=== PATIENT | male | born 1945 | race Caucasian/White ===

== ENCOUNTER 2017-02-25 11:07 | Inpatient (IN) | payer MEDICARE, BC ==
[~2017-02-25] VITALS: Ht 177.8 cm; Wt 117.9 kg
[2017-02-25] MEDS ORDERED: COLACE100 MG/10 ORAL (11:36)
[2017-02-25] MEDS ORDERED: METOPROLOL SUCC50 MG ORAL (11:36)
[2017-02-25] MEDS ORDERED: KLONOPIN1 MG ORAL (11:36)
[2017-02-25] MEDS ORDERED: ZOFRAN4 M3 ORAL (11:36)
[2017-02-25] MEDS ORDERED: VENLAFAXINE HCL25 MG ORAL (11:36)
[2017-02-25] MEDS ORDERED: FLOMAX0.4 MG ORAL (11:36)
[2017-02-25] MEDS ORDERED: AGGRENOX1 CAP ORAL (11:36)
[2017-02-25] MEDS ORDERED: COREG12.5 MG ORAL (11:36)
[2017-02-25] MEDS ORDERED: SEROQUEL25 MG ORAL (11:36)
[2017-02-25] MEDS ORDERED: GLIPIZIDE5 MG ORAL (11:36)
[2017-02-25] MEDS ORDERED: OXYBUTYNIN5 MG/5 M1 PO (11:36)
[2017-02-25] MEDS ORDERED: FUROSEMIDE40 MG ORAL (11:36)
[2017-02-25] MEDS ORDERED: MIRALAX17 G2 ORAL (11:36)
[2017-02-25] MEDS ORDERED: JANUVIA25 MG ORAL (11:36)
[2017-02-25] MEDS ORDERED: ACETAMINOP160 MG/54 ORAL (11:36)
[2017-02-25] MEDS ORDERED: GABAPENTIN100 MG ORAL (11:36)
[2017-02-25] MEDS ORDERED: AMLODIPINE BESY10 MG ORAL (11:36)
[2017-02-25] MEDS ORDERED: LIPITOR20 MG ORAL (11:37)
[2017-02-25] MEDS ORDERED: PREVACID30 MG ORAL (11:37)
[2017-02-25] MEDS ORDERED: NOVOLIN R100 UNIT/1 SUBQ (11:37)
[2017-02-25 11:55] LABS: MEAN CORPUSCULAR HGB CONC 32.3 G/DL (32.0-36.0); MEAN CORPUSCULAR VOLUME 93 FL (80-99); MEAN PLATELET VOLUME 7.5 FL (6.5-10.1); PLATELET COUNT 288 K/UL (150-450); RED BLOOD COUNT 3.29 M/UL (4.70-6.10); WHITE BLOOD COUNT 16.9 K/UL (4.8-10.8)
[2017-02-25 12:00] VITALS: BP 117/58
[2017-02-25] MEDS ORDERED: Vancomycin 1.5 GM in D5W 325 ML IVPB STA (12:00)
[2017-02-25] MEDS ORDERED: Piperacillin/Tazobactam 4.5 GM in NS 110 ML IVPB ONE (12:00)
[2017-02-25 12:11] LABS: TROPONIN I < 0.30 ng/mL (<=0.30)
[2017-02-25 12:12] LABS: BAND NEUTROPHILS % (MANUAL) 0 % (0-8); BASOPHILS % (MANUAL) 0 % (0-2); EOSINOPHILS % (MANUAL) 0 % (0-3); HYPOCHROMASIA 1+; LYMPHOCYTES % (MANUAL) 6 % (20-45); NEUTROPHILS % (MANUAL) 91 % (45-75); PLATELET ESTIMATE ADEQUATE; PLATELET MORPHOLOGY NORMAL; TOTAL CELLS COUNTED 100
[2017-02-25 12:14] LABS: ALANINE AMINOTRANSFERASE 13 U/L (3-41); ALBUMIN/GLOBULIN RATIO 0.6 (1.0-2.7); ANION GAP 25 (5-15); ASPARTATE AMINO TRANSFERASE 21 U/L (5-40); CALCIUM 9.1 mg/dL (8.6-10.2); CARBON DIOXIDE 22 mEQ/L (20-30); CHLORIDE 85 mEQ/L (98-107); CREATININE 10.4 mg/dL (0.7-1.2); HEMOLYSIS 20; POTASSIUM 3.5 mEQ/L (3.4-4.9); SODIUM 132 mEQ/L (135-145); TOTAL PROTEIN 7.4 g/dL (6.6-8.7)
[2017-02-25] MEDS ORDERED: Morphine Sulfate 2mg/ml Inj IVP PRN ×2 (12:15→16:15)
[2017-02-25] MEDS ORDERED: LORazepam Inj 2mg/ml 1ml IV PRN ×2 (12:15→16:00)
[2017-02-25] MEDS ORDERED: Mylanta II UD 30ml ORAL PRN ×2 (12:15→16:00)
[2017-02-25 12:24] LABS: APPEARANCE,URINE SLIGHTLY CLOUDY; KETONES,URINE NEGATIVE (NEGATIVE); LEUKOCYTE ESTERASE ,URINE 3+ (NEGATIVE); NITRITE,URINE POSITIVE (NEGATIVE); PH,URINE 6 (4.5-8.0); PROTEIN,URINE 3+ (NEGATIVE); UROBILINOGEN,URINE NORMAL MG/DL (0.0-1.0)
[2017-02-25 12:39] LABS: BACTERIA,URINE FEW /HPF; SQUAMOUS EPITHELIAL CELL,UR OCCASIONAL /LPF (NONE/OCC); WBC,URINE 30-40 /HPF (0 - 0)
[2017-02-25] MEDS ORDERED: Zosyn 4.5gm inj ONE (12:41)
[2017-02-25] MEDS ORDERED: NS 110 ML ONE (12:41)
[2017-02-25] MEDS ORDERED: Tubing IV Cassette IV ONE (12:41)
--- NOTE | 2017-02-25 12:59 | Emergency Room Report ---
History of Present Illness General Chief Complaint: Altered Level of Consciousness Source: Patient, Medical Record Present Illness HPI 71YOM BIBEMS For "AMS." No other info from EMS. No family members bedside. All my info from review of multiple sheets of info from SNF. PMHx: HTN, anxiety, BPH, CHF?, DM MILAN, obstructive uropathy, HLD, anemia EMS rhytm strip is NSR. No ischemia Allergies: Coded Allergies: No Known Allergies (Unverified , 02/25/17) Patient History Past Medical History: unable to obtain Past Surgical History: unable to obtain Pertinent Family History: unable to obtain Nursing Documentation-PMH Hx Cardiac Problems: Yes - cad , pulm edema Hx Asthma: Yes Hx COPD: Yes Hx Cancer: No Hx Cerebrovascular Accident: No Hx Seizures: No Review of Systems All Other Systems: limited - AMS Physical Exam Vital Signs Date Time Temp Pulse Resp B/P Pulse Ox O2 Delivery O2 Flow Rate FiO2 02/25/17 11:10 97.9 78 16 110/70 100 Non-Rebreather 02/25/17 12:00 4.0 Sp02 EP Interpretation: reviewed, normal General Appearance: normal inspection, well appearing, no apparent distress, alert, GCS 15, non-toxic Head: normocephalic, atraumatic Eyes: bilateral eye EOMI, bilateral eye PERRL ENT: normal ENT inspection, normal pharynx, no angioedema Neck: normal inspection, full range of motion, supple, no bony tend Respiratory: normal inspection, lungs clear, normal breath sounds, no respiratory distress, no retraction, no wheezing Cardiovascular #1: regular rate, rhythm, no edema Gastrointestinal: normal inspection, normal bowel sounds, non tender, soft, no guarding, no hernia, distended Genitourinary: no CVA tenderness Musculoskeletal: normal inspection, back normal, normal range of motion, Maral' s Sign negative Neurologic: normal inspection, alert, oriented x3, responsive, 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 I attest that this information is true, accurate and complete to the best of my knowledge. I understand that any falsification, omission, or concealment of material fact may subject me to administrative, civil, or criminal liability. This patient warrants hospital admission for extreme of age and has a condition that cannot be treated as outpatient. Diagnostic Impression: Primary Impression: Altered level of consciousness Additional Impressions: Hypoglycemia Obstructive uropathy MILAN (acute kidney injury) UTI (urinary tract infection) Qualified Codes: N30.01 - Acute cystitis with hematuria ER Course AMS - Multifactorial - Hypoglycemic in the field. Known diabetic. Resolved with EMS treatment. Normal glucose on CMP. Will continue to monitor here - UTI. Was given broad spectrum Abx. Nitrite positive. Normotensive, no obvious signs of sepsis. Blood and Urine Cx pending - Noted abdomen distention, 1700cc urine released from benjamin insertion. Known obstrutive uropathy. Serum Cr is 10. Will need recheck. No history of CKD or HD. Endorsed to Dr Curran for tele admission at 1230pm. EKG Diagnostic Results Rate: normal, other - LVH Rhythm: NSR ST Segments: no acute changes Rhythm Strip Diag. Results EP Interpretation: yes Rate: 70 Rhythm: NSR, no PVC's, no ectopy Chest X-Ray Diagnostic Results EP Interpretation: Yes Findings: no consolidation, no effusion, no pneumothorax, other - +cardiomegaly Number of Views: 1 Last Vital Signs Date Time Temp Pulse Resp B/P Pulse Ox O2 Delivery O2 Flow Rate FiO2 02/25/17 12:00 99.1 71 24 117/58 95 Simple Mask 4.0 Status: improved Disposition: ADMITTED INPATIENT Condition: Serious Referrals: Shyam PRIEST M.D. (PCP) JASON FLORES M.D. February 25, 2017 12:59
[2017-02-25] MEDS ORDERED: D5 1/2NS 1,000 ML IV SCH ×2 (13:00→16:00)
[2017-02-25 14:00] VITALS: BP 128/60
[2017-02-25 14:00] LABS: MAGNESIUM 2.3 mg/dL (1.7-2.5); PHOSPHORUS 8.4 mg/dL (2.5-4.8); URIC ACID 15.4 mg/dL (3.0-7.5)
[2017-02-25 14:08] LABS: THYROID STIMULATING HORMONE 0.461 uIU/mL (0.300-4.500)
--- NOTE | 2017-02-25 14:22 | Diagnostic Imaging Report ---
Indication: Chest pain Technique: One view of the chest Comparison: none Findings: The heart is mildly enlarged. There is lateral pleural thickening. There is equivocal irregularity of the adjacent ribs There is generalized mild interstitial prominence. There are median sternotomy sutures Impression: Generalized mild interstitial prominence, acuity indeterminate Cardiomegaly Left lateral pleural thickening, possibly on the basis of old rib trauma
[2017-02-25 14:30] LABS: ABG ALLEN TEST POSITIVE; ABG BASE EXCESS 1.2
[2017-02-25 16:00] VITALS: BP 124/66
[2017-02-25] MEDS: NovoLOG Insulin Flexpen SUBQ SCH ×2 (16:30→21:00)
[2017-02-25 19:02] LABS: APPEARANCE,URINE CLOUDY; KETONES,URINE NEGATIVE (NEGATIVE); LEUKOCYTE ESTERASE ,URINE 3+ (NEGATIVE); NITRITE,URINE NEGATIVE (NEGATIVE); PH,URINE 5 (4.5-8.0); PROTEIN,URINE 3+ (NEGATIVE); UROBILINOGEN,URINE NORMAL MG/DL (0.0-1.0)
[2017-02-25 19:16] LABS: AMORPHOUS SEDIMENT,UR MODERATE /LPF; BACTERIA,URINE MANY /HPF; WBC,URINE TNTC /HPF (0 - 0)
[2017-02-25 20:00] VITALS: BP 126/77
[2017-02-25] MEDS ORDERED: Heparin 5000 units/ml inj SUBQ SCH (21:00)
[2017-02-25] MEDS ORDERED: Miralax 17gm pkt ORAL PRN ×2 (21:00)
[2017-02-25] MEDS ORDERED: Zolpidem 5mg tab ORAL PRN ×2 (21:00)
[2017-02-25] MEDS ORDERED: Zosyn 2.25 gm in D5W 55ml IV SCH (22:00)
[2017-02-25] MEDS: Heparin 5000 units/ml inj SUBQ SCH (22:01)
[2017-02-25] MEDS: Piperacillin/Tazobactam 2.25 GM in D5W 55 ML IV SCH (22:27)
--- NOTE | 2017-02-25 22:39 | History and Physical ---
History of Present Illness General Date patient seen: February 25, 2017 Reason for Hospitalization: Altered Level of Consciousness Present Illness HPI 71year old male with hx of HTN, anxiety, BPH, CHF, DM, [facility] resident was brought in with CC of "AMS." His BS was too low. He received D50 in the field. Initial evaluation in ER showed that he has ATN with hyperkalemia. He was somnolent and was not able to give any history Allergies: Coded Allergies: No Known Allergies (Unverified , 02/25/17) Medication History Scheduled Amlodipine Besylate* (Amlodipine Besylate*), 10 MG ORAL DAILY, (Reported) Atorvastatin Calcium* (Lipitor*), 20 MG ORAL BEDTIME, (Reported) Carvedilol (Coreg), 12.5 MG ORAL EVERY 12 HOURS, (Reported) Clonazepam* (Klonopin*), 1 MG ORAL Q12HR, (Reported) Dipyridamole/Aspirin (Aggrenox 25 mg-200 mg Capsule), 1 CAP ORAL DAILY, ( Reported) Docusate Sodium (Docusate Sodium), 100 MG ORAL DAILY, (Reported) Furosemide* (Lasix*), 40 MG ORAL DAILY, (Reported) Gabapentin* (Gabapentin*), 200 MG ORAL HS, (Reported) Glipizide* (Glipizide*), 5 MG ORAL BIDAC, (Reported) Insulin Regular, Human* (Novolin R*), 0 SUBQ .SLIDING SCALE, (Reported) Lansoprazole* (Prevacid*), 30 MG ORAL DAILY, (Reported) Metoprolol Succinate* (Metoprolol Succinate*), 50 MG ORAL DAILY, (Reported) Oxybutynin Chloride (Oxybutynin Chloride), 5 MG PO Q6HR, (Reported) Polyethylene Glycol 3350* (Miralax*), 17 GM ORAL DAILY, (Reported) Quetiapine Fumarate* (Seroquel*), 50 MG ORAL TWICE A DAY, (Reported) Sitagliptin* (Januvia*), 100 MG ORAL DAILY, (Reported) Tamsulosin HCl (Flomax), 0.4 MG ORAL DAILY, (Reported) Venlafaxine Hcl* (Effexor*), 150 MG ORAL BID, (Reported) Scheduled PRN Acetaminophen* (Acetaminophen*), 650 MG ORAL Q6H PRN for Mild Pain/Temp > 100.5, (Reported) Ondansetron* (Zofran*), 4 MG ORAL Q6H PRN for Nausea & Vomiting, (Reported) Patient History Healthcare decision maker Resuscitation status Full Code Advanced Directive on File No Past Medical/Surgical History Past Medical/Surgical History: (1) CAD (coronary artery disease) (2) Diabetes mellitus (3) Obstructive uropathy (4) COPD (chronic obstructive pulmonary disease) Review of Systems All Other Systems: negative except mentioned in HPI Physical Exam General Appearance: WD/WN Lines, tubes and drains: peripheral HEENT: normocephalic, atraumatic Neck: non-tender, normal alignment Respiratory/Chest: chest wall non-tender, normal breath sounds Cardiovascular/Chest: normal peripheral pulses, normal rate, regular rhythm, regularly irregular Abdomen: normal bowel sounds Genitourinary/Rectal: normal genital exam Extremities: normal range of motion Last 24 Hour Vital Signs Date Time Temp Pulse Resp B/P Pulse Ox O2 Delivery O2 Flow Rate FiO2 02/25/17 18:37 70 02/25/17 16:00 97.7 69 24 124/66 100 Simple Mask 10.0 02/25/17 14:00 97.5 73 26 128/60 98 Simple Mask 5.0 02/25/17 13:21 99.1 71 24 117/58 95 Simple Mask 4.0 02/25/17 12:00 99.1 71 24 117/58 95 Simple Mask 4.0 02/25/17 11:10 97.9 78 16 110/70 100 Non-Rebreather Laboratory Tests Test 02/25/17 11:15 02/25/17 12:10 02/25/17 14:15 02/25/17 18:30 White Blood Count 16.9 K/UL (4.8-10.8) H Red Blood Count 3.29 M/UL (4.70-6.10) L Hemoglobin 9.9 G/DL (14.2-18.0) L Hematocrit 30.6 % (42.0-52.0) L Mean Corpuscular Volume 93 FL (80-99) Mean Corpuscular Hemoglobin 30.0 PG (27.0-31.0) Mean Corpuscular Hemoglobin Concent 32.3 G/DL (32.0-36.0) Red Cell Distribution Width 13.0 % (11.6-14.8) Platelet Count 288 K/UL (150-450) Mean Platelet Volume 7.5 FL (6.5-10.1) Neutrophils (%) (Auto) % (45.0-75.0) Lymphocytes (%) (Auto) % (20.0-45.0) Monocytes (%) (Auto) % (1.0-10.0) Eosinophils (%) (Auto) % (0.0-3.0) Basophils (%) (Auto) % (0.0-2.0) Differential Total Cells Counted 100 Neutrophils % (Manual) 91 % (45-75) H Lymphocytes % (Manual) 6 % (20-45) L Monocytes % (Manual) 3 % (1-10) Eosinophils % (Manual) 0 % (0-3) Basophils % (Manual) 0 % (0-2) Band Neutrophils 0 % (0-8) Platelet Estimate Adequate Platelet Morphology Normal Hypochromasia 1+ Sodium Level 132 mEQ/L (135-145) L Potassium Level 3.5 mEQ/L (3.4-4.9) Chloride Level 85 mEQ/L (98-107) L Carbon Dioxide Level 22 mEQ/L (20-30) Anion Gap 25 (5-15) H Blood Urea Nitrogen 90 mg/dL (7-23) H Creatinine 10.4 mg/dL (0.7-1.2) H Estimat Glomerular Filtration Rate mL/min (>60) Glucose Level 170 mg/dL (74-106) H Plasma/Serum Osmolality Pending Uric Acid 15.4 mg/dL (3.0-7.5) H Calcium Level 9.1 mg/dL (8.6-10.2) Phosphorus Level 8.4 mg/dL (2.5-4.8) H Magnesium Level 2.3 mg/dL (1.7-2.5) Total Bilirubin 0.2 mg/dL (0.0-1.2) Aspartate Amino Transf (AST/SGOT) 21 U/L (5-40) Alanine Aminotransferase (ALT/SGPT) 13 U/L (3-41) Alkaline Phosphatase 79 U/L (40-129) Total Creatine Kinase 209 U/L (38-174) H Creatine Kinase MB 6.0 ng/mL (< 6.7) Creatine Kinase MB Relative Index 2.8 Troponin I < 0.30 ng/mL (<=0.30) Total Protein 7.4 g/dL (6.6-8.7) Albumin 3.0 g/dL (3.5-5.2) L Globulin 4.4 g/dL Albumin/Globulin Ratio 0.6 (1.0-2.7) L Thyroid Stimulating Hormone (TSH) 0.461 uIU/mL (0.300-4.500) Free Thyroxine 1.03 ng/dL (0.86-1.85) Free Triiodothyronine Pending Cortisol Pending Urine Color Pale yellow Pale yellow Urine Appearance Slightly cloudy Cloudy Urine pH 6 (4.5-8.0) 5 (4.5-8.0) Urine Specific [place] 1.015 (1.005-1.035) 1.020 (1.005-1.035) Urine Protein 3+ (NEGATIVE) H 3+ (NEGATIVE) H Urine Glucose (UA) 2+ (NEGATIVE) H Negative (NEGATIVE) Urine Ketones Negative (NEGATIVE) Negative (NEGATIVE) Urine Occult Blood 5+ (NEGATIVE) H 5+ (NEGATIVE) H Urine Nitrite Positive (NEGATIVE) H Negative (NEGATIVE) Urine Bilirubin Negative (NEGATIVE) Negative (NEGATIVE) Urine Urobilinogen Normal MG/DL (0.0-1.0) Normal MG/DL (0.0-1.0) Urine Leukocyte Esterase 3+ (NEGATIVE) H 3+ (NEGATIVE) H Urine RBC 5-10 /HPF (0 - 0) H 5-10 /HPF (0 - 0) H Urine WBC 30-40 /HPF (0 - 0) H Tntc /HPF (0 - 0) H Urine Squamous Epithelial Cells Occasional /LPF None /LPF (NONE/OCC) Urine Bacteria Few /HPF (NONE) Many /HPF (NONE) H Urine Opiates Screen Negative (NEGATIVE) Urine Barbiturates Screen Negative (NEGATIVE) Phencyclidine (PCP) Screen Negative (NEGATIVE) Urine Amphetamines Screen Negative (NEGATIVE) Urine Benzodiazepines Screen Positive (NEGATIVE) H Urine Cocaine Screen Negative (NEGATIVE) Urine Marijuana (THC) Screen Negative (NEGATIVE) Arterial Blood pH 7.410 (7.350-7.450) Arterial Blood Partial Pressure CO2 42.0 mmHg (35.0-45.0) Arterial Blood Partial Pressure O2 92.4 mmHg (75.0-100.0) Arterial Blood HCO3 26.0 mmol/L (22.0-26.0) Arterial Blood Oxygen Saturation 95.7 % (92.0-98.0) Arterial Blood Base Excess 1.2 [place] Test Positive Urine Amorphous Sediment Moderate /LPF (NONE) H Urine Eosinophils None seen Urine Osmolality Pending Urine Random Sodium 41 mmol/L Urine Random Chloride 36 mmol/L Urine Potassium Timed 27 mmol/L Height (Feet): 5 Height (Inches): 10.00 Weight (Pounds): 260 Medications Current Medications Medications (Trade) Dose Ordered Sig/Fernando Route PRN Reason Start Time Stop Time Status Last Admin Dose Admin Acetaminophen (Tylenol) 650 mg Q4H PRN ORAL T>100.5 02/25/17 16:00 03/27/17 15:59 Al Hydroxide/Mg Hydroxide (Mylanta II) 30 ml Q6H PRN ORAL dyspepsia 02/25/17 16:00 03/27/17 15:59 Dextrose (Dextrose 50%) STAT PRN IV Hypoglycemia 02/25/17 15:30 03/27/17 15:29 Dextrose/Sodium Chloride 1,000 ml @ 50 mls/hr Q20H IV 02/25/17 16:00 03/27/17 15:59 02/25/17 15:55 Heparin Sodium (Porcine) (Heparin 5000 units/ml) 5,000 units EVERY 12 HOURS SUBQ 02/25/17 21:00 03/27/17 20:59 02/25/17 22:01 Insulin Aspart (NovoLOG) BEFORE MEALS AND HS SUBQ 02/25/17 16:30 03/27/17 16:29 Lorazepam (Ativan 2mg/ml 1ml) 2 mg Q1H PRN IV seizures 02/25/17 16:00 03/04/17 15:59 Morphine Sulfate (Morphine Sulfate) 1 mg Q4H PRN IVP Severe Pain (Pain Scale 7-10) 02/25/17 16:15 03/04/17 16:14 Ondansetron HCl (Zofran) 4 mg Q6H PRN IVP Nausea & Vomiting 02/25/17 16:15 03/27/17 16:14 Piperacillin Sod/ Tazobactam Sod/ Dextrose (Zosyn/D5W) 55 ml @ 110 mls/hr Q8HR IV 02/25/17 22:00 03/04/17 21:59 02/25/17 22:27 Polyethylene Glycol (Miralax) 17 gm HSPRN PRN ORAL Constipation 02/25/17 21:00 03/27/17 20:59 Vancomycin HCl (Vanco rx to dose) 1 ea DAILY PRN MISC Per rx protocol 02/25/17 16:00 03/27/17 15:59 Zolpidem Tartrate (Ambien) 5 mg HSPRN PRN ORAL Insomnia 02/25/17 21:00 03/27/17 20:59 Assessment/Plan Problem List: (1) Acute encephalopathy ICD Codes: G93.40 - Encephalopathy, unspecified SNOMED: 2914890 (2) Sepsis ICD Codes: A41.9 - Sepsis, unspecified organism SNOMED: 46313958 (3) ATN (acute tubular necrosis) ICD Codes: N17.0 - Acute kidney failure with tubular necrosis SNOMED: 96027823 (4) Hypoglycemia ICD Codes: E16.2 - Hypoglycemia, unspecified SNOMED: 253149544 (5) Obstructive uropathy ICD Codes: N13.9 - Obstructive and reflux uropathy, unspecified SNOMED: 7869786 (6) CAD (coronary artery disease) ICD Codes: I25.10 - Atherosclerotic heart disease of [place] coronary artery without angina pectoris SNOMED: 56621878 (7) COPD (chronic obstructive pulmonary disease) ICD Codes: J44.9 - Chronic obstructive pulmonary disease, unspecified SNOMED: 53310025 Assessment/Plan IV fluids renal studies [place] culture sliding scale renal US swallow study pt/ot JUSTO LEBLANC February 25, 2017 22:39
[2017-02-26] VITALS (7 sets, daily range): BP systolic 131–155; BP diastolic 71–88
[2017-02-26] MEDS ORDERED: Piperacillin/Tazobactam 3.375 GM in NS 110 ML IVPB SCH (01:00)
[2017-02-26 05:32] LABS: BASOPHILS % (AUTO) 0.8 % (0.0-2.0); EOSINOPHILS % (AUTO) 1.7 % (0.0-3.0); LYMPHOCYTES % (AUTO) 7.4 % (20.0-45.0); MEAN CORPUSCULAR HEMOGLOBIN 30.3 PG (27.0-31.0); MEAN CORPUSCULAR HGB CONC 32.8 G/DL (32.0-36.0); MEAN CORPUSCULAR VOLUME 92 FL (80-99); MEAN PLATELET VOLUME 7.3 FL (6.5-10.1); MONOCYTES % (AUTO) 6.1 % (1.0-10.0); NEUTROPHILS % (AUTO) 84.1 % (45.0-75.0); PLATELET COUNT 273 K/UL (150-450); RED BLOOD COUNT 3.08 M/UL (4.70-6.10); WHITE BLOOD COUNT 14.1 K/UL (4.8-10.8)
[2017-02-26] MEDS: Piperacillin/Tazobactam 2.25 GM in D5W 55 ML IV SCH ×3 (06:00→21:43)
[2017-02-26] MEDS: NovoLOG Insulin Flexpen SUBQ SCH (06:00)
[2017-02-26 06:11] LABS: ALANINE AMINOTRANSFERASE 14 U/L (3-41); ALBUMIN/GLOBULIN RATIO 0.5 (1.0-2.7); ANION GAP 20 (5-15); ASPARTATE AMINO TRANSFERASE 25 U/L (5-40); CALCIUM 8.6 mg/dL (8.6-10.2); CARBON DIOXIDE 24 mEQ/L (20-30); CHLORIDE 96 mEQ/L (98-107); CREATININE 6.7 mg/dL (0.7-1.2); HEMOLYSIS 1; POTASSIUM 3.2 mEQ/L (3.4-4.9); SODIUM 140 mEQ/L (135-145); TOTAL PROTEIN 6.5 g/dL (6.6-8.7)
[2017-02-26 08:11] LABS: CORTISOL LC 14.6 ug/dL (.); FREE TRIIODOTHYRONINE 1.4 pg/mL (2.0-4.4)
[2017-02-26] MEDS: Heparin 5000 units/ml inj SUBQ SCH ×2 (08:28→20:31)
--- NOTE | 2017-02-26 10:15 | Consultation ---
Consult Note Consult Note Chief Complaint: Altered Level of Consciousness 71YOM BIBEMS For "AMS." No other info from EMS. No family members bedside. All my info from review of multiple sheets of info from SNF. PMHx: HTN, anxiety, BPH, CHF?, DM MILAN, obstructive uropathy, HLD, anemia EMS rhytm strip is NSR. No ischemia No Known Allergies (Unverified , 02/25/17) Hx Cardiac Problems: Yes - cad , pulm edema Hx Asthma: Yes Hx COPD: Yes after benjamin change , 1700 urine out Assessment/Plan Primary Impression: Altered level of consciousness : uremia and Hypoglycemia MILAN (acute kidney injury) due to urinary outlet obstruction UTI (urinary tract infection) HTN DM Psychosis Plan: Slow Hydrate- Keep BS and BP in check Monitor renal parameters Avoid Nephrotoxics Per orders JULIETA LEON February 26, 2017 10:15
--- NOTE | 2017-02-26 10:25 | Pulmonology Progress Note ---
Assessment/Plan Problems: (1) Acute encephalopathy (2) Sepsis (3) ATN (acute tubular necrosis) (4) Hypoglycemia (5) Obstructive uropathy (6) CAD (coronary artery disease) (7) COPD (chronic obstructive pulmonary disease) Assessment/Plan IV fluids renal studies pending improving [place] culture ID, Renal, Urology evaluation dvt prophylaxis Med/surg Subjective ROS Limited/Unobtainable: No Interval Events: talks one or two words, follows commands Allergies: Coded Allergies: No Known Allergies (Unverified , 02/25/17) Objective Last 24 Hour Vital Signs Date Time Temp Pulse Resp B/P Pulse Ox O2 Delivery O2 Flow Rate FiO2 02/26/17 08:00 99.8 86 24 144/71 94 Simple Mask 94 02/26/17 04:00 77 02/26/17 04:00 99.4 82 24 131/71 95 Non-Rebreather 02/26/17 00:00 75 02/26/17 00:00 98.2 76 20 145/71 100 Simple Mask 5.0 02/25/17 20:00 97.4 70 24 126/77 100 Simple Mask 5.0 02/25/17 20:00 70 02/25/17 18:37 70 02/25/17 16:00 97.7 69 24 124/66 100 Simple Mask 10.0 02/25/17 14:00 97.5 73 26 128/60 98 Simple Mask 5.0 02/25/17 13:21 99.1 71 24 117/58 95 Simple Mask 4.0 02/25/17 12:00 99.1 71 24 117/58 95 Simple Mask 4.0 02/25/17 11:10 97.9 78 16 110/70 100 Non-Rebreather Intake and Output 02/25/17 02/26/17 19:00 07:00 Intake Total 260 ml 820 ml Output Total 2250 ml 500 ml Balance -1990 ml 320 ml Intake IV Total 260 ml 820 ml Output Urine Total 2250 ml 500 ml General Appearance: WD/WN HEENT: normocephalic, atraumatic Respiratory/Chest: chest wall non-tender, lungs clear Cardiovascular: normal peripheral pulses, normal rate Abdomen: normal bowel sounds, soft, non tender, no organomegaly Extremities: no cyanosis, no clubbing Skin: no lesions 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/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 normal, no motor/sensory deficits, normal mood/affect Lymphatic: no groin adenopathy Musculoskeletal: normal muscle bulk Microbiology Date/Time Source Procedure Growth Status 02/25/17 18:30 Urine,Clean Catch Urine Culture - Preliminary NO GROWTH Resulted 02/25/17 12:10 Urine,Clean Catch Urine Culture - Preliminary NO GROWTH Resulted Laboratory Tests 02/25/17 11:15: White Blood Count 16.9H, Red Blood Count 3.29L, Hemoglobin 9.9L, Hematocrit 30.6L, Mean Corpuscular Volume 93, Mean Corpuscular Hemoglobin 30.0, Mean Corpuscular Hemoglobin Concent 32.3, Red Cell Distribution Width 13.0, Platelet Count 288, Mean Platelet Volume 7.5, Neutrophils (%) (Auto) , Lymphocytes (%) ( Auto) , Monocytes (%) (Auto) , Eosinophils (%) (Auto) , Basophils (%) (Auto) , Differential Total Cells Counted 100, Neutrophils % (Manual) 91H, Lymphocytes % (Manual) 6L, Monocytes % (Manual) 3, Eosinophils % (Manual) 0, Basophils % ( Manual) 0, Band Neutrophils 0, Platelet Estimate Adequate, Platelet Morphology Normal, Hypochromasia 1+, Sodium Level 132L, Potassium Level 3.5, Chloride Level 85L, Carbon Dioxide Level 22, Anion Gap 25H, Blood Urea Nitrogen 90H, Creatinine 10.4H, Estimat Glomerular Filtration Rate , Glucose Level 170H, Plasma/Serum Osmolality [Pending], Uric Acid 15.4H, Calcium Level 9.1, Phosphorus Level 8.4H, Magnesium Level 2.3, Total Bilirubin 0.2, Aspartate Amino Transf (AST/SGOT) 21, Alanine Aminotransferase (ALT/SGPT) 13, Alkaline Phosphatase 79, Total Creatine Kinase 209H, Creatine Kinase MB 6.0, Creatine Kinase MB Relative Index 2.8, Troponin I < 0.30, Total Protein 7.4, Albumin 3.0L , Globulin 4.4, Albumin/Globulin Ratio 0.6L, Thyroid Stimulating Hormone (TSH) 0.461, Free Thyroxine 1.03, Free Triiodothyronine 1.4L, Cortisol 14.6 02/25/17 12:10: Urine Color Pale yellow, Urine Appearance Slightly cloudy, Urine pH 6, Urine Specific [place] 1.015, Urine Protein 3+H, Urine Glucose (UA) 2+H, Urine Ketones Negative, Urine Occult Blood 5+H, Urine Nitrite PositiveH, Urine Bilirubin Negative, Urine Urobilinogen Normal, Urine Leukocyte Esterase 3+H, Urine RBC 5-10H, Urine WBC 30-40H, Urine Squamous Epithelial Cells Occasional, Urine Bacteria Few, Urine Opiates Screen Negative, Urine Barbiturates Screen Negative, Phencyclidine (PCP) Screen Negative, Urine Amphetamines Screen Negative, Urine Benzodiazepines Screen PositiveH, Urine Cocaine Screen Negative , Urine Marijuana (THC) Screen Negative 02/25/17 14:15: Arterial Blood pH 7.410, Arterial Blood Partial Pressure CO2 42.0, Arterial Blood Partial Pressure O2 92.4, Arterial Blood HCO3 26.0, Arterial Blood Oxygen Saturation 95.7, Arterial Blood Base Excess 1.2, Sterling Test Positive 02/25/17 18:30: Urine Color Pale yellow, Urine Appearance Cloudy, Urine pH 5, Urine Specific [place] 1.020, Urine Protein 3+H, Urine Glucose (UA) Negative, Urine Ketones Negative, Urine Occult Blood 5+H, Urine Nitrite Negative, Urine Bilirubin Negative, Urine Urobilinogen Normal, Urine Leukocyte Esterase 3+H, Urine RBC 5- 10H, Urine WBC TntcH, Urine Squamous Epithelial Cells None, Urine Bacteria ManyH , Urine Amorphous Sediment ModerateH, Urine Eosinophils None seen, Urine Osmolality [Pending], Urine Random Sodium 41, Urine Random Chloride 36, Urine Potassium Timed 27 02/26/17 03:45: White Blood Count 14.1H, Red Blood Count 3.08L, Hemoglobin 9.3L, Hematocrit 28.5L, Mean Corpuscular Volume 92, Mean Corpuscular Hemoglobin 30.3, Mean Corpuscular Hemoglobin Concent 32.8, Red Cell Distribution Width 13.0, Platelet Count 273, Mean Platelet Volume 7.3, Neutrophils (%) (Auto) 84.1H, Lymphocytes ( %) (Auto) 7.4L, Monocytes (%) (Auto) 6.1, Eosinophils (%) (Auto) 1.7, Basophils (%) (Auto) 0.8, Sodium Level 140, Potassium Level 3.2L, Chloride Level 96L, Carbon Dioxide Level 24, Anion Gap 20H, Blood Urea Nitrogen 82H, Creatinine 6.7H , Estimat Glomerular Filtration Rate , Glucose Level 63#L, Calcium Level 8.6, Total Bilirubin 0.3, Aspartate Amino Transf (AST/SGOT) 25, Alanine Aminotransferase (ALT/SGPT) 14, Alkaline Phosphatase 91, Total Protein 6.5L, Albumin 2.3L, Globulin 4.2, Albumin/Globulin Ratio 0.5L Current Medications Medications (Trade) Dose Ordered Sig/Fernando Route PRN Reason Start Time Stop Time Status Last Admin Dose Admin Acetaminophen (Tylenol) 650 mg Q4H PRN ORAL T>100.5 02/25/17 16:00 03/27/17 15:59 Al Hydroxide/Mg Hydroxide (Mylanta II) 30 ml Q6H PRN ORAL dyspepsia 02/25/17 16:00 03/27/17 15:59 Dextrose (Dextrose 50%) STAT PRN IV Hypoglycemia 02/25/17 15:30 03/27/17 15:29 Dextrose/Sodium Chloride 1,000 ml @ 50 mls/hr Q20H IV 02/25/17 16:00 03/27/17 15:59 02/25/17 15:55 Heparin Sodium (Porcine) (Heparin 5000 units/ml) 5,000 units EVERY 12 HOURS SUBQ 02/25/17 21:00 03/27/17 20:59 02/26/17 08:28 Insulin Aspart (NovoLOG) BEFORE MEALS AND HS SUBQ 02/25/17 16:30 03/27/17 16:29 Lorazepam (Ativan 2mg/ml 1ml) 2 mg Q1H PRN IV seizures 02/25/17 16:00 03/04/17 15:59 Morphine Sulfate (Morphine Sulfate) 1 mg Q4H PRN IVP Severe Pain (Pain Scale 7-10) 02/25/17 16:15 03/04/17 16:14 Ondansetron HCl (Zofran) 4 mg Q6H PRN IVP Nausea & Vomiting 02/25/17 16:15 03/27/17 16:14 Piperacillin Sod/ Tazobactam Sod/ Dextrose (Zosyn/D5W) 55 ml @ 110 mls/hr Q8HR IV 02/25/17 22:00 03/04/17 21:59 02/26/17 06:00 Polyethylene Glycol (Miralax) 17 gm HSPRN PRN ORAL Constipation 02/25/17 21:00 03/27/17 20:59 Vancomycin HCl (Vanco rx to dose) 1 ea DAILY PRN MISC Per rx protocol 02/25/17 16:00 03/27/17 15:59 Zolpidem Tartrate (Ambien) 5 mg HSPRN PRN ORAL Insomnia 02/25/17 21:00 03/27/17 20:59 JUSTO LEBLANC February 26, 2017 10:25
[2017-02-26] MEDS ORDERED: KCl 10% 40mEq/30ml liquid ORAL ONE (11:00)
--- NOTE | 2017-02-26 11:20 | Consultation ---
Consult Note Consult Note Id Dic # [id number] MARISOL CAPPS M.D. February 26, 2017 11:20
[2017-02-26] MEDS ORDERED: D5 1/2NS 1,000 ML IV SCH (12:00)
[2017-02-26] MEDS ORDERED: Pantoprazole Inj IVP SCH (12:45)
--- NOTE | 2017-02-26 13:30 | Diagnostic Imaging Report ---
Indication: Abnormal renal function tests Technique: Grayscale and duplex images of the kidneys, retroperitoneum, and bladder were obtained. Comparison:None Findings: Right kidney measures 12.1 cm in length. Left kidney measures 11.4 cm in length. Both kidneys demonstrate normal echogenicity. No hydronephrosis. There are small renal cysts bilaterally. Normal inferior vena cava. Bladder is nearly empty, contains a Melo catheter. 3.2 cm diameter of increased echogenicity inferiorly and posteriorly of the bladder could represent prominent prostate but is nonspecific in appearance. Impression: Negative for hydronephrosis Small bilateral renal cysts incidentally noted Empty bladder containing a Melo catheter Echogenic area in the posterior wall of the bladder, suspect indentation by prominent prostate but other pathology not excludable.
[2017-02-26] MEDS ORDERED: LORazepam Inj 2mg/ml 1ml IV PRN (17:00)
[2017-02-26] MEDS: D5 1/2NS 1,000 ML IV SCH (17:53)
--- NOTE | 2017-02-26 18:36 | Cardiology Report ---
APPROVED REPORT EKG Measurement Heart [id number] DC [id number] Normal sinus rhythm Left ventricular hypertrophy with QRS widening Nonspecific ST abnormality Abnormal ECG
--- NOTE | 2017-02-26 19:34 | Cardiology Report ---
APPROVED REPORT EXAM: Two-dimensional and M-mode echocardiogram with Doppler and color Doppler. INDICATION Left ventricular function M-Mode DIMENSIONS IVSd1.1 (0.7-1.1cm)Left Atrium (MM)3.7 (1.6-4.0cm) LVDd5.2 (3.5-5.6cm)Aortic Root2.9 (2.0-3.7cm) PWd1.1 (0.7-1.1cm)Aortic Cusp Exc.2.0 (1.5-2.0cm) LVDs3.4 (2.5-4.0cm) PWs1.8 cm Technically difficult study due to poor acoustic windows. Study quality precludes accurate assessment of regional wall motion. Normal left ventricular chamber size, systolic function and wall motion. Left ventricular ejection fraction estimated to be 55-60%. No evidence of ventricular hypertrophy. Small pericardial effusion. Severe right atrial enlargement. Moderate right ventricular enlargement. Left atrial chamber sizes are within normal limits. Mild focal aortic valve sclerosis with adequate cusp excursion. Mildly thickened mitral valve leaflets with normal excursion. Mild mitral annulus and aortic root calcification. Pulmonic valve not well visualized. Normal tricuspid valve structure. IVC at normal size with physiologic collapse. A color flow and spectral Doppler study was performed and revealed: Mild to moderate aortic regurgitation. Trace mitral regurgitation. Mitral diastolic velocities suggest reduced left ventricular relaxation (Grade I). Trace tricuspid regurgitation. Tricuspid systolic velocities suggests peak right ventricular systolic pressure of 12 mmHg. No pulmonic regurgitation present.
[2017-02-26] MEDS: Atorvastatin 20mg tab ORAL SCH (20:29)
[2017-02-26] MEDS: Carvedilol 12.5mg tab ORAL SCH (20:29)
[2017-02-26] MEDS ORDERED: Atorvastatin 20mg tab ORAL SCH (21:00)
[2017-02-26] MEDS ORDERED: Carvedilol 12.5mg tab ORAL SCH (21:00)
[2017-02-26] MEDS ORDERED: Miralax 17gm pkt ORAL PRN (21:00)
[2017-02-26] MEDS ORDERED: Zolpidem 5mg tab ORAL PRN (21:00)
--- NOTE | 2017-02-26 22:02 | Consultation ---
DATE OF CONSULTATION: 02/26/2017 INFECTIOUS DISEASE CONSULTATION REFERRING PHYSICIAN: Richard Curran M.D. REASON FOR CONSULTATION: Evaluation of the patient for sepsis, positive urinary tract infection, and antibiotic management. HISTORY OF PRESENT ILLNESS: The patient is a 71-year-old male with multiple medical problems, who was brought to the hospital for altered level of consciousness. Fortunately, there is no other source of infection available at this point. The patient admitted with sepsis. The patient was found to have cloudy urine. The patient will be started on IV antibiotics and an Infectious Disease consultation has been requested for further evaluation of the patient and antibiotic management. PAST MEDICAL HISTORY: 1. History of CAD. 2. CHF. 3. COPD. 4. Asthma. 5. Diabetes. 6. Depression. MEDICATIONS: Zosyn and vancomycin. ALLERGIES: No known drug allergies. SOCIAL HISTORY: Unobtainable. The patient is a poor historian. FAMILY HISTORY: Unavailable. PHYSICAL EXAMINATION: VITAL SIGNS: Temperature 99.8 degrees, blood pressure 144/75, pulse 66, and respiratory rate 18. HEENT: Mild pale conjunctivae. No icterus. NECK: No lymphadenopathy. CHEST: Coarse breathing sounds. HEART: S1 and S2. ABDOMEN: Soft. Obese. EXTREMITIES: No cyanosis. NEUROLOGIC: Awake. LABORATORY DATA: White blood cells 14, hemoglobin 9.3, and platelets 273,000. UA, too numerous to count white blood cells, 5 to 10 red blood cells. BUN 82 and creatinine 6.7. ALT, AST, and alkaline phosphatase are unremarkable. Urine culture is pending. Chest x-ray, left lateral pleural effusion. ASSESSMENT: The patient is a 71-year-old male with multiple medical problems, who has been admitted to this medical center for alerted level of consciousness and generalized weakness, most likely source is urinary tract infection, underlying pneumonia cannot be ruled out, also the possibility of bacteremia. PLAN: 1. We will continue the patient on IV vancomycin and Zosyn. 2. We will monitor CBC. 3. Monitor BMP. 4. Monitor cultures (blood, urine, and sputum). 5. Monitor the chest x-ray. 6. Monitor the patient's clinical course and labs, and based on those we will do further recommendations. Thank you, Dr. Curran, for allowing me to participate in the care of this patient. I will follow the patient with you during this hospitalization. Dileep Cao M.D. DR: Mo JOB#: [id number] CC:
[2017-02-27 04:00] VITALS: BP 147/82
--- NOTE | 2017-02-27 04:47 | Consultation ---
DATE OF CONSULTATION: 02/26/2017 The patient was seen on 02/26/2017 at 9 o'clock in the evening. CONSULTING PHYSICIAN: Heriberto Gallegos M.D. REFERRING PHYSICIAN: Richard Curran M.D. REASON FOR CONSULTATION: Obstructive uropathy. HISTORY OF PRESENT ILLNESS: I was asked by Dr. Curran to see this 71-year-old male with acute renal failure and BPH. He was admitted for the altered mental status to the emergency room. Melo catheter was placed. The patient had hydration and his condition slightly improved. He is currently with the Melo catheter. He has a history of BPH, congestive heart failure, and diabetes mellitus. He lives in a group home. The patient is not a good historian and does not respond to commands. So, I was not able to obtain his review of symptoms or any other family history. PAST MEDICAL HISTORY: As above. MEDICATIONS: Amlodipine, atorvastatin, carvedilol, clonazepam, furosemide, glipizide, tamsulosin, and some other general medications. PHYSICAL EXAMINATION: VITAL SIGNS: He is afebrile. His vital signs are stable. LUNGS: Clear to auscultation. CARDIOVASCULAR: Regular rate and rhythm. ABDOMEN: Soft. Normal bowel sounds. GENITOURINARY: Prostate is mildly enlarged, 50 g. Nontender. Melo catheter is in place with yellow urine. LABORATORY DATA: Laboratory data was reviewed. His white count has improved from 16.9 to 14.1. His hemoglobin is 9.3. His hematocrit is 28.5. His chemistry showed also subtle improve in his creatinine, went down from 10.4 yesterday to 6.7 today. His renal ultrasound showed no evidence of hydronephrosis bilaterally. His urine test showed specific gravity is 1.020 and 5 to 10 red blood cells and too numerous to count white blood cells. ASSESSMENT AND PLAN: The patient has benign prostatic hyperplasia and acute renal failure. Because of the absence hydronephrosis, I am not 100% convinced that it is an obstructive uropathy. He may have a prerenal azotemia or renal azotemia. However, obstructive component cannot be completely ruled out. He is currently defervescing with IV hydration and Melo catheter. I would recommend to continue tamsulosin, keep the Melo catheter until creatinine will stabilize, and we will re-study the patient then and make a decision in terms of his future management lower urinary tract. Thank you for the consult, and I will follow the patient with you. Heriberto Gallegos M.D. DR: ZENOBIA JOB#: [id number] CC:
[2017-02-27] MEDS: Piperacillin/Tazobactam 2.25 GM in D5W 55 ML IV SCH ×3 (05:55→23:05)
[2017-02-27] MEDS: D5 1/2NS 1,000 ML IV SCH ×2 (06:20→06:26)
[2017-02-27 06:40] LABS: INR 1.2 (0.9-1.1); PROTHROMBIN TIME 12.6 SEC (9.30-11.50)
[2017-02-27 06:55] LABS: MEAN CORPUSCULAR HEMOGLOBIN 30.5 PG (27.0-31.0); MEAN CORPUSCULAR HGB CONC 32.9 G/DL (32.0-36.0); MEAN CORPUSCULAR VOLUME 93 FL (80-99); MEAN PLATELET VOLUME 6.9 FL (6.5-10.1); PLATELET COUNT 321 K/UL (150-450); RED BLOOD COUNT 3.54 M/UL (4.70-6.10); WHITE BLOOD COUNT 13.8 K/UL (4.8-10.8)
[2017-02-27 07:03] LABS: HEMOGLOBIN A1C 6.9 % (< 6.0)
[2017-02-27 07:15] LABS: ALANINE AMINOTRANSFERASE 21 U/L (3-41); ALBUMIN/GLOBULIN RATIO 0.6 (1.0-2.7); ANION GAP 18 (5-15); ASPARTATE AMINO TRANSFERASE 23 U/L (5-40); CALCIUM 9.6 mg/dL (8.6-10.2); CARBON DIOXIDE 28 mEQ/L (20-30); CHLORIDE 96 mEQ/L (98-107); CHOLESTEROL 147 mg/dL (< 200); CHOLESTEROL/HDL RATIO 4.5 (3.3-4.4); CREATININE 2.9 mg/dL (0.7-1.2); LACTATE DEHYDROGENASE 231 U/L (135-230); LDL CHOLESTEROL (CALC.) 90 mg/dL (60-99); POTASSIUM 3.2 mEQ/L (3.4-4.9); SODIUM 142 mEQ/L (135-145); TOTAL PROTEIN 7.5 g/dL (6.6-8.7)
[2017-02-27 07:16] LABS: HEMOLYSIS 21; IRON 38 ug/dL (59-158); TOTAL IRON BINDING CAPACITY 160 ug/dL (250-400)
[2017-02-27 07:35] LABS: CRP QUANT 32.4 mg/dL (< 0.5); MAGNESIUM 2.1 mg/dL (1.7-2.5); URIC ACID 12.3 mg/dL (3.0-7.5)
[2017-02-27 07:39] LABS: FERRITIN 688 ng/mL (10-230)
[2017-02-27 07:47] LABS: ANISOCYTOSIS 1+; BAND NEUTROPHILS % (MANUAL) 0 % (0-8); BASOPHILS % (MANUAL) 2 % (0-2); EOSINOPHILS % (MANUAL) 4 % (0-3); HYPOCHROMASIA 1+; LYMPHOCYTES % (MANUAL) 10 % (20-45); NEUTROPHILS % (MANUAL) 79 % (45-75); PLATELET ESTIMATE ADEQUATE; PLATELET MORPHOLOGY NORMAL; TOTAL CELLS COUNTED 100
[2017-02-27 08:29] LABS: ERYTHROCYTE SEDIMENTATION RATE 100 MM/HR (0-20)
[2017-02-27 08:43] LABS: PATH BLOOD SMEAR/OMC SENT TO PATHOLOGIST
[2017-02-27] MEDS ORDERED: KCl 10% 40mEq/30ml liquid ORAL SCH ×2 (09:00)
[2017-02-27] MEDS ORDERED: Tamsulosin 0.4mg cap ORAL SCH (09:00)
[2017-02-27] MEDS ORDERED: Aggrenox Cap ORAL SCH (09:00)
[2017-02-27 09:35] VITALS: BP 172/99
[2017-02-27] MEDS: Heparin 5000 units/ml inj SUBQ SCH ×2 (09:35→21:45)
[2017-02-27] MEDS: Pantoprazole Inj IVP SCH (09:36)
[2017-02-27] MEDS: Tamsulosin 0.4mg cap ORAL SCH (09:37)
[2017-02-27] MEDS: Carvedilol 12.5mg tab ORAL SCH ×2 (09:48→21:39)
[2017-02-27 09:49] LABS: RETICULOCYTE COUNT 2.4 % (0.0-2.0)
[2017-02-27] MEDS: Aggrenox Cap ORAL SCH (09:49)
[2017-02-27] MEDS: Morphine Sulfate 2mg/ml Inj IVP PRN (10:22)
[2017-02-27] MEDS ORDERED: NS 275ml ONE (10:38)
[2017-02-27] MEDS ORDERED: Tubing IV Secondary IV ONE (10:38)
[2017-02-27 12:48] VITALS: BP 132/73
[2017-02-27] MEDS ORDERED: Vancomycin 1.5 GM in D5W 325 ML IVPB ONE (13:00)
--- NOTE | 2017-02-27 13:19 | General Progress Note ---
Assessment/Plan Status: stable - from renal stand Assessment/Plan Primary Impression: Altered level of consciousness : uremia and Hypoglycemia MILAN (acute kidney injury) due to urinary outlet obstruction UTI (urinary tract infection) HTN DM Psychosis Plan: Slow Hydrate- Keep BS and BP in check Monitor renal parameters Avoid Nephrotoxics resume anti Psych and oral hypoglycemica Per orders Subjective ROS Limited/Unobtainable: No Constitutional: Reports: malaise, other - agitated at times Allergies: Coded Allergies: No Known Allergies (Unverified , 02/25/17) Objective Last 24 Hour Vital Signs Date Time Temp Pulse Resp B/P Pulse Ox O2 Delivery O2 Flow Rate FiO2 02/27/17 12:48 97.0 91 21 132/73 92 Room Air 91 02/27/17 09:48 172/99 02/27/17 09:48 91 172/99 02/27/17 09:35 172/99 02/27/17 08:59 97.9 97 21 93 Simple Mask 97 02/27/17 04:00 97.7 83 19 147/82 99 Simple Mask 5.0 02/26/17 23:48 98.0 75 18 149/82 100 Simple Mask 5.0 02/26/17 20:29 85 155/88 02/26/17 20:00 98.9 85 22 155/88 97 Simple Mask 5.0 02/26/17 16:00 99.7 83 24 148/77 96 Simple Mask 5.0 Intake and Output 02/26/17 02/27/17 18:59 06:59 Intake Total 325 ml 985 ml Output Total 2250 ml 1400 ml Balance -1925 ml -415 ml Intake Oral 50 ml IV Total 325 ml 935 ml Output Urine Total 2250 ml 1400 ml # Bowel Movements 3 Laboratory Tests 02/26/17 16:30: Urine Random Sodium 60 02/26/17 23:30: Stool Occult Blood Negative 02/27/17 05:35: White Blood Count 13.8H, Red Blood Count 3.54L, Hemoglobin 10.8L, Hematocrit 32.8L, Mean Corpuscular Volume 93, Mean Corpuscular Hemoglobin 30.5, Mean Corpuscular Hemoglobin Concent 32.9, Red Cell Distribution Width 13.0, Platelet Count 321, Mean Platelet Volume 6.9, Neutrophils (%) (Auto) , Lymphocytes (%) ( Auto) , Monocytes (%) (Auto) , Eosinophils (%) (Auto) , Basophils (%) (Auto) , Differential Total Cells Counted 100, Neutrophils % (Manual) 79H, Lymphocytes % (Manual) 10L, Monocytes % (Manual) 5, Eosinophils % (Manual) 4H, Basophils % ( Manual) 2, Band Neutrophils 0, Platelet Estimate Adequate, Platelet Morphology Normal, Hypochromasia 1+, Anisocytosis 1+, Erythrocyte Sedimentation Rate 100H, Reticulocyte Count 2.4H, Prothrombin Time 12.6H, Prothromb Time International Ratio 1.2H, Activated Partial Thromboplast Time 33, Sodium Level 142, Potassium Level 3.2L, Chloride Level 96L, Carbon Dioxide Level 28, Anion Gap 18H, Blood Urea Nitrogen 59H, Creatinine 2.9#H, Estimat Glomerular Filtration Rate , Glucose Level 411#H, Hemoglobin A1c 6.9H, Uric Acid 12.3H, Calcium Level 9.6, Phosphorus Level 3.0, Magnesium Level 2.1, Iron Level 38L, Total Iron Binding Capacity 160L, Percent Iron Saturation 24, Unsaturated Iron Binding 122, Ferritin 688H, Total Bilirubin 0.4, Gamma Glutamyl Transpeptidase 52, Aspartate Amino Transf (AST/SGOT) 23, Alanine Aminotransferase (ALT/SGPT) 21, Alkaline Phosphatase 95, Lactate Dehydrogenase 231H, Total Creatine Kinase 103, C- Reactive Protein, Quantitative 32.4H, Pro-B-Type Natriuretic Peptide 1406H, Total Protein 7.5, Albumin 2.9L, Globulin 4.6, Albumin/Globulin Ratio 0.6L, Triglycerides Level 120, Cholesterol Level 147, LDL Cholesterol 90, HDL Cholesterol 33, Cholesterol/HDL Ratio 4.5H, Carcinoembryonic Antigen 2.2, Vitamin B12 Level 1637H, Folate [Pending], Thyroid Stimulating Hormone (TSH) 1.280, Random Vancomycin Level 7.3 02/27/17 06:00: Urine Eosinophils Rare Height (Feet): 5 Height (Inches): 10.00 Weight (Pounds): 260 General Appearance: no apparent distress, lethargic Neck: stiff neck Cardiovascular: tachycardia Respiratory/Chest: decreased breath sounds Abdomen: distended Objective other PE not changed JULIETA LEON February 27, 2017 13:19
[2017-02-27 16:09] VITALS: BP 150/86
[2017-02-27] MEDS: NovoLOG Insulin Flexpen SUBQ SCH ×2 (17:09→21:43)
[2017-02-27] MEDS: Docusate 100mg/10ml Liq ORAL SCH (18:30)
[2017-02-27 20:00] VITALS: BP 131/64
[2017-02-27] MEDS: Atorvastatin 20mg tab ORAL SCH (21:39)
--- NOTE | 2017-02-27 23:51 | Pulmonology Progress Note ---
Assessment/Plan Problems: (1) Acute encephalopathy (2) Sepsis (3) ATN (acute tubular necrosis) (4) Hypoglycemia (5) Obstructive uropathy (6) CAD (coronary artery disease) (7) COPD (chronic obstructive pulmonary disease) Assessment/Plan IV fluids, watch electrolytes renal studies pending improving [place] culture, all negative so far ID, Renal, Urology evaluation dvt prophylaxis Med/surg Subjective ROS Limited/Unobtainable: Yes Interval Events: awake, looks comfortable Allergies: Coded Allergies: No Known Allergies (Unverified , 02/25/17) Objective Last 24 Hour Vital Signs Date Time Temp Pulse Resp B/P Pulse Ox O2 Delivery O2 Flow Rate FiO2 02/27/17 21:39 93 131/64 02/27/17 20:00 98.1 93 19 131/64 97 Simple Mask 4.0 02/27/17 16:09 97.7 98 21 150/86 93 Room Air 98 02/27/17 12:48 97.0 91 21 132/73 92 Room Air 91 02/27/17 09:48 172/99 02/27/17 09:48 91 172/99 02/27/17 09:35 172/99 02/27/17 08:59 97.9 97 21 93 Simple Mask 97 02/27/17 04:00 97.7 83 19 147/82 99 Simple Mask 5.0 Intake and Output 02/26/17 02/27/17 19:00 07:00 Intake Total 350 ml 860 ml Output Total 2750 ml 900 ml Balance -2400 ml -40 ml Intake Oral 50 ml IV Total 300 ml 860 ml Output Urine Total 2750 ml 900 ml # Bowel Movements 3 Objective General Appearance: WD/WN HEENT: normocephalic, atraumatic Respiratory/Chest: chest wall non-tender, lungs clear Cardiovascular: normal peripheral pulses, normal rate Abdomen: normal bowel sounds, soft, non tender Genitourinary: normal external genitalia Extremities: no cyanosis, edema Lymphatic: no neck adenopathy Microbiology Date/Time Source Procedure Growth Status 02/25/17 11:25 Blood Blood Culture - Preliminary NO GROWTH AFTER 24 HOURS Resulted 02/25/17 11:15 Blood Blood Culture - Preliminary NO GROWTH AFTER 24 HOURS Resulted 02/25/17 12:10 Nasal Nares MRSA Culture - Final Staphylococcus Aureus - Mrsa Complete 02/25/17 18:30 Urine,Clean Catch Urine Culture - Preliminary Resulted 02/25/17 12:10 Urine,Clean Catch Urine Culture - Preliminary Resulted 02/25/17 12:10 Rectum VRE Culture - Final NO VANCOMYCIN RESISTANT ENTEROCOCCUS ... Complete Laboratory Tests 02/27/17 05:35: White Blood Count 13.8H, Red Blood Count 3.54L, Hemoglobin 10.8L, Hematocrit 32.8L, Mean Corpuscular Volume 93, Mean Corpuscular Hemoglobin 30.5, Mean Corpuscular Hemoglobin Concent 32.9, Red Cell Distribution Width 13.0, Platelet Count 321, Mean Platelet Volume 6.9, Neutrophils (%) (Auto) , Lymphocytes (%) ( Auto) , Monocytes (%) (Auto) , Eosinophils (%) (Auto) , Basophils (%) (Auto) , Differential Total Cells Counted 100, Neutrophils % (Manual) 79H, Lymphocytes % (Manual) 10L, Monocytes % (Manual) 5, Eosinophils % (Manual) 4H, Basophils % ( Manual) 2, Band Neutrophils 0, Platelet Estimate Adequate, Platelet Morphology Normal, Hypochromasia 1+, Anisocytosis 1+, Erythrocyte Sedimentation Rate 100H, Reticulocyte Count 2.4H, Prothrombin Time 12.6H, Prothromb Time International Ratio 1.2H, Activated Partial Thromboplast Time 33, Sodium Level 142, Potassium Level 3.2L, Chloride Level 96L, Carbon Dioxide Level 28, Anion Gap 18H, Blood Urea Nitrogen 59H, Creatinine 2.9#H, Estimat Glomerular Filtration Rate , Glucose Level 411#H, Hemoglobin A1c 6.9H, Uric Acid 12.3H, Calcium Level 9.6, Phosphorus Level 3.0, Magnesium Level 2.1, Iron Level 38L, Total Iron Binding Capacity 160L, Percent Iron Saturation 24, Unsaturated Iron Binding 122, Ferritin 688H, Total Bilirubin 0.4, Gamma Glutamyl Transpeptidase 52, Aspartate Amino Transf (AST/SGOT) 23, Alanine Aminotransferase (ALT/SGPT) 21, Alkaline Phosphatase 95, Lactate Dehydrogenase 231H, Total Creatine Kinase 103, C- Reactive Protein, Quantitative 32.4H, Pro-B-Type Natriuretic Peptide 1406H, Total Protein 7.5, Albumin 2.9L, Globulin 4.6, Albumin/Globulin Ratio 0.6L, Triglycerides Level 120, Cholesterol Level 147, LDL Cholesterol 90, HDL Cholesterol 33, Cholesterol/HDL Ratio 4.5H, Carcinoembryonic Antigen 2.2, Vitamin B12 Level 1637H, Folate [Pending], Thyroid Stimulating Hormone (TSH) 1.280, Random Vancomycin Level 7.3 02/27/17 06:00: Urine Eosinophils Rare Current Medications Medications (Trade) Dose Ordered Sig/Fernando Route PRN Reason Start Time Stop Time Status Last Admin Dose Admin Acetaminophen (Tylenol) 650 mg Q4H PRN ORAL T>100.5 02/26/17 17:00 03/28/17 16:59 Amlodipine Besylate (Norvasc) 10 mg DAILY ORAL 02/27/17 09:00 03/29/17 08:59 02/27/17 09:48 Atorvastatin Calcium (Lipitor) 20 mg BEDTIME ORAL 02/26/17 21:00 03/28/17 20:59 02/27/17 21:39 Carvedilol (Coreg) 12.5 mg EVERY 12 HOURS ORAL 02/26/17 21:00 03/28/17 20:59 02/27/17 21:39 Dextrose (Dextrose 50%) STAT PRN IV Hypoglycemia 02/26/17 17:00 03/28/17 16:59 Dextrose (Dextrose 50%) STAT PRN IV Hypoglycemia 02/27/17 16:00 03/29/17 15:59 Dipyridamole/ Aspirin (Aggrenox) 1 cap DAILY ORAL 02/27/17 09:00 03/29/17 08:59 02/27/17 09:49 Docusate Sodium (Colace) 100 mg BID ORAL 02/27/17 18:00 03/29/17 17:59 02/27/17 18:30 Gabapentin (Neurontin) 200 mg QHS ORAL 02/27/17 21:00 03/29/17 20:59 02/27/17 21:39 Heparin Sodium (Porcine) (Heparin 5000 units/ml) 5,000 units EVERY 12 HOURS SUBQ 02/26/17 21:00 03/28/17 20:59 02/27/17 21:45 Insulin Aspart (NovoLOG) BEFORE MEALS AND HS SUBQ 02/27/17 16:30 03/29/17 16:29 02/27/17 21:43 Lorazepam (Ativan 2mg/ml 1ml) 2 mg Q1H PRN IV seizures 02/26/17 17:00 03/05/17 16:59 Morphine Sulfate (Morphine Sulfate) 1 mg Q4H PRN IVP Severe Pain (Pain Scale 7-10) 02/26/17 17:00 03/05/17 16:59 02/27/17 10:22 Ondansetron HCl (Zofran) 4 mg Q6H PRN IVP Nausea & Vomiting 02/26/17 17:00 03/28/17 16:59 Pantoprazole (Protonix) 40 mg DAILY IVP 02/27/17 09:00 03/29/17 08:59 02/27/17 09:36 Piperacillin Sod/ Tazobactam Sod/ Dextrose (Zosyn/D5W) 55 ml @ 110 mls/hr Q8HR IV 02/26/17 22:00 03/05/17 21:59 02/27/17 23:05 Polyethylene Glycol (Miralax) 17 gm HSPRN PRN ORAL Constipation 02/26/17 21:00 03/28/17 20:59 Quetiapine Fumarate (SEROquel) 25 mg TWICE A DAY ORAL 02/27/17 18:00 03/29/17 17:59 02/27/17 18:30 Sitagliptin Phosphate (Januvia) 100 mg ACBREAKFAST ORAL 02/28/17 06:30 03/30/17 06:29 Sodium Chloride (Sodium Chloride 1000ml bag) 1,000 ml @ 50 mls/hr Q20H IV 02/27/17 14:00 03/29/17 13:59 02/27/17 14:13 Tamsulosin HCl (Flomax) 0.4 mg DAILY ORAL 02/27/17 09:00 03/29/17 08:59 02/27/17 09:37 Vancomycin HCl (Vanco rx to dose) 1 ea DAILY PRN MISC Per rx protocol 02/26/17 17:00 03/28/17 16:59 Zolpidem Tartrate 5 mg 5 mg HSPRN PRN ORAL Insomnia 02/26/17 21:00 03/28/17 20:59 JUSTO LEBLANC February 27, 2017 23:51
[2017-02-28] VITALS: BP 143/80
[2017-02-28 04:00] VITALS: BP 155/93
[2017-02-28] MEDS: NovoLOG Insulin Flexpen SUBQ SCH ×4 (06:24→20:38)
[2017-02-28] MEDS: Piperacillin/Tazobactam 2.25 GM in D5W 55 ML IV SCH ×3 (06:27→22:04)
[2017-02-28 06:58] LABS: BASOPHILS % (AUTO) 0.7 % (0.0-2.0); EOSINOPHILS % (AUTO) 1.3 % (0.0-3.0); LYMPHOCYTES % (AUTO) 11.2 % (20.0-45.0); MEAN CORPUSCULAR HEMOGLOBIN 30.5 PG (27.0-31.0); MEAN CORPUSCULAR HGB CONC 32.8 G/DL (32.0-36.0); MEAN CORPUSCULAR VOLUME 93 FL (80-99); MEAN PLATELET VOLUME 6.7 FL (6.5-10.1); MONOCYTES % (AUTO) 7.1 % (1.0-10.0); NEUTROPHILS % (AUTO) 79.8 % (45.0-75.0); PLATELET COUNT 335 K/UL (150-450); RED CELL DISTRIBUTION WIDTH 13.5 % (11.6-14.8); WHITE BLOOD COUNT 17.6 K/UL (4.8-10.8)
[2017-02-28 07:22] LABS: ALANINE AMINOTRANSFERASE 17 U/L (3-41); ALBUMIN/GLOBULIN RATIO 0.6 (1.0-2.7); ANION GAP 16 (5-15); ASPARTATE AMINO TRANSFERASE 12 U/L (5-40); CALCIUM 9.9 mg/dL (8.6-10.2); CARBON DIOXIDE 30 mEQ/L (20-30); CHLORIDE 100 mEQ/L (98-107); CREATININE 2.7 mg/dL (0.7-1.2); CRP QUANT 25.3 mg/dL (< 0.5); HEMOLYSIS 0; MAGNESIUM 1.8 mg/dL (1.7-2.5); POTASSIUM 3.6 mEQ/L (3.4-4.9); SODIUM 146 mEQ/L (135-145); TOTAL PROTEIN 7.7 g/dL (6.6-8.7); URIC ACID 12.4 mg/dL (3.0-7.5)
[2017-02-28 08:15] VITALS: BP 145/79
[2017-02-28] MEDS: Docusate 100mg/10ml Liq ORAL SCH ×2 (10:32→18:58)
[2017-02-28] MEDS: Aggrenox Cap ORAL SCH (10:32)
[2017-02-28] MEDS: Pantoprazole Inj IVP SCH (10:32)
[2017-02-28] MEDS: Carvedilol 12.5mg tab ORAL SCH ×2 (10:33→20:33)
[2017-02-28] MEDS: Tamsulosin 0.4mg cap ORAL SCH ×2 (10:33→18:58)
[2017-02-28] MEDS: Allopurinol 100mg Tab ORAL SCH (10:38)
[2017-02-28] MEDS: Heparin 5000 units/ml inj SUBQ SCH ×2 (10:39→20:35)
--- NOTE | 2017-02-28 11:18 | General Progress Note ---
Assessment/Plan Status: unchanged Status Narrative WBC rising- Cr stable- Assessment/Plan Primary Impression: Altered level of consciousness : uremia and Hypoglycemia MILAN (acute kidney injury) due to urinary outlet obstruction UTI (urinary tract infection) HTN DM Psychosis Plan: resume gipizide Slow Hydrate- Keep BS and BP in check Monitor renal parameters Avoid Nephrotoxics resume anti Psych and oral hypoglycemica Per orders Subjective ROS Limited/Unobtainable: No Constitutional: Reports: malaise, weakness Allergies: Coded Allergies: No Known Allergies (Unverified , 02/25/17) Objective Last 24 Hour Vital Signs Date Time Temp Pulse Resp B/P Pulse Ox O2 Delivery O2 Flow Rate FiO2 02/28/17 10:34 94 159/98 02/28/17 10:33 94 159/98 02/28/17 08:15 98.4 85 20 145/79 100 Simple Mask 4.0 02/28/17 04:00 97.1 92 17 155/93 96 Room Air 02/28/17 00:00 97.8 91 18 143/80 92 Simple Mask 4.0 91 02/27/17 21:39 93 131/64 02/27/17 20:00 98.1 93 19 131/64 97 Simple Mask 4.0 02/27/17 16:09 97.7 98 21 150/86 93 Room Air 98 02/27/17 12:48 97.0 91 21 132/73 92 Room Air 91 Intake and Output 02/27/17 02/28/17 19:00 07:00 Intake Total 847.2 ml 775 ml Output Total 1200 ml Balance 847.2 ml -425 ml Intake Oral 360 ml 120 ml IV Total 487.2 ml 655 ml Output Urine Total 1200 ml # Bowel Movements 1 Laboratory Tests 02/28/17 05:00: White Blood Count 17.6H, Red Blood Count 3.50L, Hemoglobin 10.7L, Hematocrit 32.6L, Mean Corpuscular Volume 93, Mean Corpuscular Hemoglobin 30.5, Mean Corpuscular Hemoglobin Concent 32.8, Red Cell Distribution Width 13.5, Platelet Count 335, Mean Platelet Volume 6.7, Neutrophils (%) (Auto) 79.8H, Lymphocytes ( %) (Auto) 11.2L, Monocytes (%) (Auto) 7.1, Eosinophils (%) (Auto) 1.3, Basophils (%) (Auto) 0.7, Sodium Level 146H, Potassium Level 3.6, Chloride Level 100, Carbon Dioxide Level 30, Anion Gap 16H, Blood Urea Nitrogen 53H, Creatinine 2.7H, Estimat Glomerular Filtration Rate , Glucose Level 304#H, Uric Acid 12.4H, Calcium Level 9.9, Phosphorus Level 3.0, Magnesium Level 1.8, Total Bilirubin 0.3, Gamma Glutamyl Transpeptidase 49, Aspartate Amino Transf (AST/ SGOT) 12, Alanine Aminotransferase (ALT/SGPT) 17, Alkaline Phosphatase 84, Total Creatine Kinase 27L, C-Reactive Protein, Quantitative 25.3H, Pro-B-Type Natriuretic Peptide 1675H, Total Protein 7.7, Albumin 2.9L, Globulin 4.8, Albumin/Globulin Ratio 0.6L 02/28/17 06:30: Urine Eosinophils Rare Height (Feet): 5 Height (Inches): 10.00 Weight (Pounds): 260 General Appearance: lethargic, confused Cardiovascular: tachycardia Respiratory/Chest: decreased breath sounds Abdomen: distended Objective other PE not changed JULIETA LEON February 28, 2017 11:18
--- NOTE | 2017-02-28 11:38 | Diagnostic Imaging Report ---
APPROVED REPORT CPT Code: 11100 Present Symptoms Shortness of breath BILATERAL: Imaging reveals a patent deep venous system bilaterally. There is no evidence of thrombus within the femoral, popliteal or tibial segments. The greater saphenous veins are also within normal limits. Doppler indicates normal spontaneous flow within these segments.
[2017-02-28 12:05] VITALS: BP 142/72
--- NOTE | 2017-02-28 12:34 | Infectious Diseases Prog Note ---
Assessment/Plan Assessment/Plan A: The patient is a 71-year-old male with leukocytosis worsen Sepsis UTI :GPC ro VRE ALOC MILAN improving CAD CHF COPD Asthma Diabetes Depression PLAN: on IV Zosyn d# 3 , change vancomycin to Zyvox monitor CBC Monitor BMP. Monitor cultures (blood, urine, and sputum). Monitor the chest x-ray Uro and Nephro following Subjective Allergies: Coded Allergies: No Known Allergies (Unverified , 02/25/17) Subjective afebrile Objective Vital Signs Last 24 Hour Vital Signs Date Time Temp Pulse Resp B/P Pulse Ox O2 Delivery O2 Flow Rate FiO2 02/28/17 12:05 98.0 82 20 142/72 100 Simple Mask 4.0 02/28/17 10:34 94 159/98 02/28/17 10:33 94 159/98 02/28/17 08:15 98.4 85 20 145/79 100 Simple Mask 4.0 02/28/17 04:00 97.1 92 17 155/93 96 Room Air 02/28/17 00:00 97.8 91 18 143/80 92 Simple Mask 4.0 91 02/27/17 21:39 93 131/64 02/27/17 20:00 98.1 93 19 131/64 97 Simple Mask 4.0 02/27/17 16:09 97.7 98 21 150/86 93 Room Air 98 02/27/17 12:48 97.0 91 21 132/73 92 Room Air 91 Height (Feet): 5 Height (Inches): 10.00 Weight (Pounds): 260 HEENT: anicteric Respiratory/Chest: normal breath sounds Cardiovascular: regularly irregular Abdomen: no organomegaly Microbiology Date/Time Source Procedure Growth Status 02/25/17 18:30 Urine,Clean Catch Urine Culture - Preliminary Resulted Laboratory Tests Test 02/28/17 05:00 02/28/17 06:30 White Blood Count 17.6 K/UL (4.8-10.8) H Red Blood Count 3.50 M/UL (4.70-6.10) L Hemoglobin 10.7 G/DL (14.2-18.0) L Hematocrit 32.6 % (42.0-52.0) L Mean Corpuscular Volume 93 FL (80-99) Mean Corpuscular Hemoglobin 30.5 PG (27.0-31.0) Mean Corpuscular Hemoglobin Concent 32.8 G/DL (32.0-36.0) Red Cell Distribution Width 13.5 % (11.6-14.8) Platelet Count 335 K/UL (150-450) Mean Platelet Volume 6.7 FL (6.5-10.1) Neutrophils (%) (Auto) 79.8 % (45.0-75.0) H Lymphocytes (%) (Auto) 11.2 % (20.0-45.0) L Monocytes (%) (Auto) 7.1 % (1.0-10.0) Eosinophils (%) (Auto) 1.3 % (0.0-3.0) Basophils (%) (Auto) 0.7 % (0.0-2.0) Sodium Level 146 mEQ/L (135-145) H Potassium Level 3.6 mEQ/L (3.4-4.9) Chloride Level 100 mEQ/L (98-107) Carbon Dioxide Level 30 mEQ/L (20-30) Anion Gap 16 (5-15) H Blood Urea Nitrogen 53 mg/dL (7-23) H Creatinine 2.7 mg/dL (0.7-1.2) H Estimat Glomerular Filtration Rate mL/min (>60) Glucose Level 304 mg/dL (74-106) #H Uric Acid 12.4 mg/dL (3.0-7.5) H Calcium Level 9.9 mg/dL (8.6-10.2) Phosphorus Level 3.0 mg/dL (2.5-4.8) Magnesium Level 1.8 mg/dL (1.7-2.5) Total Bilirubin 0.3 mg/dL (0.0-1.2) Gamma Glutamyl Transpeptidase 49 U/L (8-61) Aspartate Amino Transf (AST/SGOT) 12 U/L (5-40) Alanine Aminotransferase (ALT/SGPT) 17 U/L (3-41) Alkaline Phosphatase 84 U/L (40-129) Total Creatine Kinase 27 U/L (38-174) L C-Reactive Protein, Quantitative 25.3 mg/dL (< 0.5) H Pro-B-Type Natriuretic Peptide 1675 pg/mL (0-125) H Total Protein 7.7 g/dL (6.6-8.7) Albumin 2.9 g/dL (3.5-5.2) L Globulin 4.8 g/dL Albumin/Globulin Ratio 0.6 (1.0-2.7) L Urine Eosinophils Rare Current Medications Medications (Trade) Dose Ordered Sig/Fernando Route PRN Reason Start Time Stop Time Status Last Admin Dose Admin Acetaminophen (Tylenol) 650 mg Q4H PRN ORAL T>100.5 02/26/17 17:00 03/28/17 16:59 Allopurinol (Zyloprim) 200 mg DAILY ORAL 02/28/17 09:45 03/30/17 09:44 02/28/17 10:38 Amlodipine Besylate (Norvasc) 10 mg DAILY ORAL 02/27/17 09:00 03/29/17 08:59 02/28/17 10:34 Atorvastatin Calcium (Lipitor) 20 mg BEDTIME ORAL 02/26/17 21:00 03/28/17 20:59 02/27/17 21:39 Carvedilol (Coreg) 12.5 mg EVERY 12 HOURS ORAL 02/26/17 21:00 03/28/17 20:59 02/28/17 10:33 Dextrose (Dextrose 50%) STAT PRN IV Hypoglycemia 02/26/17 17:00 03/28/17 16:59 Dextrose (Dextrose 50%) STAT PRN IV Hypoglycemia 02/27/17 16:00 03/29/17 15:59 Dipyridamole/ Aspirin (Aggrenox) 1 cap DAILY ORAL 02/27/17 09:00 03/29/17 08:59 02/28/17 10:32 Docusate Sodium (Colace) 100 mg BID ORAL 02/27/17 18:00 03/29/17 17:59 02/28/17 10:32 Gabapentin (Neurontin) 200 mg QHS ORAL 02/27/17 21:00 03/29/17 20:59 02/27/17 21:39 Glipizide (Glucotrol) 5 mg BID ORAL 02/28/17 11:30 03/30/17 11:29 Heparin Sodium (Porcine) (Heparin 5000 units/ml) 5,000 units EVERY 12 HOURS SUBQ 02/26/17 21:00 03/28/17 20:59 02/28/17 10:39 Insulin Aspart (NovoLOG) BEFORE MEALS AND HS SUBQ 02/27/17 16:30 03/29/17 16:29 02/28/17 06:24 Lorazepam (Ativan 2mg/ml 1ml) 2 mg Q1H PRN IV seizures 02/26/17 17:00 03/05/17 16:59 Morphine Sulfate (Morphine Sulfate) 1 mg Q4H PRN IVP Severe Pain (Pain Scale 7-10) 02/26/17 17:00 03/05/17 16:59 02/27/17 10:22 Ondansetron HCl (Zofran) 4 mg Q6H PRN IVP Nausea & Vomiting 02/26/17 17:00 03/28/17 16:59 Pantoprazole (Protonix) 40 mg DAILY IVP 02/27/17 09:00 03/29/17 08:59 02/28/17 10:32 Piperacillin Sod/ Tazobactam Sod/ Dextrose (Zosyn/D5W) 55 ml @ 110 mls/hr Q8HR IV 02/26/17 22:00 03/05/17 21:59 02/28/17 06:27 Polyethylene Glycol (Miralax) 17 gm HSPRN PRN ORAL Constipation 02/26/17 21:00 03/28/17 20:59 Quetiapine Fumarate (SEROquel) 25 mg TWICE A DAY ORAL 02/27/17 18:00 03/29/17 17:59 02/28/17 10:34 Sitagliptin Phosphate (Januvia) 100 mg ACBREAKFAST ORAL 02/28/17 06:30 03/30/17 06:29 02/28/17 06:25 Sodium Chloride (Sodium Chloride 1000ml bag) 1,000 ml @ 50 mls/hr Q20H IV 02/27/17 14:00 03/29/17 13:59 02/27/17 14:13 Tamsulosin HCl (Flomax) 0.4 mg BID ORAL 02/28/17 18:00 03/30/17 17:59 Vancomycin HCl (Vanco rx to dose) 1 ea DAILY PRN MISC Per rx protocol 02/26/17 17:00 03/28/17 16:59 Zolpidem Tartrate 5 mg 5 mg HSPRN PRN ORAL Insomnia 02/26/17 21:00 03/28/17 20:59 MARISOL CAPPS M.D. February 28, 2017 12:34
[2017-02-28] MEDS: GlipiZIDE 5mg tab ORAL SCH ×2 (12:56→18:58)
[2017-02-28 16:28] VITALS: BP 159/90
[2017-02-28] MEDS ORDERED: D5 1/2NS 1000ml IV ONE (16:58)
[2017-02-28 20:15] VITALS: BP 142/76
[2017-02-28] MEDS: Atorvastatin 20mg tab ORAL SCH (20:32)
--- NOTE | 2017-02-28 21:06 | Pulmonology Progress Note ---
Assessment/Plan Problems: (1) Acute encephalopathy (2) Sepsis (3) ATN (acute tubular necrosis) (4) Hypoglycemia (5) Obstructive uropathy (6) CAD (coronary artery disease) (7) COPD (chronic obstructive pulmonary disease) Assessment/Plan wbc elfego again IV fluids, watch bun/creatinine renal studies noted improving [place] culture ID, Renal, Urology evaluation appreciated dvt prophylaxis all notes reviewed Subjective ROS Limited/Unobtainable: No Interval Events: looks comfortable Allergies: Coded Allergies: No Known Allergies (Unverified , 02/25/17) Objective Last 24 Hour Vital Signs Date Time Temp Pulse Resp B/P Pulse Ox O2 Delivery O2 Flow Rate FiO2 02/28/17 20:33 87 142/76 02/28/17 20:15 98.1 87 19 142/76 97 Simple Mask 4.0 02/28/17 16:28 98.8 92 20 159/90 98 Simple Mask 4.0 02/28/17 12:05 98.0 82 20 142/72 100 Simple Mask 4.0 02/28/17 10:34 94 159/98 02/28/17 10:33 94 159/98 02/28/17 08:15 98.4 85 20 145/79 100 Simple Mask 4.0 02/28/17 04:00 97.1 92 17 155/93 96 Room Air 02/28/17 00:00 97.8 91 18 143/80 92 Simple Mask 4.0 91 02/27/17 21:39 93 131/64 Intake and Output 02/27/17 02/28/17 19:00 07:00 Intake Total 847.2 ml 775 ml Output Total 1200 ml Balance 847.2 ml -425 ml Intake Oral 360 ml 120 ml IV Total 487.2 ml 655 ml Output Urine Total 1200 ml # Bowel Movements 1 General Appearance: WD/WN HEENT: normocephalic, atraumatic Respiratory/Chest: chest wall non-tender, lungs clear Cardiovascular: normal peripheral pulses, normal rate Abdomen: normal bowel sounds, soft, non tender Genitourinary: normal external genitalia Extremities: no cyanosis 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 normal, no motor/sensory deficits Lymphatic: no neck adenopathy Laboratory Tests 02/28/17 05:00: White Blood Count 17.6H, Red Blood Count 3.50L, Hemoglobin 10.7L, Hematocrit 32.6L, Mean Corpuscular Volume 93, Mean Corpuscular Hemoglobin 30.5, Mean Corpuscular Hemoglobin Concent 32.8, Red Cell Distribution Width 13.5, Platelet Count 335, Mean Platelet Volume 6.7, Neutrophils (%) (Auto) 79.8H, Lymphocytes ( %) (Auto) 11.2L, Monocytes (%) (Auto) 7.1, Eosinophils (%) (Auto) 1.3, Basophils (%) (Auto) 0.7, Sodium Level 146H, Potassium Level 3.6, Chloride Level 100, Carbon Dioxide Level 30, Anion Gap 16H, Blood Urea Nitrogen 53H, Creatinine 2.7H, Estimat Glomerular Filtration Rate , Glucose Level 304#H, Uric Acid 12.4H, Calcium Level 9.9, Phosphorus Level 3.0, Magnesium Level 1.8, Total Bilirubin 0.3, Gamma Glutamyl Transpeptidase 49, Aspartate Amino Transf (AST/ SGOT) 12, Alanine Aminotransferase (ALT/SGPT) 17, Alkaline Phosphatase 84, Total Creatine Kinase 27L, C-Reactive Protein, Quantitative 25.3H, Pro-B-Type Natriuretic Peptide 1675H, Total Protein 7.7, Albumin 2.9L, Globulin 4.8, Albumin/Globulin Ratio 0.6L 02/28/17 06:30: Urine Eosinophils Rare Current Medications Medications (Trade) Dose Ordered Sig/Fernando Route PRN Reason Start Time Stop Time Status Last Admin Dose Admin Acetaminophen (Tylenol) 650 mg Q4H PRN ORAL T>100.5 02/26/17 17:00 03/28/17 16:59 Allopurinol (Zyloprim) 200 mg DAILY ORAL 02/28/17 09:45 03/30/17 09:44 02/28/17 10:38 Amlodipine Besylate (Norvasc) 10 mg DAILY ORAL 02/27/17 09:00 03/29/17 08:59 02/28/17 10:34 Atorvastatin Calcium (Lipitor) 20 mg BEDTIME ORAL 02/26/17 21:00 03/28/17 20:59 02/28/17 20:32 Carvedilol (Coreg) 12.5 mg EVERY 12 HOURS ORAL 02/26/17 21:00 03/28/17 20:59 02/28/17 20:33 Dextrose (Dextrose 50%) STAT PRN IV Hypoglycemia 02/26/17 17:00 03/28/17 16:59 Dextrose (Dextrose 50%) STAT PRN IV Hypoglycemia 02/27/17 16:00 03/29/17 15:59 Dipyridamole/ Aspirin (Aggrenox) 1 cap DAILY ORAL 02/27/17 09:00 03/29/17 08:59 02/28/17 10:32 Docusate Sodium (Colace) 100 mg BID ORAL 02/27/17 18:00 03/29/17 17:59 02/28/17 18:58 Gabapentin (Neurontin) 200 mg QHS ORAL 02/27/17 21:00 03/29/17 20:59 02/28/17 20:32 Glipizide (Glucotrol) 5 mg BID ORAL 02/28/17 11:30 03/30/17 11:29 02/28/17 18:58 Heparin Sodium (Porcine) (Heparin 5000 units/ml) 5,000 units EVERY 12 HOURS SUBQ 02/26/17 21:00 03/28/17 20:59 02/28/17 20:35 Insulin Aspart (NovoLOG) BEFORE MEALS AND HS SUBQ 02/27/17 16:30 03/29/17 16:29 02/28/17 20:38 Linezolid (Zyvox) 300 ml @ 300 mls/hr Q12HR IVPB 02/28/17 12:45 03/07/17 12:44 02/28/17 20:32 Lorazepam (Ativan 2mg/ml 1ml) 2 mg Q1H PRN IV seizures 02/26/17 17:00 03/05/17 16:59 Morphine Sulfate (Morphine Sulfate) 1 mg Q4H PRN IVP Severe Pain (Pain Scale 7-10) 02/26/17 17:00 03/05/17 16:59 02/27/17 10:22 Ondansetron HCl (Zofran) 4 mg Q6H PRN IVP Nausea & Vomiting 02/26/17 17:00 03/28/17 16:59 Pantoprazole (Protonix) 40 mg DAILY IVP 02/27/17 09:00 03/29/17 08:59 02/28/17 10:32 Piperacillin Sod/ Tazobactam Sod/ Dextrose (Zosyn/D5W) 55 ml @ 110 mls/hr Q8HR IV 02/26/17 22:00 03/05/17 21:59 02/28/17 15:13 Polyethylene Glycol (Miralax) 17 gm HSPRN PRN ORAL Constipation 02/26/17 21:00 03/28/17 20:59 Quetiapine Fumarate (SEROquel) 25 mg TWICE A DAY ORAL 02/27/17 18:00 03/29/17 17:59 02/28/17 18:58 Sitagliptin Phosphate (Januvia) 100 mg ACBREAKFAST ORAL 02/28/17 06:30 03/30/17 06:29 02/28/17 06:25 Sodium Chloride (Sodium Chloride 1000ml bag) 1,000 ml @ 50 mls/hr Q20H IV 02/27/17 14:00 03/29/17 13:59 02/28/17 13:42 Tamsulosin HCl 0.4 mg 0.4 mg BID ORAL 02/28/17 18:00 03/30/17 17:59 02/28/17 18:58 Zolpidem Tartrate 5 mg 5 mg HSPRN PRN ORAL Insomnia 02/26/17 21:00 03/28/17 20:59 JUSTO LEBLANC February 28, 2017 21:06
[2017-03-01] VITALS (8 sets, daily range): BP systolic 115–167; BP diastolic 65–88
[2017-03-01] MEDS: Piperacillin/Tazobactam 2.25 GM in D5W 55 ML IV SCH ×3 (05:39→22:13)
[2017-03-01] MEDS: NovoLOG Insulin Flexpen SUBQ SCH ×4 (05:43→21:35)
[2017-03-01 07:09] LABS: BASOPHILS % (AUTO) 0.5 % (0.0-2.0); EOSINOPHILS % (AUTO) 1.7 % (0.0-3.0); LYMPHOCYTES % (AUTO) 13.4 % (20.0-45.0); MEAN CORPUSCULAR HEMOGLOBIN 29.9 PG (27.0-31.0); MEAN CORPUSCULAR HGB CONC 31.8 G/DL (32.0-36.0); MEAN CORPUSCULAR VOLUME 94 FL (80-99); MEAN PLATELET VOLUME 6.7 FL (6.5-10.1); MONOCYTES % (AUTO) 6.1 % (1.0-10.0); NEUTROPHILS % (AUTO) 78.3 % (45.0-75.0); PLATELET COUNT 345 K/UL (150-450); RED BLOOD COUNT 3.69 M/UL (4.70-6.10); RED CELL DISTRIBUTION WIDTH 13.5 % (11.6-14.8); WHITE BLOOD COUNT 15.6 K/UL (4.8-10.8)
[2017-03-01 07:13] LABS: ALANINE AMINOTRANSFERASE 17 U/L (3-41); ALBUMIN/GLOBULIN RATIO 0.6 (1.0-2.7); ANION GAP 19 (5-15); ASPARTATE AMINO TRANSFERASE 11 U/L (5-40); CALCIUM 10.1 mg/dL (8.6-10.2); CARBON DIOXIDE 29 mEQ/L (20-30); CHLORIDE 98 mEQ/L (98-107); CREATININE 2.6 mg/dL (0.7-1.2); HEMOLYSIS 1; POTASSIUM 3.1 mEQ/L (3.4-4.9); SODIUM 146 mEQ/L (135-145); TOTAL PROTEIN 8.2 g/dL (6.6-8.7)
[2017-03-01] MEDS: Docusate 100mg/10ml Liq ORAL SCH ×2 (09:00→17:52)
[2017-03-01] MEDS ORDERED: KCl 10% 40mEq/30ml liquid ORAL ONE (09:00)
[2017-03-01] MEDS: Aggrenox Cap ORAL SCH (09:21)
[2017-03-01] MEDS: Pantoprazole Inj IVP SCH (09:21)
[2017-03-01] MEDS: Carvedilol 12.5mg tab ORAL SCH (09:22)
[2017-03-01] MEDS: Tamsulosin 0.4mg cap ORAL SCH ×2 (09:22→17:59)
[2017-03-01] MEDS: GlipiZIDE 5mg tab ORAL SCH ×2 (09:22→17:59)
[2017-03-01] MEDS: Allopurinol 100mg Tab ORAL SCH (09:23)
[2017-03-01] MEDS: Heparin 5000 units/ml inj SUBQ SCH ×2 (09:24→21:36)
--- NOTE | 2017-03-01 10:41 | Infectious Diseases Prog Note ---
Assessment/Plan Assessment/Plan A: The patient is a 71-year-old male with leukocytosis improving Sepsis UTI :GPC ro VRE ALOC MILAN improving CAD CHF COPD Asthma Diabetes Depression PLAN: on IV Zosyn d# 4 / 7 and cont Zyvox d# 2 monitor CBC Monitor BMP. Monitor cultures (blood, urine, and sputum). Monitor the chest x-ray Uro and Nephro following Subjective Allergies: Coded Allergies: No Known Allergies (Unverified , 02/25/17) Subjective afebrile Objective Vital Signs Last 24 Hour Vital Signs Date Time Temp Pulse Resp B/P Pulse Ox O2 Delivery O2 Flow Rate FiO2 03/01/17 09:23 98 183/110 03/01/17 09:22 98 183/110 03/01/17 08:00 97.5 89 20 143/82 99 Simple Mask 4.0 03/01/17 04:40 89 149/77 03/01/17 04:00 97.4 96 20 167/ 99 Simple Mask 4.0 03/01/17 00:09 97.5 78 20 145/76 98 Simple Mask 4.0 02/28/17 20:33 87 142/76 02/28/17 20:15 98.1 87 19 142/76 97 Simple Mask 4.0 02/28/17 16:28 98.8 92 20 159/90 98 Simple Mask 4.0 02/28/17 12:05 98.0 82 20 142/72 100 Simple Mask 4.0 Height (Feet): 5 Height (Inches): 10.00 Weight (Pounds): 260 HEENT: atraumatic Respiratory/Chest: normal breath sounds Cardiovascular: normal rate Abdomen: non distended Laboratory Tests Test 03/01/17 04:30 03/01/17 05:30 Urine Eosinophils None seen White Blood Count 15.6 K/UL (4.8-10.8) H Red Blood Count 3.69 M/UL (4.70-6.10) L Hemoglobin 11.1 G/DL (14.2-18.0) L Hematocrit 34.7 % (42.0-52.0) L Mean Corpuscular Volume 94 FL (80-99) Mean Corpuscular Hemoglobin 29.9 PG (27.0-31.0) Mean Corpuscular Hemoglobin Concent 31.8 G/DL (32.0-36.0) L Red Cell Distribution Width 13.5 % (11.6-14.8) Platelet Count 345 K/UL (150-450) Mean Platelet Volume 6.7 FL (6.5-10.1) Neutrophils (%) (Auto) 78.3 % (45.0-75.0) H Lymphocytes (%) (Auto) 13.4 % (20.0-45.0) L Monocytes (%) (Auto) 6.1 % (1.0-10.0) Eosinophils (%) (Auto) 1.7 % (0.0-3.0) Basophils (%) (Auto) 0.5 % (0.0-2.0) Sodium Level 146 mEQ/L (135-145) H Potassium Level 3.1 mEQ/L (3.4-4.9) L Chloride Level 98 mEQ/L (98-107) Carbon Dioxide Level 29 mEQ/L (20-30) Anion Gap 19 (5-15) H Blood Urea Nitrogen 50 mg/dL (7-23) H Creatinine 2.6 mg/dL (0.7-1.2) H Estimat Glomerular Filtration Rate mL/min (>60) Glucose Level 367 mg/dL (74-106) H Calcium Level 10.1 mg/dL (8.6-10.2) Total Bilirubin 0.4 mg/dL (0.0-1.2) Aspartate Amino Transf (AST/SGOT) 11 U/L (5-40) Alanine Aminotransferase (ALT/SGPT) 17 U/L (3-41) Alkaline Phosphatase 85 U/L (40-129) Pro-B-Type Natriuretic Peptide 638 pg/mL (0-125) H Total Protein 8.2 g/dL (6.6-8.7) Albumin 3.1 g/dL (3.5-5.2) L Globulin 5.1 g/dL Albumin/Globulin Ratio 0.6 (1.0-2.7) L Current Medications Medications (Trade) Dose Ordered Sig/Fernando Route PRN Reason Start Time Stop Time Status Last Admin Dose Admin Acetaminophen (Tylenol) 650 mg Q4H PRN ORAL T>100.5 02/26/17 17:00 03/28/17 16:59 Allopurinol (Zyloprim) 200 mg DAILY ORAL 02/28/17 09:45 03/30/17 09:44 03/01/17 09:23 Amlodipine Besylate (Norvasc) 10 mg DAILY ORAL 02/27/17 09:00 03/29/17 08:59 03/01/17 09:23 Atorvastatin Calcium (Lipitor) 20 mg BEDTIME ORAL 02/26/17 21:00 03/28/17 20:59 02/28/17 20:32 Carvedilol (Coreg) 12.5 mg EVERY 12 HOURS ORAL 02/26/17 21:00 03/28/17 20:59 03/01/17 09:22 Dextrose (D5W 1000ml) 1,000 ml @ 50 mls/hr Q20H IV 03/01/17 09:30 03/31/17 09:29 Dextrose (Dextrose 50%) STAT PRN IV Hypoglycemia 02/26/17 17:00 03/28/17 16:59 Dextrose (Dextrose 50%) STAT PRN IV Hypoglycemia 02/27/17 16:00 03/29/17 15:59 Dipyridamole/ Aspirin (Aggrenox) 1 cap DAILY ORAL 02/27/17 09:00 03/29/17 08:59 03/01/17 09:21 Docusate Sodium (Colace) 100 mg BID ORAL 02/27/17 18:00 03/29/17 17:59 02/28/17 18:58 Gabapentin (Neurontin) 200 mg QHS ORAL 02/27/17 21:00 03/29/17 20:59 02/28/17 20:32 Glipizide (Glucotrol) 5 mg BID ORAL 02/28/17 11:30 03/30/17 11:29 03/01/17 09:22 Heparin Sodium (Porcine) (Heparin 5000 units/ml) 5,000 units EVERY 12 HOURS SUBQ 02/26/17 21:00 03/28/17 20:59 03/01/17 09:24 Insulin Aspart (NovoLOG) BEFORE MEALS AND HS SUBQ 02/27/17 16:30 03/29/17 16:29 03/01/17 05:43 Linezolid 300 ml @ 300 mls/hr Q12HR IVPB 02/28/17 12:45 03/07/17 12:44 03/01/17 09:33 Lorazepam (Ativan 2mg/ml 1ml) 2 mg Q1H PRN IV seizures 02/26/17 17:00 03/05/17 16:59 Morphine Sulfate (Morphine Sulfate) 1 mg Q4H PRN IVP Severe Pain (Pain Scale 7-10) 02/26/17 17:00 03/05/17 16:59 02/27/17 10:22 Ondansetron HCl (Zofran) 4 mg Q6H PRN IVP Nausea & Vomiting 02/26/17 17:00 03/28/17 16:59 Pantoprazole (Protonix) 40 mg DAILY IVP 02/27/17 09:00 03/29/17 08:59 03/01/17 09:21 Piperacillin Sod/ Tazobactam Sod/ Dextrose (Zosyn/D5W) 55 ml @ 110 mls/hr Q8HR IV 02/26/17 22:00 03/05/17 21:59 03/01/17 05:39 Polyethylene Glycol (Miralax) 17 gm HSPRN PRN ORAL Constipation 02/26/17 21:00 03/28/17 20:59 Quetiapine Fumarate (SEROquel) 25 mg TWICE A DAY ORAL 02/27/17 18:00 03/29/17 17:59 03/01/17 09:23 Sitagliptin Phosphate (Januvia) 100 mg ACBREAKFAST ORAL 02/28/17 06:30 03/30/17 06:29 03/01/17 05:39 Tamsulosin HCl 0.4 mg 0.4 mg BID ORAL 02/28/17 18:00 03/30/17 17:59 03/01/17 09:22 Zolpidem Tartrate (Ambien) 5 mg HSPRN PRN ORAL Insomnia 02/26/17 21:00 03/28/17 20:59 MARISOL CAPPS M.D. March 01, 2017 10:41
--- NOTE | 2017-03-01 11:46 | General Progress Note ---
Assessment/Plan Status: stable - serum Cr Assessment/Plan Primary Impression: Altered level of consciousness : uremia and Hypoglycemia MILAN (acute kidney injury) due to urinary outlet obstruction UTI (urinary tract infection) HTN DM Psychosis Plan: resume glipizide Slow Hydrate- Keep BS and BP in check Monitor renal parameters Avoid Nephrotoxics resume anti Psych and oral hypoglycemica Per orders Subjective ROS Limited/Unobtainable: No Allergies: Coded Allergies: No Known Allergies (Unverified , 02/25/17) Objective Last 24 Hour Vital Signs Date Time Temp Pulse Resp B/P Pulse Ox O2 Delivery O2 Flow Rate FiO2 03/01/17 09:23 98 183/110 03/01/17 09:22 98 183/110 03/01/17 08:00 97.5 89 20 143/82 99 Simple Mask 4.0 03/01/17 04:40 89 149/77 03/01/17 04:00 97.4 96 20 167/ 99 Simple Mask 4.0 03/01/17 00:09 97.5 78 20 145/76 98 Simple Mask 4.0 02/28/17 20:33 87 142/76 02/28/17 20:15 98.1 87 19 142/76 97 Simple Mask 4.0 02/28/17 16:28 98.8 92 20 159/90 98 Simple Mask 4.0 02/28/17 12:05 98.0 82 20 142/72 100 Simple Mask 4.0 Intake and Output 02/28/17 03/01/17 19:00 07:00 Intake Total 1155 ml 760 ml Output Total 300 ml 800 ml Balance 855 ml -40 ml Intake Oral 480 ml IV Total 675 ml 760 ml Output Urine Total 300 ml 800 ml # Voids 1 # Bowel Movements 1 5 Laboratory Tests 03/01/17 04:30: Urine Eosinophils None seen 03/01/17 05:30: White Blood Count 15.6H, Red Blood Count 3.69L, Hemoglobin 11.1L, Hematocrit 34.7L, Mean Corpuscular Volume 94, Mean Corpuscular Hemoglobin 29.9, Mean Corpuscular Hemoglobin Concent 31.8L, Red Cell Distribution Width 13.5, Platelet Count 345, Mean Platelet Volume 6.7, Neutrophils (%) (Auto) 78.3H, Lymphocytes (%) (Auto) 13.4L, Monocytes (%) (Auto) 6.1, Eosinophils (%) (Auto) 1.7, Basophils (%) (Auto) 0.5, Sodium Level 146H, Potassium Level 3.1L, Chloride Level 98, Carbon Dioxide Level 29, Anion Gap 19H, Blood Urea Nitrogen 50H, Creatinine 2.6H, Estimat Glomerular Filtration Rate , Glucose Level 367H, Calcium Level 10.1, Total Bilirubin 0.4, Aspartate Amino Transf (AST/SGOT) 11, Alanine Aminotransferase (ALT/SGPT) 17, Alkaline Phosphatase 85, Pro-B-Type Natriuretic Peptide 638H, Total Protein 8.2, Albumin 3.1L, Globulin 5.1, Albumin /Globulin Ratio 0.6L Height (Feet): 5 Height (Inches): 10.00 Weight (Pounds): 260 General Appearance: no apparent distress, lethargic, confused Cardiovascular: tachycardia Respiratory/Chest: decreased breath sounds Abdomen: distended Objective other PE not changed JULIETA LEON March 01, 2017 11:46
--- NOTE | 2017-03-01 12:16 | Diagnostic Imaging Report ---
Indication: DYSPNEA Technique: One view of the chest Comparison: 02/25/2017 Findings: Better inspiration on the current study. The heart remains enlarged. The lungs and pleural spaces are largely clear. Extensive thoracic rib fracture deformities and underlying pleural thickening are again demonstrated. Evidence of prior CABG Impression: Findings as noted, including cardiomegaly. No definite acute process
--- NOTE | 2017-03-01 16:40 | General Progress Note ---
Assessment/Plan Status: stable Status Narrative sp ARF, BPH Assessment/Plan Will discuss with the primary team re possible TURP Subjective ROS Limited/Unobtainable: Yes Respiratory: Reports: no symptoms Genitourinary: Reports: burning, no symptoms Allergies: Coded Allergies: No Known Allergies (Unverified , 02/25/17) Objective Last 24 Hour Vital Signs Date Time Temp Pulse Resp B/P Pulse Ox O2 Delivery O2 Flow Rate FiO2 03/01/17 16:00 98.4 81 20 115/65 98 Simple Mask 4.0 03/01/17 11:56 99.0 81 20 160/87 98 Simple Mask 4.0 03/01/17 09:23 98 183/110 03/01/17 09:22 98 183/110 03/01/17 08:00 97.5 89 20 143/82 99 Simple Mask 4.0 03/01/17 04:40 89 149/77 03/01/17 04:00 97.4 96 20 167/ 99 Simple Mask 4.0 03/01/17 00:09 97.5 78 20 145/76 98 Simple Mask 4.0 02/28/17 20:33 87 142/76 02/28/17 20:15 98.1 87 19 142/76 97 Simple Mask 4.0 Intake and Output 02/28/17 03/01/17 19:00 07:00 Intake Total 1155 ml 760 ml Output Total 300 ml 800 ml Balance 855 ml -40 ml Intake Oral 480 ml IV Total 675 ml 760 ml Output Urine Total 300 ml 800 ml # Voids 1 # Bowel Movements 1 5 Laboratory Tests 03/01/17 04:30: Urine Eosinophils None seen 03/01/17 05:30: White Blood Count 15.6H, Red Blood Count 3.69L, Hemoglobin 11.1L, Hematocrit 34.7L, Mean Corpuscular Volume 94, Mean Corpuscular Hemoglobin 29.9, Mean Corpuscular Hemoglobin Concent 31.8L, Red Cell Distribution Width 13.5, Platelet Count 345, Mean Platelet Volume 6.7, Neutrophils (%) (Auto) 78.3H, Lymphocytes (%) (Auto) 13.4L, Monocytes (%) (Auto) 6.1, Eosinophils (%) (Auto) 1.7, Basophils (%) (Auto) 0.5, Sodium Level 146H, Potassium Level 3.1L, Chloride Level 98, Carbon Dioxide Level 29, Anion Gap 19H, Blood Urea Nitrogen 50H, Creatinine 2.6H, Estimat Glomerular Filtration Rate , Glucose Level 367H, Calcium Level 10.1, Total Bilirubin 0.4, Aspartate Amino Transf (AST/SGOT) 11, Alanine Aminotransferase (ALT/SGPT) 17, Alkaline Phosphatase 85, Pro-B-Type Natriuretic Peptide 638H, Total Protein 8.2, Albumin 3.1L, Globulin 5.1, Albumin /Globulin Ratio 0.6L Height (Feet): 5 Height (Inches): 10.00 Weight (Pounds): 260 Genitourinary/Rectal: enlarged prostate Heriberto Gallegos MD March 01, 2017 16:40
--- NOTE | 2017-03-01 18:51 | Pulmonology Progress Note ---
Assessment/Plan Problems: (1) Acute encephalopathy (2) Sepsis (3) ATN (acute tubular necrosis) (4) Hypoglycemia (5) Obstructive uropathy (6) CAD (coronary artery disease) (7) COPD (chronic obstructive pulmonary disease) Assessment/Plan IV fluids, watch electrolytes renal studies pending improving [place] culture, all negative so far ID, Renal, Urology evaluation dvt prophylaxis Med/surg on IV Zosyn d# 4 / 7 and cont Zyvox d# 2 Subjective ROS Limited/Unobtainable: No Constitutional: Reports: no symptoms Allergies: Coded Allergies: No Known Allergies (Unverified , 02/25/17) Objective Last 24 Hour Vital Signs Date Time Temp Pulse Resp B/P Pulse Ox O2 Delivery O2 Flow Rate FiO2 03/01/17 16:00 98.4 81 20 115/65 98 Simple Mask 4.0 03/01/17 11:56 99.0 81 20 160/87 98 Simple Mask 4.0 03/01/17 09:23 98 183/110 03/01/17 09:22 98 183/110 03/01/17 08:00 97.5 89 20 143/82 99 Simple Mask 4.0 03/01/17 04:40 89 149/77 03/01/17 04:00 97.4 96 20 167/ 99 Simple Mask 4.0 03/01/17 00:09 97.5 78 20 145/76 98 Simple Mask 4.0 02/28/17 20:33 87 142/76 02/28/17 20:15 98.1 87 19 142/76 97 Simple Mask 4.0 Intake and Output 02/28/17 03/01/17 19:00 07:00 Intake Total 1155 ml 760 ml Output Total 300 ml 800 ml Balance 855 ml -40 ml Intake Oral 480 ml IV Total 675 ml 760 ml Output Urine Total 300 ml 800 ml # Voids 1 # Bowel Movements 1 5 Objective General Appearance: WD/WN HEENT: normocephalic, atraumatic Respiratory/Chest: chest wall non-tender, lungs clear Cardiovascular: normal peripheral pulses, normal rate Abdomen: normal bowel sounds, soft, non tender Genitourinary: normal external genitalia Extremities: no cyanosis, edema Lymphatic: no neck adenopathy Laboratory Tests 03/01/17 04:30: Urine Eosinophils None seen 03/01/17 05:30: White Blood Count 15.6H, Red Blood Count 3.69L, Hemoglobin 11.1L, Hematocrit 34.7L, Mean Corpuscular Volume 94, Mean Corpuscular Hemoglobin 29.9, Mean Corpuscular Hemoglobin Concent 31.8L, Red Cell Distribution Width 13.5, Platelet Count 345, Mean Platelet Volume 6.7, Neutrophils (%) (Auto) 78.3H, Lymphocytes (%) (Auto) 13.4L, Monocytes (%) (Auto) 6.1, Eosinophils (%) (Auto) 1.7, Basophils (%) (Auto) 0.5, Sodium Level 146H, Potassium Level 3.1L, Chloride Level 98, Carbon Dioxide Level 29, Anion Gap 19H, Blood Urea Nitrogen 50H, Creatinine 2.6H, Estimat Glomerular Filtration Rate , Glucose Level 367H, Calcium Level 10.1, Total Bilirubin 0.4, Aspartate Amino Transf (AST/SGOT) 11, Alanine Aminotransferase (ALT/SGPT) 17, Alkaline Phosphatase 85, Pro-B-Type Natriuretic Peptide 638H, Total Protein 8.2, Albumin 3.1L, Globulin 5.1, Albumin /Globulin Ratio 0.6L Current Medications Medications (Trade) Dose Ordered Sig/Fernando Route PRN Reason Start Time Stop Time Status Last Admin Dose Admin Acetaminophen (Tylenol) 650 mg Q4H PRN ORAL T>100.5 02/26/17 17:00 03/28/17 16:59 Allopurinol (Zyloprim) 200 mg DAILY ORAL 02/28/17 09:45 03/30/17 09:44 03/01/17 09:23 Amlodipine Besylate (Norvasc) 10 mg DAILY ORAL 02/27/17 09:00 03/29/17 08:59 03/01/17 09:23 Atorvastatin Calcium (Lipitor) 20 mg BEDTIME ORAL 02/26/17 21:00 03/28/17 20:59 02/28/17 20:32 Carvedilol (Coreg) 25 mg EVERY 12 HOURS ORAL 03/01/17 21:00 03/31/17 20:59 Clonidine HCl (Catapres) 0.1 mg Q4H PRN ORAL SBP>160 03/01/17 11:45 03/31/17 11:44 Dextrose (D5W 1000ml) 1,000 ml @ 50 mls/hr Q20H IV 03/01/17 09:30 03/31/17 09:29 03/01/17 11:03 Dextrose (Dextrose 50%) STAT PRN IV Hypoglycemia 02/27/17 16:00 03/29/17 15:59 Dipyridamole/ Aspirin (Aggrenox) 1 cap DAILY ORAL 02/27/17 09:00 03/29/17 08:59 03/01/17 09:21 Docusate Sodium (Colace) 100 mg BID ORAL 02/27/17 18:00 03/29/17 17:59 02/28/17 18:58 Gabapentin (Neurontin) 200 mg QHS ORAL 02/27/17 21:00 03/29/17 20:59 02/28/17 20:32 Glipizide (Glucotrol) 5 mg BID ORAL 02/28/17 11:30 03/30/17 11:29 03/01/17 17:59 Heparin Sodium (Porcine) (Heparin 5000 units/ml) 5,000 units EVERY 12 HOURS SUBQ 02/26/17 21:00 03/28/17 20:59 03/01/17 09:24 Insulin Aspart (NovoLOG) BEFORE MEALS AND HS SUBQ 02/27/17 16:30 03/29/17 16:29 03/01/17 17:09 Linezolid 300 ml @ 300 mls/hr Q12HR IVPB 02/28/17 12:45 03/07/17 12:44 03/01/17 09:33 Lorazepam (Ativan 2mg/ml 1ml) 2 mg Q1H PRN IV seizures 02/26/17 17:00 03/05/17 16:59 Morphine Sulfate (Morphine Sulfate) 1 mg Q4H PRN IVP Severe Pain (Pain Scale 7-10) 02/26/17 17:00 03/05/17 16:59 02/27/17 10:22 Ondansetron HCl (Zofran) 4 mg Q6H PRN IVP Nausea & Vomiting 02/26/17 17:00 03/28/17 16:59 Pantoprazole (Protonix) 40 mg DAILY IVP 02/27/17 09:00 03/29/17 08:59 03/01/17 09:21 Piperacillin Sod/ Tazobactam Sod/ Dextrose (Zosyn/D5W) 55 ml @ 110 mls/hr Q8HR IV 02/26/17 22:00 03/05/17 21:59 03/01/17 14:33 Polyethylene Glycol (Miralax) 17 gm HSPRN PRN ORAL Constipation 02/26/17 21:00 03/28/17 20:59 Quetiapine Fumarate (SEROquel) 25 mg TWICE A DAY ORAL 02/27/17 18:00 03/29/17 17:59 03/01/17 18:04 Sitagliptin Phosphate (Januvia) 100 mg ACBREAKFAST ORAL 02/28/17 06:30 03/30/17 06:29 03/01/17 05:39 Tamsulosin HCl 0.4 mg 0.4 mg BID ORAL 02/28/17 18:00 03/30/17 17:59 03/01/17 17:59 Zolpidem Tartrate (Ambien) 5 mg HSPRN PRN ORAL Insomnia 02/26/17 21:00 03/28/17 20:59 JUSTO LEBLANC March 01, 2017 18:51
[2017-03-01] MEDS: Atorvastatin 20mg tab ORAL SCH (21:32)
[2017-03-01] MEDS: Carvedilol 25mg Tab ORAL SCH (21:32)
[2017-03-02] VITALS: BP 124/68
[2017-03-02 04:00] VITALS: BP 153/78
[2017-03-02] MEDS: Piperacillin/Tazobactam 2.25 GM in D5W 55 ML IV SCH ×3 (05:01→23:32)
[2017-03-02] MEDS: NovoLOG Insulin Flexpen SUBQ SCH ×4 (05:48→22:19)
[2017-03-02 07:11] LABS: INR 1.2 (0.9-1.1); PROTHROMBIN TIME 12.3 SEC (9.30-11.50)
[2017-03-02 07:13] LABS: BASOPHILS % (AUTO) 0.6 % (0.0-2.0); EOSINOPHILS % (AUTO) 2.2 % (0.0-3.0); LYMPHOCYTES % (AUTO) 16.3 % (20.0-45.0); MEAN CORPUSCULAR HEMOGLOBIN 30.5 PG (27.0-31.0); MEAN CORPUSCULAR HGB CONC 32.1 G/DL (32.0-36.0); MEAN CORPUSCULAR VOLUME 95 FL (80-99); MEAN PLATELET VOLUME 6.8 FL (6.5-10.1); MONOCYTES % (AUTO) 5.3 % (1.0-10.0); NEUTROPHILS % (AUTO) 75.7 % (45.0-75.0); PLATELET COUNT 278 K/UL (150-450); RED BLOOD COUNT 3.44 M/UL (4.70-6.10); RED CELL DISTRIBUTION WIDTH 13.8 % (11.6-14.8); WHITE BLOOD COUNT 14.3 K/UL (4.8-10.8)
[2017-03-02 07:33] LABS: ALANINE AMINOTRANSFERASE 15 U/L (3-41); ALBUMIN/GLOBULIN RATIO 0.6 (1.0-2.7); ANION GAP 15 (5-15); ASPARTATE AMINO TRANSFERASE 12 U/L (5-40); CALCIUM 9.7 mg/dL (8.6-10.2); CARBON DIOXIDE 32 mEQ/L (20-30); CHLORIDE 102 mEQ/L (98-107); CREATININE 3.6 mg/dL (0.7-1.2); HEMOLYSIS 6; PHOSPHORUS 3.3 mg/dL (2.5-4.8); POTASSIUM 2.9 mEQ/L (3.4-4.9); SODIUM 149 mEQ/L (135-145); TOTAL PROTEIN 7.6 g/dL (6.6-8.7); URIC ACID 11.5 mg/dL (3.0-7.5)
[2017-03-02 08:04] VITALS: BP 149/87
[2017-03-02] MEDS: GlipiZIDE 5mg tab ORAL SCH ×2 (09:00→18:18)
[2017-03-02] MEDS: Aggrenox Cap ORAL SCH (09:00)
[2017-03-02] MEDS: Docusate 100mg/10ml Liq ORAL SCH ×2 (09:00→16:44)
[2017-03-02] MEDS: Pantoprazole Inj IVP SCH (09:00)
[2017-03-02] MEDS: Carvedilol 25mg Tab ORAL SCH ×2 (09:00→22:09)
[2017-03-02] MEDS: Allopurinol 100mg Tab ORAL SCH (09:00)
[2017-03-02] MEDS: Tamsulosin 0.4mg cap ORAL SCH ×2 (09:00→18:18)
[2017-03-02] MEDS: Heparin 5000 units/ml inj SUBQ SCH ×2 (09:00→22:18)
--- NOTE | 2017-03-02 10:19 | General Progress Note ---
Assessment/Plan Status: deteriorating Status Narrative Cr rising- Hematuria Assessment/Plan Primary Impression: Altered level of consciousness : uremia and Hypoglycemia MILAN (acute kidney injury) due to urinary outlet obstruction UTI (urinary tract infection) HTN DM Psychosis Plan: Uro eval resume glipizide Slow Hydrate- Keep BS and BP in check Monitor renal parameters Avoid Nephrotoxics resume anti Psych and oral hypoglycemica Per orders Subjective ROS Limited/Unobtainable: No Constitutional: Reports: malaise, weakness Allergies: Coded Allergies: No Known Allergies (Unverified , 02/25/17) Objective Last 24 Hour Vital Signs Date Time Temp Pulse Resp B/P Pulse Ox O2 Delivery O2 Flow Rate FiO2 03/02/17 09:00 80 149/87 03/02/17 09:00 80 149/87 03/02/17 08:04 97.9 80 22 149/87 96 Room Air 03/02/17 04:00 97.5 81 20 153/78 99 Room Air 03/02/17 00:00 98.2 73 20 124/68 95 Room Air 03/01/17 21:32 93 155/85 03/01/17 20:00 98.1 93 20 155/85 Nasal Cannula 5.0 03/01/17 17:55 85 161/88 03/01/17 16:00 98.4 81 20 115/65 98 Simple Mask 4.0 03/01/17 11:56 99.0 81 20 160/87 98 Simple Mask 4.0 Intake and Output 03/01/17 03/02/17 19:00 07:00 Intake Total 1065 ml 885 ml Output Total 575 ml 200 ml Balance 490 ml 685 ml Intake Oral 360 ml IV Total 705 ml 885 ml Output Urine Total 575 ml 200 ml # Bowel Movements 2 2 Laboratory Tests 03/02/17 05:15: White Blood Count 14.3H, Red Blood Count 3.44L, Hemoglobin 10.5L, Hematocrit 32.7L, Mean Corpuscular Volume 95, Mean Corpuscular Hemoglobin 30.5, Mean Corpuscular Hemoglobin Concent 32.1, Red Cell Distribution Width 13.8, Platelet Count 278, Mean Platelet Volume 6.8, Neutrophils (%) (Auto) 75.7H, Lymphocytes ( %) (Auto) 16.3L, Monocytes (%) (Auto) 5.3, Eosinophils (%) (Auto) 2.2, Basophils (%) (Auto) 0.6, Prothrombin Time 12.3H, Prothromb Time International Ratio 1.2H, Activated Partial Thromboplast Time 30, Sodium Level 149H, Potassium Level 2.9L, Chloride Level 102, Carbon Dioxide Level 32H, Anion Gap 15 , Blood Urea Nitrogen 51H, Creatinine 3.6H, Estimat Glomerular Filtration Rate , Glucose Level 292H, Uric Acid 11.5H, Calcium Level 9.7, Phosphorus Level 3.3, Magnesium Level 1.5L, Total Bilirubin 0.4, Aspartate Amino Transf (AST/SGOT) 12 , Alanine Aminotransferase (ALT/SGPT) 15, Alkaline Phosphatase 73, Total Protein 7.6, Albumin 2.9L, Globulin 4.7, Albumin/Globulin Ratio 0.6L Height (Feet): 5 Height (Inches): 10.00 Weight (Pounds): 260 General Appearance: lethargic, confused, mild distress Cardiovascular: normal rate Respiratory/Chest: decreased breath sounds Abdomen: distended Objective other PE not changed JULIETA LEON March 02, 2017 10:19
[2017-03-02 12:38] VITALS: BP 118/54
[2017-03-02 16:05] VITALS: BP 137/77
[2017-03-02] MEDS ORDERED: D5NS 1000ml IV ONE (16:31)
[2017-03-02] MEDS ORDERED: Tubing IV Secondary IV ONE (16:31)
--- NOTE | 2017-03-02 18:20 | Infectious Diseases Prog Note ---
Assessment/Plan Assessment/Plan A: The patient is a 71-year-old male with leukocytosis Sepsis UTI : MRSA repeat UCx MRSA and ( Mixed GNR : contaminant ) ALOC Cxray : No definite acute process 01/30 MILAN CAD CHF COPD Asthma Diabetes Depression PLAN: on IV Zosyn d# 5 / and cont Zyvox d# 3 / monitor CBC Monitor BMP. Monitor cultures (blood,) Monitor the chest x-ray Uro and Nephro following Subjective Allergies: Coded Allergies: No Known Allergies (Unverified , 02/25/17) Subjective no new complain Objective Vital Signs Last 24 Hour Vital Signs Date Time Temp Pulse Resp B/P Pulse Ox O2 Delivery O2 Flow Rate FiO2 03/02/17 16:05 97.7 73 18 137/77 94 Room Air 03/02/17 12:38 98.2 79 19 118/54 95 Room Air 03/02/17 09:00 80 149/87 03/02/17 09:00 80 149/87 03/02/17 08:04 97.9 80 22 149/87 96 Room Air 03/02/17 04:00 97.5 81 20 153/78 99 Room Air 03/02/17 00:00 98.2 73 20 124/68 95 Room Air 03/01/17 21:32 93 155/85 03/01/17 20:00 98.1 93 20 155/85 Nasal Cannula 5.0 Height (Feet): 5 Height (Inches): 10.00 Weight (Pounds): 260 HEENT: anicteric Respiratory/Chest: lungs clear Cardiovascular: normal rate Abdomen: no organomegaly Laboratory Tests Test 03/02/17 05:15 White Blood Count 14.3 K/UL (4.8-10.8) H Red Blood Count 3.44 M/UL (4.70-6.10) L Hemoglobin 10.5 G/DL (14.2-18.0) L Hematocrit 32.7 % (42.0-52.0) L Mean Corpuscular Volume 95 FL (80-99) Mean Corpuscular Hemoglobin 30.5 PG (27.0-31.0) Mean Corpuscular Hemoglobin Concent 32.1 G/DL (32.0-36.0) Red Cell Distribution Width 13.8 % (11.6-14.8) Platelet Count 278 K/UL (150-450) Mean Platelet Volume 6.8 FL (6.5-10.1) Neutrophils (%) (Auto) 75.7 % (45.0-75.0) H Lymphocytes (%) (Auto) 16.3 % (20.0-45.0) L Monocytes (%) (Auto) 5.3 % (1.0-10.0) Eosinophils (%) (Auto) 2.2 % (0.0-3.0) Basophils (%) (Auto) 0.6 % (0.0-2.0) Prothrombin Time 12.3 SEC (9.30-11.50) H Prothromb Time International Ratio 1.2 (0.9-1.1) H Activated Partial Thromboplast Time 30 SEC (23-33) Sodium Level 149 mEQ/L (135-145) H Potassium Level 2.9 mEQ/L (3.4-4.9) L Chloride Level 102 mEQ/L (98-107) Carbon Dioxide Level 32 mEQ/L (20-30) H Anion Gap 15 (5-15) Blood Urea Nitrogen 51 mg/dL (7-23) H Creatinine 3.6 mg/dL (0.7-1.2) H Estimat Glomerular Filtration Rate mL/min (>60) Glucose Level 292 mg/dL (74-106) H Uric Acid 11.5 mg/dL (3.0-7.5) H Calcium Level 9.7 mg/dL (8.6-10.2) Phosphorus Level 3.3 mg/dL (2.5-4.8) Magnesium Level 1.5 mg/dL (1.7-2.5) L Total Bilirubin 0.4 mg/dL (0.0-1.2) Aspartate Amino Transf (AST/SGOT) 12 U/L (5-40) Alanine Aminotransferase (ALT/SGPT) 15 U/L (3-41) Alkaline Phosphatase 73 U/L (40-129) Total Protein 7.6 g/dL (6.6-8.7) Albumin 2.9 g/dL (3.5-5.2) L Globulin 4.7 g/dL Albumin/Globulin Ratio 0.6 (1.0-2.7) L Random Vancomycin Level 7.9 ug/mL Current Medications Medications (Trade) Dose Ordered Sig/Frenando Route PRN Reason Start Time Stop Time Status Last Admin Dose Admin Acetaminophen (Tylenol) 650 mg Q4H PRN ORAL T>100.5 02/26/17 17:00 03/28/17 16:59 Allopurinol (Allopurinol) 300 mg DAILY ORAL 03/03/17 09:00 04/02/17 08:59 Amlodipine Besylate (Norvasc) 10 mg DAILY ORAL 02/27/17 09:00 03/29/17 08:59 03/02/17 09:00 Atorvastatin Calcium (Lipitor) 20 mg BEDTIME ORAL 02/26/17 21:00 03/28/17 20:59 03/01/17 21:32 Carvedilol (Coreg) 25 mg EVERY 12 HOURS ORAL 03/01/17 21:00 03/31/17 20:59 03/02/17 09:00 Clonidine HCl (Catapres) 0.1 mg Q4H PRN ORAL SBP>160 03/01/17 11:45 03/31/17 11:44 Dextrose (D5W 1000ml) 1,000 ml @ 50 mls/hr Q20H IV 03/01/17 09:30 03/31/17 09:29 03/01/17 11:03 Dextrose (Dextrose 50%) STAT PRN IV Hypoglycemia 02/27/17 16:00 03/29/17 15:59 Dipyridamole/ Aspirin (Aggrenox) 1 cap DAILY ORAL 02/27/17 09:00 03/29/17 08:59 03/02/17 09:00 Docusate Sodium (Colace) 100 mg BID ORAL 02/27/17 18:00 03/29/17 17:59 03/02/17 09:00 Gabapentin (Neurontin) 200 mg QHS ORAL 02/27/17 21:00 03/29/17 20:59 03/01/17 21:33 Glipizide (Glucotrol) 5 mg BID ORAL 02/28/17 11:30 03/30/17 11:29 03/02/17 09:00 Heparin Sodium (Porcine) (Heparin 5000 units/ml) 5,000 units EVERY 12 HOURS SUBQ 02/26/17 21:00 03/28/17 20:59 03/02/17 09:00 Insulin Aspart (NovoLOG) BEFORE MEALS AND HS SUBQ 02/27/17 16:30 03/29/17 16:29 03/02/17 16:14 Linezolid 300 ml @ 300 mls/hr Q12HR IVPB 02/28/17 12:45 03/07/17 12:44 03/02/17 09:00 Lorazepam (Ativan 2mg/ml 1ml) 2 mg Q1H PRN IV seizures 02/26/17 17:00 03/05/17 16:59 Morphine Sulfate (Morphine Sulfate) 1 mg Q4H PRN IVP Severe Pain (Pain Scale 7-10) 02/26/17 17:00 03/05/17 16:59 02/27/17 10:22 Ondansetron HCl (Zofran) 4 mg Q6H PRN IVP Nausea & Vomiting 02/26/17 17:00 03/28/17 16:59 Pantoprazole (Protonix) 40 mg DAILY IVP 02/27/17 09:00 03/29/17 08:59 03/02/17 09:00 Piperacillin Sod/ Tazobactam Sod/ Dextrose (Zosyn/D5W) 55 ml @ 110 mls/hr Q8HR IV 02/26/17 22:00 03/05/17 21:59 03/02/17 14:01 Polyethylene Glycol (Miralax) 17 gm HSPRN PRN ORAL Constipation 02/26/17 21:00 03/28/17 20:59 Quetiapine Fumarate (SEROquel) 25 mg TWICE A DAY ORAL 02/27/17 18:00 03/29/17 17:59 03/02/17 09:00 Sitagliptin Phosphate (Januvia) 100 mg ACBREAKFAST ORAL 02/28/17 06:30 03/30/17 06:29 03/02/17 05:48 Tamsulosin HCl 0.4 mg 0.4 mg BID ORAL 02/28/17 18:00 03/30/17 17:59 03/02/17 09:00 Zolpidem Tartrate (Ambien) 5 mg HSPRN PRN ORAL Insomnia 02/26/17 21:00 03/28/17 20:59 MARISOL CAPPS M.D. March 02, 2017 18:20
--- NOTE | 2017-03-02 18:27 | Pulmonology Progress Note ---
Assessment/Plan Problems: (1) Acute encephalopathy (2) Sepsis (3) ATN (acute tubular necrosis) (4) Hypoglycemia (5) Obstructive uropathy (6) CAD (coronary artery disease) (7) COPD (chronic obstructive pulmonary disease) Assessment/Plan IV fluids, at 50 cc/hour still bloody urine, will need cystoscopy, watch electrolytes renal studies pending wbc still high [place] culture, all negative so far ID, Renal, Urology evaluation dvt prophylaxis Med/surg on IV Zosyn, and cont Zyvox Subjective ROS Limited/Unobtainable: No Interval Events: comfrotable Allergies: Coded Allergies: No Known Allergies (Unverified , 02/25/17) Objective Last 24 Hour Vital Signs Date Time Temp Pulse Resp B/P Pulse Ox O2 Delivery O2 Flow Rate FiO2 03/02/17 16:05 97.7 73 18 137/77 94 Room Air 03/02/17 12:38 98.2 79 19 118/54 95 Room Air 03/02/17 09:00 80 149/87 03/02/17 09:00 80 149/87 03/02/17 08:04 97.9 80 22 149/87 96 Room Air 03/02/17 04:00 97.5 81 20 153/78 99 Room Air 03/02/17 00:00 98.2 73 20 124/68 95 Room Air 03/01/17 21:32 93 155/85 03/01/17 20:00 98.1 93 20 155/85 Nasal Cannula 5.0 Intake and Output 03/01/17 03/02/17 19:00 07:00 Intake Total 1065 ml 885 ml Output Total 575 ml 200 ml Balance 490 ml 685 ml Intake Oral 360 ml IV Total 705 ml 885 ml Output Urine Total 575 ml 200 ml # Bowel Movements 2 2 Objective General Appearance: WD/WN HEENT: normocephalic, atraumatic Respiratory/Chest: chest wall non-tender, lungs clear Cardiovascular: normal peripheral pulses, normal rate Abdomen: normal bowel sounds, soft, non tender Genitourinary: normal external genitalia Extremities: no cyanosis, edema Lymphatic: no neck adenopathy Laboratory Tests 03/02/17 05:15: White Blood Count 14.3H, Red Blood Count 3.44L, Hemoglobin 10.5L, Hematocrit 32.7L, Mean Corpuscular Volume 95, Mean Corpuscular Hemoglobin 30.5, Mean Corpuscular Hemoglobin Concent 32.1, Red Cell Distribution Width 13.8, Platelet Count 278, Mean Platelet Volume 6.8, Neutrophils (%) (Auto) 75.7H, Lymphocytes ( %) (Auto) 16.3L, Monocytes (%) (Auto) 5.3, Eosinophils (%) (Auto) 2.2, Basophils (%) (Auto) 0.6, Prothrombin Time 12.3H, Prothromb Time International Ratio 1.2H, Activated Partial Thromboplast Time 30, Sodium Level 149H, Potassium Level 2.9L, Chloride Level 102, Carbon Dioxide Level 32H, Anion Gap 15 , Blood Urea Nitrogen 51H, Creatinine 3.6H, Estimat Glomerular Filtration Rate , Glucose Level 292H, Uric Acid 11.5H, Calcium Level 9.7, Phosphorus Level 3.3, Magnesium Level 1.5L, Total Bilirubin 0.4, Aspartate Amino Transf (AST/SGOT) 12 , Alanine Aminotransferase (ALT/SGPT) 15, Alkaline Phosphatase 73, Total Protein 7.6, Albumin 2.9L, Globulin 4.7, Albumin/Globulin Ratio 0.6L, Random Vancomycin Level 7.9 Current Medications Medications (Trade) Dose Ordered Sig/Fernando Route PRN Reason Start Time Stop Time Status Last Admin Dose Admin Acetaminophen (Tylenol) 650 mg Q4H PRN ORAL T>100.5 02/26/17 17:00 03/28/17 16:59 Allopurinol (Allopurinol) 300 mg DAILY ORAL 03/03/17 09:00 04/02/17 08:59 Amlodipine Besylate (Norvasc) 10 mg DAILY ORAL 02/27/17 09:00 03/29/17 08:59 03/02/17 09:00 Atorvastatin Calcium (Lipitor) 20 mg BEDTIME ORAL 02/26/17 21:00 03/28/17 20:59 03/01/17 21:32 Carvedilol (Coreg) 25 mg EVERY 12 HOURS ORAL 03/01/17 21:00 03/31/17 20:59 03/02/17 09:00 Clonidine HCl (Catapres) 0.1 mg Q4H PRN ORAL SBP>160 03/01/17 11:45 03/31/17 11:44 Dextrose (D5W 1000ml) 1,000 ml @ 50 mls/hr Q20H IV 03/01/17 09:30 03/31/17 09:29 03/01/17 11:03 Dextrose (Dextrose 50%) STAT PRN IV Hypoglycemia 02/27/17 16:00 03/29/17 15:59 Dipyridamole/ Aspirin (Aggrenox) 1 cap DAILY ORAL 02/27/17 09:00 03/29/17 08:59 03/02/17 09:00 Docusate Sodium (Colace) 100 mg BID ORAL 02/27/17 18:00 03/29/17 17:59 03/02/17 09:00 Gabapentin (Neurontin) 200 mg QHS ORAL 02/27/17 21:00 03/29/17 20:59 03/01/17 21:33 Glipizide (Glucotrol) 5 mg BID ORAL 02/28/17 11:30 03/30/17 11:29 03/02/17 09:00 Heparin Sodium (Porcine) (Heparin 5000 units/ml) 5,000 units EVERY 12 HOURS SUBQ 02/26/17 21:00 03/28/17 20:59 03/02/17 09:00 Insulin Aspart (NovoLOG) BEFORE MEALS AND HS SUBQ 02/27/17 16:30 03/29/17 16:29 03/02/17 16:14 Linezolid 300 ml @ 300 mls/hr Q12HR IVPB 02/28/17 12:45 03/07/17 12:44 03/02/17 09:00 Lorazepam (Ativan 2mg/ml 1ml) 2 mg Q1H PRN IV seizures 02/26/17 17:00 03/05/17 16:59 Morphine Sulfate (Morphine Sulfate) 1 mg Q4H PRN IVP Severe Pain (Pain Scale 7-10) 02/26/17 17:00 03/05/17 16:59 02/27/17 10:22 Ondansetron HCl (Zofran) 4 mg Q6H PRN IVP Nausea & Vomiting 02/26/17 17:00 03/28/17 16:59 Pantoprazole (Protonix) 40 mg DAILY IVP 02/27/17 09:00 03/29/17 08:59 03/02/17 09:00 Piperacillin Sod/ Tazobactam Sod/ Dextrose (Zosyn/D5W) 55 ml @ 110 mls/hr Q8HR IV 02/26/17 22:00 03/05/17 21:59 03/02/17 14:01 Polyethylene Glycol (Miralax) 17 gm HSPRN PRN ORAL Constipation 02/26/17 21:00 03/28/17 20:59 Quetiapine Fumarate (SEROquel) 25 mg TWICE A DAY ORAL 02/27/17 18:00 03/29/17 17:59 03/02/17 09:00 Sitagliptin Phosphate (Januvia) 100 mg ACBREAKFAST ORAL 02/28/17 06:30 03/30/17 06:29 03/02/17 05:48 Tamsulosin HCl 0.4 mg 0.4 mg BID ORAL 02/28/17 18:00 03/30/17 17:59 03/02/17 09:00 Zolpidem Tartrate (Ambien) 5 mg HSPRN PRN ORAL Insomnia 02/26/17 21:00 03/28/17 20:59 JUSTO LEBLANC March 02, 2017 18:27
[2017-03-02 20:00] VITALS: BP 122/62
[2017-03-02] MEDS: Atorvastatin 20mg tab ORAL SCH (22:09)
[2017-03-03] VITALS: BP 125/67
[2017-03-03 04:00] VITALS: BP 130/59
[2017-03-03] MEDS: Piperacillin/Tazobactam 2.25 GM in D5W 55 ML IV SCH ×3 (05:10→22:21)
[2017-03-03] MEDS: NovoLOG Insulin Flexpen SUBQ SCH ×4 (06:18→20:40)
[2017-03-03 07:50] LABS: ALANINE AMINOTRANSFERASE 13 U/L (3-41); ALBUMIN/GLOBULIN RATIO 0.6 (1.0-2.7); ANION GAP 19 (5-15); ASPARTATE AMINO TRANSFERASE 10 U/L (5-40); CALCIUM 9.2 mg/dL (8.6-10.2); CARBON DIOXIDE 27 mEQ/L (20-30); CHLORIDE 100 mEQ/L (98-107); CREATININE 4.6 mg/dL (0.7-1.2); CRP QUANT 4.7 mg/dL (< 0.5); HEMOLYSIS 1; MAGNESIUM 1.4 mg/dL (1.7-2.5); PHOSPHORUS 3.6 mg/dL (2.5-4.8); POTASSIUM 3.1 mEQ/L (3.4-4.9); SODIUM 146 mEQ/L (135-145); URIC ACID 10.9 mg/dL (3.0-7.5)
[2017-03-03 08:56] VITALS: BP 133/74
[2017-03-03] MEDS ORDERED: KCl 10% 40mEq/30ml liquid NG ONE (09:00)
[2017-03-03] MEDS: Docusate 100mg/10ml Liq ORAL SCH ×2 (09:00→16:47)
[2017-03-03] MEDS ORDERED: NS Irrig 1000ml ONE (09:04)
[2017-03-03] MEDS: GlipiZIDE 5mg tab ORAL SCH ×2 (09:25→16:47)
[2017-03-03] MEDS: Tamsulosin 0.4mg cap ORAL SCH ×2 (09:25→16:47)
[2017-03-03] MEDS: Pantoprazole Inj IVP SCH (09:25)
[2017-03-03] MEDS: Carvedilol 25mg Tab ORAL SCH ×2 (09:25→20:39)
[2017-03-03 12:08] VITALS: BP 135/71
--- NOTE | 2017-03-03 12:08 | Infectious Diseases Prog Note ---
Assessment/Plan Assessment/Plan A: UTI COPD Acute Renal failure MRSA carrier DM P: Continue Zyvox & Zosyn Subjective ROS Limited/Unobtainable: Yes Allergies: Coded Allergies: No Known Allergies (Unverified , 02/25/17) Objective Vital Signs Last 24 Hour Vital Signs Date Time Temp Pulse Resp B/P Pulse Ox O2 Delivery O2 Flow Rate FiO2 03/03/17 09:25 85 133/74 03/03/17 09:25 85 133/74 03/03/17 08:56 97.7 85 18 133/74 96 Room Air 03/03/17 04:00 97.2 74 20 130/59 93 Room Air 03/03/17 00:00 98.0 76 18 125/67 93 Room Air 03/02/17 22:09 77 122/62 03/02/17 20:00 97.9 77 18 122/62 95 Room Air 03/02/17 16:05 97.7 73 18 137/77 94 Room Air 03/02/17 12:38 98.2 79 19 118/54 95 Room Air Height (Feet): 5 Height (Inches): 10.00 Weight (Pounds): 260 General Appearance: no acute distress HEENT: mucous membranes moist Respiratory/Chest: lungs clear Cardiovascular: normal rate Abdomen: soft, non tender, other - obese Extremities: no edema Neurologic/Psychiatric: other - drowsy Laboratory Tests Test 03/03/17 05:35 Sodium Level 146 mEQ/L (135-145) H Potassium Level 3.1 mEQ/L (3.4-4.9) L Chloride Level 100 mEQ/L (98-107) Carbon Dioxide Level 27 mEQ/L (20-30) Anion Gap 19 (5-15) H Blood Urea Nitrogen 51 mg/dL (7-23) H Creatinine 4.6 mg/dL (0.7-1.2) H Estimat Glomerular Filtration Rate mL/min (>60) Glucose Level 265 mg/dL (74-106) H Uric Acid 10.9 mg/dL (3.0-7.5) H Calcium Level 9.2 mg/dL (8.6-10.2) Phosphorus Level 3.6 mg/dL (2.5-4.8) Magnesium Level 1.4 mg/dL (1.7-2.5) L Total Bilirubin 0.3 mg/dL (0.0-1.2) Aspartate Amino Transf (AST/SGOT) 10 U/L (5-40) Alanine Aminotransferase (ALT/SGPT) 13 U/L (3-41) Alkaline Phosphatase 66 U/L (40-129) Total Creatine Kinase 25 U/L (38-174) L C-Reactive Protein, Quantitative 4.7 mg/dL (< 0.5) H Pro-B-Type Natriuretic Peptide 550 pg/mL (0-125) H Total Protein 7.0 g/dL (6.6-8.7) Albumin 2.7 g/dL (3.5-5.2) L Globulin 4.3 g/dL Albumin/Globulin Ratio 0.6 (1.0-2.7) L Current Medications Medications (Trade) Dose Ordered Sig/Fernando Route PRN Reason Start Time Stop Time Status Last Admin Dose Admin Acetaminophen (Tylenol) 650 mg Q4H PRN ORAL T>100.5 02/26/17 17:00 03/28/17 16:59 Allopurinol 300 mg 300 mg DAILY ORAL 03/03/17 09:00 04/02/17 08:59 03/03/17 09:25 Amlodipine Besylate (Norvasc) 10 mg DAILY ORAL 02/27/17 09:00 03/29/17 08:59 03/03/17 09:25 Atorvastatin Calcium (Lipitor) 20 mg BEDTIME ORAL 02/26/17 21:00 03/28/17 20:59 03/02/17 22:09 Carvedilol (Coreg) 25 mg EVERY 12 HOURS ORAL 03/01/17 21:00 03/31/17 20:59 03/03/17 09:25 Clonidine HCl (Catapres) 0.1 mg Q4H PRN ORAL SBP>160 03/01/17 11:45 03/31/17 11:44 Dextrose 1,000 ml @ 100 mls/hr Q10H IV 03/03/17 09:30 04/02/17 09:29 Dextrose (Dextrose 50%) STAT PRN IV Hypoglycemia 02/27/17 16:00 03/29/17 15:59 Docusate Sodium (Colace) 100 mg BID ORAL 02/27/17 18:00 03/29/17 17:59 03/02/17 09:00 Gabapentin (Neurontin) 200 mg QHS ORAL 02/27/17 21:00 03/29/17 20:59 03/02/17 22:09 Glipizide (Glucotrol) 5 mg BID ORAL 02/28/17 11:30 03/30/17 11:29 03/03/17 09:25 Insulin Aspart (NovoLOG) BEFORE MEALS AND HS SUBQ 02/27/17 16:30 03/29/17 16:29 03/03/17 11:27 Linezolid (Zyvox) 300 ml @ 300 mls/hr Q12HR IVPB 02/28/17 12:45 03/07/17 12:44 03/03/17 09:24 Lorazepam (Ativan 2mg/ml 1ml) 2 mg Q1H PRN IV seizures 02/26/17 17:00 03/05/17 16:59 Magnesium Sulfate (Magnesium Sulfate 1gm/100ml) 100 ml @ 100 mls/hr Q1H IVPB 03/03/17 10:30 03/03/17 12:29 Morphine Sulfate (Morphine Sulfate) 1 mg Q4H PRN IVP Severe Pain (Pain Scale 7-10) 02/26/17 17:00 03/05/17 16:59 02/27/17 10:22 Ondansetron HCl (Zofran) 4 mg Q6H PRN IVP Nausea & Vomiting 02/26/17 17:00 03/28/17 16:59 Pantoprazole (Protonix) 40 mg DAILY IVP 02/27/17 09:00 03/29/17 08:59 03/03/17 09:25 Piperacillin Sod/ Tazobactam Sod/ Dextrose (Zosyn/D5W) 55 ml @ 110 mls/hr Q8HR IV 02/26/17 22:00 03/05/17 21:59 03/03/17 05:10 Polyethylene Glycol (Miralax) 17 gm HSPRN PRN ORAL Constipation 02/26/17 21:00 03/28/17 20:59 Quetiapine Fumarate (SEROquel) 25 mg TWICE A DAY ORAL 02/27/17 18:00 03/29/17 17:59 03/03/17 09:25 Sitagliptin Phosphate (Januvia) 100 mg ACBREAKFAST ORAL 02/28/17 06:30 03/30/17 06:29 03/03/17 06:14 Tamsulosin HCl 0.4 mg 0.4 mg BID ORAL 02/28/17 18:00 03/30/17 17:59 03/03/17 09:25 Zolpidem Tartrate (Ambien) 5 mg HSPRN PRN ORAL Insomnia 02/26/17 21:00 03/28/17 20:59 KARUNA ENGLE March 03, 2017 12:08
--- NOTE | 2017-03-03 14:07 | General Progress Note ---
Assessment/Plan Status: deteriorating Status Narrative Cr rising Assessment/Plan Primary Impression: Altered level of consciousness : uremia and Hypoglycemia MILAN (acute kidney injury) due to urinary outlet obstruction UTI (urinary tract infection) HTN DM Psychosis Plan: may need HD if further rise of Cr Uro eval PO K resume glipizide Slow Hydrate- Keep BS and BP in check Monitor renal parameters Avoid Nephrotoxics resume anti Psych and oral hypoglycemica Per orders Subjective ROS Limited/Unobtainable: No Constitutional: Reports: malaise, weakness Allergies: Coded Allergies: No Known Allergies (Unverified , 02/25/17) Objective Last 24 Hour Vital Signs Date Time Temp Pulse Resp B/P Pulse Ox O2 Delivery O2 Flow Rate FiO2 03/03/17 12:08 97.9 62 18 135/71 98 Room Air 03/03/17 09:25 85 133/74 03/03/17 09:25 85 133/74 03/03/17 08:56 97.7 85 18 133/74 96 Room Air 03/03/17 04:00 97.2 74 20 130/59 93 Room Air 03/03/17 00:00 98.0 76 18 125/67 93 Room Air 03/02/17 22:09 77 122/62 03/02/17 20:00 97.9 77 18 122/62 95 Room Air 03/02/17 16:05 97.7 73 18 137/77 94 Room Air Intake and Output 03/02/17 03/03/17 19:00 07:00 Intake Total 900 ml 860 ml Output Total 152 ml Balance 900 ml 708 ml Intake Oral 240 ml IV Total 660 ml 860 ml Output Urine Total 150 ml Stool Total 2 ml # Bowel Movements 1 Laboratory Tests 03/03/17 05:35: Sodium Level 146H, Potassium Level 3.1L, Chloride Level 100, Carbon Dioxide Level 27, Anion Gap 19H, Blood Urea Nitrogen 51H, Creatinine 4.6H, Estimat Glomerular Filtration Rate , Glucose Level 265H, Uric Acid 10.9H, Calcium Level 9.2, Phosphorus Level 3.6, Magnesium Level 1.4L, Total Bilirubin 0.3, Aspartate Amino Transf (AST/SGOT) 10, Alanine Aminotransferase (ALT/SGPT) 13, Alkaline Phosphatase 66, Total Creatine Kinase 25L, C-Reactive Protein, Quantitative 4.7H , Pro-B-Type Natriuretic Peptide 550H, Total Protein 7.0, Albumin 2.7L, Globulin 4.3, Albumin/Globulin Ratio 0.6L Height (Feet): 5 Height (Inches): 10.00 Weight (Pounds): 260 General Appearance: no apparent distress, lethargic, confused Respiratory/Chest: decreased breath sounds Abdomen: distended Objective other PE not changed JULIETA LEON March 03, 2017 14:07
[2017-03-03 16:36] VITALS: BP 147/81
--- NOTE | 2017-03-03 18:54 | Pulmonology Progress Note ---
Assessment/Plan Problems: (1) Acute encephalopathy (2) Sepsis (3) ATN (acute tubular necrosis) (4) Hypoglycemia (5) Obstructive uropathy (6) CAD (coronary artery disease) (7) COPD (chronic obstructive pulmonary disease) Assessment/Plan still bloody urine, will need cystoscopy, watch electrolytes bun/creainine rising again wbc still high [place] culture, all negative so far ID, Renal, Urology evaluation dvt prophylaxis Med/surg on IV Zosyn, and cont Zyvox Subjective ROS Limited/Unobtainable: No Interval Events: no new complains Allergies: Coded Allergies: No Known Allergies (Unverified , 02/25/17) Objective Last 24 Hour Vital Signs Date Time Temp Pulse Resp B/P Pulse Ox O2 Delivery O2 Flow Rate FiO2 03/03/17 16:36 97.9 71 17 147/81 94 Room Air 03/03/17 12:08 97.9 62 18 135/71 98 Room Air 03/03/17 09:25 85 133/74 03/03/17 09:25 85 133/74 03/03/17 08:56 97.7 85 18 133/74 96 Room Air 03/03/17 04:00 97.2 74 20 130/59 93 Room Air 03/03/17 00:00 98.0 76 18 125/67 93 Room Air 03/02/17 22:09 77 122/62 03/02/17 20:00 97.9 77 18 122/62 95 Room Air Intake and Output 03/02/17 03/03/17 19:00 07:00 Intake Total 900 ml 860 ml Output Total 152 ml Balance 900 ml 708 ml Intake Oral 240 ml IV Total 660 ml 860 ml Output Urine Total 150 ml Stool Total 2 ml # Bowel Movements 1 Objective General Appearance: WD/WN HEENT: normocephalic, atraumatic Respiratory/Chest: chest wall non-tender, lungs clear Cardiovascular: normal peripheral pulses, normal rate Abdomen: normal bowel sounds, soft, non tender Genitourinary: normal external genitalia Extremities: no cyanosis, edema Lymphatic: no neck adenopathy Laboratory Tests 03/03/17 05:35: Sodium Level 146H, Potassium Level 3.1L, Chloride Level 100, Carbon Dioxide Level 27, Anion Gap 19H, Blood Urea Nitrogen 51H, Creatinine 4.6H, Estimat Glomerular Filtration Rate , Glucose Level 265H, Uric Acid 10.9H, Calcium Level 9.2, Phosphorus Level 3.6, Magnesium Level 1.4L, Total Bilirubin 0.3, Aspartate Amino Transf (AST/SGOT) 10, Alanine Aminotransferase (ALT/SGPT) 13, Alkaline Phosphatase 66, Total Creatine Kinase 25L, C-Reactive Protein, Quantitative 4.7H , Pro-B-Type Natriuretic Peptide 550H, Total Protein 7.0, Albumin 2.7L, Globulin 4.3, Albumin/Globulin Ratio 0.6L Current Medications Medications (Trade) Dose Ordered Sig/Fernando Route PRN Reason Start Time Stop Time Status Last Admin Dose Admin Acetaminophen (Tylenol) 650 mg Q4H PRN ORAL T>100.5 02/26/17 17:00 03/28/17 16:59 Allopurinol 300 mg 300 mg DAILY ORAL 03/03/17 09:00 04/02/17 08:59 03/03/17 09:25 Amlodipine Besylate (Norvasc) 10 mg DAILY ORAL 02/27/17 09:00 03/29/17 08:59 03/03/17 09:25 Atorvastatin Calcium (Lipitor) 20 mg BEDTIME ORAL 02/26/17 21:00 03/28/17 20:59 03/02/17 22:09 Carvedilol (Coreg) 25 mg EVERY 12 HOURS ORAL 03/01/17 21:00 03/31/17 20:59 03/03/17 09:25 Clonidine HCl (Catapres) 0.1 mg Q4H PRN ORAL SBP>160 03/01/17 11:45 03/31/17 11:44 Dextrose (D5W 1000ml) 1,000 ml @ 100 mls/hr Q10H IV 03/03/17 09:30 04/02/17 09:29 03/03/17 16:00 Dextrose (Dextrose 50%) STAT PRN IV Hypoglycemia 02/27/17 16:00 03/29/17 15:59 Docusate Sodium (Colace) 100 mg BID ORAL 02/27/17 18:00 03/29/17 17:59 03/03/17 16:47 Gabapentin (Neurontin) 200 mg QHS ORAL 02/27/17 21:00 03/29/17 20:59 03/02/17 22:09 Glipizide (Glucotrol) 5 mg BID ORAL 02/28/17 11:30 03/30/17 11:29 03/03/17 16:47 Insulin Aspart (NovoLOG) BEFORE MEALS AND HS SUBQ 02/27/17 16:30 03/29/17 16:29 03/03/17 16:42 Linezolid (Zyvox) 300 ml @ 300 mls/hr Q12HR IVPB 02/28/17 12:45 03/07/17 12:44 03/03/17 09:24 Lorazepam (Ativan 2mg/ml 1ml) 2 mg Q1H PRN IV seizures 02/26/17 17:00 03/05/17 16:59 Morphine Sulfate (Morphine Sulfate) 1 mg Q4H PRN IVP Severe Pain (Pain Scale 7-10) 02/26/17 17:00 03/05/17 16:59 02/27/17 10:22 Ondansetron HCl (Zofran) 4 mg Q6H PRN IVP Nausea & Vomiting 02/26/17 17:00 03/28/17 16:59 Pantoprazole (Protonix) 40 mg DAILY IVP 02/27/17 09:00 03/29/17 08:59 03/03/17 09:25 Piperacillin Sod/ Tazobactam Sod/ Dextrose (Zosyn/D5W) 55 ml @ 110 mls/hr Q8HR IV 02/26/17 22:00 03/05/17 21:59 03/03/17 15:30 Polyethylene Glycol (Miralax) 17 gm HSPRN PRN ORAL Constipation 02/26/17 21:00 03/28/17 20:59 Quetiapine Fumarate (SEROquel) 25 mg TWICE A DAY ORAL 02/27/17 18:00 03/29/17 17:59 03/03/17 16:47 Sitagliptin Phosphate (Januvia) 100 mg ACBREAKFAST ORAL 02/28/17 06:30 03/30/17 06:29 03/03/17 06:14 Tamsulosin HCl 0.4 mg 0.4 mg BID ORAL 02/28/17 18:00 03/30/17 17:59 03/03/17 16:47 Zolpidem Tartrate (Ambien) 5 mg HSPRN PRN ORAL Insomnia 02/26/17 21:00 03/28/17 20:59 JUSTO LEBLANC March 03, 2017 18:54
[2017-03-03 20:00] VITALS: BP 134/74
[2017-03-03] MEDS: Atorvastatin 20mg tab ORAL SCH (20:39)
[2017-03-03] MEDS: Morphine Sulfate 2mg/ml Inj IVP PRN (22:29)
[2017-03-04] VITALS: BP 116/66
[2017-03-04] MEDS: Morphine Sulfate 2mg/ml Inj IVP PRN (03:36)
[2017-03-04 04:00] VITALS: BP 144/79
[2017-03-04] MEDS: Piperacillin/Tazobactam 2.25 GM in D5W 55 ML IV SCH (06:07)
[2017-03-04] MEDS: NovoLOG Insulin Flexpen SUBQ SCH ×4 (06:13→21:08)
[2017-03-04 08:00] VITALS: BP 149/88
[2017-03-04] MEDS: Tamsulosin 0.4mg cap ORAL SCH ×2 (08:51→17:30)
[2017-03-04] MEDS: Docusate 100mg/10ml Liq ORAL SCH ×2 (08:52→16:59)
[2017-03-04] MEDS: GlipiZIDE 5mg tab ORAL SCH ×2 (08:52→17:30)
[2017-03-04] MEDS: Carvedilol 25mg Tab ORAL SCH ×2 (08:52→21:07)
[2017-03-04] MEDS: Pantoprazole Inj IVP SCH (08:52)
[2017-03-04 08:53] LABS: BASOPHILS % (AUTO) 0.6 % (0.0-2.0); LYMPHOCYTES % (AUTO) 15.8 % (20.0-45.0); MEAN CORPUSCULAR HEMOGLOBIN 30.4 PG (27.0-31.0); MEAN CORPUSCULAR HGB CONC 32.2 G/DL (32.0-36.0); MEAN CORPUSCULAR VOLUME 94 FL (80-99); MEAN PLATELET VOLUME 6.6 FL (6.5-10.1); MONOCYTES % (AUTO) 4.2 % (1.0-10.0); NEUTROPHILS % (AUTO) 75.5 % (45.0-75.0); PLATELET COUNT 235 K/UL (150-450); RED BLOOD COUNT 3.22 M/UL (4.70-6.10); RED CELL DISTRIBUTION WIDTH 13.3 % (11.6-14.8); WHITE BLOOD COUNT 15.5 K/UL (4.8-10.8)
[2017-03-04 09:06] LABS: ALANINE AMINOTRANSFERASE 14 U/L (3-41); ALBUMIN/GLOBULIN RATIO 0.6 (1.0-2.7); ANION GAP 19 (5-15); ASPARTATE AMINO TRANSFERASE 10 U/L (5-40); CALCIUM 9.5 mg/dL (8.6-10.2); CARBON DIOXIDE 26 mEQ/L (20-30); CHLORIDE 96 mEQ/L (98-107); CREATININE 6.1 mg/dL (0.7-1.2); CRP QUANT 2.7 mg/dL (< 0.5); HEMOLYSIS 3; PHOSPHORUS 3.8 mg/dL (2.5-4.8); POTASSIUM 3.3 mEQ/L (3.4-4.9); SODIUM 141 mEQ/L (135-145); TOTAL PROTEIN 7.3 g/dL (6.6-8.7); URIC ACID 10.1 mg/dL (3.0-7.5)
--- NOTE | 2017-03-04 12:04 | General Progress Note ---
Assessment/Plan Status: deteriorating Status Narrative Cr rising- Hematuria persists Assessment/Plan Primary Impression: Altered level of consciousness : uremia and Hypoglycemia MILAN (acute kidney injury) due to urinary outlet obstruction UTI (urinary tract infection) HTN DM Psychosis Plan: Need HD as Cr rising Will discuss with MIMI Discussed with LUISA De Santiago Cath Uro fu resume glipizide Slow Hydrate- Keep BS and BP in check Monitor renal parameters Avoid Nephrotoxics resume anti Psych and oral hypoglycemica Per orders Subjective ROS Limited/Unobtainable: No Constitutional: Reports: malaise, weakness Allergies: Coded Allergies: No Known Allergies (Unverified , 02/25/17) Objective Last 24 Hour Vital Signs Date Time Temp Pulse Resp B/P Pulse Ox O2 Delivery O2 Flow Rate FiO2 03/04/17 08:52 79 149/88 03/04/17 08:52 79 149/88 03/04/17 08:00 97.5 79 18 149/88 98 Room Air 03/04/17 04:06 97.5 03/04/17 04:00 97.5 65 18 144/79 98 Room Air 03/04/17 00:00 97.5 67 18 116/66 95 Room Air 03/03/17 20:39 75 134/74 03/03/17 20:00 97.9 75 18 134/74 96 Room Air 03/03/17 16:36 97.9 71 17 147/81 94 Room Air 03/03/17 12:08 97.9 62 18 135/71 98 Room Air Intake and Output 03/03/17 03/04/17 19:00 07:00 Intake Total 1090 ml 1410 ml Output Total 500 ml Balance 1090 ml 910 ml Intake Oral 480 ml IV Total 610 ml 1410 ml Output Urine Total 500 ml # Bowel Movements 2 Laboratory Tests 03/04/17 08:25: White Blood Count 15.5H, Red Blood Count 3.22L, Hemoglobin 9.8L, Hematocrit 30.3L, Mean Corpuscular Volume 94, Mean Corpuscular Hemoglobin 30.4, Mean Corpuscular Hemoglobin Concent 32.2, Red Cell Distribution Width 13.3, Platelet Count 235, Mean Platelet Volume 6.6, Neutrophils (%) (Auto) 75.5H, Lymphocytes ( %) (Auto) 15.8L, Monocytes (%) (Auto) 4.2, Eosinophils (%) (Auto) 4.0H, Basophils (%) (Auto) 0.6, Sodium Level 141, Potassium Level 3.3L, Chloride Level 96L, Carbon Dioxide Level 26, Anion Gap 19H, Blood Urea Nitrogen 55H, Creatinine 6.1H, Estimat Glomerular Filtration Rate , Glucose Level 223H, Uric Acid 10.1H, Calcium Level 9.5, Phosphorus Level 3.8, Magnesium Level 1.9, Total Bilirubin 0.3, Aspartate Amino Transf (AST/SGOT) 10, Alanine Aminotransferase ( ALT/SGPT) 14, Alkaline Phosphatase 64, C-Reactive Protein, Quantitative 2.7H, Pro-B-Type Natriuretic Peptide 446H, Total Protein 7.3, Albumin 2.9L, Globulin 4.4, Albumin/Globulin Ratio 0.6L Height (Feet): 5 Height (Inches): 10.00 Weight (Pounds): 260 General Appearance: no apparent distress Cardiovascular: normal rate Respiratory/Chest: decreased breath sounds Abdomen: distended Genitourinary/Rectal: other - benjamin , bloody Objective other PE not changed JULIETA LEON March 04, 2017 12:04
[2017-03-04 12:12] VITALS: BP 129/69
--- NOTE | 2017-03-04 12:45 | Infectious Diseases Prog Note ---
Assessment/Plan Assessment/Plan A: The patient is a 71-year-old male with leukocytosis persistent , dose not appear to be 2nd to ID process but m/l 2/2 MILAN Sepsis,SP UTI : MRSA repeat UCx MRSA and ( Mixed GNR : contaminant ) ALOC improved Cxray : No definite acute process 01/30 MILAN Need HD as Cr rising as per Nephro CAD CHF COPD Asthma Diabetes Depression PLAN: DC IV Zosyn d# / and cont Zyvox d# / monitor CBC Monitor BMP. Monitor cultures (blood,) Monitor the chest x-ray Uro and Nephro following Subjective Allergies: Coded Allergies: No Known Allergies (Unverified , 02/25/17) Subjective afebrile Objective Vital Signs Last 24 Hour Vital Signs Date Time Temp Pulse Resp B/P Pulse Ox O2 Delivery O2 Flow Rate FiO2 03/04/17 12:12 96.8 57 18 129/69 96 Room Air 03/04/17 08:52 79 149/88 03/04/17 08:52 79 149/88 03/04/17 08:00 97.5 79 18 149/88 98 Room Air 03/04/17 04:06 97.5 03/04/17 04:00 97.5 65 18 144/79 98 Room Air 03/04/17 00:00 97.5 67 18 116/66 95 Room Air 03/03/17 20:39 75 134/74 03/03/17 20:00 97.9 75 18 134/74 96 Room Air 03/03/17 16:36 97.9 71 17 147/81 94 Room Air Height (Feet): 5 Height (Inches): 10.00 Weight (Pounds): 260 HEENT: anicteric Respiratory/Chest: no respiratory distress Cardiovascular: regular rhythm Abdomen: soft, non tender Laboratory Tests Test 03/04/17 08:25 White Blood Count 15.5 K/UL (4.8-10.8) H Red Blood Count 3.22 M/UL (4.70-6.10) L Hemoglobin 9.8 G/DL (14.2-18.0) L Hematocrit 30.3 % (42.0-52.0) L Mean Corpuscular Volume 94 FL (80-99) Mean Corpuscular Hemoglobin 30.4 PG (27.0-31.0) Mean Corpuscular Hemoglobin Concent 32.2 G/DL (32.0-36.0) Red Cell Distribution Width 13.3 % (11.6-14.8) Platelet Count 235 K/UL (150-450) Mean Platelet Volume 6.6 FL (6.5-10.1) Neutrophils (%) (Auto) 75.5 % (45.0-75.0) H Lymphocytes (%) (Auto) 15.8 % (20.0-45.0) L Monocytes (%) (Auto) 4.2 % (1.0-10.0) Eosinophils (%) (Auto) 4.0 % (0.0-3.0) H Basophils (%) (Auto) 0.6 % (0.0-2.0) Sodium Level 141 mEQ/L (135-145) Potassium Level 3.3 mEQ/L (3.4-4.9) L Chloride Level 96 mEQ/L (98-107) L Carbon Dioxide Level 26 mEQ/L (20-30) Anion Gap 19 (5-15) H Blood Urea Nitrogen 55 mg/dL (7-23) H Creatinine 6.1 mg/dL (0.7-1.2) H Estimat Glomerular Filtration Rate mL/min (>60) Glucose Level 223 mg/dL (74-106) H Uric Acid 10.1 mg/dL (3.0-7.5) H Calcium Level 9.5 mg/dL (8.6-10.2) Phosphorus Level 3.8 mg/dL (2.5-4.8) Magnesium Level 1.9 mg/dL (1.7-2.5) Total Bilirubin 0.3 mg/dL (0.0-1.2) Aspartate Amino Transf (AST/SGOT) 10 U/L (5-40) Alanine Aminotransferase (ALT/SGPT) 14 U/L (3-41) Alkaline Phosphatase 64 U/L (40-129) C-Reactive Protein, Quantitative 2.7 mg/dL (< 0.5) H Pro-B-Type Natriuretic Peptide 446 pg/mL (0-125) H Total Protein 7.3 g/dL (6.6-8.7) Albumin 2.9 g/dL (3.5-5.2) L Globulin 4.4 g/dL Albumin/Globulin Ratio 0.6 (1.0-2.7) L Current Medications Medications (Trade) Dose Ordered Sig/Fernando Route PRN Reason Start Time Stop Time Status Last Admin Dose Admin Acetaminophen (Tylenol) 650 mg Q4H PRN ORAL T>100.5 02/26/17 17:00 03/28/17 16:59 Allopurinol 300 mg 300 mg DAILY ORAL 03/03/17 09:00 04/02/17 08:59 03/04/17 08:52 Amlodipine Besylate (Norvasc) 10 mg DAILY ORAL 02/27/17 09:00 03/29/17 08:59 03/04/17 08:52 Atorvastatin Calcium (Lipitor) 20 mg BEDTIME ORAL 02/26/17 21:00 03/28/17 20:59 03/03/17 20:39 Carvedilol (Coreg) 25 mg EVERY 12 HOURS ORAL 03/01/17 21:00 03/31/17 20:59 03/04/17 08:52 Clonidine HCl (Catapres) 0.1 mg Q4H PRN ORAL SBP>160 03/01/17 11:45 03/31/17 11:44 Dextrose (D5W 1000ml) 1,000 ml @ 100 mls/hr Q10H IV 03/03/17 09:30 04/02/17 09:29 03/04/17 05:13 Dextrose (Dextrose 50%) STAT PRN IV Hypoglycemia 02/27/17 16:00 03/29/17 15:59 Docusate Sodium (Colace) 100 mg BID ORAL 02/27/17 18:00 03/29/17 17:59 03/03/17 16:47 Gabapentin (Neurontin) 200 mg QHS ORAL 02/27/17 21:00 03/29/17 20:59 03/03/17 20:39 Glipizide (Glucotrol) 5 mg BID ORAL 02/28/17 11:30 03/30/17 11:29 03/04/17 08:52 Insulin Aspart (NovoLOG) BEFORE MEALS AND HS SUBQ 02/27/17 16:30 03/29/17 16:29 03/04/17 11:17 Linezolid (Zyvox) 300 ml @ 300 mls/hr Q12HR IVPB 02/28/17 12:45 03/13/17 23:59 03/04/17 08:51 Lorazepam (Ativan 2mg/ml 1ml) 2 mg Q1H PRN IV seizures 02/26/17 17:00 03/05/17 16:59 Morphine Sulfate (Morphine Sulfate) 1 mg Q4H PRN IVP Severe Pain (Pain Scale 7-10) 02/26/17 17:00 03/05/17 16:59 03/04/17 03:36 Ondansetron HCl (Zofran) 4 mg Q6H PRN IVP Nausea & Vomiting 02/26/17 17:00 03/28/17 16:59 Pantoprazole (Protonix) 40 mg DAILY IVP 02/27/17 09:00 03/29/17 08:59 03/04/17 08:52 Piperacillin Sod/ Tazobactam Sod/ Dextrose (Zosyn/D5W) 55 ml @ 110 mls/hr Q8HR IV 02/26/17 22:00 03/05/17 21:59 03/04/17 06:07 Polyethylene Glycol (Miralax) 17 gm HSPRN PRN ORAL Constipation 02/26/17 21:00 03/28/17 20:59 Quetiapine Fumarate (SEROquel) 25 mg TWICE A DAY ORAL 02/27/17 18:00 03/29/17 17:59 03/04/17 08:52 Sitagliptin Phosphate (Januvia) 100 mg ACBREAKFAST ORAL 02/28/17 06:30 03/30/17 06:29 03/04/17 06:07 Tamsulosin HCl 0.4 mg 0.4 mg BID ORAL 02/28/17 18:00 03/30/17 17:59 03/04/17 08:51 Zolpidem Tartrate (Ambien) 5 mg HSPRN PRN ORAL Insomnia 02/26/17 21:00 03/28/17 20:59 MARISOL CAPPS M.D. March 04, 2017 12:45
[2017-03-04 16:00] VITALS: BP 123/66
[2017-03-04] MEDS ORDERED: NS Irrig 1000ml ONE (17:43)
[2017-03-04] MEDS ORDERED: Tubing IV Secondary IV ONE (17:43)
[2017-03-04] MEDS ORDERED: NS 550ML IV ONE (17:43)
--- NOTE | 2017-03-04 19:45 | Consultation ---
DATE OF CONSULTATION: HISTORY OF PRESENT ILLNESS: This is a 71-year-old male patient presents with a history of hypertension, depression, anxiety disorder, BPH, CHF, and diabetes mellitus , who is residing in a snf presented to the emergency room with altered mental status. The patient currently has been treated with antidepressants and antipsychotics. During the evaluation, he appears anxiety and depressive symptoms are improved. He only has mild anxiety symptoms. He is also confused. No suicidal or homicidal ideation. No psychotic symptoms. PAST PSYCHIATRIC HISTORY: Diagnosed with depression and anxiety disorder. PAST MEDICAL HISTORY: Significant for multiple medical problems including diabetes mellitus, hypertension, UTI, acute kidney injury, and altered level of consciousness. ALLERGIES: No known drug allergies. SUBSTANCE ABUSE HISTORY: No known illicit drug use or alcohol. MENTAL STATUS EXAMINATION: The patient presents with waxing and waning consciousness, confused, disoriented. Mood is neutral. Affect is constricted. Congruent mood. Thought process is concrete. Thought content, no suicidal or homicidal ideations. PLAN: 1. The patient will be continued on Seroquel. 2. We will attempt to tapered down his Effexor gradually. 3. We will continue to follow and monitor his symptoms. Ladarius Parry M.D. DR: Andree JOB#: [id number] CC:
[2017-03-04] MEDS: DuoNeb 0.5-3(2.5)mg/3ml neb HHN SCH (20:13)
[2017-03-04] MEDS: Atorvastatin 20mg tab ORAL SCH (21:07)
--- NOTE | 2017-03-04 22:48 | Pulmonology Progress Note ---
Assessment/Plan Problems: (1) Acute encephalopathy (2) Sepsis (3) ATN (acute tubular necrosis) (4) Hypoglycemia (5) Obstructive uropathy (6) CAD (coronary artery disease) (7) COPD (chronic obstructive pulmonary disease) Assessment/Plan IV fluids, at 50 cc/hour cystoscopy scheduled for Saturday watch electrolytes renal studies pending wbc still high, check daily [place] culture, all negative so far ID, Renal, Urology evaluation dvt prophylaxis Med/surg on IV Zosyn, and cont Zyvox Subjective ROS Limited/Unobtainable: No Interval Events: comfortable Allergies: Coded Allergies: No Known Allergies (Unverified , 02/25/17) Objective Last 24 Hour Vital Signs Date Time Temp Pulse Resp B/P Pulse Ox O2 Delivery O2 Flow Rate FiO2 03/04/17 21:07 69 123/66 03/04/17 20:16 69 18 100 Room Air 03/04/17 20:15 73 18 96 Room Air 03/04/17 20:14 73 18 Room Air 03/04/17 19:58 97.7 72 17 96 Room Air 03/04/17 16:00 97.5 64 18 123/66 97 Room Air 03/04/17 12:12 96.8 57 18 129/69 96 Room Air 03/04/17 08:52 79 149/88 03/04/17 08:52 79 149/88 03/04/17 08:00 97.5 79 18 149/88 98 Room Air 03/04/17 04:06 97.5 03/04/17 04:00 97.5 65 18 144/79 98 Room Air 03/04/17 00:00 97.5 67 18 116/66 95 Room Air Intake and Output 03/03/17 03/04/17 19:00 07:00 Intake Total 1090 ml 1410 ml Output Total 500 ml Balance 1090 ml 910 ml Intake Oral 480 ml IV Total 610 ml 1410 ml Output Urine Total 500 ml # Bowel Movements 2 Objective General Appearance: WD/WN HEENT: normocephalic, atraumatic Respiratory/Chest: chest wall non-tender, lungs clear Cardiovascular: normal peripheral pulses, normal rate Abdomen: normal bowel sounds, soft, non tender Genitourinary: normal external genitalia Extremities: no cyanosis, edema Lymphatic: no neck adenopathy Laboratory Tests 03/04/17 08:25: White Blood Count 15.5H, Red Blood Count 3.22L, Hemoglobin 9.8L, Hematocrit 30.3L, Mean Corpuscular Volume 94, Mean Corpuscular Hemoglobin 30.4, Mean Corpuscular Hemoglobin Concent 32.2, Red Cell Distribution Width 13.3, Platelet Count 235, Mean Platelet Volume 6.6, Neutrophils (%) (Auto) 75.5H, Lymphocytes ( %) (Auto) 15.8L, Monocytes (%) (Auto) 4.2, Eosinophils (%) (Auto) 4.0H, Basophils (%) (Auto) 0.6, Sodium Level 141, Potassium Level 3.3L, Chloride Level 96L, Carbon Dioxide Level 26, Anion Gap 19H, Blood Urea Nitrogen 55H, Creatinine 6.1H, Estimat Glomerular Filtration Rate , Glucose Level 223H, Uric Acid 10.1H, Calcium Level 9.5, Phosphorus Level 3.8, Magnesium Level 1.9, Total Bilirubin 0.3, Aspartate Amino Transf (AST/SGOT) 10, Alanine Aminotransferase ( ALT/SGPT) 14, Alkaline Phosphatase 64, C-Reactive Protein, Quantitative 2.7H, Pro-B-Type Natriuretic Peptide 446H, Total Protein 7.3, Albumin 2.9L, Globulin 4.4, Albumin/Globulin Ratio 0.6L Current Medications Medications (Trade) Dose Ordered Sig/Fernando Route PRN Reason Start Time Stop Time Status Last Admin Dose Admin Acetaminophen (Tylenol) 650 mg Q4H PRN ORAL T>100.5 02/26/17 17:00 03/28/17 16:59 Albuterol/ Ipratropium (DuoNeb 0.5-3(2.5)mg/3ml) 3 ml TIDRT N 03/04/17 19:00 03/09/17 18:59 03/04/17 20:13 Allopurinol 300 mg 300 mg DAILY ORAL 03/03/17 09:00 04/02/17 08:59 03/04/17 08:52 Amlodipine Besylate (Norvasc) 10 mg DAILY ORAL 02/27/17 09:00 03/29/17 08:59 03/04/17 08:52 Atorvastatin Calcium (Lipitor) 20 mg BEDTIME ORAL 02/26/17 21:00 03/28/17 20:59 03/04/17 21:07 Carvedilol (Coreg) 25 mg EVERY 12 HOURS ORAL 03/01/17 21:00 03/31/17 20:59 03/04/17 21:07 Clonidine HCl (Catapres) 0.1 mg Q4H PRN ORAL SBP>160 03/01/17 11:45 03/31/17 11:44 Dextrose (D5W 1000ml) 1,000 ml @ 100 mls/hr Q10H IV 03/03/17 09:30 04/02/17 09:29 03/04/17 15:30 Dextrose (Dextrose 50%) STAT PRN IV Hypoglycemia 02/27/17 16:00 03/29/17 15:59 Docusate Sodium (Colace) 100 mg BID ORAL 02/27/17 18:00 03/29/17 17:59 03/03/17 16:47 Gabapentin (Neurontin) 200 mg QHS ORAL 02/27/17 21:00 03/29/17 20:59 03/04/17 21:07 Glipizide (Glucotrol) 5 mg BID ORAL 02/28/17 11:30 03/30/17 11:29 03/04/17 17:30 Insulin Aspart (NovoLOG) BEFORE MEALS AND HS SUBQ 02/27/17 16:30 03/29/17 16:29 03/04/17 21:08 Linezolid (Zyvox) 300 ml @ 300 mls/hr Q12HR IVPB 02/28/17 12:45 03/13/17 23:59 03/04/17 21:07 Lorazepam (Ativan 2mg/ml 1ml) 2 mg Q1H PRN IV seizures 02/26/17 17:00 03/05/17 16:59 Morphine Sulfate (Morphine Sulfate) 1 mg Q4H PRN IVP Severe Pain (Pain Scale 7-10) 02/26/17 17:00 03/05/17 16:59 03/04/17 03:36 Ondansetron HCl (Zofran) 4 mg Q6H PRN IVP Nausea & Vomiting 02/26/17 17:00 03/28/17 16:59 Pantoprazole (Protonix) 40 mg DAILY IVP 02/27/17 09:00 03/29/17 08:59 03/04/17 08:52 Polyethylene Glycol (Miralax) 17 gm HSPRN PRN ORAL Constipation 02/26/17 21:00 03/28/17 20:59 Quetiapine Fumarate (SEROquel) 25 mg TWICE A DAY ORAL 02/27/17 18:00 03/29/17 17:59 03/04/17 17:30 Sitagliptin Phosphate (Januvia) 100 mg ACBREAKFAST ORAL 02/28/17 06:30 03/30/17 06:29 03/04/17 06:07 Tamsulosin HCl 0.4 mg 0.4 mg BID ORAL 02/28/17 18:00 03/30/17 17:59 03/04/17 17:30 Zolpidem Tartrate (Ambien) 5 mg HSPRN PRN ORAL Insomnia 02/26/17 21:00 03/28/17 20:59 JUSTO LEBLANC March 04, 2017 22:48
[2017-03-05] VITALS (10 sets, daily range): BP systolic 108–124; BP diastolic 56–69
[2017-03-05] MEDS: NovoLOG Insulin Flexpen SUBQ SCH ×4 (06:15→21:05)
[2017-03-05] MEDS: DuoNeb 0.5-3(2.5)mg/3ml neb HHN SCH ×3 (07:20→19:11)
[2017-03-05] MEDS: Pantoprazole Inj IVP SCH (08:53)
[2017-03-05] MEDS: GlipiZIDE 5mg tab ORAL SCH (08:53)
[2017-03-05] MEDS: Tamsulosin 0.4mg cap ORAL SCH ×2 (08:54→18:35)
[2017-03-05] MEDS: Carvedilol 25mg Tab ORAL SCH ×2 (08:54→21:03)
[2017-03-05] MEDS: Docusate 100mg/10ml Liq ORAL SCH ×2 (08:54→18:34)
[2017-03-05 10:40] LABS: ALANINE AMINOTRANSFERASE 12 U/L (3-41); ALBUMIN/GLOBULIN RATIO 0.6 (1.0-2.7); ANION GAP 17 (5-15); ASPARTATE AMINO TRANSFERASE 10 U/L (5-40); CALCIUM 8.9 mg/dL (8.6-10.2); CARBON DIOXIDE 24 mEQ/L (20-30); CHLORIDE 89 mEQ/L (98-107); CREATININE 7.6 mg/dL (0.7-1.2); HEMOLYSIS 3; PHOSPHORUS 5.6 mg/dL (2.5-4.8); POTASSIUM 3.4 mEQ/L (3.4-4.9); SODIUM 130 mEQ/L (135-145); TOTAL PROTEIN 6.7 g/dL (6.6-8.7); URIC ACID 9.6 mg/dL (3.0-7.5)
--- NOTE | 2017-03-05 11:01 | Infectious Diseases Prog Note ---
Assessment/Plan Assessment/Plan A: The patient is a 71-year-old male with leukocytosis persistent , dose not appear to be 2nd to ID process but m/l 2/2 MILAN Sepsis,SP UTI : MRSA repeat UCx MRSA and ( Mixed GNR : contaminant ) ALOC improved Cxray : No definite acute process 01/30 MILAN Need HD as Cr rising as per Nephro CAD CHF COPD Asthma Diabetes Depression PLAN: cont Zyvox d# 6 / 14 ( SP DC IV Zosyn d# 7 ) monitor CBC Monitor BMP Monitor the chest x-ray Uro and Nephro following Subjective Constitutional: Denies: anorexia, chills, drenching sweats, fatigue, fever, no symptoms, other Allergies: Coded Allergies: No Known Allergies (Unverified , 02/25/17) Subjective afebrile Objective Vital Signs Last 24 Hour Vital Signs Date Time Temp Pulse Resp B/P Pulse Ox O2 Delivery O2 Flow Rate FiO2 03/05/17 08:54 74 121/62 03/05/17 08:54 74 121/62 03/05/17 07:51 98.1 74 19 121/62 94 Room Air 03/05/17 07:30 76 18 100 Room Air 03/05/17 07:20 75 18 96 Room Air 03/05/17 07:20 75 18 Room Air 03/05/17 04:05 97.5 67 17 116/64 93 Room Air 03/05/17 00:04 96.0 65 15 120/62 93 Room Air 03/04/17 21:07 69 123/66 03/04/17 20:16 69 18 100 Room Air 03/04/17 20:15 73 18 96 Room Air 03/04/17 20:14 73 18 Room Air 03/04/17 19:58 97.7 72 17 96 Room Air 03/04/17 16:00 97.5 64 18 123/66 97 Room Air 03/04/17 12:12 96.8 57 18 129/69 96 Room Air Height (Feet): 5 Height (Inches): 10.00 Weight (Pounds): 260 HEENT: atraumatic Respiratory/Chest: normal breath sounds Cardiovascular: normal rate Abdomen: no organomegaly Skin: no rash Laboratory Tests Test 03/05/17 10:00 Sodium Level Pending Potassium Level Pending Chloride Level Pending Carbon Dioxide Level Pending Blood Urea Nitrogen Pending Creatinine Pending Estimat Glomerular Filtration Rate Pending Glucose Level Pending Uric Acid Pending Calcium Level Pending Phosphorus Level Pending Total Bilirubin Pending Aspartate Amino Transf (AST/SGOT) Pending Alanine Aminotransferase (ALT/SGPT) Pending Alkaline Phosphatase Pending Total Protein Pending Albumin Pending Globulin Pending Current Medications Medications (Trade) Dose Ordered Sig/Fernando Route PRN Reason Start Time Stop Time Status Last Admin Dose Admin Acetaminophen (Tylenol) 650 mg Q4H PRN ORAL T>100.5 02/26/17 17:00 03/28/17 16:59 Albuterol/ Ipratropium (DuoNeb 0.5-3(2.5)mg/3ml) 3 ml TIDRT HHN 03/04/17 19:00 03/09/17 18:59 03/05/17 07:20 Allopurinol 300 mg 300 mg DAILY ORAL 03/03/17 09:00 04/02/17 08:59 03/05/17 08:53 Amlodipine Besylate (Norvasc) 10 mg DAILY ORAL 02/27/17 09:00 03/29/17 08:59 03/05/17 08:54 Atorvastatin Calcium (Lipitor) 20 mg BEDTIME ORAL 02/26/17 21:00 03/28/17 20:59 03/04/17 21:07 Carvedilol (Coreg) 25 mg EVERY 12 HOURS ORAL 03/01/17 21:00 03/31/17 20:59 03/05/17 08:54 Clonidine HCl (Catapres) 0.1 mg Q4H PRN ORAL SBP>160 03/01/17 11:45 03/31/17 11:44 Dextrose (D5W 1000ml) 1,000 ml @ 100 mls/hr Q10H IV 03/03/17 09:30 04/02/17 09:29 03/05/17 02:03 Dextrose (Dextrose 50%) STAT PRN IV Hypoglycemia 02/27/17 16:00 03/29/17 15:59 Docusate Sodium (Colace) 100 mg BID ORAL 02/27/17 18:00 03/29/17 17:59 03/05/17 08:54 Gabapentin (Neurontin) 200 mg QHS ORAL 02/27/17 21:00 03/29/17 20:59 03/04/17 21:07 Glipizide (Glucotrol) 5 mg BID ORAL 02/28/17 11:30 03/30/17 11:29 03/05/17 08:53 Insulin Aspart (NovoLOG) BEFORE MEALS AND HS SUBQ 02/27/17 16:30 03/29/17 16:29 03/05/17 06:15 Linezolid (Zyvox) 300 ml @ 300 mls/hr Q12HR IVPB 02/28/17 12:45 03/13/17 23:59 03/05/17 08:53 Lorazepam (Ativan 2mg/ml 1ml) 2 mg Q1H PRN IV seizures 02/26/17 17:00 03/05/17 16:59 Morphine Sulfate (Morphine Sulfate) 1 mg Q4H PRN IVP Severe Pain (Pain Scale 7-10) 02/26/17 17:00 03/05/17 16:59 03/04/17 03:36 Ondansetron HCl (Zofran) 4 mg Q6H PRN IVP Nausea & Vomiting 02/26/17 17:00 03/28/17 16:59 Pantoprazole (Protonix) 40 mg DAILY IVP 02/27/17 09:00 03/29/17 08:59 03/05/17 08:53 Polyethylene Glycol (Miralax) 17 gm HSPRN PRN ORAL Constipation 02/26/17 21:00 03/28/17 20:59 Quetiapine Fumarate (SEROquel) 25 mg TWICE A DAY ORAL 02/27/17 18:00 03/29/17 17:59 03/05/17 08:53 Sitagliptin Phosphate (Januvia) 100 mg ACBREAKFAST ORAL 02/28/17 06:30 03/30/17 06:29 03/05/17 06:14 Tamsulosin HCl 0.4 mg 0.4 mg BID ORAL 02/28/17 18:00 03/30/17 17:59 03/05/17 08:54 Zolpidem Tartrate (Ambien) 5 mg HSPRN PRN ORAL Insomnia 02/26/17 21:00 03/28/17 20:59 MARISOL CAPPS M.D. March 05, 2017 11:00
--- NOTE | 2017-03-05 11:43 | Diagnostic Imaging Report ---
Indication: SOB Technique: One view of the chest Comparison: 03/01/2017 Findings: Patient is rotated to the right. Hazy opacity in the left lung most likely reflects overlying pleural thickening described previously. Lungs and pleural spaces are otherwise clear. The heart is enlarged. Evidence of prior CABG. No definite significant interim change. Impression: No definite acute process. Findings as noted
--- NOTE | 2017-03-05 13:11 | General Progress Note ---
Assessment/Plan Status: progressing Status Narrative BPH, Gross Hematuria, Chronic retentio Assessment/Plan Patient is scheduled for Cystoscopy, SP tube placement possible TURP Subjective ROS Limited/Unobtainable: Yes Genitourinary: Reports: burning, hematuria Allergies: Coded Allergies: No Known Allergies (Unverified , 02/25/17) Objective Last 24 Hour Vital Signs Date Time Temp Pulse Resp B/P Pulse Ox O2 Delivery O2 Flow Rate FiO2 03/05/17 11:26 97.8 58 20 117/56 94 Room Air 03/05/17 08:54 74 121/62 03/05/17 08:54 74 121/62 03/05/17 07:51 98.1 74 19 121/62 94 Room Air 03/05/17 07:30 76 18 100 Room Air 03/05/17 07:20 75 18 96 Room Air 03/05/17 07:20 75 18 Room Air 03/05/17 04:05 97.5 67 17 116/64 93 Room Air 03/05/17 00:04 96.0 65 15 120/62 93 Room Air 03/04/17 21:07 69 123/66 03/04/17 20:16 69 18 100 Room Air 03/04/17 20:15 73 18 96 Room Air 03/04/17 20:14 73 18 Room Air 03/04/17 19:58 97.7 72 17 96 Room Air 03/04/17 16:00 97.5 64 18 123/66 97 Room Air Intake and Output 03/04/17 03/05/17 19:00 07:00 Intake Total 1900 ml 1400 ml Output Total 100 ml 300 ml Balance 1800 ml 1100 ml Intake Oral 600 ml IV Total 1300 ml 1400 ml Output Urine Total 100 ml 300 ml # Voids 1 # Bowel Movements 1 Laboratory Tests 03/05/17 10:00: Sodium Level 130L, Potassium Level 3.4, Chloride Level 89L, Carbon Dioxide Level 24, Anion Gap 17H, Blood Urea Nitrogen 59H, Creatinine 7.6H, Estimat Glomerular Filtration Rate , Glucose Level 260H, Uric Acid 9.6H, Calcium Level 8.9, Phosphorus Level 5.6H, Total Bilirubin 0.3, Aspartate Amino Transf (AST/ SGOT) 10, Alanine Aminotransferase (ALT/SGPT) 12, Alkaline Phosphatase 60, Total Protein 6.7, Albumin 2.7L, Globulin 4.0, Albumin/Globulin Ratio 0.6L Height (Feet): 5 Height (Inches): 10.00 Weight (Pounds): 260 Abdomen: non tender Pelvis: blood Heriberto Gallegos MD March 05, 2017 13:11
[2017-03-05] MEDS ORDERED: Sodium Bicarbonate 8.4% 50ml Inj ONE (13:57)
[2017-03-05] MEDS ORDERED: Heparin 2000 units/Ns 1000ml INJ ONE (14:00)
[2017-03-05] MEDS ORDERED: Heparin Sod 1000 units/ml 10ml INJ ONE (14:00)
[2017-03-05] MEDS ORDERED: Lidocaine 1% Plain 30 ml INJ ONE (14:00)
--- NOTE | 2017-03-05 14:50 | General Progress Note ---
Assessment/Plan Status: unchanged, deteriorating Status Narrative Cr rising Assessment/Plan Primary Impression: Altered level of consciousness : uremia and Hypoglycemia MILAN (acute kidney injury) --- urinary outlet obstruction UTI (urinary tract infection) HTN DM Psychosis Plan: Need HD as Cr rising Will discuss with MIMI Discussed with LUISA COVINGTON , Agreeable Uro fu Hold glipizide for NPO Keep BS and BP in check Monitor renal parameters Avoid Nephrotoxics resume anti Psych and oral hypoglycemica Per orders Subjective ROS Limited/Unobtainable: No Constitutional: Reports: malaise, weakness Allergies: Coded Allergies: No Known Allergies (Unverified , 02/25/17) Objective Last 24 Hour Vital Signs Date Time Temp Pulse Resp B/P Pulse Ox O2 Delivery O2 Flow Rate FiO2 03/05/17 14:00 57 22 2.0 03/05/17 13:03 78 18 100 Room Air 03/05/17 12:53 77 18 96 Room Air 03/05/17 11:26 97.8 58 20 117/56 94 Room Air 03/05/17 08:54 74 121/62 03/05/17 08:54 74 121/62 03/05/17 07:51 98.1 74 19 121/62 94 Room Air 03/05/17 07:30 76 18 100 Room Air 03/05/17 07:20 75 18 96 Room Air 03/05/17 07:20 75 18 Room Air 03/05/17 04:05 97.5 67 17 116/64 93 Room Air 03/05/17 00:04 96.0 65 15 120/62 93 Room Air 03/04/17 21:07 69 123/66 03/04/17 20:16 69 18 100 Room Air 03/04/17 20:15 73 18 96 Room Air 03/04/17 20:14 73 18 Room Air 03/04/17 19:58 97.7 72 17 96 Room Air 03/04/17 16:00 97.5 64 18 123/66 97 Room Air Intake and Output 03/04/17 03/05/17 19:00 07:00 Intake Total 1900 ml 1400 ml Output Total 100 ml 300 ml Balance 1800 ml 1100 ml Intake Oral 600 ml IV Total 1300 ml 1400 ml Output Urine Total 100 ml 300 ml # Voids 1 # Bowel Movements 1 Laboratory Tests 03/05/17 10:00: Sodium Level 130L, Potassium Level 3.4, Chloride Level 89L, Carbon Dioxide Level 24, Anion Gap 17H, Blood Urea Nitrogen 59H, Creatinine 7.6H, Estimat Glomerular Filtration Rate , Glucose Level 260H, Uric Acid 9.6H, Calcium Level 8.9, Phosphorus Level 5.6H, Total Bilirubin 0.3, Aspartate Amino Transf (AST/ SGOT) 10, Alanine Aminotransferase (ALT/SGPT) 12, Alkaline Phosphatase 60, Total Protein 6.7, Albumin 2.7L, Globulin 4.0, Albumin/Globulin Ratio 0.6L Height (Feet): 5 Height (Inches): 10.00 Weight (Pounds): 260 General Appearance: no apparent distress Objective other PE not changed JULIETA LEON March 05, 2017 14:50
--- NOTE | 2017-03-05 16:37 | Diagnostic Imaging Report ---
Indication: LINE Technique: Procedural timeout performed. Total sterile technique, including sterile probe cover and sterile gel, sterile gloves, hand hygiene, hat, mask, sterile gown, large sterile drape, and preparation with 2% chlorhexidine utilized. Local anesthesia with 1% lidocaine. Under real-time ultrasound guidance, puncture right internal jugular vein using 21-gauge micropuncture needle, passage of a 0.018 guidewire, insertion 4 [place] micropuncture introducer, passage 0.035 guidewire, over which was passed serial dilators and then a 12.5 [place] 16 cm triple-lumen temporary dialysis catheter. Guidewire was removed. Catheter ports were aspirated and flushed. The catheter was fixed to the skin. Patient tolerated procedure well. Digital radiograph documents catheter tip position at the cavoatrial junction. Total fluoroscopy time 0.7 minutes. Total dose area product 31 dGycm2 Comparison: None Findings: As above Impression: Successful bedside placement of right transjugular temporary dialysis catheter, as described.
--- NOTE | 2017-03-05 18:20 | Pulmonology Progress Note ---
Assessment/Plan Problems: (1) Acute encephalopathy (2) Sepsis (3) ATN (acute tubular necrosis) (4) Hypoglycemia (5) Obstructive uropathy (6) CAD (coronary artery disease) (7) COPD (chronic obstructive pulmonary disease) Assessment/Plan IV fluids, at 50 cc/hour cystoscopy scheduled for Saturday watch electrolytes renal studies pending wbc still high, check daily dvt prophylaxis on IV Zosyn, and cont Zyvox will need HD Subjective ROS Limited/Unobtainable: No Interval Events: comfortable Allergies: Coded Allergies: No Known Allergies (Unverified , 02/25/17) Objective Last 24 Hour Vital Signs Date Time Temp Pulse Resp B/P Pulse Ox O2 Delivery O2 Flow Rate FiO2 03/05/17 15:15 58 18 108/67 100 Nasal Cannula 2.0 03/05/17 15:10 57 21 112/68 100 Nasal Cannula 2.0 03/05/17 15:05 55 18 114/65 100 Nasal Cannula 2.0 03/05/17 15:00 52 18 122/63 100 Nasal Cannula 2.0 03/05/17 14:00 57 22 2.0 03/05/17 13:03 78 18 100 Room Air 03/05/17 12:53 77 18 96 Room Air 03/05/17 11:26 97.8 58 20 117/56 94 Room Air 03/05/17 08:54 74 121/62 03/05/17 08:54 74 121/62 03/05/17 07:51 98.1 74 19 121/62 94 Room Air 03/05/17 07:30 76 18 100 Room Air 03/05/17 07:20 75 18 96 Room Air 03/05/17 07:20 75 18 Room Air 03/05/17 04:05 97.5 67 17 116/64 93 Room Air 03/05/17 00:04 96.0 65 15 120/62 93 Room Air 03/04/17 21:07 69 123/66 03/04/17 20:16 69 18 100 Room Air 03/04/17 20:15 73 18 96 Room Air 03/04/17 20:14 73 18 Room Air 03/04/17 19:58 97.7 72 17 96 Room Air Intake and Output 03/04/17 03/05/17 19:00 07:00 Intake Total 1900 ml 1400 ml Output Total 100 ml 300 ml Balance 1800 ml 1100 ml Intake Oral 600 ml IV Total 1300 ml 1400 ml Output Urine Total 100 ml 300 ml # Voids 1 # Bowel Movements 1 Objective General Appearance: WD/WN HEENT: normocephalic, atraumatic Respiratory/Chest: chest wall non-tender, lungs clear Cardiovascular: normal peripheral pulses, normal rate Abdomen: normal bowel sounds, soft, non tender Genitourinary: normal external genitalia Extremities: no cyanosis, edema Lymphatic: no neck adenopathy Laboratory Tests 03/05/17 10:00: Sodium Level 130L, Potassium Level 3.4, Chloride Level 89L, Carbon Dioxide Level 24, Anion Gap 17H, Blood Urea Nitrogen 59H, Creatinine 7.6H, Estimat Glomerular Filtration Rate , Glucose Level 260H, Uric Acid 9.6H, Calcium Level 8.9, Phosphorus Level 5.6H, Total Bilirubin 0.3, Aspartate Amino Transf (AST/ SGOT) 10, Alanine Aminotransferase (ALT/SGPT) 12, Alkaline Phosphatase 60, Total Protein 6.7, Albumin 2.7L, Globulin 4.0, Albumin/Globulin Ratio 0.6L Current Medications Medications (Trade) Dose Ordered Sig/Fernando Route PRN Reason Start Time Stop Time Status Last Admin Dose Admin Acetaminophen (Tylenol) 650 mg Q4H PRN ORAL T>100.5 02/26/17 17:00 03/28/17 16:59 Albuterol/ Ipratropium (DuoNeb 0.5-3(2.5)mg/3ml) 3 ml TIDRT HHN 03/04/17 19:00 03/09/17 18:59 03/05/17 12:53 Allopurinol (Allopurinol) 300 mg DAILY ORAL 03/03/17 09:00 04/02/17 08:59 03/05/17 08:53 Atorvastatin Calcium (Lipitor) 20 mg BEDTIME ORAL 02/26/17 21:00 03/28/17 20:59 03/04/17 21:07 Carvedilol (Coreg) 25 mg EVERY 12 HOURS ORAL 03/01/17 21:00 03/31/17 20:59 03/05/17 08:54 Clonidine HCl (Catapres) 0.1 mg Q4H PRN ORAL SBP>160 03/01/17 11:45 03/31/17 11:44 Dextrose (Dextrose 50%) STAT PRN IV Hypoglycemia 02/27/17 16:00 03/29/17 15:59 Docusate Sodium (Colace) 100 mg BID ORAL 02/27/17 18:00 03/29/17 17:59 03/05/17 08:54 Gabapentin (Neurontin) 200 mg QHS ORAL 02/27/17 21:00 03/29/17 20:59 03/04/17 21:07 Insulin Aspart (NovoLOG) BEFORE MEALS AND HS SUBQ 02/27/17 16:30 03/29/17 16:29 03/05/17 11:52 Linezolid (Zyvox) 300 ml @ 300 mls/hr Q12HR IVPB 02/28/17 12:45 03/13/17 23:59 03/05/17 08:53 Ondansetron HCl (Zofran) 4 mg Q6H PRN IVP Nausea & Vomiting 02/26/17 17:00 03/28/17 16:59 Pantoprazole (Protonix) 40 mg DAILY IVP 02/27/17 09:00 03/29/17 08:59 03/05/17 08:53 Polyethylene Glycol (Miralax) 17 gm HSPRN PRN ORAL Constipation 02/26/17 21:00 03/28/17 20:59 Quetiapine Fumarate (SEROquel) 25 mg TWICE A DAY ORAL 02/27/17 18:00 03/29/17 17:59 03/05/17 08:53 Tamsulosin HCl 0.4 mg 0.4 mg BID ORAL 02/28/17 18:00 03/30/17 17:59 03/05/17 08:54 Zolpidem Tartrate (Ambien) 5 mg HSPRN PRN ORAL Insomnia 02/26/17 21:00 03/28/17 20:59 JUSTO LEBLANC March 05, 2017 18:20
[2017-03-05] MEDS: Atorvastatin 20mg tab ORAL SCH (21:03)
[2017-03-06] VITALS (20 sets, daily range): BP systolic 127–161; BP diastolic 55–82
[2017-03-06] MEDS: NovoLOG Insulin Flexpen SUBQ SCH ×4 (06:23→22:46)
[2017-03-06 06:25] LABS: EOSINOPHILS % (AUTO) 3.8 % (0.0-3.0); LYMPHOCYTES % (AUTO) 21.7 % (20.0-45.0); MEAN CORPUSCULAR HEMOGLOBIN 31.2 PG (27.0-31.0); MEAN CORPUSCULAR HGB CONC 33.9 G/DL (32.0-36.0); MEAN CORPUSCULAR VOLUME 92 FL (80-99); MEAN PLATELET VOLUME 6.9 FL (6.5-10.1); MONOCYTES % (AUTO) 4.4 % (1.0-10.0); NEUTROPHILS % (AUTO) 69.1 % (45.0-75.0); PLATELET COUNT 188 K/UL (150-450); RED BLOOD COUNT 2.82 M/UL (4.70-6.10); RED CELL DISTRIBUTION WIDTH 12.6 % (11.6-14.8); WHITE BLOOD COUNT 11.2 K/UL (4.8-10.8)
[2017-03-06 07:35] LABS: ALANINE AMINOTRANSFERASE 11 U/L (3-41); ALBUMIN/GLOBULIN RATIO 0.6 (1.0-2.7); ANION GAP 17 (5-15); ASPARTATE AMINO TRANSFERASE 10 U/L (5-40); CALCIUM 8.6 mg/dL (8.6-10.2); CARBON DIOXIDE 25 mEQ/L (20-30); CHLORIDE 92 mEQ/L (98-107); CREATININE 7.6 mg/dL (0.7-1.2); HEMOLYSIS 6; MAGNESIUM 1.7 mg/dL (1.7-2.5); PHOSPHORUS 6.6 mg/dL (2.5-4.8); POTASSIUM 3.3 mEQ/L (3.4-4.9); SODIUM 134 mEQ/L (135-145); TOTAL PROTEIN 6.4 g/dL (6.6-8.7); URIC ACID 9.2 mg/dL (3.0-7.5)
[2017-03-06] MEDS: DuoNeb 0.5-3(2.5)mg/3ml neb HHN SCH ×3 (07:42→19:00)
[2017-03-06] MEDS: Docusate 100mg/10ml Liq ORAL SCH ×2 (09:00→18:00)
[2017-03-06] MEDS: Tamsulosin 0.4mg cap ORAL SCH ×2 (09:00→18:00)
[2017-03-06] MEDS: Carvedilol 25mg Tab ORAL SCH ×2 (09:00→22:41)
--- NOTE | 2017-03-06 09:17 | General Progress Note ---
Assessment/Plan Status: stable Status Narrative dialysed today Assessment/Plan Primary Impression: Altered level of consciousness : uremia and Hypoglycemia MILAN (acute kidney injury) --- urinary outlet obstruction UTI (urinary tract infection) HTN DM Psychosis Plan: dialysed today Uro fu Hold glipizide for NPO Keep BS and BP in check Monitor renal parameters Avoid Nephrotoxics resume anti Psych and oral hypoglycemica Per orders Subjective ROS Limited/Unobtainable: No Constitutional: Reports: malaise Allergies: Coded Allergies: No Known Allergies (Unverified , 02/25/17) Objective Last 24 Hour Vital Signs Date Time Temp Pulse Resp B/P Pulse Ox O2 Delivery O2 Flow Rate FiO2 03/06/17 07:58 97.4 75 20 129/72 100 Room Air 03/06/17 07:52 Room Air 03/06/17 07:48 77 16 98 Room Air 03/06/17 07:42 81 16 97 Room Air 03/06/17 04:25 Room Air 03/06/17 04:03 98.0 72 17 134/74 94 Room Air 03/06/17 00:35 97.7 70 18 137/70 92 Room Air 03/05/17 21:03 69 115/69 03/05/17 19:51 97.7 69 18 115/69 93 Room Air 03/05/17 19:19 60 18 98 Room Air 03/05/17 19:11 67 18 95 Room Air 03/05/17 15:15 58 18 108/67 100 Nasal Cannula 2.0 03/05/17 15:10 57 21 112/68 100 Nasal Cannula 2.0 03/05/17 15:05 55 18 114/65 100 Nasal Cannula 2.0 03/05/17 15:00 52 18 122/63 100 Nasal Cannula 2.0 03/05/17 14:00 57 22 2.0 03/05/17 13:03 78 18 100 Room Air 03/05/17 12:53 77 18 96 Room Air 03/05/17 11:26 97.8 58 20 117/56 94 Room Air Intake and Output 03/05/17 03/06/17 19:00 07:00 Intake Total 720 ml 380 ml Output Total 300 ml 300 ml Balance 420 ml 80 ml Intake Oral 120 ml 80 ml IV Total 600 ml 300 ml Output Urine Total 300 ml 300 ml # Bowel Movements 1 Laboratory Tests 03/05/17 10:00: Sodium Level 130L, Potassium Level 3.4, Chloride Level 89L, Carbon Dioxide Level 24, Anion Gap 17H, Blood Urea Nitrogen 59H, Creatinine 7.6H, Estimat Glomerular Filtration Rate , Glucose Level 260H, Uric Acid 9.6H, Calcium Level 8.9, Phosphorus Level 5.6H, Total Bilirubin 0.3, Aspartate Amino Transf (AST/ SGOT) 10, Alanine Aminotransferase (ALT/SGPT) 12, Alkaline Phosphatase 60, Total Protein 6.7, Albumin 2.7L, Globulin 4.0, Albumin/Globulin Ratio 0.6L 03/06/17 04:40: Sodium Level 134L, Potassium Level 3.3L, Chloride Level 92L, Carbon Dioxide Level 25, Anion Gap 17H, Blood Urea Nitrogen 60H, Creatinine 7.6H, Estimat Glomerular Filtration Rate , Glucose Level 96#, Uric Acid 9.2H, Calcium Level 8.6, Phosphorus Level 6.6H, Total Bilirubin 0.3, Aspartate Amino Transf (AST/ SGOT) 10, Alanine Aminotransferase (ALT/SGPT) 11, Alkaline Phosphatase 58, Total Protein 6.4L, Albumin 2.6L, Globulin 3.8, Albumin/Globulin Ratio 0.6L, White Blood Count 11.2H, Red Blood Count 2.82L, Hemoglobin 8.8L, Hematocrit 25.9L, Mean Corpuscular Volume 92, Mean Corpuscular Hemoglobin 31.2H, Mean Corpuscular Hemoglobin Concent 33.9, Red Cell Distribution Width 12.6, Platelet Count 188, Mean Platelet Volume 6.9, Neutrophils (%) (Auto) 69.1, Lymphocytes (% ) (Auto) 21.7, Monocytes (%) (Auto) 4.4, Eosinophils (%) (Auto) 3.8H, Basophils (%) (Auto) 1.0, Magnesium Level 1.7 Height (Feet): 5 Height (Inches): 10.00 Weight (Pounds): 260 General Appearance: no apparent distress Objective other PE not changed JULIETA LEON March 06, 2017 09:17
[2017-03-06] MEDS: Pantoprazole Inj IVP SCH (10:11)
--- NOTE | 2017-03-06 14:49 | Anethesia Preoperative Eval ---
Anesthesia Pre-op PMH/ROS General Date of Evaluation: March 06, 2017 Anesthesiologist: Siva ASA Score: ASA 4 Mallampati Score Class I : Soft palate, uvula, fauces, pillars visible Class II: Soft palate, uvula, fauces visible Class III: Soft palate, base of uvula visible Class IV: Only hard plate visible Mallampati Classification: Class III Surgeon: El Diagnosis: Hydronephrosis Surgical Procedure: Cystoscopy Anesthesia History: none Family History: no anesthesia problems Allergies: Coded Allergies: No Known Allergies (Unverified , 02/25/17) Medications: see eMAR Past Medical History Cardiovascular: Reports: CAD, HTN, Denies: NV, arrhythmia, other, valve dz Pulmonary: Reports: COPD, asthma, other - pulmonary edema, Denies: FERNANDO Gastrointestinal/Genitourinary: Denies: CRI, ESRD, GERD, other Neurologic/Psychiatric: Reports: dementia, depression/anxiety, Denies: CVA, TIA, other Endocrine: Reports: DM, Denies: hypothyroidism, other, steroids HEENT: Denies: [place] (L), [place] (R), cataract (L), cataract (R), glaucoma, other Hematology/Immune: Reports: anemia, Denies: DVT, bleeding disorder, other Musculoskeletal/Integumentary: Reports: OA, Denies: DDD, DJD, RA, edema, other Anesthesia Pre-op Phys. Exam Physician Exam Last Vital Signs Date Time Temp Pulse Resp B/P Pulse Ox O2 Delivery O2 Flow Rate FiO2 03/06/17 13:00 Room Air 03/06/17 12:00 98.0 67 18 130/70 98 03/05/17 15:15 2.0 02/26/17 08:00 94 Constitutional: NAD Cardiovascular: RRR Respiratory: CTA Airway Exam Mallampati Score: Class III MO: limited ROM: limited Teeth: missing, intact Anesthesia Pre-op A/P Labs Hematology Test 03/06/17 04:40 White Blood Count 11.2 K/UL (4.8-10.8) H Red Blood Count 2.82 M/UL (4.70-6.10) L Hemoglobin 8.8 G/DL (14.2-18.0) L Hematocrit 25.9 % (42.0-52.0) L Mean Corpuscular Volume 92 FL (80-99) Mean Corpuscular Hemoglobin 31.2 PG (27.0-31.0) H Mean Corpuscular Hemoglobin Concent 33.9 G/DL (32.0-36.0) Red Cell Distribution Width 12.6 % (11.6-14.8) Platelet Count 188 K/UL (150-450) Mean Platelet Volume 6.9 FL (6.5-10.1) Neutrophils (%) (Auto) 69.1 % (45.0-75.0) Lymphocytes (%) (Auto) 21.7 % (20.0-45.0) Monocytes (%) (Auto) 4.4 % (1.0-10.0) Eosinophils (%) (Auto) 3.8 % (0.0-3.0) H Basophils (%) (Auto) 1.0 % (0.0-2.0) Chemistry Test 03/06/17 04:40 Sodium Level 134 mEQ/L (135-145) L Potassium Level 3.3 mEQ/L (3.4-4.9) L Chloride Level 92 mEQ/L (98-107) L Carbon Dioxide Level 25 mEQ/L (20-30) Anion Gap 17 (5-15) H Blood Urea Nitrogen 60 mg/dL (7-23) H Creatinine 7.6 mg/dL (0.7-1.2) H Estimat Glomerular Filtration Rate mL/min (>60) Glucose Level 96 mg/dL (74-106) # Uric Acid 9.2 mg/dL (3.0-7.5) H Calcium Level 8.6 mg/dL (8.6-10.2) Phosphorus Level 6.6 mg/dL (2.5-4.8) H Magnesium Level 1.7 mg/dL (1.7-2.5) Total Bilirubin 0.3 mg/dL (0.0-1.2) Aspartate Amino Transf (AST/SGOT) 10 U/L (5-40) Alanine Aminotransferase (ALT/SGPT) 11 U/L (3-41) Alkaline Phosphatase 58 U/L (40-129) Total Protein 6.4 g/dL (6.6-8.7) L Albumin 2.6 g/dL (3.5-5.2) L Globulin 3.8 g/dL Albumin/Globulin Ratio 0.6 (1.0-2.7) L Risk Assessment & Plan Assessment: ASA IV Plan: GA Status Change Before Surgery: No Pre-Antibiotics Drug: Ancef 2g, genta 80mg Given Within 1 Hr of Incision: Yes ИВАН LOZANO M.D. March 06, 2017 14:49
[2017-03-06] MEDS ORDERED: Propofol 10mg/ml 20ml IV ONE (16:00)
[2017-03-06] MEDS ORDERED: fentaNYL 100 mcg/2 mL IV ONE ×2 (16:00→18:00)
[2017-03-06] MEDS ORDERED: Lidocaine 1% MPF 10mg/ml 5ml ONE ×2 (16:00→18:00)
[2017-03-06] MEDS ORDERED: Dexamethasone 4mg/ml vial ONE (16:00)
[2017-03-06] MEDS ORDERED: Midazolam 2mg/2ml Inj ONE (16:00)
--- NOTE | 2017-03-06 16:04 | Pulmonology Progress Note ---
Assessment/Plan Problems: (1) Acute encephalopathy (2) Sepsis (3) ATN (acute tubular necrosis) (4) Hypoglycemia (5) Obstructive uropathy (6) CAD (coronary artery disease) (7) COPD (chronic obstructive pulmonary disease) Assessment/Plan cystoscopy scheduled for today watch electrolytes renal studies pending wbc still high, check daily dvt prophylaxis on IV Zosyn, and cont Zyvox on HD dc planning soon Subjective ROS Limited/Unobtainable: No Interval Events: for cystocsopy today Allergies: Coded Allergies: No Known Allergies (Unverified , 02/25/17) Objective Last 24 Hour Vital Signs Date Time Temp Pulse Resp B/P Pulse Ox O2 Delivery O2 Flow Rate FiO2 03/06/17 13:00 Room Air 03/06/17 13:00 Room Air 03/06/17 12:00 98.0 67 18 130/70 98 Room Air 03/06/17 09:00 75 129/72 03/06/17 07:58 97.4 75 20 129/72 100 Room Air 03/06/17 07:52 Room Air 03/06/17 07:48 77 16 98 Room Air 03/06/17 07:42 81 16 97 Room Air 03/06/17 04:25 Room Air 03/06/17 04:03 98.0 72 17 134/74 94 Room Air 03/06/17 00:35 97.7 70 18 137/70 92 Room Air 03/05/17 21:03 69 115/69 03/05/17 19:51 97.7 69 18 115/69 93 Room Air 03/05/17 19:19 60 18 98 Room Air 03/05/17 19:11 67 18 95 Room Air Intake and Output 03/05/17 03/06/17 19:00 07:00 Intake Total 720 ml 380 ml Output Total 300 ml 300 ml Balance 420 ml 80 ml Intake Oral 120 ml 80 ml IV Total 600 ml 300 ml Output Urine Total 300 ml 300 ml # Bowel Movements 1 Objective General Appearance: WD/WN HEENT: normocephalic, atraumatic Respiratory/Chest: chest wall non-tender, lungs clear Cardiovascular: normal peripheral pulses, normal rate Abdomen: normal bowel sounds, soft, non tender Genitourinary: normal external genitalia Extremities: no cyanosis, edema Lymphatic: no neck adenopathy Laboratory Tests 03/06/17 04:40: White Blood Count 11.2H, Red Blood Count 2.82L, Hemoglobin 8.8L, Hematocrit 25.9L, Mean Corpuscular Volume 92, Mean Corpuscular Hemoglobin 31.2H, Mean Corpuscular Hemoglobin Concent 33.9, Red Cell Distribution Width 12.6, Platelet Count 188, Mean Platelet Volume 6.9, Neutrophils (%) (Auto) 69.1, Lymphocytes (% ) (Auto) 21.7, Monocytes (%) (Auto) 4.4, Eosinophils (%) (Auto) 3.8H, Basophils (%) (Auto) 1.0, Sodium Level 134L, Potassium Level 3.3L, Chloride Level 92L, Carbon Dioxide Level 25, Anion Gap 17H, Blood Urea Nitrogen 60H, Creatinine 7.6H , Estimat Glomerular Filtration Rate , Glucose Level 96#, Uric Acid 9.2H, Calcium Level 8.6, Phosphorus Level 6.6H, Magnesium Level 1.7, Total Bilirubin 0.3, Aspartate Amino Transf (AST/SGOT) 10, Alanine Aminotransferase (ALT/SGPT) 11, Alkaline Phosphatase 58, Total Protein 6.4L, Albumin 2.6L, Globulin 3.8, Albumin/Globulin Ratio 0.6L Current Medications Medications (Trade) Dose Ordered Sig/Fernando Route PRN Reason Start Time Stop Time Status Last Admin Dose Admin Acetaminophen (Tylenol) 650 mg Q4H PRN ORAL T>100.5 02/26/17 17:00 03/28/17 16:59 Albuterol/ Ipratropium (DuoNeb 0.5-3(2.5)mg/3ml) 3 ml TIDRT HHN 03/04/17 19:00 03/09/17 18:59 03/06/17 07:42 Allopurinol (Allopurinol) 300 mg DAILY ORAL 03/03/17 09:00 04/02/17 08:59 03/05/17 08:53 Atorvastatin Calcium (Lipitor) 20 mg BEDTIME ORAL 02/26/17 21:00 03/28/17 20:59 03/05/17 21:03 Carvedilol (Coreg) 25 mg EVERY 12 HOURS ORAL 03/01/17 21:00 03/31/17 20:59 03/05/17 21:03 Clonidine HCl (Catapres) 0.1 mg Q4H PRN ORAL SBP>160 03/01/17 11:45 03/31/17 11:44 Dextrose (Dextrose 50%) STAT PRN IV Hypoglycemia 02/27/17 16:00 03/29/17 15:59 Docusate Sodium (Colace) 100 mg BID ORAL 02/27/17 18:00 03/29/17 17:59 03/05/17 18:34 Gabapentin (Neurontin) 200 mg QHS ORAL 02/27/17 21:00 03/29/17 20:59 03/05/17 21:04 Insulin Aspart (NovoLOG) BEFORE MEALS AND HS SUBQ 02/27/17 16:30 03/29/17 16:29 03/05/17 21:05 Linezolid (Zyvox) 300 ml @ 300 mls/hr Q12HR IVPB 02/28/17 12:45 03/13/17 23:59 03/06/17 10:02 Ondansetron HCl (Zofran) 4 mg Q6H PRN IVP Nausea & Vomiting 02/26/17 17:00 03/28/17 16:59 Pantoprazole (Protonix) 40 mg DAILY IVP 02/27/17 09:00 03/29/17 08:59 03/06/17 10:11 Polyethylene Glycol (Miralax) 17 gm HSPRN PRN ORAL Constipation 02/26/17 21:00 03/28/17 20:59 Quetiapine Fumarate (SEROquel) 25 mg TWICE A DAY ORAL 02/27/17 18:00 03/29/17 17:59 03/05/17 18:34 Tamsulosin HCl 0.4 mg 0.4 mg BID ORAL 02/28/17 18:00 03/30/17 17:59 03/05/17 18:35 Zolpidem Tartrate (Ambien) 5 mg HSPRN PRN ORAL Insomnia 02/26/17 21:00 03/28/17 20:59 JUSTO LEBLANC March 06, 2017 16:04
[2017-03-06] MEDS ORDERED: DiphenhydrAMINE 50mg/ml Inj IVP PRN (17:00)
[2017-03-06] MEDS ORDERED: Hydromorphone 0.5mg/0.5ml inj IVP PRN (17:00)
[2017-03-06] MEDS ORDERED: NS Irrig 2000ml IRRIG ONE (18:00)
--- NOTE | 2017-03-06 18:23 | Pre-Procedure Note/Attestation ---
Pre-Procedure Note/Attestation Complete Prior to Procedure Planned Procedure: not applicable Procedure Narrative: cystoscopy sp tube placement TURP Indications for Procedure Pre-Operative Diagnosis: retention UTI hematuria Attestation I attest that I discussed the nature of the procedure; its benefits; risks and complications; and alternatives (and the risks and benefits of such alternatives ), prior to the procedure, with the patient (or the patient's legal abrasives sales representative). I attest that, if there was a reasonable possibility of needing a blood transfusion, the patient (or the patient's legal abrasives sales representative) was given the [facility] standardized written summary, pursuant to the [place] Blood Safety Act ([place] Health and Safety Code # 1645, as amended). I attest that I re-evaluated the patient just prior to the surgery and that there has been no change in the patient's H&P, except as documented below: Heriberto Gallegos MD March 06, 2017 18:23
--- NOTE | 2017-03-06 18:24 | Brief Operative Note ---
Immediate Post Operative Note Operative Note Pre-op Diagnosis: retention UTI hematuria Procedure: TURP SP tube, cystoscopy Post-op Diagnosis: same Post-op Diagnosis: same as pre-op Surgeon: Heriberto Gallegos Anesthesia: general Complications: none Condition: stable Implant(s) used?: No Heriberto Gallegos MD March 06, 2017 18:24
--- NOTE | 2017-03-06 19:30 | Progress Note ---
DATE: 03/05/2017 SUBJECTIVE: The patient is presenting with waxing and waning consciousness. No anxiety or agitation. Currently calm and was found MENTAL STATUS EXAMINATION: Mood is dysphoric. Affect is flat. Congruent with mood. Thought process is concrete. Thought content, no suicidal or homicidal ideation. ASSESSMENT: 1. Dementia. 2. Anxiety disorder. PLAN: The patient will be continued on current medication. No medication changes. Ladarius Parry M.D. DR: Chayito JOB#: [id number] CC:
--- NOTE | 2017-03-06 19:32 | Infectious Diseases Prog Note ---
Assessment/Plan Assessment/Plan A: The patient is a 71-year-old male with leukocytosis improving , does not appear to be 2nd to ID process but m/l 2/2 MILAN Sepsis,SP UTI : MRSA repeat UCx MRSA and ( Mixed GNR : contaminant ) ALOC improved Cxray : No definite acute process 01/30 MILAN Need HD as Cr rising as per Nephro CAD CHF COPD Asthma Diabetes Depression PLAN: cont Zyvox d# 7 / 14 ( SP DC IV Zosyn d# 7 ) monitor CBC Monitor BMP Monitor the chest x-ray Uro and Nephro following Subjective Allergies: Coded Allergies: No Known Allergies (Unverified , 02/25/17) Subjective afebrile Objective Vital Signs Last 24 Hour Vital Signs Date Time Temp Pulse Resp B/P Pulse Ox O2 Delivery O2 Flow Rate FiO2 03/06/17 13:00 Room Air 03/06/17 13:00 Room Air 03/06/17 12:00 98.0 67 18 130/70 98 Room Air 03/06/17 09:00 75 129/72 03/06/17 07:58 97.4 75 20 129/72 100 Room Air 03/06/17 07:52 Room Air 03/06/17 07:48 77 16 98 Room Air 03/06/17 07:42 81 16 97 Room Air 03/06/17 04:25 Room Air 03/06/17 04:03 98.0 72 17 134/74 94 Room Air 03/06/17 00:35 97.7 70 18 137/70 92 Room Air 03/05/17 21:03 69 115/69 03/05/17 19:51 97.7 69 18 115/69 93 Room Air Height (Feet): 5 Height (Inches): 10.00 Weight (Pounds): 260 HEENT: mucous membranes moist Respiratory/Chest: no accessory muscle use Cardiovascular: regularly irregular Abdomen: no organomegaly Laboratory Tests Test 03/06/17 04:40 White Blood Count 11.2 K/UL (4.8-10.8) H Red Blood Count 2.82 M/UL (4.70-6.10) L Hemoglobin 8.8 G/DL (14.2-18.0) L Hematocrit 25.9 % (42.0-52.0) L Mean Corpuscular Volume 92 FL (80-99) Mean Corpuscular Hemoglobin 31.2 PG (27.0-31.0) H Mean Corpuscular Hemoglobin Concent 33.9 G/DL (32.0-36.0) Red Cell Distribution Width 12.6 % (11.6-14.8) Platelet Count 188 K/UL (150-450) Mean Platelet Volume 6.9 FL (6.5-10.1) Neutrophils (%) (Auto) 69.1 % (45.0-75.0) Lymphocytes (%) (Auto) 21.7 % (20.0-45.0) Monocytes (%) (Auto) 4.4 % (1.0-10.0) Eosinophils (%) (Auto) 3.8 % (0.0-3.0) H Basophils (%) (Auto) 1.0 % (0.0-2.0) Sodium Level 134 mEQ/L (135-145) L Potassium Level 3.3 mEQ/L (3.4-4.9) L Chloride Level 92 mEQ/L (98-107) L Carbon Dioxide Level 25 mEQ/L (20-30) Anion Gap 17 (5-15) H Blood Urea Nitrogen 60 mg/dL (7-23) H Creatinine 7.6 mg/dL (0.7-1.2) H Estimat Glomerular Filtration Rate mL/min (>60) Glucose Level 96 mg/dL (74-106) # Uric Acid 9.2 mg/dL (3.0-7.5) H Calcium Level 8.6 mg/dL (8.6-10.2) Phosphorus Level 6.6 mg/dL (2.5-4.8) H Magnesium Level 1.7 mg/dL (1.7-2.5) Total Bilirubin 0.3 mg/dL (0.0-1.2) Aspartate Amino Transf (AST/SGOT) 10 U/L (5-40) Alanine Aminotransferase (ALT/SGPT) 11 U/L (3-41) Alkaline Phosphatase 58 U/L (40-129) Total Protein 6.4 g/dL (6.6-8.7) L Albumin 2.6 g/dL (3.5-5.2) L Globulin 3.8 g/dL Albumin/Globulin Ratio 0.6 (1.0-2.7) L Current Medications Medications (Trade) Dose Ordered Sig/Fernando Route PRN Reason Start Time Stop Time Status Last Admin Dose Admin Acetaminophen (Tylenol) 650 mg Q4H PRN ORAL T>100.5 02/26/17 17:00 03/28/17 16:59 Acetaminophen (Tylenol) 650 mg Q4H PRN ORAL Mild Pain (Pain Scale 1-3) 03/06/17 17:00 03/06/17 23:00 Albuterol/ Ipratropium (DuoNeb 0.5-3(2.5)mg/3ml) 3 ml TIDRT HHN 03/04/17 19:00 03/09/17 18:59 03/06/17 07:42 Allopurinol (Allopurinol) 300 mg DAILY ORAL 03/03/17 09:00 04/02/17 08:59 03/05/17 08:53 Atorvastatin Calcium (Lipitor) 20 mg BEDTIME ORAL 02/26/17 21:00 03/28/17 20:59 03/05/17 21:03 Carvedilol (Coreg) 25 mg EVERY 12 HOURS ORAL 03/01/17 21:00 03/31/17 20:59 03/05/17 21:03 Clonidine HCl (Catapres) 0.1 mg Q4H PRN ORAL SBP>160 03/01/17 11:45 03/31/17 11:44 Dextrose (Dextrose 50%) STAT PRN IV Hypoglycemia 02/27/17 16:00 03/29/17 15:59 Dextrose/ Electrolytes (D5 0.45%NS W/ KCl 20mEq) 1,000 ml @ 100 mls/hr Q10H IV 03/06/17 19:00 04/05/17 18:59 Diphenhydramine HCl 25 mg 25 mg Q15M PRN IVP Itching 03/06/17 17:00 03/06/17 23:00 Docusate Sodium (Colace) 100 mg BID ORAL 02/27/17 18:00 03/29/17 17:59 03/05/17 18:34 Gabapentin (Neurontin) 200 mg QHS ORAL 02/27/17 21:00 03/29/17 20:59 03/05/17 21:04 Hydralazine HCl (Apresoline) 5 mg Q30M PRN IV SBP>160 /DBP>90 03/06/17 17:00 03/06/17 23:00 Hydromorphone HCl (Dilaudid) 0.5 mg Q15M PRN IVP Severe Pain (Pain Scale 7-10) 03/06/17 17:00 03/06/17 23:00 Insulin Aspart (NovoLOG) BEFORE MEALS AND HS SUBQ 02/27/17 16:30 03/29/17 16:29 03/05/17 21:05 Linezolid (Zyvox) 300 ml @ 300 mls/hr Q12HR IVPB 02/28/17 12:45 03/13/17 23:59 03/06/17 10:02 Ondansetron HCl (Zofran) 4 mg Q1H PRN IVP Nausea & Vomiting 03/06/17 17:00 03/06/17 23:00 Ondansetron HCl (Zofran) 4 mg Q6H PRN IVP Nausea & Vomiting 02/26/17 17:00 03/28/17 16:59 Pantoprazole (Protonix) 40 mg DAILY IVP 02/27/17 09:00 03/29/17 08:59 03/06/17 10:11 Polyethylene Glycol (Miralax) 17 gm HSPRN PRN ORAL Constipation 02/26/17 21:00 03/28/17 20:59 Quetiapine Fumarate (SEROquel) 25 mg TWICE A DAY ORAL 02/27/17 18:00 03/29/17 17:59 03/05/17 18:34 Tamsulosin HCl 0.4 mg 0.4 mg BID ORAL 02/28/17 18:00 03/30/17 17:59 03/05/17 18:35 Zolpidem Tartrate (Ambien) 5 mg HSPRN PRN ORAL Insomnia 02/26/17 21:00 03/28/17 20:59 MARISOL CAPPS M.D. March 06, 2017 19:32
--- NOTE | 2017-03-06 19:39 | Immediate Post-Op Evaluation ---
Immediate Post-Op Evalulation Immediate Post-Op Evalulation Procedure: Cystoscopy, suprapubic catheter placement Date of Evaluation: March 06, 2017 Time of Evaluation: 19:38 IV Fluids: 500 Blood Products: 0 Estimated Blood Loss: 200 Urinary Output: 0 Blood Pressure Systolic: 161 Blood Pressure Diastolic: 82 Pulse Rate: 87 Respiratory Rate: 16 O2 Sat by Pulse Oximetry: 100 Temperature (Fahrenheit): 98.2 Pain Score (1-10): 0 Nausea: No Vomiting: No Complications 0 Patient Status: awake, reacts, patent, none Hydration Status: adequate Drug: Gentamycin 80mg Given Within 1 Hr of Incision: Yes Time Given: 18:10 ИВАН LOZANO M.D. March 06, 2017 19:39
[2017-03-06] MEDS: D5 1/2NS w/KCl 20mEq 1,000 ML IV SCH (22:41)
[2017-03-06] MEDS: Atorvastatin 20mg tab ORAL SCH (22:42)
[2017-03-06 23:00] LABS: BASOPHILS % (AUTO) 0.7 % (0.0-2.0); LYMPHOCYTES % (AUTO) 11.4 % (20.0-45.0); MEAN CORPUSCULAR HEMOGLOBIN 32.2 PG (27.0-31.0); MEAN CORPUSCULAR VOLUME 92 FL (80-99); MEAN PLATELET VOLUME 7.2 FL (6.5-10.1); MONOCYTES % (AUTO) 3.8 % (1.0-10.0); NEUTROPHILS % (AUTO) 83.1 % (45.0-75.0); PLATELET COUNT 180 K/UL (150-450); RED BLOOD COUNT 2.86 M/UL (4.70-6.10); RED CELL DISTRIBUTION WIDTH 12.9 % (11.6-14.8); WHITE BLOOD COUNT 14.4 K/UL (4.8-10.8)
[2017-03-06 23:11] LABS: ANION GAP 19 (5-15); CALCIUM 8.5 mg/dL (8.6-10.2); CARBON DIOXIDE 24 mEQ/L (20-30); CHLORIDE 90 mEQ/L (98-107); CREATININE 6.4 mg/dL (0.7-1.2); HEMOLYSIS 1; POTASSIUM 4.1 mEQ/L (3.4-4.9); SODIUM 133 mEQ/L (135-145)
[2017-03-07] VITALS (8 sets, daily range): BP systolic 126–148; BP diastolic 61–73
[2017-03-07] MEDS: D5 1/2NS w/KCl 20mEq 1,000 ML IV SCH (05:00)
[2017-03-07 05:41] LABS: MEAN CORPUSCULAR HEMOGLOBIN 30.9 PG (27.0-31.0); MEAN CORPUSCULAR HGB CONC 33.6 G/DL (32.0-36.0); MEAN CORPUSCULAR VOLUME 92 FL (80-99); MEAN PLATELET VOLUME 7.4 FL (6.5-10.1); PLATELET COUNT 176 K/UL (150-450); RED BLOOD COUNT 2.63 M/UL (4.70-6.10); RED CELL DISTRIBUTION WIDTH 13.1 % (11.6-14.8); WHITE BLOOD COUNT 12.8 K/UL (4.8-10.8)
[2017-03-07 06:12] LABS: ALANINE AMINOTRANSFERASE 10 U/L (3-41); ALBUMIN/GLOBULIN RATIO 0.7 (1.0-2.7); ANION GAP 17 (5-15); ASPARTATE AMINO TRANSFERASE 10 U/L (5-40); CALCIUM 8.4 mg/dL (8.6-10.2); CARBON DIOXIDE 25 mEQ/L (20-30); CHLORIDE 88 mEQ/L (98-107); CREATININE 6.6 mg/dL (0.7-1.2); CRP QUANT 11.4 mg/dL (< 0.5); HEMOLYSIS 0; MAGNESIUM 1.7 mg/dL (1.7-2.5); PHOSPHORUS 6.5 mg/dL (2.5-4.8); SODIUM 130 mEQ/L (135-145); TOTAL PROTEIN 6.3 g/dL (6.6-8.7); URIC ACID 7.5 mg/dL (3.0-7.5)
[2017-03-07] MEDS: NovoLOG Insulin Flexpen SUBQ SCH ×4 (06:14→22:22)
[2017-03-07] MEDS: DuoNeb 0.5-3(2.5)mg/3ml neb HHN SCH ×3 (07:34→18:56)
[2017-03-07] MEDS: Docusate 100mg/10ml Liq ORAL SCH ×2 (08:53→18:00)
[2017-03-07] MEDS: Tamsulosin 0.4mg cap ORAL SCH ×2 (08:53→18:00)
[2017-03-07] MEDS: Pantoprazole Inj IVP SCH (08:54)
[2017-03-07] MEDS: Carvedilol 25mg Tab ORAL SCH ×2 (08:56→21:00)
--- NOTE | 2017-03-07 09:18 | General Progress Note ---
Assessment/Plan Status: unchanged Status Narrative sp SP tube placement and TURP Assessment/Plan will keep cbi, last Hct 24 stable irrigate prn Abx per ID Subjective ROS Limited/Unobtainable: Yes Respiratory: Reports: no symptoms Genitourinary: Reports: no symptoms Allergies: Coded Allergies: No Known Allergies (Unverified , 02/25/17) Objective Last 24 Hour Vital Signs Date Time Temp Pulse Resp B/P Pulse Ox O2 Delivery O2 Flow Rate FiO2 03/07/17 08:56 97 145/66 03/07/17 08:00 99.5 97 20 145/66 96 Nasal Cannula 2.0 03/07/17 07:58 99.5 03/07/17 07:40 90 18 98 Nasal Cannula 3.0 03/07/17 07:34 93 18 98 Nasal Cannula 3.0 03/07/17 07:34 93 18 Nasal Cannula 3.0 03/07/17 04:00 96.9 72 20 148/63 97 Nasal Cannula 2.0 03/07/17 02:00 97.7 74 20 133/71 96 Nasal Cannula 2.0 03/07/17 01:00 97.3 66 20 128/73 95 Nasal Cannula 2.0 03/07/17 00:00 97.1 66 18 126/67 99 Nasal Cannula 2.0 03/06/17 23:30 97.5 69 18 127/61 97 Nasal Cannula 2.0 03/06/17 23:00 97.7 84 18 130/80 96 Nasal Cannula 2.0 03/06/17 22:45 97.7 82 19 131/78 96 Nasal Cannula 2.0 03/06/17 22:41 80 135/64 03/06/17 22:30 97.5 89 20 132/81 96 Nasal Cannula 2.0 03/06/17 22:15 97.3 90 19 135/82 96 Nasal Cannula 2.0 03/06/17 22:00 97.3 86 19 133/81 96 Nasal Cannula 2.0 03/06/17 21:30 80 20 135/64 100 Nasal Cannula 2.0 03/06/17 21:15 79 20 131/62 100 Nasal Cannula 2.0 03/06/17 21:00 79 20 132/63 100 Nasal Cannula 2.0 03/06/17 20:45 79 20 129/60 100 Nasal Cannula 2.0 03/06/17 20:30 80 20 135/70 100 Nasal Cannula 2.0 03/06/17 20:15 82 20 134/65 100 Nasal Cannula 2.0 03/06/17 20:00 86 20 134/60 100 Nasal Cannula 2.0 03/06/17 19:43 88 20 130/55 100 Simple Mask 8.0 03/06/17 19:39 87 16 100 03/06/17 19:38 87 20 154/81 100 Simple Mask 8.0 03/06/17 19:33 97.3 87 20 161/82 100 Simple Mask 8.0 03/06/17 19:30 Room Air 03/06/17 19:30 Room Air 03/06/17 13:00 Room Air 03/06/17 13:00 Room Air 03/06/17 12:00 98.0 67 18 130/70 98 Room Air Intake and Output 03/06/17 03/07/17 19:00 07:00 Intake Total 12824 ml Output Total 2100 ml 04861 ml Balance -2100 ml -4080 ml Intake Oral 240 ml IV Total 1130 ml Other 9000 ml Output Urine Total 08117 ml Hemodialysis UF 2100 ml Other 1700 ml # Bowel Movements 1 Laboratory Tests 03/06/17 22:20: White Blood Count 14.4H, Red Blood Count 2.86L, Hemoglobin 9.2L, Hematocrit 26.3L, Mean Corpuscular Volume 92, Mean Corpuscular Hemoglobin 32.2H, Mean Corpuscular Hemoglobin Concent 35.0, Red Cell Distribution Width 12.9, Platelet Count 180, Mean Platelet Volume 7.2, Neutrophils (%) (Auto) 83.1H, Lymphocytes ( %) (Auto) 11.4L, Monocytes (%) (Auto) 3.8, Eosinophils (%) (Auto) 1.0, Basophils (%) (Auto) 0.7, Sodium Level 133L, Potassium Level 4.1, Chloride Level 90L, Carbon Dioxide Level 24, Anion Gap 19H, Blood Urea Nitrogen 49H, Creatinine 6.4H, Estimat Glomerular Filtration Rate , Glucose Level 229#H, Calcium Level 8.5L 03/07/17 04:45: White Blood Count 12.8H, Red Blood Count 2.63L, Hemoglobin 8.1L, Hematocrit 24.2L, Mean Corpuscular Volume 92, Mean Corpuscular Hemoglobin 30.9, Mean Corpuscular Hemoglobin Concent 33.6, Red Cell Distribution Width 13.1, Platelet Count 176, Mean Platelet Volume 7.4, Neutrophils (%) (Auto) , Lymphocytes (%) ( Auto) , Monocytes (%) (Auto) , Eosinophils (%) (Auto) , Basophils (%) (Auto) , Sodium Level 130L, Potassium Level 4.0, Chloride Level 88L, Carbon Dioxide Level 25, Anion Gap 17H, Blood Urea Nitrogen 50H, Creatinine 6.6H, Estimat Glomerular Filtration Rate , Glucose Level 290H, Calcium Level 8.4L, Uric Acid 7.5, Phosphorus Level 6.5H, Magnesium Level 1.7, Total Bilirubin 0.4, Aspartate Amino Transf (AST/SGOT) 10, Alanine Aminotransferase (ALT/SGPT) 10, Alkaline Phosphatase 60, C-Reactive Protein, Quantitative 11.4H, Pro-B-Type Natriuretic Peptide 372H, Total Protein 6.3L, Albumin 2.7L, Globulin 3.6, Albumin/Globulin Ratio 0.7L Height (Feet): 5 Height (Inches): 10.00 Weight (Pounds): 260 Abdomen: soft, decreased bowel sounds Pelvis: blood - gross hematuria on CBI Heriberto Gallegos MD Mar 07, 2017 09:18
--- NOTE | 2017-03-07 09:39 | Infectious Diseases Prog Note ---
Assessment/Plan Assessment/Plan A: The patient is a 71-year-old male with leukocytosis improving , does not appear to be 2nd to ID process but m/l 2/2 MILAN Sepsis,SP UTI : MRSA repeat UCx MRSA and ( Mixed GNR : contaminant ) ALOC improved Cxray : No definite acute process 01/30 SP Cystoscopy, suprapubic catheter placement and TURP 03/06 MILAN Need HD as Cr rising as per Nephro CAD CHF COPD Asthma Diabetes Depression PLAN: cont Zyvox d# 8 / 14 ( SP DC IV Zosyn d# 7 ) monitor CBC Monitor BMP Monitor the chest x-ray Uro and Nephro following Subjective Allergies: Coded Allergies: No Known Allergies (Unverified , 02/25/17) Subjective SP Cystoscopy, suprapubic catheter placement Objective Vital Signs Last 24 Hour Vital Signs Date Time Temp Pulse Resp B/P Pulse Ox O2 Delivery O2 Flow Rate FiO2 03/07/17 08:56 97 145/66 03/07/17 08:00 99.5 97 20 145/66 96 Nasal Cannula 2.0 03/07/17 07:58 99.5 03/07/17 07:40 90 18 98 Nasal Cannula 3.0 03/07/17 07:34 93 18 98 Nasal Cannula 3.0 03/07/17 07:34 93 18 Nasal Cannula 3.0 03/07/17 04:00 96.9 72 20 148/63 97 Nasal Cannula 2.0 03/07/17 02:00 97.7 74 20 133/71 96 Nasal Cannula 2.0 03/07/17 01:00 97.3 66 20 128/73 95 Nasal Cannula 2.0 03/07/17 00:00 97.1 66 18 126/67 99 Nasal Cannula 2.0 03/06/17 23:30 97.5 69 18 127/61 97 Nasal Cannula 2.0 03/06/17 23:00 97.7 84 18 130/80 96 Nasal Cannula 2.0 03/06/17 22:45 97.7 82 19 131/78 96 Nasal Cannula 2.0 03/06/17 22:41 80 135/64 03/06/17 22:30 97.5 89 20 132/81 96 Nasal Cannula 2.0 03/06/17 22:15 97.3 90 19 135/82 96 Nasal Cannula 2.0 03/06/17 22:00 97.3 86 19 133/81 96 Nasal Cannula 2.0 03/06/17 21:30 80 20 135/64 100 Nasal Cannula 2.0 03/06/17 21:15 79 20 131/62 100 Nasal Cannula 2.0 03/06/17 21:00 79 20 132/63 100 Nasal Cannula 2.0 03/06/17 20:45 79 20 129/60 100 Nasal Cannula 2.0 03/06/17 20:30 80 20 135/70 100 Nasal Cannula 2.0 03/06/17 20:15 82 20 134/65 100 Nasal Cannula 2.0 03/06/17 20:00 86 20 134/60 100 Nasal Cannula 2.0 03/06/17 19:43 88 20 130/55 100 Simple Mask 8.0 03/06/17 19:39 87 16 100 03/06/17 19:38 87 20 154/81 100 Simple Mask 8.0 03/06/17 19:33 97.3 87 20 161/82 100 Simple Mask 8.0 03/06/17 19:30 Room Air 03/06/17 19:30 Room Air 03/06/17 13:00 Room Air 03/06/17 13:00 Room Air 03/06/17 12:00 98.0 67 18 130/70 98 Room Air Height (Feet): 5 Height (Inches): 10.00 Weight (Pounds): 260 HEENT: mucous membranes moist Respiratory/Chest: no accessory muscle use Cardiovascular: no gallop/murmur Abdomen: non distended Laboratory Tests Test 03/06/17 22:20 03/07/17 04:45 White Blood Count 14.4 K/UL (4.8-10.8) H 12.8 K/UL (4.8-10.8) H Red Blood Count 2.86 M/UL (4.70-6.10) L 2.63 M/UL (4.70-6.10) L Hemoglobin 9.2 G/DL (14.2-18.0) L 8.1 G/DL (14.2-18.0) L Hematocrit 26.3 % (42.0-52.0) L 24.2 % (42.0-52.0) L Mean Corpuscular Volume 92 FL (80-99) 92 FL (80-99) Mean Corpuscular Hemoglobin 32.2 PG (27.0-31.0) H 30.9 PG (27.0-31.0) Mean Corpuscular Hemoglobin Concent 35.0 G/DL (32.0-36.0) 33.6 G/DL (32.0-36.0) Red Cell Distribution Width 12.9 % (11.6-14.8) 13.1 % (11.6-14.8) Platelet Count 180 K/UL (150-450) 176 K/UL (150-450) Mean Platelet Volume 7.2 FL (6.5-10.1) 7.4 FL (6.5-10.1) Neutrophils (%) (Auto) 83.1 % (45.0-75.0) H % (45.0-75.0) Lymphocytes (%) (Auto) 11.4 % (20.0-45.0) L % (20.0-45.0) Monocytes (%) (Auto) 3.8 % (1.0-10.0) % (1.0-10.0) Eosinophils (%) (Auto) 1.0 % (0.0-3.0) % (0.0-3.0) Basophils (%) (Auto) 0.7 % (0.0-2.0) % (0.0-2.0) Sodium Level 133 mEQ/L (135-145) L 130 mEQ/L (135-145) L Potassium Level 4.1 mEQ/L (3.4-4.9) 4.0 mEQ/L (3.4-4.9) Chloride Level 90 mEQ/L (98-107) L 88 mEQ/L (98-107) L Carbon Dioxide Level 24 mEQ/L (20-30) 25 mEQ/L (20-30) Anion Gap 19 (5-15) H 17 (5-15) H Blood Urea Nitrogen 49 mg/dL (7-23) H 50 mg/dL (7-23) H Creatinine 6.4 mg/dL (0.7-1.2) H 6.6 mg/dL (0.7-1.2) H Estimat Glomerular Filtration Rate mL/min (>60) mL/min (>60) Glucose Level 229 mg/dL (74-106) #H 290 mg/dL (74-106) H Calcium Level 8.5 mg/dL (8.6-10.2) L 8.4 mg/dL (8.6-10.2) L Uric Acid 7.5 mg/dL (3.0-7.5) Phosphorus Level 6.5 mg/dL (2.5-4.8) H Magnesium Level 1.7 mg/dL (1.7-2.5) Total Bilirubin 0.4 mg/dL (0.0-1.2) Aspartate Amino Transf (AST/SGOT) 10 U/L (5-40) Alanine Aminotransferase (ALT/SGPT) 10 U/L (3-41) Alkaline Phosphatase 60 U/L (40-129) C-Reactive Protein, Quantitative 11.4 mg/dL (< 0.5) H Pro-B-Type Natriuretic Peptide 372 pg/mL (0-125) H Total Protein 6.3 g/dL (6.6-8.7) L Albumin 2.7 g/dL (3.5-5.2) L Globulin 3.6 g/dL Albumin/Globulin Ratio 0.7 (1.0-2.7) L Current Medications Medications (Trade) Dose Ordered Sig/Fernando Route PRN Reason Start Time Stop Time Status Last Admin Dose Admin Acetaminophen (Tylenol) 650 mg Q4H PRN ORAL T>100.5 02/26/17 17:00 03/28/17 16:59 03/07/17 06:59 Albuterol/ Ipratropium 3 ml 3 ml TIDRT HHN 03/04/17 19:00 03/09/17 18:59 03/07/17 07:34 Allopurinol (Allopurinol) 300 mg DAILY ORAL 03/03/17 09:00 04/02/17 08:59 03/07/17 08:53 Atorvastatin Calcium (Lipitor) 20 mg BEDTIME ORAL 02/26/17 21:00 03/28/17 20:59 03/06/17 22:42 Carvedilol (Coreg) 25 mg EVERY 12 HOURS ORAL 03/01/17 21:00 03/31/17 20:59 03/07/17 08:56 Clonidine HCl (Catapres) 0.1 mg Q4H PRN ORAL SBP>160 03/01/17 11:45 03/31/17 11:44 Dextrose (Dextrose 50%) STAT PRN IV Hypoglycemia 02/27/17 16:00 03/29/17 15:59 Dextrose/ Electrolytes (D5 0.45%NS W/ KCl 20mEq) 1,000 ml @ 100 mls/hr Q10H IV 03/06/17 19:00 04/05/17 18:59 03/06/17 22:41 Docusate Sodium (Colace) 100 mg BID ORAL 02/27/17 18:00 03/29/17 17:59 03/07/17 08:53 Gabapentin (Neurontin) 200 mg QHS ORAL 02/27/17 21:00 03/29/17 20:59 03/06/17 22:41 Insulin Aspart (NovoLOG) BEFORE MEALS AND HS SUBQ 02/27/17 16:30 03/29/17 16:29 03/07/17 06:14 Linezolid (Zyvox) 300 ml @ 300 mls/hr Q12HR IVPB 02/28/17 12:45 03/13/17 23:59 03/07/17 08:56 Ondansetron HCl (Zofran) 4 mg Q6H PRN IVP Nausea & Vomiting 02/26/17 17:00 03/28/17 16:59 Pantoprazole (Protonix) 40 mg DAILY IVP 02/27/17 09:00 03/29/17 08:59 03/07/17 08:54 Polyethylene Glycol (Miralax) 17 gm HSPRN PRN ORAL Constipation 02/26/17 21:00 03/28/17 20:59 Quetiapine Fumarate (SEROquel) 25 mg TWICE A DAY ORAL 02/27/17 18:00 03/29/17 17:59 03/07/17 08:53 Tamsulosin HCl 0.4 mg 0.4 mg BID ORAL 02/28/17 18:00 03/30/17 17:59 03/07/17 08:53 Zolpidem Tartrate (Ambien) 5 mg HSPRN PRN ORAL Insomnia 02/26/17 21:00 03/28/17 20:59 MARISOL CAPPS M.D. Mar 07, 2017 09:39
--- NOTE | 2017-03-07 09:59 | General Progress Note ---
Assessment/Plan Status: unchanged Assessment/Plan Primary Impression: Altered level of consciousness : uremia and Hypoglycemia MILAN (acute kidney injury) --- urinary outlet obstruction UTI (urinary tract infection) HTN DM Psychosis Bladder tumore Plan: dialysed 03/06 next 03/08 Uro fu monitor BS and adjust Insulin Keep BS and BP in check Monitor renal parameters Avoid Nephrotoxics Per orders Subjective ROS Limited/Unobtainable: No Constitutional: Reports: malaise Allergies: Coded Allergies: No Known Allergies (Unverified , 02/25/17) Objective Last 24 Hour Vital Signs Date Time Temp Pulse Resp B/P Pulse Ox O2 Delivery O2 Flow Rate FiO2 03/07/17 08:56 97 145/66 03/07/17 08:00 99.5 97 20 145/66 96 Nasal Cannula 2.0 03/07/17 07:58 99.5 03/07/17 07:40 90 18 98 Nasal Cannula 3.0 03/07/17 07:34 93 18 98 Nasal Cannula 3.0 03/07/17 07:34 93 18 Nasal Cannula 3.0 03/07/17 04:00 96.9 72 20 148/63 97 Nasal Cannula 2.0 03/07/17 02:00 97.7 74 20 133/71 96 Nasal Cannula 2.0 03/07/17 01:00 97.3 66 20 128/73 95 Nasal Cannula 2.0 03/07/17 00:00 97.1 66 18 126/67 99 Nasal Cannula 2.0 03/06/17 23:30 97.5 69 18 127/61 97 Nasal Cannula 2.0 03/06/17 23:00 97.7 84 18 130/80 96 Nasal Cannula 2.0 03/06/17 22:45 97.7 82 19 131/78 96 Nasal Cannula 2.0 03/06/17 22:41 80 135/64 03/06/17 22:30 97.5 89 20 132/81 96 Nasal Cannula 2.0 03/06/17 22:15 97.3 90 19 135/82 96 Nasal Cannula 2.0 03/06/17 22:00 97.3 86 19 133/81 96 Nasal Cannula 2.0 03/06/17 21:30 80 20 135/64 100 Nasal Cannula 2.0 03/06/17 21:15 79 20 131/62 100 Nasal Cannula 2.0 03/06/17 21:00 79 20 132/63 100 Nasal Cannula 2.0 03/06/17 20:45 79 20 129/60 100 Nasal Cannula 2.0 03/06/17 20:30 80 20 135/70 100 Nasal Cannula 2.0 03/06/17 20:15 82 20 134/65 100 Nasal Cannula 2.0 03/06/17 20:00 86 20 134/60 100 Nasal Cannula 2.0 03/06/17 19:43 88 20 130/55 100 Simple Mask 8.0 03/06/17 19:39 87 16 100 03/06/17 19:38 87 20 154/81 100 Simple Mask 8.0 03/06/17 19:33 97.3 87 20 161/82 100 Simple Mask 8.0 03/06/17 19:30 Room Air 03/06/17 19:30 Room Air 03/06/17 13:00 Room Air 03/06/17 13:00 Room Air 03/06/17 12:00 98.0 67 18 130/70 98 Room Air Intake and Output 03/06/17 03/07/17 19:00 07:00 Intake Total 13811 ml Output Total 2100 ml 29703 ml Balance -2100 ml -4080 ml Intake Oral 240 ml IV Total 1130 ml Other 9000 ml Output Urine Total 28216 ml Hemodialysis UF 2100 ml Other 1700 ml # Bowel Movements 1 Laboratory Tests 03/06/17 22:20: White Blood Count 14.4H, Red Blood Count 2.86L, Hemoglobin 9.2L, Hematocrit 26.3L, Mean Corpuscular Volume 92, Mean Corpuscular Hemoglobin 32.2H, Mean Corpuscular Hemoglobin Concent 35.0, Red Cell Distribution Width 12.9, Platelet Count 180, Mean Platelet Volume 7.2, Neutrophils (%) (Auto) 83.1H, Lymphocytes ( %) (Auto) 11.4L, Monocytes (%) (Auto) 3.8, Eosinophils (%) (Auto) 1.0, Basophils (%) (Auto) 0.7, Sodium Level 133L, Potassium Level 4.1, Chloride Level 90L, Carbon Dioxide Level 24, Anion Gap 19H, Blood Urea Nitrogen 49H, Creatinine 6.4H, Estimat Glomerular Filtration Rate , Glucose Level 229#H, Calcium Level 8.5L 03/07/17 04:45: White Blood Count 12.8H, Red Blood Count 2.63L, Hemoglobin 8.1L, Hematocrit 24.2L, Mean Corpuscular Volume 92, Mean Corpuscular Hemoglobin 30.9, Mean Corpuscular Hemoglobin Concent 33.6, Red Cell Distribution Width 13.1, Platelet Count 176, Mean Platelet Volume 7.4, Neutrophils (%) (Auto) , Lymphocytes (%) ( Auto) , Monocytes (%) (Auto) , Eosinophils (%) (Auto) , Basophils (%) (Auto) , Sodium Level 130L, Potassium Level 4.0, Chloride Level 88L, Carbon Dioxide Level 25, Anion Gap 17H, Blood Urea Nitrogen 50H, Creatinine 6.6H, Estimat Glomerular Filtration Rate , Glucose Level 290H, Calcium Level 8.4L, Uric Acid 7.5, Phosphorus Level 6.5H, Magnesium Level 1.7, Total Bilirubin 0.4, Aspartate Amino Transf (AST/SGOT) 10, Alanine Aminotransferase (ALT/SGPT) 10, Alkaline Phosphatase 60, C-Reactive Protein, Quantitative 11.4H, Pro-B-Type Natriuretic Peptide 372H, Total Protein 6.3L, Albumin 2.7L, Globulin 3.6, Albumin/Globulin Ratio 0.7L Height (Feet): 5 Height (Inches): 10.00 Weight (Pounds): 260 General Appearance: no apparent distress Cardiovascular: tachycardia Respiratory/Chest: decreased breath sounds Abdomen: soft Genitourinary/Rectal: other - supra pubic cath and benjamin Objective other PE not changed JULIETA LEON Mar 07, 2017 09:59
[2017-03-07] MEDS ORDERED: Acetaminophen 650 MG SUPP RECTAL PRN (12:30)
[2017-03-07] MEDS ORDERED: DuoNeb 0.5-3(2.5)mg/3ml neb HHN PRN ×2 (14:30→18:30)
--- NOTE | 2017-03-07 15:22 | Pulmonology Progress Note ---
Assessment/Plan Problems: (1) Acute encephalopathy (2) Sepsis (3) ATN (acute tubular necrosis) (4) Hypoglycemia (5) Obstructive uropathy (6) CAD (coronary artery disease) (7) COPD (chronic obstructive pulmonary disease) Assessment/Plan cystoscopy scheduled for today watch electrolytes renal studies pending wbc still high, check daily dvt prophylaxis on IV Zosyn, and cont Zyvox on HD dc planning soon Subjective Allergies: Coded Allergies: No Known Allergies (Unverified , 02/25/17) Objective Last 24 Hour Vital Signs Date Time Temp Pulse Resp B/P Pulse Ox O2 Delivery O2 Flow Rate FiO2 03/07/17 13:26 88 20 99 Nasal Cannula 3.0 03/07/17 13:15 88 20 96 Nasal Cannula 3.0 03/07/17 13:08 101.8 03/07/17 12:17 101.2 100 26 134/61 96 Nasal Cannula 3.0 03/07/17 08:56 97 145/66 03/07/17 08:00 99.5 97 26 145/66 96 Nasal Cannula 2.0 03/07/17 07:58 99.5 03/07/17 07:40 90 18 98 Nasal Cannula 3.0 03/07/17 07:34 93 18 98 Nasal Cannula 3.0 03/07/17 07:34 93 18 Nasal Cannula 3.0 03/07/17 04:00 96.9 72 20 148/63 97 Nasal Cannula 2.0 03/07/17 02:00 97.7 74 20 133/71 96 Nasal Cannula 2.0 03/07/17 01:00 97.3 66 20 128/73 95 Nasal Cannula 2.0 03/07/17 00:00 97.1 66 18 126/67 99 Nasal Cannula 2.0 03/06/17 23:30 97.5 69 18 127/61 97 Nasal Cannula 2.0 03/06/17 23:00 97.7 84 18 130/80 96 Nasal Cannula 2.0 03/06/17 22:45 97.7 82 19 131/78 96 Nasal Cannula 2.0 03/06/17 22:41 80 135/64 03/06/17 22:30 97.5 89 20 132/81 96 Nasal Cannula 2.0 03/06/17 22:15 97.3 90 19 135/82 96 Nasal Cannula 2.0 03/06/17 22:00 97.3 86 19 133/81 96 Nasal Cannula 2.0 03/06/17 21:30 80 20 135/64 100 Nasal Cannula 2.0 03/06/17 21:15 79 20 131/62 100 Nasal Cannula 2.0 03/06/17 21:00 79 20 132/63 100 Nasal Cannula 2.0 03/06/17 20:45 79 20 129/60 100 Nasal Cannula 2.0 03/06/17 20:30 80 20 135/70 100 Nasal Cannula 2.0 03/06/17 20:15 82 20 134/65 100 Nasal Cannula 2.0 03/06/17 20:00 86 20 134/60 100 Nasal Cannula 2.0 03/06/17 19:43 88 20 130/55 100 Simple Mask 8.0 03/06/17 19:39 87 16 100 03/06/17 19:38 87 20 154/81 100 Simple Mask 8.0 03/06/17 19:33 97.3 87 20 161/82 100 Simple Mask 8.0 03/06/17 19:30 Room Air 03/06/17 19:30 Room Air Intake and Output 03/06/17 03/07/17 19:00 07:00 Intake Total 01000 ml Output Total 2100 ml 31559 ml Balance -2100 ml -4080 ml Intake Oral 240 ml IV Total 1130 ml Other 9000 ml Output Urine Total 45982 ml Hemodialysis UF 2100 ml Other 1700 ml # Bowel Movements 1 Objective General Appearance: WD/WN HEENT: normocephalic, atraumatic Respiratory/Chest: chest wall non-tender, lungs clear Cardiovascular: normal peripheral pulses, normal rate Abdomen: normal bowel sounds, soft, non tender Genitourinary: normal external genitalia Extremities: no cyanosis, edema Lymphatic: no neck adenopathy Laboratory Tests 03/06/17 22:20: White Blood Count 14.4H, Red Blood Count 2.86L, Hemoglobin 9.2L, Hematocrit 26.3L, Mean Corpuscular Volume 92, Mean Corpuscular Hemoglobin 32.2H, Mean Corpuscular Hemoglobin Concent 35.0, Red Cell Distribution Width 12.9, Platelet Count 180, Mean Platelet Volume 7.2, Neutrophils (%) (Auto) 83.1H, Lymphocytes ( %) (Auto) 11.4L, Monocytes (%) (Auto) 3.8, Eosinophils (%) (Auto) 1.0, Basophils (%) (Auto) 0.7, Sodium Level 133L, Potassium Level 4.1, Chloride Level 90L, Carbon Dioxide Level 24, Anion Gap 19H, Blood Urea Nitrogen 49H, Creatinine 6.4H, Estimat Glomerular Filtration Rate , Glucose Level 229#H, Calcium Level 8.5L 03/07/17 04:45: White Blood Count 12.8H, Red Blood Count 2.63L, Hemoglobin 8.1L, Hematocrit 24.2L, Mean Corpuscular Volume 92, Mean Corpuscular Hemoglobin 30.9, Mean Corpuscular Hemoglobin Concent 33.6, Red Cell Distribution Width 13.1, Platelet Count 176, Mean Platelet Volume 7.4, Neutrophils (%) (Auto) , Lymphocytes (%) ( Auto) , Monocytes (%) (Auto) , Eosinophils (%) (Auto) , Basophils (%) (Auto) , Sodium Level 130L, Potassium Level 4.0, Chloride Level 88L, Carbon Dioxide Level 25, Anion Gap 17H, Blood Urea Nitrogen 50H, Creatinine 6.6H, Estimat Glomerular Filtration Rate , Glucose Level 290H, Calcium Level 8.4L, Uric Acid 7.5, Phosphorus Level 6.5H, Magnesium Level 1.7, Total Bilirubin 0.4, Aspartate Amino Transf (AST/SGOT) 10, Alanine Aminotransferase (ALT/SGPT) 10, Alkaline Phosphatase 60, C-Reactive Protein, Quantitative 11.4H, Pro-B-Type Natriuretic Peptide 372H, Total Protein 6.3L, Albumin 2.7L, Globulin 3.6, Albumin/Globulin Ratio 0.7L Current Medications Medications (Trade) Dose Ordered Sig/Fernando Route PRN Reason Start Time Stop Time Status Last Admin Dose Admin Acetaminophen (Tylenol) 650 mg Q4H PRN ORAL T>100.5 02/26/17 17:00 03/28/17 16:59 03/07/17 06:59 Acetaminophen (Tylenol) 650 mg Q4H PRN RECTAL Mild Pain (Pain Scale 1-3) 03/07/17 12:30 04/06/17 12:29 03/07/17 12:38 Albuterol/ Ipratropium (DuoNeb 0.5-3(2.5)mg/3ml) 3 ml Q4H PRN HHN Shortness of Breath 03/07/17 14:30 03/12/17 14:29 Albuterol/ Ipratropium 3 ml 3 ml TIDRT HHN 03/04/17 19:00 03/09/17 18:59 03/07/17 13:19 Allopurinol (Allopurinol) 300 mg DAILY ORAL 03/03/17 09:00 04/02/17 08:59 03/07/17 08:53 Atorvastatin Calcium (Lipitor) 20 mg BEDTIME ORAL 02/26/17 21:00 03/28/17 20:59 03/06/17 22:42 Carvedilol (Coreg) 25 mg EVERY 12 HOURS ORAL 03/01/17 21:00 03/31/17 20:59 03/07/17 08:56 Clonidine HCl (Catapres) 0.1 mg Q4H PRN ORAL SBP>160 03/01/17 11:45 03/31/17 11:44 Dextrose (Dextrose 50%) STAT PRN IV Hypoglycemia 02/27/17 16:00 03/29/17 15:59 Docusate Sodium (Colace) 100 mg BID ORAL 02/27/17 18:00 03/29/17 17:59 03/07/17 08:53 Gabapentin (Neurontin) 200 mg QHS ORAL 02/27/17 21:00 03/29/17 20:59 03/06/17 22:41 Insulin Aspart (NovoLOG) BEFORE MEALS AND HS SUBQ 02/27/17 16:30 03/29/17 16:29 03/07/17 11:38 Linezolid (Zyvox) 300 ml @ 300 mls/hr Q12HR IVPB 02/28/17 12:45 03/13/17 23:59 03/07/17 08:56 Ondansetron HCl (Zofran) 4 mg Q6H PRN IVP Nausea & Vomiting 02/26/17 17:00 03/28/17 16:59 Pantoprazole (Protonix) 40 mg DAILY IVP 02/27/17 09:00 03/29/17 08:59 03/07/17 08:54 Polyethylene Glycol (Miralax) 17 gm HSPRN PRN ORAL Constipation 02/26/17 21:00 03/28/17 20:59 Quetiapine Fumarate (SEROquel) 25 mg TWICE A DAY ORAL 02/27/17 18:00 03/29/17 17:59 03/07/17 08:53 Sevelamer Carbonate (Renvela) 800 mg TIAC ORAL 03/07/17 16:30 04/06/17 16:29 Sodium Chloride (Sodium Chloride 1000ml bag) 1,000 ml @ 75 mls/hr [id number] IV 03/07/17 10:30 04/06/17 10:29 03/07/17 11:22 Tamsulosin HCl 0.4 mg 0.4 mg BID ORAL 02/28/17 18:00 03/30/17 17:59 03/07/17 08:53 Zolpidem Tartrate (Ambien) 5 mg HSPRN PRN ORAL Insomnia 02/26/17 21:00 03/28/17 20:59 JUSTO LEBLANC Mar 07, 2017 15:22
--- NOTE | 2017-03-07 16:15 | Pulmonology Progress Note ---
Assessment/Plan Problems: (1) Acute encephalopathy (2) Sepsis (3) ATN (acute tubular necrosis) (4) Hypoglycemia (5) Obstructive uropathy (6) CAD (coronary artery disease) (7) COPD (chronic obstructive pulmonary disease) Assessment/Plan cystoscopy done, suprapubic cath was inserted watch electrolytes renal studies pending wbc still high, episode of fever dvt prophylaxis less responsive, will get CT of head neuro evaluation, [facility] care, since pt is almost obtunded now. Subjective ROS Limited/Unobtainable: No Interval Events: less responsive, febrile Allergies: Coded Allergies: No Known Allergies (Unverified , 02/25/17) Objective Last 24 Hour Vital Signs Date Time Temp Pulse Resp B/P Pulse Ox O2 Delivery O2 Flow Rate FiO2 03/07/17 13:26 88 20 99 Nasal Cannula 3.0 03/07/17 13:15 88 20 96 Nasal Cannula 3.0 03/07/17 13:08 101.8 03/07/17 12:17 101.2 100 26 134/61 96 Nasal Cannula 3.0 03/07/17 08:56 97 145/66 03/07/17 08:00 99.5 97 26 145/66 96 Nasal Cannula 2.0 03/07/17 07:58 99.5 03/07/17 07:40 90 18 98 Nasal Cannula 3.0 03/07/17 07:34 93 18 98 Nasal Cannula 3.0 03/07/17 07:34 93 18 Nasal Cannula 3.0 03/07/17 04:00 96.9 72 20 148/63 97 Nasal Cannula 2.0 03/07/17 02:00 97.7 74 20 133/71 96 Nasal Cannula 2.0 03/07/17 01:00 97.3 66 20 128/73 95 Nasal Cannula 2.0 03/07/17 00:00 97.1 66 18 126/67 99 Nasal Cannula 2.0 03/06/17 23:30 97.5 69 18 127/61 97 Nasal Cannula 2.0 03/06/17 23:00 97.7 84 18 130/80 96 Nasal Cannula 2.0 03/06/17 22:45 97.7 82 19 131/78 96 Nasal Cannula 2.0 03/06/17 22:41 80 135/64 03/06/17 22:30 97.5 89 20 132/81 96 Nasal Cannula 2.0 03/06/17 22:15 97.3 90 19 135/82 96 Nasal Cannula 2.0 03/06/17 22:00 97.3 86 19 133/81 96 Nasal Cannula 2.0 03/06/17 21:30 80 20 135/64 100 Nasal Cannula 2.0 03/06/17 21:15 79 20 131/62 100 Nasal Cannula 2.0 03/06/17 21:00 79 20 132/63 100 Nasal Cannula 2.0 03/06/17 20:45 79 20 129/60 100 Nasal Cannula 2.0 03/06/17 20:30 80 20 135/70 100 Nasal Cannula 2.0 03/06/17 20:15 82 20 134/65 100 Nasal Cannula 2.0 03/06/17 20:00 86 20 134/60 100 Nasal Cannula 2.0 03/06/17 19:43 88 20 130/55 100 Simple Mask 8.0 03/06/17 19:39 87 16 100 03/06/17 19:38 87 20 154/81 100 Simple Mask 8.0 03/06/17 19:33 97.3 87 20 161/82 100 Simple Mask 8.0 03/06/17 19:30 Room Air 03/06/17 19:30 Room Air Intake and Output 03/06/17 03/07/17 19:00 07:00 Intake Total 29913 ml Output Total 2100 ml 97707 ml Balance -2100 ml -4080 ml Intake Oral 240 ml IV Total 1130 ml Other 9000 ml Output Urine Total 04675 ml Hemodialysis UF 2100 ml Other 1700 ml # Bowel Movements 1 Objective General Appearance: WD/WN HEENT: normocephalic, atraumatic Respiratory/Chest: chest wall non-tender, lungs clear Cardiovascular: normal peripheral pulses, normal rate Abdomen: normal bowel sounds, soft, non tender Genitourinary: normal external genitalia Extremities: no cyanosis, edema Lymphatic: no neck adenopathy Laboratory Tests 03/06/17 22:20: White Blood Count 14.4H, Red Blood Count 2.86L, Hemoglobin 9.2L, Hematocrit 26.3L, Mean Corpuscular Volume 92, Mean Corpuscular Hemoglobin 32.2H, Mean Corpuscular Hemoglobin Concent 35.0, Red Cell Distribution Width 12.9, Platelet Count 180, Mean Platelet Volume 7.2, Neutrophils (%) (Auto) 83.1H, Lymphocytes ( %) (Auto) 11.4L, Monocytes (%) (Auto) 3.8, Eosinophils (%) (Auto) 1.0, Basophils (%) (Auto) 0.7, Sodium Level 133L, Potassium Level 4.1, Chloride Level 90L, Carbon Dioxide Level 24, Anion Gap 19H, Blood Urea Nitrogen 49H, Creatinine 6.4H, Estimat Glomerular Filtration Rate , Glucose Level 229#H, Calcium Level 8.5L 03/07/17 04:45: White Blood Count 12.8H, Red Blood Count 2.63L, Hemoglobin 8.1L, Hematocrit 24.2L, Mean Corpuscular Volume 92, Mean Corpuscular Hemoglobin 30.9, Mean Corpuscular Hemoglobin Concent 33.6, Red Cell Distribution Width 13.1, Platelet Count 176, Mean Platelet Volume 7.4, Neutrophils (%) (Auto) , Lymphocytes (%) ( Auto) , Monocytes (%) (Auto) , Eosinophils (%) (Auto) , Basophils (%) (Auto) , Sodium Level 130L, Potassium Level 4.0, Chloride Level 88L, Carbon Dioxide Level 25, Anion Gap 17H, Blood Urea Nitrogen 50H, Creatinine 6.6H, Estimat Glomerular Filtration Rate , Glucose Level 290H, Calcium Level 8.4L, Uric Acid 7.5, Phosphorus Level 6.5H, Magnesium Level 1.7, Total Bilirubin 0.4, Aspartate Amino Transf (AST/SGOT) 10, Alanine Aminotransferase (ALT/SGPT) 10, Alkaline Phosphatase 60, C-Reactive Protein, Quantitative 11.4H, Pro-B-Type Natriuretic Peptide 372H, Total Protein 6.3L, Albumin 2.7L, Globulin 3.6, Albumin/Globulin Ratio 0.7L Current Medications Medications (Trade) Dose Ordered Sig/Fernando Route PRN Reason Start Time Stop Time Status Last Admin Dose Admin Acetaminophen (Tylenol) 650 mg Q4H PRN ORAL T>100.5 03/07/17 17:00 04/06/17 16:59 Acetaminophen (Tylenol) 650 mg Q4H PRN RECTAL Mild Pain (Pain Scale 1-3) 03/07/17 16:30 04/06/17 16:29 Albuterol/ Ipratropium (DuoNeb 0.5-3(2.5)mg/3ml) 3 ml Q4H PRN HHN Shortness of Breath 03/07/17 18:30 03/12/17 18:29 Albuterol/ Ipratropium (DuoNeb 0.5-3(2.5)mg/3ml) 3 ml TIDRT HHN 03/07/17 19:00 03/12/17 18:59 Allopurinol (Allopurinol) 300 mg DAILY ORAL 03/08/17 09:00 04/07/17 08:59 Atorvastatin Calcium (Lipitor) 20 mg BEDTIME ORAL 03/07/17 21:00 04/06/17 20:59 Carvedilol (Coreg) 25 mg EVERY 12 HOURS ORAL 03/07/17 21:00 04/06/17 20:59 Clonidine HCl (Catapres) 0.1 mg Q4H PRN ORAL SBP>160 03/07/17 19:45 04/06/17 19:44 Dextrose (Dextrose 50%) STAT PRN IV Hypoglycemia 03/07/17 16:00 04/06/17 15:59 Docusate Sodium (Colace) 100 mg BID ORAL 03/07/17 18:00 04/06/17 17:59 Gabapentin (Neurontin) 200 mg QHS ORAL 03/07/17 21:00 04/06/17 20:59 Insulin Aspart (NovoLOG) BEFORE MEALS AND HS SUBQ 03/07/17 16:30 04/06/17 16:29 Linezolid 300 ml @ 300 mls/hr Q12HR IVPB 03/07/17 21:00 03/14/17 20:59 Ondansetron HCl (Zofran) 4 mg Q6H PRN IVP Nausea & Vomiting 03/07/17 17:00 04/06/17 16:59 Pantoprazole (Protonix) 40 mg DAILY IVP 03/08/17 09:00 04/07/17 08:59 Polyethylene Glycol (Miralax) 17 gm HSPRN PRN ORAL Constipation 03/07/17 21:00 04/06/17 20:59 Quetiapine Fumarate (SEROquel) 25 mg TWICE A DAY ORAL 03/07/17 18:00 04/06/17 17:59 Sevelamer Carbonate (Renvela) 800 mg TIAC ORAL 03/07/17 16:30 04/06/17 16:29 Sodium Chloride (Sodium Chloride 1000ml bag) 1,000 ml @ 75 mls/hr [id number] IV 03/07/17 16:00 04/06/17 15:59 Tamsulosin HCl (Flomax) 0.4 mg BID ORAL 03/07/17 18:00 04/06/17 17:59 Zolpidem Tartrate (Ambien) 5 mg HSPRN PRN ORAL Insomnia 03/07/17 21:00 04/06/17 20:59 JUSTO LEBLANC Mar 07, 2017 16:15
--- NOTE | 2017-03-07 17:04 | Diagnostic Imaging Report ---
Indications: Altered level of consciousness Technique: Spiral acquisitions obtained through the brain. Angled axial and coronal 5 x 5 mm slices were reconstructed. Total dose length product 1490 to mGycm. CTDI vol(s) 70 mGy. Dose reduction achieved using automated exposure control Comparison: None Findings: There is an old lacunar infarct in the right inferior basal ganglia region. There is age-related enlargement of ventricles and extra-axial CSF spaces. There is minimal periventricular the white matter chronic ischemic change. No acute hemorrhage or edema. No mass effect or midline shift. The calvarium is intact. The mastoids are clear. The visualized sinuses are unremarkable. There is evidence of prior bilateral cataract surgery. Impression: Chronic and age-related changes, as described Old right basal ganglia lacunar infarct Negative for acute intracranial bleed or mass effect The CT scanner at [facility] is accredited by the [employer] and the scans are performed using protocols designed to limit radiation exposure to as low as reasonably achievable to attain images of sufficient resolution adequate for diagnostic evaluation.
[2017-03-07] MEDS ORDERED: Zolpidem 5mg tab ORAL PRN (21:00)
[2017-03-07] MEDS ORDERED: Atorvastatin 20mg tab ORAL SCH (21:00)
[2017-03-07] MEDS ORDERED: Miralax 17gm pkt ORAL PRN (21:00)
--- NOTE | 2017-03-07 21:00 | Progress Note ---
DATE: 03/07/2017 SUBJECTIVE: The patient presents for evaluation. The patient is lethargic and continued to be a poor historian. No agitation. MENTAL STATUS EXAMINATION: The patient is lethargic, not at all. Mood is neutral. Affect is flat. Eyes closed. There is a paucity of thought content. ASSESSMENT: Delirium. PLAN: No medication changes. Ladarius Parry M.D. DR: LUISITO JOB#: [id number] CC:
[2017-03-08] VITALS (7 sets, daily range): BP systolic 96–133; BP diastolic 49–68
[2017-03-08 05:12] LABS: MEAN CORPUSCULAR HEMOGLOBIN 30.8 PG (27.0-31.0); MEAN CORPUSCULAR HGB CONC 33.9 G/DL (32.0-36.0); MEAN CORPUSCULAR VOLUME 91 FL (80-99); MEAN PLATELET VOLUME 7.1 FL (6.5-10.1); PLATELET COUNT 146 K/UL (150-450); RED BLOOD COUNT 2.12 M/UL (4.70-6.10); RED CELL DISTRIBUTION WIDTH 12.7 % (11.6-14.8); WHITE BLOOD COUNT 7.7 K/UL (4.8-10.8)
[2017-03-08 05:14] LABS: ALANINE AMINOTRANSFERASE 10 U/L (3-41); ALBUMIN/GLOBULIN RATIO 0.6 (1.0-2.7); ANION GAP 15 (5-15); ASPARTATE AMINO TRANSFERASE 14 U/L (5-40); CALCIUM 8.8 mg/dL (8.6-10.2); CARBON DIOXIDE 23 mEQ/L (20-30); CHLORIDE 96 mEQ/L (98-107); CREATININE 4.3 mg/dL (0.7-1.2); HEMOLYSIS 2; PHOSPHORUS 3.9 mg/dL (2.5-4.8); POTASSIUM 3.8 mEQ/L (3.4-4.9); SODIUM 134 mEQ/L (135-145); TOTAL PROTEIN 5.6 g/dL (6.6-8.7); URIC ACID 7.8 mg/dL (3.0-7.5)
[2017-03-08] MEDS: Acetaminophen 650 MG SUPP RECTAL PRN ×2 (05:23→13:15)
[2017-03-08] MEDS: NovoLOG Insulin Flexpen SUBQ SCH ×4 (06:24→21:29)
[2017-03-08 06:48] LABS: MEAN CORPUSCULAR HGB CONC 34.1 G/DL (32.0-36.0); MEAN CORPUSCULAR VOLUME 91 FL (80-99); PLATELET COUNT 146 K/UL (150-450); RED BLOOD COUNT 1.97 M/UL (4.70-6.10); RED CELL DISTRIBUTION WIDTH 12.6 % (11.6-14.8); WHITE BLOOD COUNT 7.5 K/UL (4.8-10.8)
[2017-03-08 06:52] LABS: ANION GAP 15 (5-15); CALCIUM 8.2 mg/dL (8.6-10.2); CARBON DIOXIDE 23 mEQ/L (20-30); CHLORIDE 97 mEQ/L (98-107); CREATININE 4.1 mg/dL (0.7-1.2); HEMOLYSIS 5; POTASSIUM 3.8 mEQ/L (3.4-4.9); SODIUM 135 mEQ/L (135-145)
[2017-03-08] MEDS: DuoNeb 0.5-3(2.5)mg/3ml neb HHN SCH ×3 (07:28→19:01)
[2017-03-08 08:03] LABS: BAND NEUTROPHILS % (MANUAL) 4 % (0-8); BASOPHILS % (MANUAL) 1 % (0-2); LYMPHOCYTES % (MANUAL) 18 % (20-45); NEUTROPHILS % (MANUAL) 75 % (45-75); TOTAL CELLS COUNTED 100
[2017-03-08 08:04] LABS: EOSINOPHILS % (MANUAL) 0 % (0-3); PLATELET ESTIMATE DECREASED; PLATELET MORPHOLOGY NORMAL
[2017-03-08] MEDS: Pantoprazole Inj IVP SCH (08:31)
[2017-03-08 08:32] LABS: BAND NEUTROPHILS % (MANUAL) 4 % (0-8); LYMPHOCYTES % (MANUAL) 13 % (20-45); NEUTROPHILS % (MANUAL) 83 % (45-75); TOTAL CELLS COUNTED 100
[2017-03-08 08:33] LABS: BASOPHILS % (MANUAL) 0 % (0-2); EOSINOPHILS % (MANUAL) 0 % (0-3); PLATELET ESTIMATE DECREASED; PLATELET MORPHOLOGY NORMAL
[2017-03-08] MEDS: Docusate 100mg/10ml Liq ORAL SCH ×2 (09:00→18:00)
[2017-03-08] MEDS: Carvedilol 25mg Tab ORAL SCH ×2 (09:00→21:00)
[2017-03-08] MEDS: Tamsulosin 0.4mg cap ORAL SCH ×2 (09:00→18:00)
--- NOTE | 2017-03-08 09:40 | 48 Hour Post Anesthesia Eval ---
Post Anesthesia Evaluation Procedure: Cystoscopy, suprapubic catheter placement Date of Evaluation: Mar 08, 2017 Time of Evaluation: 07:30 Blood Pressure Systolic: 133 0: 68 Pulse Rate: 88 Respiratory Rate: 20 Temperature (Fahrenheit): 100.6 O2 Sat by Pulse Oximetry: 100 Airway: patent Nausea: No Vomiting: No Pain Intensity: 0 Hydration Status: adequate Cardiopulmonary Status: at baseline Mental Status/LOC: patient returned to baseline Post-Anesthesia Complications: 0 Follow-up care needed: N/A - further care as per primary team ИВАН LOZANO M.D. Mar 08, 2017 09:40
--- NOTE | 2017-03-08 11:30 | Pulmonology Progress Note ---
Assessment/Plan Problems: (1) Acute encephalopathy (2) Sepsis (3) ATN (acute tubular necrosis) (4) Hypoglycemia (5) Obstructive uropathy (6) CAD (coronary artery disease) (7) COPD (chronic obstructive pulmonary disease) Assessment/Plan cystoscopy done, suprapubic cath was inserted watch electrolytes wbc still high, episode of fever dvt prophylaxis CT of head showed only old infrct awaiting neuro evaluation, CARINA care, mental status better Subjective ROS Limited/Unobtainable: No Constitutional: Reports: no symptoms HEENT: Repors: no symptoms Respiratory: Reports: no symptoms Allergies: Coded Allergies: No Known Allergies (Unverified , 02/25/17) Objective Last 24 Hour Vital Signs Date Time Temp Pulse Resp B/P Pulse Ox O2 Delivery O2 Flow Rate FiO2 03/08/17 10:18 75 119/68 03/08/17 09:40 88 20 100 03/08/17 09:00 80 96/49 03/08/17 08:50 Nasal Cannula 3.0 03/08/17 08:00 80 03/08/17 07:56 98.8 81 19 96/49 100 Nasal Cannula 3.0 03/08/17 07:30 88 20 100 Nasal Cannula 28.0 28 03/08/17 07:28 Nasal Cannula 28.0 28 03/08/17 07:28 98 Nasal Cannula 2.0 28 03/08/17 07:28 83 20 98 Nasal Cannula 28.0 28 03/08/17 07:28 28 03/08/17 05:57 100.6 03/08/17 04:00 101.5 93 19 133/68 98 Nasal Cannula 3.0 03/08/17 04:00 95 03/08/17 00:00 98 03/08/17 00:00 98.4 100 18 124/63 98 Nasal Cannula 3.0 03/07/17 21:00 97 127/67 03/07/17 20:00 97 03/07/17 19:43 101.9 94 17 127/67 93 03/07/17 19:08 94 18 99 Nasal Cannula 28.0 28 03/07/17 19:00 Nasal Cannula 28.0 28 03/07/17 18:59 97 Nasal Cannula 28.0 28 03/07/17 18:58 28 03/07/17 18:58 95 20 97 Nasal Cannula 28.0 28 03/07/17 17:09 87 03/07/17 16:11 100.9 91 26 126/67 94 Nasal Cannula 3.0 03/07/17 13:26 88 20 99 Nasal Cannula 3.0 03/07/17 13:15 88 20 96 Nasal Cannula 3.0 03/07/17 13:08 101.8 03/07/17 12:17 101.2 100 26 134/61 96 Nasal Cannula 3.0 Intake and Output 03/07/17 03/08/17 19:00 07:00 Intake Total 6280 ml 1171.25 ml Output Total 7850 ml 800 ml Balance -1570 ml 371.25 ml IV Total 280 ml 1171.25 ml Other 6000 ml Output Urine Total 6900 ml 700 ml Other 950 ml 100 ml Objective General Appearance: WD/WN HEENT: normocephalic, atraumatic Respiratory/Chest: chest wall non-tender, lungs clear Cardiovascular: normal peripheral pulses, normal rate Abdomen: normal bowel sounds, soft, non tender Genitourinary: normal external genitalia Extremities: no cyanosis, edema Lymphatic: no neck adenopathy Laboratory Tests 03/08/17 03:30: White Blood Count 7.7, Red Blood Count 2.12L, Hemoglobin 6.5*L, Hematocrit 19.2L , Mean Corpuscular Volume 91, Mean Corpuscular Hemoglobin 30.8, Mean Corpuscular Hemoglobin Concent 33.9, Red Cell Distribution Width 12.7, Platelet Count 146L, Mean Platelet Volume 7.1, Neutrophils (%) (Auto) , Lymphocytes (%) ( Auto) , Monocytes (%) (Auto) , Eosinophils (%) (Auto) , Basophils (%) (Auto) , Differential Total Cells Counted 100, Neutrophils % (Manual) 75, Lymphocytes % ( Manual) 18L, Monocytes % (Manual) 2, Eosinophils % (Manual) 0, Basophils % ( Manual) 1, Band Neutrophils 4, Platelet Estimate DecreasedL, Platelet Morphology Normal, Red Blood Cell Morphology Normal, Sodium Level 134L, Potassium Level 3.8, Chloride Level 96L, Carbon Dioxide Level 23, Anion Gap 15, Blood Urea Nitrogen 45H, Creatinine 4.3H, Estimat Glomerular Filtration Rate , Glucose Level 156#H, Uric Acid 7.8H, Calcium Level 8.8, Phosphorus Level 3.9, Total Bilirubin < 0.2, Aspartate Amino Transf (AST/SGOT) 14, Alanine Aminotransferase (ALT/SGPT) 10, Alkaline Phosphatase 51, C-Reactive Protein, Quantitative 17.0H, Pro-B-Type Natriuretic Peptide 895H, Total Protein 5.6L, Albumin 2.2L, Globulin 3.4, Albumin/Globulin Ratio 0.6L 03/08/17 06:20: White Blood Count 7.5, Red Blood Count 1.97L, Hemoglobin 6.1*L, Hematocrit 17.9L , Mean Corpuscular Volume 91, Mean Corpuscular Hemoglobin 31.0, Mean Corpuscular Hemoglobin Concent 34.1, Red Cell Distribution Width 12.6, Platelet Count 146L, Mean Platelet Volume 7.0, Neutrophils (%) (Auto) , Lymphocytes (%) ( Auto) , Monocytes (%) (Auto) , Eosinophils (%) (Auto) , Basophils (%) (Auto) , Differential Total Cells Counted 100, Neutrophils % (Manual) 83H, Lymphocytes % (Manual) 13L, Monocytes % (Manual) 0L, Eosinophils % (Manual) 0, Basophils % ( Manual) 0, Band Neutrophils 4, Platelet Estimate DecreasedL, Platelet Morphology Normal, Red Blood Cell Morphology Normal, Sodium Level 135, Potassium Level 3.8, Chloride Level 97L, Carbon Dioxide Level 23, Anion Gap 15, Blood Urea Nitrogen 43H, Creatinine 4.1H, Estimat Glomerular Filtration Rate , Glucose Level 157H, Calcium Level 8.2L Current Medications Medications (Trade) Dose Ordered Sig/Fernando Route PRN Reason Start Time Stop Time Status Last Admin Dose Admin Acetaminophen (Tylenol) 650 mg Q4H PRN ORAL T>100.5 03/07/17 17:00 04/06/17 16:59 Acetaminophen (Tylenol) 650 mg Q4H PRN RECTAL Mild Pain (Pain Scale 1-3) 03/07/17 16:30 04/06/17 16:29 03/08/17 05:23 Albuterol/ Ipratropium (DuoNeb 0.5-3(2.5)mg/3ml) 3 ml Q4H PRN HHN Shortness of Breath 03/07/17 18:30 03/12/17 18:29 Albuterol/ Ipratropium (DuoNeb 0.5-3(2.5)mg/3ml) 3 ml TIDRT HHN 03/07/17 19:00 03/12/17 18:59 03/08/17 07:28 Allopurinol (Allopurinol) 300 mg DAILY ORAL 03/08/17 09:00 04/07/17 08:59 Atorvastatin Calcium (Lipitor) 20 mg BEDTIME ORAL 03/07/17 21:00 04/06/17 20:59 Carvedilol (Coreg) 25 mg EVERY 12 HOURS ORAL 03/07/17 21:00 04/06/17 20:59 Clonidine HCl (Catapres) 0.1 mg Q4H PRN ORAL SBP>160 03/07/17 19:45 04/06/17 19:44 Dextrose (Dextrose 50%) STAT PRN IV Hypoglycemia 03/07/17 16:00 04/06/17 15:59 Docusate Sodium (Colace) 100 mg BID ORAL 03/07/17 18:00 04/06/17 17:59 Gabapentin (Neurontin) 200 mg QHS ORAL 03/07/17 21:00 04/06/17 20:59 Insulin Aspart (NovoLOG) BEFORE MEALS AND HS SUBQ 03/07/17 16:30 04/06/17 16:29 03/08/17 06:24 Linezolid 300 ml @ 300 mls/hr Q12HR IVPB 03/07/17 21:00 03/14/17 20:59 03/08/17 08:31 Ondansetron HCl (Zofran) 4 mg Q6H PRN IVP Nausea & Vomiting 03/07/17 17:00 04/06/17 16:59 Pantoprazole (Protonix) 40 mg DAILY IVP 03/08/17 09:00 04/07/17 08:59 03/08/17 08:31 Polyethylene Glycol (Miralax) 17 gm HSPRN PRN ORAL Constipation 03/07/17 21:00 04/06/17 20:59 Quetiapine Fumarate (SEROquel) 25 mg TWICE A DAY ORAL 03/07/17 18:00 04/06/17 17:59 Sevelamer Carbonate (Renvela) 800 mg TIAC ORAL 03/07/17 16:30 04/06/17 16:29 Sodium Chloride (Sodium Chloride 1000ml bag) 1,000 ml @ 75 mls/hr [id number] IV 03/07/17 16:00 04/06/17 15:59 03/08/17 05:23 Tamsulosin HCl (Flomax) 0.4 mg BID ORAL 03/07/17 18:00 04/06/17 17:59 Zolpidem Tartrate (Ambien) 5 mg HSPRN PRN ORAL Insomnia 03/07/17 21:00 04/06/17 20:59 JUSTO LEBLANC Mar 08, 2017 11:30
--- NOTE | 2017-03-08 12:51 | Neurology Progress Note ---
Interim History Interim History ROS Limited/Unobtainable: No Objective Physical Exam Last Vital Signs Date Time Temp Pulse Resp B/P Pulse Ox O2 Delivery O2 Flow Rate FiO2 03/08/17 12:00 98.0 85 19 131/67 100 Nasal Cannula 3.0 03/08/17 07:30 28 Laboratory Tests Test 03/08/17 03:30 03/08/17 06:20 White Blood Count 7.7 K/UL (4.8-10.8) 7.5 K/UL (4.8-10.8) Red Blood Count 2.12 M/UL (4.70-6.10) L 1.97 M/UL (4.70-6.10) L Hemoglobin 6.5 G/DL (14.2-18.0) *L 6.1 G/DL (14.2-18.0) *L Hematocrit 19.2 % (42.0-52.0) L 17.9 % (42.0-52.0) L Mean Corpuscular Volume 91 FL (80-99) 91 FL (80-99) Mean Corpuscular Hemoglobin 30.8 PG (27.0-31.0) 31.0 PG (27.0-31.0) Mean Corpuscular Hemoglobin Concent 33.9 G/DL (32.0-36.0) 34.1 G/DL (32.0-36.0) Red Cell Distribution Width 12.7 % (11.6-14.8) 12.6 % (11.6-14.8) Platelet Count 146 K/UL (150-450) L 146 K/UL (150-450) L Mean Platelet Volume 7.1 FL (6.5-10.1) 7.0 FL (6.5-10.1) Neutrophils (%) (Auto) % (45.0-75.0) % (45.0-75.0) Lymphocytes (%) (Auto) % (20.0-45.0) % (20.0-45.0) Monocytes (%) (Auto) % (1.0-10.0) % (1.0-10.0) Eosinophils (%) (Auto) % (0.0-3.0) % (0.0-3.0) Basophils (%) (Auto) % (0.0-2.0) % (0.0-2.0) Differential Total Cells Counted 100 100 Neutrophils % (Manual) 75 % (45-75) 83 % (45-75) H Lymphocytes % (Manual) 18 % (20-45) L 13 % (20-45) L Monocytes % (Manual) 2 % (1-10) 0 % (1-10) L Eosinophils % (Manual) 0 % (0-3) 0 % (0-3) Basophils % (Manual) 1 % (0-2) 0 % (0-2) Band Neutrophils 4 % (0-8) 4 % (0-8) Platelet Estimate Decreased L Decreased L Platelet Morphology Normal Normal Red Blood Cell Morphology Normal Normal Sodium Level 134 mEQ/L (135-145) L 135 mEQ/L (135-145) Potassium Level 3.8 mEQ/L (3.4-4.9) 3.8 mEQ/L (3.4-4.9) Chloride Level 96 mEQ/L (98-107) L 97 mEQ/L (98-107) L Carbon Dioxide Level 23 mEQ/L (20-30) 23 mEQ/L (20-30) Anion Gap 15 (5-15) 15 (5-15) Blood Urea Nitrogen 45 mg/dL (7-23) H 43 mg/dL (7-23) H Creatinine 4.3 mg/dL (0.7-1.2) H 4.1 mg/dL (0.7-1.2) H Estimat Glomerular Filtration Rate mL/min (>60) mL/min (>60) Glucose Level 156 mg/dL (74-106) #H 157 mg/dL (74-106) H Uric Acid 7.8 mg/dL (3.0-7.5) H Calcium Level 8.8 mg/dL (8.6-10.2) 8.2 mg/dL (8.6-10.2) L Phosphorus Level 3.9 mg/dL (2.5-4.8) Total Bilirubin < 0.2 mg/dL (0.0-1.2) Aspartate Amino Transf (AST/SGOT) 14 U/L (5-40) Alanine Aminotransferase (ALT/SGPT) 10 U/L (3-41) Alkaline Phosphatase 51 U/L (40-129) C-Reactive Protein, Quantitative 17.0 mg/dL (< 0.5) H Pro-B-Type Natriuretic Peptide 895 pg/mL (0-125) H Total Protein 5.6 g/dL (6.6-8.7) L Albumin 2.2 g/dL (3.5-5.2) L Globulin 3.4 g/dL Albumin/Globulin Ratio 0.6 (1.0-2.7) L Impression/Recommendations Problems: (1) Acute encephalopathy (2) Diabetes mellitus (3) CAD (coronary artery disease) (4) COPD (chronic obstructive pulmonary disease) (5) Sepsis Status: unchanged Recommendations neuroconsult done see notes NANCY GARNER Mar 08, 2017 12:50
--- NOTE | 2017-03-08 14:57 | General Progress Note ---
Assessment/Plan Status: unchanged Status Narrative dialysed this morning- currently being transfused Assessment/Plan Primary Impression: Altered level of consciousness : uremia and Hypoglycemia MILAN (acute kidney injury) --- urinary outlet obstruction UTI (urinary tract infection) HTN DM Psychosis Bladder tumore Plan: dialysed 03/06 next 03/08 Uro fu follow up renal parameters for need for further HD monitor BS and adjust Insulin Keep BS and BP in check Monitor renal parameters Avoid Nephrotoxics Per orders Subjective ROS Limited/Unobtainable: No Allergies: Coded Allergies: No Known Allergies (Unverified , 02/25/17) Objective Last 24 Hour Vital Signs Date Time Temp Pulse Resp B/P Pulse Ox O2 Delivery O2 Flow Rate FiO2 03/08/17 13:25 85 20 100 Nasal Cannula 2.0 28 03/08/17 13:20 28 03/08/17 13:20 77 20 98 Nasal Cannula 2.0 03/08/17 12:11 74 03/08/17 12:00 98.0 85 19 131/67 100 Nasal Cannula 3.0 03/08/17 12:00 Nasal Cannula 3.0 03/08/17 10:18 75 119/68 03/08/17 09:40 88 20 100 03/08/17 09:00 80 96/49 03/08/17 08:50 Nasal Cannula 3.0 03/08/17 08:00 80 03/08/17 07:56 98.8 81 19 96/49 100 Nasal Cannula 3.0 03/08/17 07:30 88 20 100 Nasal Cannula 2.0 03/08/17 07:28 Nasal Cannula 28.0 03/08/17 07:28 98 Nasal Cannula 2.0 03/08/17 07:28 83 20 98 Nasal Cannula 2.0 28 03/08/17 07:28 28 03/08/17 05:57 100.6 03/08/17 04:00 101.5 93 19 133/68 98 Nasal Cannula 3.0 03/08/17 04:00 95 03/08/17 00:00 98 03/08/17 00:00 98.4 100 18 124/63 98 Nasal Cannula 3.0 03/07/17 21:00 97 127/67 03/07/17 20:00 97 03/07/17 19:43 101.9 94 17 127/67 93 03/07/17 19:08 94 18 99 Nasal Cannula 28.0 28 03/07/17 19:00 Nasal Cannula 28.0 28 03/07/17 18:59 97 Nasal Cannula 28.0 28 03/07/17 18:58 28 03/07/17 18:58 95 20 97 Nasal Cannula 28.0 28 03/07/17 17:09 87 03/07/17 16:11 100.9 91 26 126/67 94 Nasal Cannula 3.0 Intake and Output 03/07/17 03/08/17 19:00 07:00 Intake Total 6280 ml 1171.25 ml Output Total 7850 ml 800 ml Balance -1570 ml 371.25 ml IV Total 280 ml 1171.25 ml Other 6000 ml Output Urine Total 6900 ml 700 ml Other 950 ml 100 ml Laboratory Tests 03/08/17 03:30: White Blood Count 7.7, Red Blood Count 2.12L, Hemoglobin 6.5*L, Hematocrit 19.2L , Mean Corpuscular Volume 91, Mean Corpuscular Hemoglobin 30.8, Mean Corpuscular Hemoglobin Concent 33.9, Red Cell Distribution Width 12.7, Platelet Count 146L, Mean Platelet Volume 7.1, Neutrophils (%) (Auto) , Lymphocytes (%) ( Auto) , Monocytes (%) (Auto) , Eosinophils (%) (Auto) , Basophils (%) (Auto) , Differential Total Cells Counted 100, Neutrophils % (Manual) 75, Lymphocytes % ( Manual) 18L, Monocytes % (Manual) 2, Eosinophils % (Manual) 0, Basophils % ( Manual) 1, Band Neutrophils 4, Platelet Estimate DecreasedL, Platelet Morphology Normal, Red Blood Cell Morphology Normal, Sodium Level 134L, Potassium Level 3.8, Chloride Level 96L, Carbon Dioxide Level 23, Anion Gap 15, Blood Urea Nitrogen 45H, Creatinine 4.3H, Estimat Glomerular Filtration Rate , Glucose Level 156#H, Uric Acid 7.8H, Calcium Level 8.8, Phosphorus Level 3.9, Total Bilirubin < 0.2, Aspartate Amino Transf (AST/SGOT) 14, Alanine Aminotransferase (ALT/SGPT) 10, Alkaline Phosphatase 51, C-Reactive Protein, Quantitative 17.0H, Pro-B-Type Natriuretic Peptide 895H, Total Protein 5.6L, Albumin 2.2L, Globulin 3.4, Albumin/Globulin Ratio 0.6L 03/08/17 06:20: White Blood Count 7.5, Red Blood Count 1.97L, Hemoglobin 6.1*L, Hematocrit 17.9L , Mean Corpuscular Volume 91, Mean Corpuscular Hemoglobin 31.0, Mean Corpuscular Hemoglobin Concent 34.1, Red Cell Distribution Width 12.6, Platelet Count 146L, Mean Platelet Volume 7.0, Neutrophils (%) (Auto) , Lymphocytes (%) ( Auto) , Monocytes (%) (Auto) , Eosinophils (%) (Auto) , Basophils (%) (Auto) , Differential Total Cells Counted 100, Neutrophils % (Manual) 83H, Lymphocytes % (Manual) 13L, Monocytes % (Manual) 0L, Eosinophils % (Manual) 0, Basophils % ( Manual) 0, Band Neutrophils 4, Platelet Estimate DecreasedL, Platelet Morphology Normal, Red Blood Cell Morphology Normal, Sodium Level 135, Potassium Level 3.8, Chloride Level 97L, Carbon Dioxide Level 23, Anion Gap 15, Blood Urea Nitrogen 43H, Creatinine 4.1H, Estimat Glomerular Filtration Rate , Glucose Level 157H, Calcium Level 8.2L Height (Feet): 5 Height (Inches): 10.00 Weight (Pounds): 260 General Appearance: no apparent distress Cardiovascular: tachycardia Respiratory/Chest: decreased breath sounds Abdomen: soft Objective other PE not changed JULIETA LEON Mar 08, 2017 14:57
--- NOTE | 2017-03-08 17:51 | Neurology Progress Note ---
Interim History Interim History ROS Limited/Unobtainable: No Objective Physical Exam Last Vital Signs Date Time Temp Pulse Resp B/P Pulse Ox O2 Delivery O2 Flow Rate FiO2 03/08/17 16:00 79 03/08/17 16:00 98.9 23 120/60 100 Nasal Cannula 2.0 03/08/17 13:25 28 Laboratory Tests Test 03/08/17 03:30 03/08/17 06:20 White Blood Count 7.7 K/UL (4.8-10.8) 7.5 K/UL (4.8-10.8) Red Blood Count 2.12 M/UL (4.70-6.10) L 1.97 M/UL (4.70-6.10) L Hemoglobin 6.5 G/DL (14.2-18.0) *L 6.1 G/DL (14.2-18.0) *L Hematocrit 19.2 % (42.0-52.0) L 17.9 % (42.0-52.0) L Mean Corpuscular Volume 91 FL (80-99) 91 FL (80-99) Mean Corpuscular Hemoglobin 30.8 PG (27.0-31.0) 31.0 PG (27.0-31.0) Mean Corpuscular Hemoglobin Concent 33.9 G/DL (32.0-36.0) 34.1 G/DL (32.0-36.0) Red Cell Distribution Width 12.7 % (11.6-14.8) 12.6 % (11.6-14.8) Platelet Count 146 K/UL (150-450) L 146 K/UL (150-450) L Mean Platelet Volume 7.1 FL (6.5-10.1) 7.0 FL (6.5-10.1) Neutrophils (%) (Auto) % (45.0-75.0) % (45.0-75.0) Lymphocytes (%) (Auto) % (20.0-45.0) % (20.0-45.0) Monocytes (%) (Auto) % (1.0-10.0) % (1.0-10.0) Eosinophils (%) (Auto) % (0.0-3.0) % (0.0-3.0) Basophils (%) (Auto) % (0.0-2.0) % (0.0-2.0) Differential Total Cells Counted 100 100 Neutrophils % (Manual) 75 % (45-75) 83 % (45-75) H Lymphocytes % (Manual) 18 % (20-45) L 13 % (20-45) L Monocytes % (Manual) 2 % (1-10) 0 % (1-10) L Eosinophils % (Manual) 0 % (0-3) 0 % (0-3) Basophils % (Manual) 1 % (0-2) 0 % (0-2) Band Neutrophils 4 % (0-8) 4 % (0-8) Platelet Estimate Decreased L Decreased L Platelet Morphology Normal Normal Red Blood Cell Morphology Normal Normal Sodium Level 134 mEQ/L (135-145) L 135 mEQ/L (135-145) Potassium Level 3.8 mEQ/L (3.4-4.9) 3.8 mEQ/L (3.4-4.9) Chloride Level 96 mEQ/L (98-107) L 97 mEQ/L (98-107) L Carbon Dioxide Level 23 mEQ/L (20-30) 23 mEQ/L (20-30) Anion Gap 15 (5-15) 15 (5-15) Blood Urea Nitrogen 45 mg/dL (7-23) H 43 mg/dL (7-23) H Creatinine 4.3 mg/dL (0.7-1.2) H 4.1 mg/dL (0.7-1.2) H Estimat Glomerular Filtration Rate mL/min (>60) mL/min (>60) Glucose Level 156 mg/dL (74-106) #H 157 mg/dL (74-106) H Uric Acid 7.8 mg/dL (3.0-7.5) H Calcium Level 8.8 mg/dL (8.6-10.2) 8.2 mg/dL (8.6-10.2) L Phosphorus Level 3.9 mg/dL (2.5-4.8) Total Bilirubin < 0.2 mg/dL (0.0-1.2) Aspartate Amino Transf (AST/SGOT) 14 U/L (5-40) Alanine Aminotransferase (ALT/SGPT) 10 U/L (3-41) Alkaline Phosphatase 51 U/L (40-129) C-Reactive Protein, Quantitative 17.0 mg/dL (< 0.5) H Pro-B-Type Natriuretic Peptide 895 pg/mL (0-125) H Total Protein 5.6 g/dL (6.6-8.7) L Albumin 2.2 g/dL (3.5-5.2) L Globulin 3.4 g/dL Albumin/Globulin Ratio 0.6 (1.0-2.7) L Impression/Recommendations Problems: (1) Acute encephalopathy (2) Diabetes mellitus (3) CAD (coronary artery disease) (4) COPD (chronic obstructive pulmonary disease) (5) Sepsis Status: unchanged Recommendations neuroconsult done # [id number] see notes NANCY GARNER Mar 08, 2017 17:51
--- NOTE | 2017-03-08 18:24 | General Progress Note ---
Assessment/Plan Status: unchanged Status Narrative Hematuria and renal failure Anemia retention Assessment/Plan will keep cbi, irrigate prn transfuse per primary team dialysis await pathology Abx per ID Subjective ROS Limited/Unobtainable: Yes Constitutional: Reports: weakness Genitourinary: Reports: hematuria Allergies: Coded Allergies: No Known Allergies (Unverified , 02/25/17) Objective Last 24 Hour Vital Signs Date Time Temp Pulse Resp B/P Pulse Ox O2 Delivery O2 Flow Rate FiO2 03/08/17 16:00 79 03/08/17 16:00 98.9 83 23 120/60 100 Nasal Cannula 2.0 03/08/17 13:25 85 20 100 Nasal Cannula 2.0 28 03/08/17 13:20 28 03/08/17 13:20 77 20 98 Nasal Cannula 2.0 03/08/17 12:11 74 03/08/17 12:00 98.0 85 19 131/67 100 Nasal Cannula 3.0 03/08/17 12:00 Nasal Cannula 3.0 03/08/17 10:18 75 119/68 03/08/17 09:40 88 20 100 03/08/17 09:00 80 96/49 03/08/17 08:50 Nasal Cannula 3.0 03/08/17 08:00 80 03/08/17 07:56 98.8 81 19 96/49 100 Nasal Cannula 3.0 03/08/17 07:30 88 20 100 Nasal Cannula 2.0 28 03/08/17 07:28 Nasal Cannula 28.0 28 03/08/17 07:28 98 Nasal Cannula 2.0 03/08/17 07:28 83 20 98 Nasal Cannula 2.0 03/08/17 07:28 28 03/08/17 05:57 100.6 03/08/17 04:00 101.5 93 19 133/68 98 Nasal Cannula 3.0 03/08/17 04:00 95 03/08/17 00:00 98 03/08/17 00:00 98.4 100 18 124/63 98 Nasal Cannula 3.0 03/07/17 21:00 97 127/67 03/07/17 20:00 97 03/07/17 19:43 101.9 94 17 127/67 93 03/07/17 19:08 94 18 99 Nasal Cannula 28.0 28 03/07/17 19:00 Nasal Cannula 28.0 28 03/07/17 18:59 97 Nasal Cannula 28.0 28 03/07/17 18:58 28 03/07/17 18:58 95 20 97 Nasal Cannula 28.0 28 Intake and Output 03/07/17 03/08/17 19:00 07:00 Intake Total 6280 ml 1171.25 ml Output Total 7850 ml 800 ml Balance -1570 ml 371.25 ml IV Total 280 ml 1171.25 ml Other 6000 ml Output Urine Total 6900 ml 700 ml Other 950 ml 100 ml Laboratory Tests 03/08/17 03:30: White Blood Count 7.7, Red Blood Count 2.12L, Hemoglobin 6.5*L, Hematocrit 19.2L , Mean Corpuscular Volume 91, Mean Corpuscular Hemoglobin 30.8, Mean Corpuscular Hemoglobin Concent 33.9, Red Cell Distribution Width 12.7, Platelet Count 146L, Mean Platelet Volume 7.1, Neutrophils (%) (Auto) , Lymphocytes (%) ( Auto) , Monocytes (%) (Auto) , Eosinophils (%) (Auto) , Basophils (%) (Auto) , Differential Total Cells Counted 100, Neutrophils % (Manual) 75, Lymphocytes % ( Manual) 18L, Monocytes % (Manual) 2, Eosinophils % (Manual) 0, Basophils % ( Manual) 1, Band Neutrophils 4, Platelet Estimate DecreasedL, Platelet Morphology Normal, Red Blood Cell Morphology Normal, Sodium Level 134L, Potassium Level 3.8, Chloride Level 96L, Carbon Dioxide Level 23, Anion Gap 15, Blood Urea Nitrogen 45H, Creatinine 4.3H, Estimat Glomerular Filtration Rate , Glucose Level 156#H, Uric Acid 7.8H, Calcium Level 8.8, Phosphorus Level 3.9, Total Bilirubin < 0.2, Aspartate Amino Transf (AST/SGOT) 14, Alanine Aminotransferase (ALT/SGPT) 10, Alkaline Phosphatase 51, C-Reactive Protein, Quantitative 17.0H, Pro-B-Type Natriuretic Peptide 895H, Total Protein 5.6L, Albumin 2.2L, Globulin 3.4, Albumin/Globulin Ratio 0.6L 03/08/17 06:20: White Blood Count 7.5, Red Blood Count 1.97L, Hemoglobin 6.1*L, Hematocrit 17.9L , Mean Corpuscular Volume 91, Mean Corpuscular Hemoglobin 31.0, Mean Corpuscular Hemoglobin Concent 34.1, Red Cell Distribution Width 12.6, Platelet Count 146L, Mean Platelet Volume 7.0, Neutrophils (%) (Auto) , Lymphocytes (%) ( Auto) , Monocytes (%) (Auto) , Eosinophils (%) (Auto) , Basophils (%) (Auto) , Differential Total Cells Counted 100, Neutrophils % (Manual) 83H, Lymphocytes % (Manual) 13L, Monocytes % (Manual) 0L, Eosinophils % (Manual) 0, Basophils % ( Manual) 0, Band Neutrophils 4, Platelet Estimate DecreasedL, Platelet Morphology Normal, Red Blood Cell Morphology Normal, Sodium Level 135, Potassium Level 3.8, Chloride Level 97L, Carbon Dioxide Level 23, Anion Gap 15, Blood Urea Nitrogen 43H, Creatinine 4.1H, Estimat Glomerular Filtration Rate , Glucose Level 157H, Calcium Level 8.2L Height (Feet): 5 Height (Inches): 10.00 Weight (Pounds): 260 Abdomen: soft - decreased hematuri on CBI Heriberto Gallegos MD Mar 08, 2017 18:24
[2017-03-09] VITALS: BP 118/62
--- NOTE | 2017-03-09 00:46 | Consultation ---
DATE OF CONSULTATION: 03/08/2017 NEUROLOGICAL CONSULTATION CONSULTING PHYSICIAN: Jefry Dinero M.D. REQUESTING PHYSICIAN: Richard Curran M.D. HISTORY OF PRESENT ILLNESS: The patient is presenting with multiple medical issues, developed an excessive drowsiness, verbal unresponsiveness, and suspected to have an acute stroke. His most recent laboratory work included a CBC study with hemoglobin 6.1 and hematocrit 17.9, coagulopathy with INR of 1.2. Chemistry panel with BUN of 33, creatinine 4.1, and glucose 157. CRP is 17.0. BNP is 895. Calcium is 8.2. He had a normal B12, folate, and normal TSH. Elevated uric acid is 15.4. Imaging studies included a stat CT of the brain without contrast and revealed old right basal ganglia lacunar infarct. There was also age-related enlarged ventricle, periventricular white matter chronic changes, no evidence of new acute abnormalities. There is evidence of prior bilateral cataract surgery. The patient who is a resident of a nursing facility has a pre-existent hypertension, benign prostatic hypertrophy, CHF, diabetes, and anxiety syndrome, was brought to this hospital with the changes in mental status. Hypoglycemia required D50 and fusion. He presented with acute renal failure with hyperkalemia, described as being somnolent and being unable to provide with any information. The patient had an evidence of UTI with urosepsis. Started on IV fluids and antibiotics. Acute kidney injury felt to be a result of urinary outlet obstruction. There is level of consciousness change due to the hypoglycemia and uremia. With the changes in mental status, psychiatry evaluation was obtained. He was presenting with waxing and waning consciousness with diagnosis of dementia and anxiety disorder. The patient underwent cystoscopy, suprapubic tube placement, and TURP. Latest vital signs were unremarkable. Blood pressure 121/67, pulse oximetry of 100% and temperature 98.0 degrees. PAST MEDICAL HISTORY: The patient has a history of coronary artery disease, CHF, COPD, bronchial asthma, diabetes type 2, depression, and prostatic hypertrophy. MEDICATIONS: Treatment prior to admission included amlodipine, atorvastatin, carvedilol, Klonopin, Aggrenox, furosemide, gabapentin, glipizide, insulin, Prevacid, metoprolol, oxybutynin, Zofran, MiraLAX, Seroquel 50 mg b.i.d., Januvia, tamsulosin, and Effexor. ALLERGIES: None reported. SOCIAL HISTORY: Resident of nursing facility. REVIEW OF SYMPTOMS: Unable to obtain due to the patient's status. PHYSICAL EXAMINATION: GENERAL: The patient is a well-developed, ill-appearing, somewhat overweight man, now on hemodialysis. VITAL SIGNS: Stable. Temperature 101.2 degrees. HEENT: Head is normocephalic. No evidence of injuries. Eyes, ears, and throat are clear. NECK: Supple. No meningeal signs. MUSCULOSKELETAL EXAMINATION: Puffiness of both arms and legs. Peripheral pulses 1+ symmetric. MENTAL STATUS: The patient is lethargic, but on vigorous stimulation, opens eyes, mumbling yes or no. Able to follow a few simple commands. CRANIAL NERVE II: Pupils both responding to light and accommodation. Extraocular movement full range. CRANIAL NERVE V: Normal corneal responses. CRANIAL NERVE VII: No facial asymmetry. CRANIAL NERVE VIII: Decreased hearing. CRANIAL NERVES IX THROUGH XII: Tongue is in midline. Reduced gag response. MOTOR EXAMINATION: Diffuse rigidity. Occasional intermittent postural tremor in the right upper extremity. Able to hold arms against the gravity. Able to bend his knees and try to rotate his both legs. Deep tendon reflexes depressed bilaterally. Plantar responses flexor. SENSORY EXAMINATION: No response to pin stimulation. Gait not tested. IMPRESSION: 1. Persistent lethargy of verbal unresponsiveness due to underlying significant metabolic derangement in the setting of infection. 2. Sepsis. 3. Renal failure. 4. Chronic obstructive pulmonary disease. 5. Obstructive uropathy, status post a suprapubic catheter placement and transurethral resection of prostate. DISCUSSION: The patient has an unremarkable CAT scan of the brain. There is no evidence of ongoing seizure activities. No TIA. No evidence of acute stroke. This is multifactorial result of underlying infection and in the setting of metabolic derangement and anemia. The patient is to continue with supportive care, intravenous fluids, and antibiotics. I discussed the patient's status with medical staff. The patient is to continue with the current treatment avoiding unessential. Hold Neurontin, Lipitor, and Seroquel unless as needed for severe agitation. Thank you for allowing me to see this interesting patient in neurological consultation. Jefry Dinero M.D. DR: PASTOR JOB#: [id number] CC:
[2017-03-09 04:00] VITALS: BP 141/68
[2017-03-09 05:39] LABS: MEAN CORPUSCULAR HEMOGLOBIN 30.7 PG (27.0-31.0); MEAN CORPUSCULAR HGB CONC 33.6 G/DL (32.0-36.0); MEAN CORPUSCULAR VOLUME 91 FL (80-99); MEAN PLATELET VOLUME 6.9 FL (6.5-10.1); PLATELET COUNT 139 K/UL (150-450); RED BLOOD COUNT 2.49 M/UL (4.70-6.10); RED CELL DISTRIBUTION WIDTH 13.2 % (11.6-14.8); WHITE BLOOD COUNT 9.3 K/UL (4.8-10.8)
[2017-03-09 06:13] LABS: URIC ACID 4.6 mg/dL (3.0-7.5)
[2017-03-09 06:21] LABS: ALANINE AMINOTRANSFERASE 16 U/L (3-41); ASPARTATE AMINO TRANSFERASE 23 U/L (5-40); CALCIUM 8.7 mg/dL (8.6-10.2); CARBON DIOXIDE 31 mEQ/L (20-30); CREATININE 2.1 mg/dL (0.7-1.2); MAGNESIUM 1.8 mg/dL (1.7-2.5); PHOSPHORUS 3.9 mg/dL (2.5-4.8); TOTAL PROTEIN 5.6 g/dL (6.6-8.7)
[2017-03-09 06:22] LABS: ALBUMIN/GLOBULIN RATIO 0.6 (1.0-2.7); ANION GAP 12 (5-15); CHLORIDE 98 mEQ/L (98-107); CRP QUANT 16.6 mg/dL (< 0.5); HEMOLYSIS 4; POTASSIUM 3.9 mEQ/L (3.4-4.9); SODIUM 141 mEQ/L (135-145)
[2017-03-09] MEDS: NovoLOG Insulin Flexpen SUBQ SCH ×4 (07:00→21:57)
[2017-03-09] MEDS: DuoNeb 0.5-3(2.5)mg/3ml neb HHN SCH ×3 (07:15→19:02)
[2017-03-09 07:28] LABS: ERYTHROCYTE SEDIMENTATION RATE 92 MM/HR (0-20)
[2017-03-09 08:00] VITALS: BP 139/68
[2017-03-09] MEDS: Pantoprazole Inj IVP SCH (08:11)
[2017-03-09] MEDS: Docusate 100mg/10ml Liq ORAL SCH ×2 (08:11→18:09)
[2017-03-09] MEDS: Tamsulosin 0.4mg cap ORAL SCH ×2 (08:11→18:08)
[2017-03-09] MEDS: Carvedilol 25mg Tab ORAL SCH ×2 (08:11→21:56)
--- NOTE | 2017-03-09 10:03 | Pulmonology Progress Note ---
Subjective Allergies: Coded Allergies: No Known Allergies (Unverified , 02/25/17) Objective Last 24 Hour Vital Signs Date Time Temp Pulse Resp B/P Pulse Ox O2 Delivery O2 Flow Rate FiO2 03/09/17 08:11 88 139/68 03/09/17 08:00 98.1 88 24 139/68 98 Nasal Cannula 3.0 03/09/17 07:55 82 03/09/17 07:28 76 20 100 Nasal Cannula 2.0 03/09/17 07:17 28 03/09/17 07:17 80 20 98 Room Air 03/09/17 07:14 98 Room Air 03/09/17 07:14 Room Air 03/09/17 04:00 98.2 97 20 141/68 99 Nasal Cannula 3.0 03/09/17 00:09 75 03/09/17 00:00 97.5 69 22 118/62 98 Nasal Cannula 3.0 03/08/17 23:35 75 03/08/17 20:00 98.5 68 20 125/62 99 Nasal Cannula 3.0 03/08/17 20:00 66 03/08/17 19:13 67 21 99 Nasal Cannula 2.0 28 03/08/17 19:02 Nasal Cannula 28.0 28 03/08/17 19:02 28 03/08/17 19:02 60 16 98 Nasal Cannula 2.0 28 03/08/17 19:02 98 Nasal Cannula 2.0 28 03/08/17 16:00 79 03/08/17 16:00 98.9 83 23 120/60 100 Nasal Cannula 2.0 03/08/17 13:25 85 20 100 Nasal Cannula 2.0 28 03/08/17 13:20 28 03/08/17 13:20 77 20 98 Nasal Cannula 2.0 28 03/08/17 12:11 74 03/08/17 12:00 98.0 85 19 131/67 100 Nasal Cannula 3.0 03/08/17 12:00 Nasal Cannula 3.0 03/08/17 10:18 75 119/68 Intake and Output 03/08/17 03/09/17 19:00 07:00 Intake Total 2950 ml 72098 ml Output Total 3350 ml 99367 ml Balance -400 ml 675 ml IV Total 450 ml 1125 ml Blood Product 250 ml Other 2250 ml 55071 ml Output Urine Total 1250 ml 33939 ml Hemodialysis UF 2000 ml Other 100 ml # Bowel Movements 2 2 Laboratory Tests 03/09/17 03:55: White Blood Count 9.3, Red Blood Count 2.49L, Hemoglobin 7.6L, Hematocrit 22.7L , Mean Corpuscular Volume 91, Mean Corpuscular Hemoglobin 30.7, Mean Corpuscular Hemoglobin Concent 33.6, Red Cell Distribution Width 13.2, Platelet Count 139L, Mean Platelet Volume 6.9, Neutrophils (%) (Auto) , Lymphocytes (%) ( Auto) , Monocytes (%) (Auto) , Eosinophils (%) (Auto) , Basophils (%) (Auto) , Erythrocyte Sedimentation Rate 92H, Sodium Level 141, Potassium Level 3.9, Chloride Level 98, Carbon Dioxide Level 31H, Anion Gap 12, Blood Urea Nitrogen 23, Creatinine 2.1H, Estimat Glomerular Filtration Rate , Glucose Level 182H, Uric Acid 4.6, Calcium Level 8.7, Phosphorus Level 3.9, Magnesium Level 1.8, Total Bilirubin 0.3, Gamma Glutamyl Transpeptidase 27, Aspartate Amino Transf ( AST/SGOT) 23, Alanine Aminotransferase (ALT/SGPT) 16, Alkaline Phosphatase 53, C -Reactive Protein, Quantitative 16.6H, Pro-B-Type Natriuretic Peptide 406H, Total Protein 5.6L, Albumin 2.3L, Globulin 3.3, Albumin/Globulin Ratio 0.6L Current Medications Medications (Trade) Dose Ordered Sig/Fernando Route PRN Reason Start Time Stop Time Status Last Admin Dose Admin Acetaminophen (Tylenol) 650 mg Q4H PRN ORAL T>100.5 03/07/17 17:00 04/06/17 16:59 Acetaminophen (Tylenol) 650 mg Q4H PRN RECTAL Mild Pain (Pain Scale 1-3) 03/07/17 16:30 04/06/17 16:29 03/08/17 13:15 Albuterol/ Ipratropium (DuoNeb 0.5-3(2.5)mg/3ml) 3 ml Q4H PRN HHN Shortness of Breath 03/07/17 18:30 03/12/17 18:29 Albuterol/ Ipratropium (DuoNeb 0.5-3(2.5)mg/3ml) 3 ml TIDRT HHN 03/07/17 19:00 03/12/17 18:59 03/09/17 07:15 Allopurinol (Allopurinol) 300 mg DAILY ORAL 03/08/17 09:00 04/07/17 08:59 03/09/17 08:11 Carvedilol (Coreg) 25 mg EVERY 12 HOURS ORAL 03/07/17 21:00 04/06/17 20:59 03/09/17 08:11 Clonidine HCl (Catapres) 0.1 mg Q4H PRN ORAL SBP>160 03/07/17 19:45 04/06/17 19:44 Dextrose (Dextrose 50%) STAT PRN IV Hypoglycemia 03/07/17 16:00 04/06/17 15:59 Docusate Sodium (Colace) 100 mg BID ORAL 03/07/17 18:00 04/06/17 17:59 03/09/17 08:11 Gabapentin (Neurontin) 200 mg QHS ORAL 03/07/17 21:00 04/06/17 20:59 Insulin Aspart (NovoLOG) BEFORE MEALS AND HS SUBQ 03/07/17 16:30 04/06/17 16:29 03/09/17 07:00 Linezolid 300 ml @ 300 mls/hr Q12HR IVPB 03/07/17 21:00 03/14/17 20:59 03/09/17 08:17 Ondansetron HCl (Zofran) 4 mg Q6H PRN IVP Nausea & Vomiting 03/07/17 17:00 04/06/17 16:59 Pantoprazole (Protonix) 40 mg DAILY IVP 03/08/17 09:00 04/07/17 08:59 03/09/17 08:11 Polyethylene Glycol (Miralax) 17 gm HSPRN PRN ORAL Constipation 03/07/17 21:00 04/06/17 20:59 Quetiapine Fumarate (SEROquel) 25 mg BIDPRN PRN ORAL Agitation 03/08/17 17:45 04/07/17 17:44 Sevelamer Carbonate (Renvela) 800 mg TIAC ORAL 03/07/17 16:30 04/06/17 16:29 Sodium Chloride (Sodium Chloride 1000ml bag) 1,000 ml @ 75 mls/hr [id number] IV 6/1/17 16:00 04/06/17 15:59 03/09/17 08:00 Tamsulosin HCl (Flomax) 0.4 mg BID ORAL 03/07/17 18:00 04/06/17 17:59 03/09/17 08:11 Zolpidem Tartrate (Ambien) 5 mg HSPRN PRN ORAL Insomnia 03/07/17 21:00 04/06/17 20:59 Willie ([facility])Lani NP Mar 09, 2017 10:03
[2017-03-09] MEDS ORDERED: Tubing Blood Filter IV ONE (10:29)
[2017-03-09] MEDS ORDERED: NS 275ml ONE ×2 (10:29→17:20)
[2017-03-09] MEDS ORDERED: Tubing IV Secondary IV ONE ×2 (10:29→17:20)
--- NOTE | 2017-03-09 10:39 | General Progress Note ---
Assessment/Plan Status: stable Status Narrative renal parameters appears to be improving Assessment/Plan Primary Impression: Altered level of consciousness : uremia and Hypoglycemia MILAN (acute kidney injury) --- urinary outlet obstruction UTI (urinary tract infection) HTN DM Psychosis Bladder tumore Plan: dialysed 03/08 follow up renal parameters for need for further HD monitor BS and adjust Insulin Keep BS and BP in check Monitor renal parameters Avoid Nephrotoxics Per orders Subjective ROS Limited/Unobtainable: No Constitutional: Reports: malaise Allergies: Coded Allergies: No Known Allergies (Unverified , 02/25/17) Objective Last 24 Hour Vital Signs Date Time Temp Pulse Resp B/P Pulse Ox O2 Delivery O2 Flow Rate FiO2 03/09/17 08:11 88 139/68 03/09/17 08:00 98.1 88 24 139/68 98 Nasal Cannula 3.0 03/09/17 07:55 82 03/09/17 07:28 76 20 100 Nasal Cannula 2.0 03/09/17 07:17 28 03/09/17 07:17 80 20 98 Room Air 03/09/17 07:14 98 Room Air 03/09/17 07:14 Room Air 03/09/17 04:00 98.2 97 20 141/68 99 Nasal Cannula 3.0 03/09/17 00:09 75 03/09/17 00:00 97.5 69 22 118/62 98 Nasal Cannula 3.0 03/08/17 23:35 75 03/08/17 20:00 98.5 68 20 125/62 99 Nasal Cannula 3.0 03/08/17 20:00 66 03/08/17 19:13 67 21 99 Nasal Cannula 2.0 03/08/17 19:02 Nasal Cannula 28.0 28 03/08/17 19:02 28 03/08/17 19:02 60 16 98 Nasal Cannula 2.0 03/08/17 19:02 98 Nasal Cannula 2.0 03/08/17 16:00 79 03/08/17 16:00 98.9 83 23 120/60 100 Nasal Cannula 2.0 03/08/17 13:25 85 20 100 Nasal Cannula 2.0 28 03/08/17 13:20 28 03/08/17 13:20 77 20 98 Nasal Cannula 2.0 03/08/17 12:11 74 03/08/17 12:00 98.0 85 19 131/67 100 Nasal Cannula 3.0 03/08/17 12:00 Nasal Cannula 3.0 Intake and Output 03/08/17 03/09/17 19:00 07:00 Intake Total 2950 ml 72374 ml Output Total 3350 ml 11116 ml Balance -400 ml 675 ml IV Total 450 ml 1125 ml Blood Product 250 ml Other 2250 ml 70944 ml Output Urine Total 1250 ml 28060 ml Hemodialysis UF 2000 ml Other 100 ml # Bowel Movements 2 2 Laboratory Tests 03/09/17 03:55: White Blood Count 9.3, Red Blood Count 2.49L, Hemoglobin 7.6L, Hematocrit 22.7L , Mean Corpuscular Volume 91, Mean Corpuscular Hemoglobin 30.7, Mean Corpuscular Hemoglobin Concent 33.6, Red Cell Distribution Width 13.2, Platelet Count 139L, Mean Platelet Volume 6.9, Neutrophils (%) (Auto) , Lymphocytes (%) ( Auto) , Monocytes (%) (Auto) , Eosinophils (%) (Auto) , Basophils (%) (Auto) , Erythrocyte Sedimentation Rate 92H, Sodium Level 141, Potassium Level 3.9, Chloride Level 98, Carbon Dioxide Level 31H, Anion Gap 12, Blood Urea Nitrogen 23, Creatinine 2.1H, Estimat Glomerular Filtration Rate , Glucose Level 182H, Uric Acid 4.6, Calcium Level 8.7, Phosphorus Level 3.9, Magnesium Level 1.8, Total Bilirubin 0.3, Gamma Glutamyl Transpeptidase 27, Aspartate Amino Transf ( AST/SGOT) 23, Alanine Aminotransferase (ALT/SGPT) 16, Alkaline Phosphatase 53, C -Reactive Protein, Quantitative 16.6H, Pro-B-Type Natriuretic Peptide 406H, Total Protein 5.6L, Albumin 2.3L, Globulin 3.3, Albumin/Globulin Ratio 0.6L Height (Feet): 5 Height (Inches): 10.00 Weight (Pounds): 260 General Appearance: no apparent distress Objective other PE not changed JULIETA LEON Mar 09, 2017 10:39
[2017-03-09 12:00] VITALS: BP 114/51
--- NOTE | 2017-03-09 13:29 | Infectious Diseases Prog Note ---
Assessment/Plan Assessment/Plan A: The patient is a 71-year-old male with leukocytosis improving , does not appear to be 2nd to ID process but m/l 2/2 MILAN Sepsis,SP UTI : MRSA repeat UCx MRSA and ( Mixed GNR : contaminant ) ALOC improved Cxray : No definite acute process 01/30 Fever post op improving SP Cystoscopy, suprapubic catheter placement and TURP 03/06 MILAN Need HD as Cr rising as per Nephro CAD CHF COPD Asthma Diabetes Depression PLAN: cont Zyvox d# 10 / ( SP DC IV Zosyn d# 7 ) monitor CBC Monitor BMP Monitor the chest x-ray Uro and Nephro following Subjective Allergies: Coded Allergies: No Known Allergies (Unverified , 02/25/17) Subjective afebrile Objective Vital Signs Last 24 Hour Vital Signs Date Time Temp Pulse Resp B/P Pulse Ox O2 Delivery O2 Flow Rate FiO2 03/09/17 12:01 53 03/09/17 12:00 97.5 51 20 114/51 99 Nasal Cannula 4.5 03/09/17 08:11 88 139/68 03/09/17 08:00 98.1 88 24 139/68 98 Nasal Cannula 3.0 03/09/17 07:55 82 03/09/17 07:28 76 20 100 Nasal Cannula 2.0 03/09/17 07:17 28 03/09/17 07:17 80 20 98 Room Air 03/09/17 07:14 98 Room Air 03/09/17 07:14 Room Air 03/09/17 04:00 98.2 97 20 141/68 99 Nasal Cannula 3.0 03/09/17 00:09 75 03/09/17 00:00 97.5 69 22 118/62 98 Nasal Cannula 3.0 03/08/17 23:35 75 03/08/17 20:00 98.5 68 20 125/62 99 Nasal Cannula 3.0 03/08/17 20:00 66 03/08/17 19:13 67 21 99 Nasal Cannula 2.0 28 03/08/17 19:02 Nasal Cannula 28.0 28 03/08/17 19:02 28 03/08/17 19:02 60 16 98 Nasal Cannula 2.0 28 03/08/17 19:02 98 Nasal Cannula 2.0 28 03/08/17 16:00 79 03/08/17 16:00 98.9 83 23 120/60 100 Nasal Cannula 2.0 Height (Feet): 5 Height (Inches): 10.00 Weight (Pounds): 260 HEENT: anicteric Respiratory/Chest: lungs clear Cardiovascular: no gallop/murmur Abdomen: no organomegaly Laboratory Tests Test 03/09/17 03:55 White Blood Count 9.3 K/UL (4.8-10.8) Red Blood Count 2.49 M/UL (4.70-6.10) L Hemoglobin 7.6 G/DL (14.2-18.0) L Hematocrit 22.7 % (42.0-52.0) L Mean Corpuscular Volume 91 FL (80-99) Mean Corpuscular Hemoglobin 30.7 PG (27.0-31.0) Mean Corpuscular Hemoglobin Concent 33.6 G/DL (32.0-36.0) Red Cell Distribution Width 13.2 % (11.6-14.8) Platelet Count 139 K/UL (150-450) L Mean Platelet Volume 6.9 FL (6.5-10.1) Neutrophils (%) (Auto) % (45.0-75.0) Lymphocytes (%) (Auto) % (20.0-45.0) Monocytes (%) (Auto) % (1.0-10.0) Eosinophils (%) (Auto) % (0.0-3.0) Basophils (%) (Auto) % (0.0-2.0) Erythrocyte Sedimentation Rate 92 MM/HR (0-20) H Sodium Level 141 mEQ/L (135-145) Potassium Level 3.9 mEQ/L (3.4-4.9) Chloride Level 98 mEQ/L (98-107) Carbon Dioxide Level 31 mEQ/L (20-30) H Anion Gap 12 (5-15) Blood Urea Nitrogen 23 mg/dL (7-23) Creatinine 2.1 mg/dL (0.7-1.2) H Estimat Glomerular Filtration Rate mL/min (>60) Glucose Level 182 mg/dL (74-106) H Uric Acid 4.6 mg/dL (3.0-7.5) Calcium Level 8.7 mg/dL (8.6-10.2) Phosphorus Level 3.9 mg/dL (2.5-4.8) Magnesium Level 1.8 mg/dL (1.7-2.5) Total Bilirubin 0.3 mg/dL (0.0-1.2) Gamma Glutamyl Transpeptidase 27 U/L (8-61) Aspartate Amino Transf (AST/SGOT) 23 U/L (5-40) Alanine Aminotransferase (ALT/SGPT) 16 U/L (3-41) Alkaline Phosphatase 53 U/L (40-129) C-Reactive Protein, Quantitative 16.6 mg/dL (< 0.5) H Pro-B-Type Natriuretic Peptide 406 pg/mL (0-125) H Total Protein 5.6 g/dL (6.6-8.7) L Albumin 2.3 g/dL (3.5-5.2) L Globulin 3.3 g/dL Albumin/Globulin Ratio 0.6 (1.0-2.7) L Current Medications Medications (Trade) Dose Ordered Sig/Fernando Route PRN Reason Start Time Stop Time Status Last Admin Dose Admin Acetaminophen (Tylenol) 650 mg Q4H PRN ORAL T>100.5 03/07/17 17:00 04/06/17 16:59 Acetaminophen (Tylenol) 650 mg Q4H PRN RECTAL Mild Pain (Pain Scale 1-3) 03/07/17 16:30 04/06/17 16:29 03/08/17 13:15 Albuterol/ Ipratropium (DuoNeb 0.5-3(2.5)mg/3ml) 3 ml Q4H PRN HHN Shortness of Breath 03/07/17 18:30 03/12/17 18:29 Albuterol/ Ipratropium (DuoNeb 0.5-3(2.5)mg/3ml) 3 ml TIDRT HHN 03/07/17 19:00 03/12/17 18:59 03/09/17 07:15 Allopurinol (Allopurinol) 300 mg DAILY ORAL 03/08/17 09:00 04/07/17 08:59 03/09/17 08:11 Carvedilol (Coreg) 25 mg EVERY 12 HOURS ORAL 03/07/17 21:00 04/06/17 20:59 03/09/17 08:11 Clonidine HCl (Catapres) 0.1 mg Q4H PRN ORAL SBP>160 03/07/17 19:45 04/06/17 19:44 Dextrose (Dextrose 50%) STAT PRN IV Hypoglycemia 03/07/17 16:00 04/06/17 15:59 Docusate Sodium (Colace) 100 mg BID ORAL 03/07/17 18:00 04/06/17 17:59 03/09/17 08:11 Gabapentin (Neurontin) 200 mg QHS ORAL 03/07/17 21:00 04/06/17 20:59 Insulin Aspart (NovoLOG) BEFORE MEALS AND HS SUBQ 03/07/17 16:30 04/06/17 16:29 03/09/17 12:00 Linezolid 300 ml @ 300 mls/hr Q12HR IVPB 03/07/17 21:00 03/14/17 20:59 03/09/17 08:17 Ondansetron HCl (Zofran) 4 mg Q6H PRN IVP Nausea & Vomiting 03/07/17 17:00 04/06/17 16:59 Pantoprazole (Protonix) 40 mg DAILY IVP 03/08/17 09:00 04/07/17 08:59 03/09/17 08:11 Polyethylene Glycol (Miralax) 17 gm HSPRN PRN ORAL Constipation 03/07/17 21:00 04/06/17 20:59 Quetiapine Fumarate (SEROquel) 25 mg BIDPRN PRN ORAL Agitation 03/08/17 17:45 04/07/17 17:44 Sevelamer Carbonate (Renvela) 800 mg TIAC ORAL 03/07/17 16:30 04/06/17 16:29 Sodium Chloride (Sodium Chloride 1000ml bag) 1,000 ml @ 75 mls/hr [id number] IV 03/07/17 16:00 04/06/17 15:59 03/09/17 08:00 Tamsulosin HCl (Flomax) 0.4 mg BID ORAL 03/07/17 18:00 04/06/17 17:59 03/09/17 08:11 Zolpidem Tartrate (Ambien) 5 mg HSPRN PRN ORAL Insomnia 03/07/17 21:00 04/06/17 20:59 MARISOL CAPPS M.D. Mar 09, 2017 13:29
[2017-03-09 16:00] VITALS: BP 126/59
--- NOTE | 2017-03-09 16:13 | Pulmonology Progress Note ---
Assessment/Plan Assessment/Plan ASSESSMENT sepsis acute toxic metabolic encephalopathy hypoglycemia obstructive uropathy UTI with MRSA Hematuria s/p cystoscopy, TURP and catheter placement anemia acute renal failure 2 to urinary outlet obstruction urinary outlet obstruction hx of old R lacunar infarct DM HTN NSVT delirium 2 to general medical condition PLAN OF CARE [place] CT head no acute pathology , but with evidence of old R lacunar infarct acute encephalopathy likely 2 to combination of hypoglycemia, uremia and sepsis , resolved abx, ID follows, urine cx + MRSA, repeated + Staph aures ( final pending), blood cx negative O2 HHN prn CXR negative s/p cystoscopy and TURP urology follows renal US no hydro, normal echogenicity continue CBI, Melo with cranberry color urine, no clots, manually irrigate prn continue Flomax transfuse additional unit of PRBC today GI prophylaxis nephro follows creat trending down ARF gradually improving likely due to urinary outlet obstruction avoid nephrotoxic ECHO with preserved EF 55-60% and RVSP of 12 cardio eval due to episode of NSVT noted earlier today Venous Duplex BLE negative BS management with SS of insulin BP management with BB, continue statin SCD case discussed and evaluated by supervising physician Subjective Allergies: Coded Allergies: No Known Allergies (Unverified , 02/25/17) Subjective HH still low after 2 u PRBC -7.6/22.7 Melo with CBI with cranberry urine color, no clots creat better dialyzed x 1 on 03/08 episode of NSVT today , spontaneously back to SR Objective Last 24 Hour Vital Signs Date Time Temp Pulse Resp B/P Pulse Ox O2 Delivery O2 Flow Rate FiO2 03/09/17 13:37 56 20 100 Nasal Cannula 2.0 03/09/17 13:27 52 20 100 Nasal Cannula 3.0 03/09/17 12:01 53 03/09/17 12:00 97.5 51 20 114/51 99 Nasal Cannula 4.5 03/09/17 08:11 88 139/68 03/09/17 08:00 98.1 88 24 139/68 98 Nasal Cannula 3.0 03/09/17 07:55 82 03/09/17 07:28 76 20 100 Nasal Cannula 2.0 03/09/17 07:17 03/09/17 07:17 80 20 98 Room Air 03/09/17 07:14 98 Room Air 03/09/17 07:14 Room Air 03/09/17 04:00 98.2 97 20 141/68 99 Nasal Cannula 3.0 03/09/17 00:09 75 03/09/17 00:00 97.5 69 22 118/62 98 Nasal Cannula 3.0 03/08/17 23:35 75 03/08/17 20:00 98.5 68 20 125/62 99 Nasal Cannula 3.0 03/08/17 20:00 66 03/08/17 19:13 67 21 99 Nasal Cannula 2.0 28 03/08/17 19:02 Nasal Cannula 28.0 28 03/08/17 19:02 28 03/08/17 19:02 60 16 98 Nasal Cannula 2.0 28 03/08/17 19:02 98 Nasal Cannula 2.0 28 03/08/17 16:00 79 03/08/17 16:00 98.9 83 23 120/60 100 Nasal Cannula 2.0 Intake and Output 03/08/17 03/09/17 19:00 07:00 Intake Total 2950 ml 56845 ml Output Total 3350 ml 44393 ml Balance -400 ml 675 ml IV Total 450 ml 1125 ml Blood Product 250 ml Other 2250 ml 29896 ml Output Urine Total 1250 ml 76034 ml Hemodialysis UF 2000 ml Other 100 ml # Bowel Movements 2 2 General Appearance: no acute distress, other - awake, responsive with eyes opening and nodding HEENT: normocephalic, atraumatic, other - O2 via NC Respiratory/Chest: other - HD catheter jugular inatct Cardiovascular: normal peripheral pulses, normal rate, no JVD, edema - +2 BLE Abdomen: soft, non tender, non distended, other - G tube Genitourinary: other - Melo with cranberry color urine Neurologic/Psychiatric: abnormal gait - bedridden , alert, responsive Musculoskeletal: atrophy Laboratory Tests 03/09/17 03:55: White Blood Count 9.3, Red Blood Count 2.49L, Hemoglobin 7.6L, Hematocrit 22.7L , Mean Corpuscular Volume 91, Mean Corpuscular Hemoglobin 30.7, Mean Corpuscular Hemoglobin Concent 33.6, Red Cell Distribution Width 13.2, Platelet Count 139L, Mean Platelet Volume 6.9, Neutrophils (%) (Auto) , Lymphocytes (%) ( Auto) , Monocytes (%) (Auto) , Eosinophils (%) (Auto) , Basophils (%) (Auto) , Erythrocyte Sedimentation Rate 92H, Sodium Level 141, Potassium Level 3.9, Chloride Level 98, Carbon Dioxide Level 31H, Anion Gap 12, Blood Urea Nitrogen 23, Creatinine 2.1H, Estimat Glomerular Filtration Rate , Glucose Level 182H, Uric Acid 4.6, Calcium Level 8.7, Phosphorus Level 3.9, Magnesium Level 1.8, Total Bilirubin 0.3, Gamma Glutamyl Transpeptidase 27, Aspartate Amino Transf ( AST/SGOT) 23, Alanine Aminotransferase (ALT/SGPT) 16, Alkaline Phosphatase 53, C -Reactive Protein, Quantitative 16.6H, Pro-B-Type Natriuretic Peptide 406H, Total Protein 5.6L, Albumin 2.3L, Globulin 3.3, Albumin/Globulin Ratio 0.6L Current Medications Medications (Trade) Dose Ordered Sig/Efrnando Route PRN Reason Start Time Stop Time Status Last Admin Dose Admin Acetaminophen (Tylenol) 650 mg Q4H PRN ORAL T>100.5 03/07/17 17:00 04/06/17 16:59 Acetaminophen (Tylenol) 650 mg Q4H PRN RECTAL Mild Pain (Pain Scale 1-3) 03/07/17 16:30 04/06/17 16:29 03/08/17 13:15 Albuterol/ Ipratropium (DuoNeb 0.5-3(2.5)mg/3ml) 3 ml Q4H PRN HHN Shortness of Breath 03/07/17 18:30 03/12/17 18:29 Albuterol/ Ipratropium (DuoNeb 0.5-3(2.5)mg/3ml) 3 ml TIDRT HHN 03/07/17 19:00 03/12/17 18:59 03/09/17 13:37 Allopurinol (Allopurinol) 300 mg DAILY ORAL 03/08/17 09:00 04/07/17 08:59 03/09/17 08:11 Carvedilol (Coreg) 25 mg EVERY 12 HOURS ORAL 03/07/17 21:00 04/06/17 20:59 03/09/17 08:11 Clonidine HCl (Catapres) 0.1 mg Q4H PRN ORAL SBP>160 03/07/17 19:45 04/06/17 19:44 Dextrose (Dextrose 50%) STAT PRN IV Hypoglycemia 03/07/17 16:00 04/06/17 15:59 Docusate Sodium (Colace) 100 mg BID ORAL 03/07/17 18:00 04/06/17 17:59 03/09/17 08:11 Gabapentin (Neurontin) 200 mg QHS ORAL 03/07/17 21:00 04/06/17 20:59 Insulin Aspart (NovoLOG) BEFORE MEALS AND HS SUBQ 03/07/17 16:30 04/06/17 16:29 03/09/17 15:49 Linezolid 300 ml @ 300 mls/hr Q12HR IVPB 03/07/17 21:00 03/14/17 20:59 03/09/17 08:17 Ondansetron HCl (Zofran) 4 mg Q6H PRN IVP Nausea & Vomiting 03/07/17 17:00 04/06/17 16:59 Pantoprazole (Protonix) 40 mg DAILY IVP 03/08/17 09:00 04/07/17 08:59 03/09/17 08:11 Polyethylene Glycol (Miralax) 17 gm HSPRN PRN ORAL Constipation 03/07/17 21:00 04/06/17 20:59 Quetiapine Fumarate (SEROquel) 25 mg BIDPRN PRN ORAL Agitation 03/08/17 17:45 04/07/17 17:44 Sevelamer Carbonate (Renvela) 800 mg TIAC ORAL 03/07/17 16:30 04/06/17 16:29 Sodium Chloride (Sodium Chloride 1000ml bag) 1,000 ml @ 75 mls/hr [id number] IV 03/07/17 16:00 04/06/17 15:59 03/09/17 08:00 Tamsulosin HCl (Flomax) 0.4 mg BID ORAL 03/07/17 18:00 04/06/17 17:59 03/09/17 08:11 Zolpidem Tartrate (Ambien) 5 mg HSPRN PRN ORAL Insomnia 03/07/17 21:00 04/06/17 20:59 Lani Tapia NP ([facility]) Mar 09, 2017 16:13
[2017-03-09] MEDS ORDERED: NS Irrig 1000ml ONE (17:18)
[2017-03-09 20:00] VITALS: BP 125/62
[2017-03-10] VITALS: BP 135/68
[2017-03-10 04:00] VITALS: BP 144/73
[2017-03-10 05:52] LABS: MEAN CORPUSCULAR HEMOGLOBIN 31.2 PG (27.0-31.0); MEAN CORPUSCULAR HGB CONC 34.3 G/DL (32.0-36.0); MEAN CORPUSCULAR VOLUME 91 FL (80-99); MEAN PLATELET VOLUME 6.4 FL (6.5-10.1); PLATELET COUNT 139 K/UL (150-450); RED BLOOD COUNT 2.44 M/UL (4.70-6.10); RED CELL DISTRIBUTION WIDTH 12.5 % (11.6-14.8)
[2017-03-10] MEDS: NovoLOG Insulin Flexpen SUBQ SCH ×4 (06:49→22:21)
[2017-03-10 06:58] LABS: ANION GAP 13 (5-15); CALCIUM 8.4 mg/dL (8.6-10.2); CARBON DIOXIDE 28 mEQ/L (20-30); CHLORIDE 102 mEQ/L (98-107); CREATININE 1.8 mg/dL (0.7-1.2); HEMOLYSIS 4; POTASSIUM 3.5 mEQ/L (3.4-4.9); SODIUM 143 mEQ/L (135-145)
[2017-03-10] MEDS: DuoNeb 0.5-3(2.5)mg/3ml neb HHN SCH ×3 (07:29→20:15)
[2017-03-10 08:00] VITALS: BP 140/65
--- NOTE | 2017-03-10 08:29 | Infectious Diseases Prog Note ---
Assessment/Plan Assessment/Plan A: UTI with MRSA COPD Acute Renal failure improving Obstructive uropathy s/p TURP & Suprapubic catheter MRSA carrier DM P: Continue Zyvox X 3 days Subjective ROS Limited/Unobtainable: Yes Constitutional: Reports: no symptoms Allergies: Coded Allergies: No Known Allergies (Unverified , 02/25/17) Objective Vital Signs Last 24 Hour Vital Signs Date Time Temp Pulse Resp B/P Pulse Ox O2 Delivery O2 Flow Rate FiO2 03/10/17 07:33 60 18 100 Nasal Cannula 3.0 32 03/10/17 07:32 32 03/10/17 07:30 75 18 100 Nasal Cannula 3.0 32 03/10/17 07:30 100 Nasal Cannula 3.0 32 03/10/17 07:30 Nasal Cannula 3.0 32 03/10/17 04:00 56 03/10/17 04:00 97.9 70 22 144/73 99 Nasal Cannula 3.0 03/10/17 00:00 70 03/10/17 00:00 98.1 71 20 135/68 100 Nasal Cannula 3.0 03/09/17 21:56 61 125/62 03/09/17 20:00 56 03/09/17 20:00 97.9 61 20 125/62 100 Nasal Cannula 3.0 03/09/17 19:13 65 16 100 Nasal Cannula 3.0 03/09/17 19:03 99 Nasal Cannula 3.0 32 03/09/17 19:03 66 16 99 Nasal Cannula 3.0 03/09/17 19:03 Nasal Cannula 3.0 32 03/09/17 16:00 97.9 60 18 126/59 98 Nasal Cannula 4.0 03/09/17 15:44 63 03/09/17 13:37 56 20 100 Nasal Cannula 2.0 03/09/17 13:27 52 20 100 Nasal Cannula 3.0 03/09/17 12:01 53 03/09/17 12:00 97.5 51 20 114/51 99 Nasal Cannula 4.5 Height (Feet): 5 Height (Inches): 10.00 Weight (Pounds): 260 General Appearance: no acute distress HEENT: other - Right Jugular HD line Respiratory/Chest: lungs clear Cardiovascular: normal rate Abdomen: soft, non tender, other - Suprapubic catheter Extremities: other - edema Neurologic/Psychiatric: alert, responsive, other - moaning Laboratory Tests Test 03/10/17 03:35 White Blood Count 9.0 K/UL (4.8-10.8) Red Blood Count 2.44 M/UL (4.70-6.10) L Hemoglobin 7.6 G/DL (14.2-18.0) L Hematocrit 22.2 % (42.0-52.0) L Mean Corpuscular Volume 91 FL (80-99) Mean Corpuscular Hemoglobin 31.2 PG (27.0-31.0) H Mean Corpuscular Hemoglobin Concent 34.3 G/DL (32.0-36.0) Red Cell Distribution Width 12.5 % (11.6-14.8) Platelet Count 139 K/UL (150-450) L Mean Platelet Volume 6.4 FL (6.5-10.1) L Neutrophils (%) (Auto) % (45.0-75.0) Lymphocytes (%) (Auto) % (20.0-45.0) Monocytes (%) (Auto) % (1.0-10.0) Eosinophils (%) (Auto) % (0.0-3.0) Basophils (%) (Auto) % (0.0-2.0) Neutrophils % (Manual) Pending Lymphocytes % (Manual) Pending Platelet Estimate Pending Platelet Morphology Pending Sodium Level 143 mEQ/L (135-145) Potassium Level 3.5 mEQ/L (3.4-4.9) Chloride Level 102 mEQ/L (98-107) Carbon Dioxide Level 28 mEQ/L (20-30) Anion Gap 13 (5-15) Blood Urea Nitrogen 19 mg/dL (7-23) Creatinine 1.8 mg/dL (0.7-1.2) H Estimat Glomerular Filtration Rate mL/min (>60) Glucose Level 221 mg/dL (74-106) H Calcium Level 8.4 mg/dL (8.6-10.2) L Current Medications Medications (Trade) Dose Ordered Sig/Fernando Route PRN Reason Start Time Stop Time Status Last Admin Dose Admin Acetaminophen (Tylenol) 650 mg Q4H PRN ORAL T>100.5 03/07/17 17:00 04/06/17 16:59 Acetaminophen (Tylenol) 650 mg Q4H PRN RECTAL Mild Pain (Pain Scale 1-3) 03/07/17 16:30 04/06/17 16:29 03/08/17 13:15 Albuterol/ Ipratropium (DuoNeb 0.5-3(2.5)mg/3ml) 3 ml Q4H PRN HHN Shortness of Breath 03/07/17 18:30 03/12/17 18:29 Albuterol/ Ipratropium (DuoNeb 0.5-3(2.5)mg/3ml) 3 ml TIDRT HHN 03/07/17 19:00 03/12/17 18:59 03/10/17 07:29 Allopurinol (Allopurinol) 300 mg DAILY ORAL 03/08/17 09:00 04/07/17 08:59 03/09/17 08:11 Carvedilol (Coreg) 25 mg EVERY 12 HOURS ORAL 03/07/17 21:00 04/06/17 20:59 03/09/17 21:56 Clonidine HCl (Catapres) 0.1 mg Q4H PRN ORAL SBP>160 03/07/17 19:45 04/06/17 19:44 Dextrose (Dextrose 50%) STAT PRN IV Hypoglycemia 03/07/17 16:00 04/06/17 15:59 Docusate Sodium (Colace) 100 mg BID ORAL 03/07/17 18:00 04/06/17 17:59 03/09/17 18:09 Gabapentin (Neurontin) 200 mg QHS ORAL 03/07/17 21:00 04/06/17 20:59 03/09/17 21:56 Insulin Aspart (NovoLOG) BEFORE MEALS AND HS SUBQ 03/07/17 16:30 04/06/17 16:29 03/10/17 06:49 Linezolid 300 ml @ 300 mls/hr Q12HR IVPB 03/07/17 21:00 03/14/17 20:59 03/09/17 21:56 Ondansetron HCl (Zofran) 4 mg Q6H PRN IVP Nausea & Vomiting 03/07/17 17:00 04/06/17 16:59 Pantoprazole (Protonix) 40 mg DAILY IVP 03/08/17 09:00 04/07/17 08:59 03/09/17 08:11 Polyethylene Glycol (Miralax) 17 gm HSPRN PRN ORAL Constipation 03/07/17 21:00 04/06/17 20:59 Quetiapine Fumarate (SEROquel) 25 mg BIDPRN PRN ORAL Agitation 03/08/17 17:45 04/07/17 17:44 Sevelamer Carbonate (Renvela) 800 mg TIAC ORAL 03/07/17 16:30 04/06/17 16:29 03/10/17 06:48 Sodium Chloride (Sodium Chloride 1000ml bag) 1,000 ml @ 75 mls/hr [id number] IV 03/07/17 16:00 04/06/17 15:59 03/09/17 21:58 Tamsulosin HCl (Flomax) 0.4 mg BID ORAL 03/07/17 18:00 04/06/17 17:59 03/09/17 18:08 Zolpidem Tartrate (Ambien) 5 mg HSPRN PRN ORAL Insomnia 03/07/17 21:00 04/06/17 20:59 KARUNA ENGLE Mar 10, 2017 08:29
[2017-03-10] MEDS: Carvedilol 25mg Tab ORAL SCH ×2 (08:56→22:18)
[2017-03-10] MEDS: Tamsulosin 0.4mg cap ORAL SCH ×2 (08:57→18:05)
[2017-03-10] MEDS: Pantoprazole Inj IVP SCH (08:57)
[2017-03-10] MEDS: Docusate 100mg/10ml Liq ORAL SCH ×2 (08:59→18:00)
[2017-03-10 09:53] LABS: MAGNESIUM 1.4 mg/dL (1.7-2.5); PHOSPHORUS 1.7 mg/dL (2.5-4.8)
[2017-03-10 10:13] LABS: BAND NEUTROPHILS % (MANUAL) 7 % (0-8); LYMPHOCYTES % (MANUAL) 29 % (20-45); NEUTROPHILS % (MANUAL) 64 % (45-75); TOTAL CELLS COUNTED 100
[2017-03-10 10:14] LABS: BASOPHILS % (MANUAL) 0 % (0-2); EOSINOPHILS % (MANUAL) 0 % (0-3); HYPOCHROMASIA 1+; PLATELET ESTIMATE DECREASED; PLATELET MORPHOLOGY NORMAL
[2017-03-10 10:15] LABS: POLYCHROMASIA 1+
--- NOTE | 2017-03-10 10:34 | General Progress Note ---
Assessment/Plan Status: stable Status Narrative renal parameters improved Assessment/Plan Primary Impression: Altered level of consciousness : uremia and Hypoglycemia MILAN (acute kidney injury) --- urinary outlet obstruction RESOLVED UTI (urinary tract infection) HTN DM Psychosis Bladder tumore Plan: dialysed 03/08, no need for further HD follow up renal parameters CHITRA De Santiago in am Mag and Phos supp. monitor BS and adjust Insulin Keep BS and BP in check Monitor renal parameters Avoid Nephrotoxics Per orders Subjective ROS Limited/Unobtainable: No Constitutional: Reports: malaise, weakness Allergies: Coded Allergies: No Known Allergies (Unverified , 02/25/17) Objective Last 24 Hour Vital Signs Date Time Temp Pulse Resp B/P Pulse Ox O2 Delivery O2 Flow Rate FiO2 03/10/17 08:56 74 140/65 03/10/17 08:00 97.9 74 18 140/65 99 Nasal Cannula 3.0 03/10/17 07:55 65 03/10/17 07:33 60 18 100 Nasal Cannula 3.0 32 03/10/17 07:32 32 03/10/17 07:30 75 18 100 Nasal Cannula 3.0 32 03/10/17 07:30 100 Nasal Cannula 3.0 32 03/10/17 07:30 Nasal Cannula 3.0 32 03/10/17 04:00 56 03/10/17 04:00 97.9 70 22 144/73 99 Nasal Cannula 3.0 03/10/17 00:00 70 03/10/17 00:00 98.1 71 20 135/68 100 Nasal Cannula 3.0 03/09/17 21:56 61 125/62 03/09/17 20:00 56 03/09/17 20:00 97.9 61 20 125/62 100 Nasal Cannula 3.0 03/09/17 19:13 65 16 100 Nasal Cannula 3.0 03/09/17 19:03 99 Nasal Cannula 3.0 32 03/09/17 19:03 66 16 99 Nasal Cannula 3.0 03/09/17 19:03 Nasal Cannula 3.0 32 03/09/17 16:00 97.9 60 18 126/59 98 Nasal Cannula 4.0 03/09/17 15:44 63 03/09/17 13:37 56 20 100 Nasal Cannula 2.0 03/09/17 13:27 52 20 100 Nasal Cannula 3.0 03/09/17 12:01 53 03/09/17 12:00 97.5 51 20 114/51 99 Nasal Cannula 4.5 Intake and Output 03/09/17 03/10/17 19:00 07:00 Intake Total 2128.75 ml 1155 ml Output Total 2700 ml 2550 ml Balance -571.25 ml -1395 ml Intake Oral 30 ml IV Total 1028.75 ml 1125 ml Other 1100 ml Output Urine Total 1600 ml 2400 ml Other 1100 ml 150 ml # Bowel Movements 2 2 Laboratory Tests 03/10/17 03:35: White Blood Count 9.0, Red Blood Count 2.44L, Hemoglobin 7.6L, Hematocrit 22.2L , Mean Corpuscular Volume 91, Mean Corpuscular Hemoglobin 31.2H, Mean Corpuscular Hemoglobin Concent 34.3, Red Cell Distribution Width 12.5, Platelet Count 139L, Mean Platelet Volume 6.4L, Neutrophils (%) (Auto) , Lymphocytes (%) (Auto) , Monocytes (%) (Auto) , Eosinophils (%) (Auto) , Basophils (%) (Auto) , Differential Total Cells Counted 100, Neutrophils % (Manual) 64, Lymphocytes % ( Manual) 29, Monocytes % (Manual) 0L, Eosinophils % (Manual) 0, Basophils % ( Manual) 0, Band Neutrophils 7, Platelet Estimate DecreasedL, Platelet Morphology Normal, Polychromasia 1+, Hypochromasia 1+, Sodium Level 143, Potassium Level 3.5, Chloride Level 102, Carbon Dioxide Level 28, Anion Gap 13, Blood Urea Nitrogen 19, Creatinine 1.8H, Estimat Glomerular Filtration Rate , Glucose Level 221H, Calcium Level 8.4L 03/10/17 03:55: Phosphorus Level 1.7L, Magnesium Level 1.4L Height (Feet): 5 Height (Inches): 10.00 Weight (Pounds): 260 General Appearance: no apparent distress, lethargic, confused Cardiovascular: normal rate Respiratory/Chest: decreased breath sounds Abdomen: soft Genitourinary/Rectal: other - benjamin and suprapubic Objective other PE not changed JULIETA LEON Mar 10, 2017 10:34
[2017-03-10 12:00] VITALS: BP 137/60
[2017-03-10] MEDS ORDERED: Potassium Phosphate 30 MM in NS 275 ML IV ONE (14:00)
--- NOTE | 2017-03-10 15:07 | Pulmonology Progress Note ---
Assessment/Plan Assessment/Plan ASSESSMENT sepsis acute toxic metabolic encephalopathy hypoglycemia obstructive uropathy UTI with MRSA Hematuria s/p cystoscopy, TURP and catheter placement anemia acute renal failure 2 to urinary outlet obstruction urinary outlet obstruction hx of old R lacunar infarct DM HTN NSVT delirium 2 to general medical condition e/lyte imbalances ( low Mg and low P) PLAN OF CARE [place] CT head no acute pathology , but with evidence of old R lacunar infarct acute encephalopathy likely 2 to combination of hypoglycemia, uremia and sepsis , resolved abx, ID follows, urine cx + MRSA, repeated + Staph aures ( final pending), blood cx negative O2 HHN prn CXR negative s/p cystoscopy and TURP urology follows renal US no hydro, normal echogenicity nursing instructed to contact urology for management of clotted Melo continue Flomax transfuse additional unit of PRBC today GI prophylaxis nephro follows creat trending down HD catheter to be removed in am, no further need for HD ARF gradually improving likely due to urinary outlet obstruction avoid nephrotoxic e/lyte correction as per nephro orders , check P and Mg in am ECHO with preserved EF 55-60% and RVSP of 12 cardio eval due to episode of NSVT noted 03/09 pending Venous Duplex BLE negative BS management with SS of insulin BP management with BB, continue statin SCD case discussed and evaluated by supervising physician Subjective Allergies: Coded Allergies: No Known Allergies (Unverified , 02/25/17) Subjective HH still low -7.6/22.2 per nursing Melo clotted, no output, unable to do manual irrigation creat better, trending down more -1.8 dialyzed on 03/08 low Mg and P today Objective Last 24 Hour Vital Signs Date Time Temp Pulse Resp B/P Pulse Ox O2 Delivery O2 Flow Rate FiO2 03/10/17 13:12 81 20 99 Nasal Cannula 3.0 32 03/10/17 13:12 77 20 99 Nasal Cannula 3.0 32 03/10/17 13:12 32 03/10/17 12:00 97.8 104 23 137/60 99 Nasal Cannula 3.0 03/10/17 11:57 94 03/10/17 08:56 74 140/65 03/10/17 08:00 97.9 74 18 140/65 99 Nasal Cannula 3.0 03/10/17 07:55 65 03/10/17 07:33 60 18 100 Nasal Cannula 3.0 32 03/10/17 07:32 32 03/10/17 07:30 75 18 100 Nasal Cannula 3.0 32 03/10/17 07:30 100 Nasal Cannula 3.0 32 03/10/17 07:30 Nasal Cannula 3.0 32 03/10/17 04:00 56 03/10/17 04:00 97.9 70 22 144/73 99 Nasal Cannula 3.0 03/10/17 00:00 70 03/10/17 00:00 98.1 71 20 135/68 100 Nasal Cannula 3.0 03/09/17 21:56 61 125/62 03/09/17 20:00 56 03/09/17 20:00 97.9 61 20 125/62 100 Nasal Cannula 3.0 03/09/17 19:13 65 16 100 Nasal Cannula 3.0 03/09/17 19:03 99 Nasal Cannula 3.0 32 03/09/17 19:03 66 16 99 Nasal Cannula 3.0 03/09/17 19:03 Nasal Cannula 3.0 32 03/09/17 16:00 97.9 60 18 126/59 98 Nasal Cannula 4.0 03/09/17 15:44 63 Intake and Output 03/09/17 03/10/17 19:00 07:00 Intake Total 2128.75 ml 1155 ml Output Total 2700 ml 2550 ml Balance -571.25 ml -1395 ml Intake Oral 30 ml IV Total 1028.75 ml 1125 ml Other 1100 ml Output Urine Total 1600 ml 2400 ml Other 1100 ml 150 ml # Bowel Movements 2 2 Objective General Appearance: no acute distress, awake, responsive with eyes opening and nodding HEENT: normocephalic, atraumatic, O2 via NC Respiratory/Chest: left chest HD catheter jugular intact Cardiovascular: normal peripheral pulses, normal rate, no JVD, edema - +2 BLE Abdomen: soft, non tender, non distended, G tube Genitourinary: other - Melo with cranberry color urine Neurologic/Psychiatric: abnormal gait/ bedridden , alert, responsive Musculoskeletal: atrophy Laboratory Tests 03/10/17 03:35: White Blood Count 9.0, Red Blood Count 2.44L, Hemoglobin 7.6L, Hematocrit 22.2L , Mean Corpuscular Volume 91, Mean Corpuscular Hemoglobin 31.2H, Mean Corpuscular Hemoglobin Concent 34.3, Red Cell Distribution Width 12.5, Platelet Count 139L, Mean Platelet Volume 6.4L, Neutrophils (%) (Auto) , Lymphocytes (%) (Auto) , Monocytes (%) (Auto) , Eosinophils (%) (Auto) , Basophils (%) (Auto) , Differential Total Cells Counted 100, Neutrophils % (Manual) 64, Lymphocytes % ( Manual) 29, Monocytes % (Manual) 0L, Eosinophils % (Manual) 0, Basophils % ( Manual) 0, Band Neutrophils 7, Platelet Estimate DecreasedL, Platelet Morphology Normal, Polychromasia 1+, Hypochromasia 1+, Sodium Level 143, Potassium Level 3.5, Chloride Level 102, Carbon Dioxide Level 28, Anion Gap 13, Blood Urea Nitrogen 19, Creatinine 1.8H, Estimat Glomerular Filtration Rate , Glucose Level 221H, Calcium Level 8.4L 03/10/17 03:55: Phosphorus Level 1.7L, Magnesium Level 1.4L Current Medications Medications (Trade) Dose Ordered Sig/Fernando Route PRN Reason Start Time Stop Time Status Last Admin Dose Admin Acetaminophen (Tylenol) 650 mg Q4H PRN ORAL T>100.5 03/07/17 17:00 04/06/17 16:59 03/10/17 08:57 Acetaminophen (Tylenol) 650 mg Q4H PRN RECTAL Mild Pain (Pain Scale 1-3) 03/07/17 16:30 04/06/17 16:29 03/08/17 13:15 Albuterol/ Ipratropium (DuoNeb 0.5-3(2.5)mg/3ml) 3 ml Q4H PRN HHN Shortness of Breath 03/07/17 18:30 03/12/17 18:29 Albuterol/ Ipratropium (DuoNeb 0.5-3(2.5)mg/3ml) 3 ml TIDRT HHN 03/07/17 19:00 03/12/17 18:59 03/10/17 13:23 Carvedilol (Coreg) 25 mg EVERY 12 HOURS ORAL 03/07/17 21:00 04/06/17 20:59 03/10/17 08:56 Clonidine HCl (Catapres) 0.1 mg Q4H PRN ORAL SBP>160 03/07/17 19:45 04/06/17 19:44 Dextrose (Dextrose 50%) STAT PRN IV Hypoglycemia 03/07/17 16:00 04/06/17 15:59 Docusate Sodium (Colace) 100 mg BID ORAL 03/07/17 18:00 04/06/17 17:59 03/09/17 18:09 Gabapentin (Neurontin) 200 mg QHS ORAL 03/07/17 21:00 04/06/17 20:59 03/09/17 21:56 Insulin Aspart (NovoLOG) BEFORE MEALS AND HS SUBQ 03/07/17 16:30 04/06/17 16:29 03/10/17 11:46 Linezolid (Zyvox) 300 ml @ 300 mls/hr Q12HR IVPB 03/07/17 21:00 03/14/17 20:59 03/10/17 08:57 Ondansetron HCl (Zofran) 4 mg Q6H PRN IVP Nausea & Vomiting 03/07/17 17:00 04/06/17 16:59 Pantoprazole (Protonix) 40 mg DAILY IVP 03/08/17 09:00 04/07/17 08:59 03/10/17 08:57 Polyethylene Glycol (Miralax) 17 gm HSPRN PRN ORAL Constipation 03/07/17 21:00 04/06/17 20:59 Potassium Phosphate/Sodium Chloride (Potassium Phosphate/Sodium Chloride) 285 ml @ 47.5 mls/hr ONCE ONCE IV 03/10/17 14:00 03/10/17 19:59 Quetiapine Fumarate 25 mg 25 mg BIDPRN PRN ORAL Agitation 03/08/17 17:45 04/07/17 17:44 Sevelamer Carbonate (Renvela) 800 mg TIAC ORAL 03/07/17 16:30 04/06/17 16:29 03/10/17 06:48 Sodium Chloride 1,000 ml @ 50 mls/hr Q20H IV 03/10/17 16:00 04/09/17 15:59 Tamsulosin HCl (Flomax) 0.4 mg BID ORAL 03/07/17 18:00 04/06/17 17:59 03/10/17 08:57 Zolpidem Tartrate (Ambien) 5 mg HSPRN PRN ORAL Insomnia 03/07/17 21:00 04/06/17 20:59 Willie ([facility])Lani NP Mar 10, 2017 15:07
[2017-03-10] MEDS ORDERED: Tubing IV Blood Pump IV ONE (15:42)
[2017-03-10] MEDS ORDERED: Tubing IV Secondary IV ONE (15:42)
[2017-03-10] MEDS ORDERED: NS 275ml ONE (15:42)
[2017-03-10] MEDS ORDERED: NS Irrig 4000ml IRRIG ONE (15:42)
[2017-03-10 16:00] VITALS: BP 139/72
[2017-03-10] MEDS ORDERED: DuoNeb 0.5-3(2.5)mg/3ml neb HHN PRN (18:30)
[2017-03-10 20:00] VITALS: BP 129/53
[2017-03-10] MEDS ORDERED: Levemir Flexpen SUBQ SCH (21:00)
[2017-03-11] VITALS (9 sets, daily range): BP systolic 111–152; BP diastolic 50–77
[2017-03-11 05:56] LABS: MEAN CORPUSCULAR HGB CONC 34.4 G/DL (32.0-36.0); MEAN CORPUSCULAR VOLUME 90 FL (80-99); MEAN PLATELET VOLUME 6.8 FL (6.5-10.1); PLATELET COUNT 141 K/UL (150-450); RED BLOOD COUNT 2.29 M/UL (4.70-6.10); RED CELL DISTRIBUTION WIDTH 12.8 % (11.6-14.8); WHITE BLOOD COUNT 9.8 K/UL (4.8-10.8)
[2017-03-11 06:01] LABS: INR 1.1 (0.9-1.1); PROTHROMBIN TIME 11.4 SEC (9.30-11.50)
[2017-03-11 06:15] LABS: ALANINE AMINOTRANSFERASE 11 U/L (3-41); ALBUMIN/GLOBULIN RATIO 0.7 (1.0-2.7); ANION GAP 14 (5-15); ASPARTATE AMINO TRANSFERASE 9 U/L (5-40); CALCIUM 8.4 mg/dL (8.6-10.2); CARBON DIOXIDE 25 mEQ/L (20-30); CHLORIDE 105 mEQ/L (98-107); CREATININE 2.2 mg/dL (0.7-1.2); CRP QUANT 8.6 mg/dL (< 0.5); HEMOLYSIS 1; MAGNESIUM 2.2 mg/dL (1.7-2.5); PHOSPHORUS 4.3 mg/dL (2.5-4.8); POTASSIUM 3.6 mEQ/L (3.4-4.9); SODIUM 144 mEQ/L (135-145); URIC ACID 5.7 mg/dL (3.0-7.5)
[2017-03-11] MEDS: NovoLOG Insulin Flexpen SUBQ SCH ×4 (06:16→21:49)
[2017-03-11] MEDS: DuoNeb 0.5-3(2.5)mg/3ml neb HHN SCH ×3 (07:12→20:01)
--- NOTE | 2017-03-11 09:26 | General Progress Note ---
Assessment/Plan Status: unchanged Status Narrative multiple bladder clots. SP tube in place patent Anemia Assessment/Plan Irrigated with 10l of NS cleared multiple clots in the bladder. Now the urine is clear Will continue CBI Subjective Allergies: Coded Allergies: No Known Allergies (Unverified , 02/25/17) Objective Last 24 Hour Vital Signs Date Time Temp Pulse Resp B/P Pulse Ox O2 Delivery O2 Flow Rate FiO2 03/11/17 07:22 78 16 100 Nasal Cannula 2.0 28 03/11/17 07:12 100 Nasal Cannula 3.0 32 03/11/17 07:12 Nasal Cannula 3.0 32 03/11/17 07:12 69 16 100 Nasal Cannula 3.0 32 03/11/17 04:00 97.3 68 20 129/68 100 Nasal Cannula 3.0 03/11/17 04:00 68 03/11/17 00:00 70 03/11/17 00:00 97.7 67 20 111/50 99 Nasal Cannula 3.0 03/10/17 22:18 62 129/53 03/10/17 20:00 96 03/10/17 20:00 97.9 62 20 129/53 97 Nasal Cannula 3.0 03/10/17 19:30 Nasal Cannula 3.0 32 03/10/17 19:30 80 20 99 Nasal Cannula 3.0 32 03/10/17 19:30 100 Nasal Cannula 3.0 32 03/10/17 19:30 84 20 100 Nasal Cannula 3.0 32 03/10/17 19:30 82 20 Nasal Cannula 3.0 32 03/10/17 16:00 97.6 89 19 139/72 99 Nasal Cannula 3.0 03/10/17 15:32 90 03/10/17 13:12 81 20 99 Nasal Cannula 3.0 32 03/10/17 13:12 77 20 99 Nasal Cannula 3.0 32 03/10/17 13:12 32 03/10/17 12:00 97.8 104 23 137/60 99 Nasal Cannula 3.0 03/10/17 11:57 94 Intake and Output 03/10/17 03/11/17 19:00 07:00 Intake Total 1010.12 ml 630 ml Output Total 1700 ml 1450 ml Balance -689.88 ml -820 ml Intake Oral 30 ml IV Total 760.12 ml 600 ml Blood Product 250 ml Output Urine Total 100 ml 100 ml Other 1600 ml 1350 ml # Bowel Movements 3 Laboratory Tests 03/10/17 15:35: Hemoglobin A1c 6.8H 03/11/17 04:05: White Blood Count 9.8, Red Blood Count 2.29L, Hemoglobin 7.1L, Hematocrit 20.6L , Mean Corpuscular Volume 90, Mean Corpuscular Hemoglobin 31.0, Mean Corpuscular Hemoglobin Concent 34.4, Red Cell Distribution Width 12.8, Platelet Count 141L, Mean Platelet Volume 6.8, Neutrophils (%) (Auto) , Lymphocytes (%) ( Auto) , Monocytes (%) (Auto) , Eosinophils (%) (Auto) , Basophils (%) (Auto) , Neutrophils % (Manual) [Pending], Lymphocytes % (Manual) [Pending], Platelet Estimate [Pending], Platelet Morphology [Pending], Prothrombin Time 11.4, Prothromb Time International Ratio 1.1, Activated Partial Thromboplast Time 29, Sodium Level 144, Potassium Level 3.6, Chloride Level 105, Carbon Dioxide Level 25, Anion Gap 14, Blood Urea Nitrogen 23, Creatinine 2.2H, Estimat Glomerular Filtration Rate , Glucose Level 148H, Uric Acid 5.7, Calcium Level 8.4L, Phosphorus Level 4.3, Magnesium Level 2.2, Total Bilirubin 0.2, Aspartate Amino Transf (AST/SGOT) 9, Alanine Aminotransferase (ALT/SGPT) 11, Alkaline Phosphatase 58, C-Reactive Protein, Quantitative 8.6H, Total Protein 5.0L, Albumin 2.1L, Globulin 2.9, Albumin/Globulin Ratio 0.7L Height (Feet): 5 Height (Inches): 10.00 Weight (Pounds): 260 Heriberto Gallegos MD Mar 11, 2017 09:26
[2017-03-11] MEDS: Docusate 100mg/10ml Liq ORAL SCH ×2 (09:37→18:36)
[2017-03-11] MEDS: Pantoprazole Inj IVP SCH (09:37)
[2017-03-11] MEDS: Tamsulosin 0.4mg cap ORAL SCH ×2 (09:38→18:36)
[2017-03-11] MEDS: Carvedilol 25mg Tab ORAL SCH ×2 (09:41→21:38)
[2017-03-11 09:57] LABS: BAND NEUTROPHILS % (MANUAL) 0 % (0-8); BASOPHILS % (MANUAL) 0 % (0-2); EOSINOPHILS % (MANUAL) 3 % (0-3); HYPOCHROMASIA 1+; LYMPHOCYTES % (MANUAL) 25 % (20-45); NEUTROPHILS % (MANUAL) 69 % (45-75); PLATELET ESTIMATE DECREASED; PLATELET MORPHOLOGY NORMAL; TOTAL CELLS COUNTED 100
--- NOTE | 2017-03-11 10:28 | Infectious Diseases Prog Note ---
Assessment/Plan Assessment/Plan A: The patient is a 71-year-old male with leukocytosis SP Sepsis,SP UTI : MRSA repeat UCx MRSA and ( Mixed GNR : contaminant ) ALOC improved Cxray : No definite acute process 01/30 Fever post op improving SP Cystoscopy, suprapubic catheter placement and TURP 03/06 MILAN Need HD as Cr rising as per Nephro CAD CHF COPD Asthma Diabetes Depression PLAN: cont Zyvox d# 12 / 14 ( SP DC IV Zosyn d# 7 ) monitor CBC Monitor BMP Monitor the chest x-ray Uro and Nephro following Subjective Allergies: Coded Allergies: No Known Allergies (Unverified , 02/25/17) Subjective no new event Objective Vital Signs Last 24 Hour Vital Signs Date Time Temp Pulse Resp B/P Pulse Ox O2 Delivery O2 Flow Rate FiO2 03/11/17 09:41 77 133/61 03/11/17 08:00 97.9 78 18 133/61 100 Nasal Cannula 3.0 03/11/17 07:22 78 16 100 Nasal Cannula 2.0 28 03/11/17 07:12 100 Nasal Cannula 3.0 32 03/11/17 07:12 Nasal Cannula 3.0 32 03/11/17 07:12 69 16 100 Nasal Cannula 3.0 32 03/11/17 04:00 97.3 68 20 129/68 100 Nasal Cannula 3.0 03/11/17 04:00 68 03/11/17 00:00 70 03/11/17 00:00 97.7 67 20 111/50 99 Nasal Cannula 3.0 03/10/17 22:18 62 129/53 03/10/17 20:00 96 03/10/17 20:00 97.9 62 20 129/53 97 Nasal Cannula 3.0 03/10/17 19:30 Nasal Cannula 3.0 32 03/10/17 19:30 80 20 99 Nasal Cannula 3.0 32 03/10/17 19:30 100 Nasal Cannula 3.0 32 03/10/17 19:30 84 20 100 Nasal Cannula 3.0 32 03/10/17 19:30 82 20 Nasal Cannula 3.0 32 03/10/17 16:00 97.6 89 19 139/72 99 Nasal Cannula 3.0 03/10/17 15:32 90 03/10/17 13:12 81 20 99 Nasal Cannula 3.0 32 03/10/17 13:12 77 20 99 Nasal Cannula 3.0 32 03/10/17 13:12 32 03/10/17 12:00 97.8 104 23 137/60 99 Nasal Cannula 3.0 03/10/17 11:57 94 Height (Feet): 5 Height (Inches): 10.00 Weight (Pounds): 260 HEENT: anicteric Respiratory/Chest: normal breath sounds Cardiovascular: regular rhythm Abdomen: non distended Laboratory Tests Test 03/10/17 15:35 03/11/17 04:05 Hemoglobin A1c 6.8 % (< 6.0) H White Blood Count 9.8 K/UL (4.8-10.8) Red Blood Count 2.29 M/UL (4.70-6.10) L Hemoglobin 7.1 G/DL (14.2-18.0) L Hematocrit 20.6 % (42.0-52.0) L Mean Corpuscular Volume 90 FL (80-99) Mean Corpuscular Hemoglobin 31.0 PG (27.0-31.0) Mean Corpuscular Hemoglobin Concent 34.4 G/DL (32.0-36.0) Red Cell Distribution Width 12.8 % (11.6-14.8) Platelet Count 141 K/UL (150-450) L Mean Platelet Volume 6.8 FL (6.5-10.1) Neutrophils (%) (Auto) % (45.0-75.0) Lymphocytes (%) (Auto) % (20.0-45.0) Monocytes (%) (Auto) % (1.0-10.0) Eosinophils (%) (Auto) % (0.0-3.0) Basophils (%) (Auto) % (0.0-2.0) Differential Total Cells Counted 100 Neutrophils % (Manual) 69 % (45-75) Lymphocytes % (Manual) 25 % (20-45) Monocytes % (Manual) 3 % (1-10) Eosinophils % (Manual) 3 % (0-3) Basophils % (Manual) 0 % (0-2) Band Neutrophils 0 % (0-8) Platelet Estimate Decreased L Platelet Morphology Normal Hypochromasia 1+ Prothrombin Time 11.4 SEC (9.30-11.50) Prothromb Time International Ratio 1.1 (0.9-1.1) Activated Partial Thromboplast Time 29 SEC (23-33) Sodium Level 144 mEQ/L (135-145) Potassium Level 3.6 mEQ/L (3.4-4.9) Chloride Level 105 mEQ/L (98-107) Carbon Dioxide Level 25 mEQ/L (20-30) Anion Gap 14 (5-15) Blood Urea Nitrogen 23 mg/dL (7-23) Creatinine 2.2 mg/dL (0.7-1.2) H Estimat Glomerular Filtration Rate mL/min (>60) Glucose Level 148 mg/dL (74-106) H Uric Acid 5.7 mg/dL (3.0-7.5) Calcium Level 8.4 mg/dL (8.6-10.2) L Phosphorus Level 4.3 mg/dL (2.5-4.8) Magnesium Level 2.2 mg/dL (1.7-2.5) Total Bilirubin 0.2 mg/dL (0.0-1.2) Aspartate Amino Transf (AST/SGOT) 9 U/L (5-40) Alanine Aminotransferase (ALT/SGPT) 11 U/L (3-41) Alkaline Phosphatase 58 U/L (40-129) C-Reactive Protein, Quantitative 8.6 mg/dL (< 0.5) H Total Protein 5.0 g/dL (6.6-8.7) L Albumin 2.1 g/dL (3.5-5.2) L Globulin 2.9 g/dL Albumin/Globulin Ratio 0.7 (1.0-2.7) L Current Medications Medications (Trade) Dose Ordered Sig/Fernando Route PRN Reason Start Time Stop Time Status Last Admin Dose Admin Acetaminophen (Tylenol) 650 mg Q4H PRN ORAL T>100.5 03/07/17 17:00 04/06/17 16:59 03/10/17 08:57 Acetaminophen (Tylenol) 650 mg Q4H PRN ORAL Mild Pain (Pain Scale 1-3) 03/10/17 20:30 04/09/17 20:29 Albuterol/ Ipratropium (DuoNeb 0.5-3(2.5)mg/3ml) 3 ml Q4H PRN HHN Shortness of Breath 03/10/17 18:30 03/15/17 23:59 Albuterol/ Ipratropium (DuoNeb 0.5-3(2.5)mg/3ml) 3 ml TIDRT HHN 03/10/17 19:00 03/15/17 23:59 03/11/17 07:12 Carvedilol (Coreg) 25 mg EVERY 12 HOURS ORAL 03/07/17 21:00 04/06/17 20:59 03/11/17 09:41 Clonidine HCl (Catapres) 0.1 mg Q4H PRN ORAL SBP>160 03/07/17 19:45 04/06/17 19:44 Dextrose (Dextrose 50%) STAT PRN IV Hypoglycemia 03/07/17 16:00 04/06/17 15:59 Docusate Sodium (Colace) 100 mg BID ORAL 03/07/17 18:00 04/06/17 17:59 03/11/17 09:37 Gabapentin (Neurontin) 200 mg QHS ORAL 03/07/17 21:00 04/06/17 20:59 03/10/17 22:18 Insulin Aspart (NovoLOG) BEFORE MEALS AND HS SUBQ 03/07/17 16:30 04/06/17 16:29 03/11/17 06:16 Insulin Detemir (Levemir) 15 units BEDTIME SUBQ 03/10/17 21:00 04/09/17 20:59 03/10/17 22:20 Linezolid (Zyvox) 600 mg Q12HR ORAL 03/10/17 21:00 03/13/17 20:59 03/11/17 09:37 Ondansetron HCl (Zofran) 4 mg Q6H PRN IVP Nausea & Vomiting 03/07/17 17:00 04/06/17 16:59 Pantoprazole (Protonix) 40 mg DAILY IVP 03/08/17 09:00 04/07/17 08:59 03/11/17 09:37 Polyethylene Glycol (Miralax) 17 gm HSPRN PRN ORAL Constipation 03/07/17 21:00 04/06/17 20:59 Quetiapine Fumarate 25 mg 25 mg BIDPRN PRN ORAL Agitation 03/08/17 17:45 04/07/17 17:44 Sevelamer Carbonate (Renvela) 800 mg TIAC ORAL 03/07/17 16:30 04/06/17 16:29 03/11/17 06:09 Sodium Chloride (Sodium Chloride 1000ml bag) 1,000 ml @ 50 mls/hr Q20H IV 03/10/17 16:00 04/09/17 15:59 03/10/17 18:23 Tamsulosin HCl (Flomax) 0.4 mg BID ORAL 03/07/17 18:00 04/06/17 17:59 03/11/17 09:38 Zolpidem Tartrate (Ambien) 5 mg HSPRN PRN ORAL Insomnia 03/07/17 21:00 04/06/17 20:59 MARISOL CAPPS M.D. Mar 11, 2017 10:28
[2017-03-11] MEDS ORDERED: Tubing IV Blood Pump IV ONE (11:26)
[2017-03-11] MEDS ORDERED: NS 275ml ONE (11:26)
[2017-03-11] MEDS ORDERED: NS Irrig 4000ml IRRIG ONE (11:26)
[2017-03-11] MEDS ORDERED: Tubing IV Secondary IV ONE (11:26)
--- NOTE | 2017-03-11 11:59 | Pulmonology Progress Note ---
Assessment/Plan Problems: (1) Acute encephalopathy (2) Sepsis (3) ATN (acute tubular necrosis) (4) Hypoglycemia (5) Obstructive uropathy (6) CAD (coronary artery disease) (7) COPD (chronic obstructive pulmonary disease) Assessment/Plan improving mental status back to base line no need HD anymore continue abx as per ID DC planning sliding scale Subjective ROS Limited/Unobtainable: No Constitutional: Reports: no symptoms HEENT: Repors: no symptoms Allergies: Coded Allergies: No Known Allergies (Unverified , 02/25/17) Objective Last 24 Hour Vital Signs Date Time Temp Pulse Resp B/P Pulse Ox O2 Delivery O2 Flow Rate FiO2 03/11/17 09:41 77 133/61 03/11/17 08:00 97.9 78 18 133/61 100 Nasal Cannula 3.0 03/11/17 07:22 78 16 100 Nasal Cannula 2.0 28 03/11/17 07:12 100 Nasal Cannula 3.0 32 03/11/17 07:12 Nasal Cannula 3.0 32 03/11/17 07:12 69 16 100 Nasal Cannula 3.0 32 03/11/17 04:00 97.3 68 20 129/68 100 Nasal Cannula 3.0 03/11/17 04:00 68 03/11/17 00:00 70 03/11/17 00:00 97.7 67 20 111/50 99 Nasal Cannula 3.0 03/10/17 22:18 62 129/53 03/10/17 20:00 96 03/10/17 20:00 97.9 62 20 129/53 97 Nasal Cannula 3.0 03/10/17 19:30 Nasal Cannula 3.0 32 03/10/17 19:30 80 20 99 Nasal Cannula 3.0 32 03/10/17 19:30 100 Nasal Cannula 3.0 32 03/10/17 19:30 84 20 100 Nasal Cannula 3.0 32 03/10/17 19:30 82 20 Nasal Cannula 3.0 32 03/10/17 16:00 97.6 89 19 139/72 99 Nasal Cannula 3.0 03/10/17 15:32 90 03/10/17 13:12 81 20 99 Nasal Cannula 3.0 32 03/10/17 13:12 77 20 99 Nasal Cannula 3.0 32 03/10/17 13:12 32 03/10/17 12:00 97.8 104 23 137/60 99 Nasal Cannula 3.0 03/10/17 11:57 94 Intake and Output 03/10/17 03/11/17 19:00 07:00 Intake Total 1010.12 ml 630 ml Output Total 1700 ml 1450 ml Balance -689.88 ml -820 ml Intake Oral 30 ml IV Total 760.12 ml 600 ml Blood Product 250 ml Output Urine Total 100 ml 100 ml Other 1600 ml 1350 ml # Bowel Movements 3 Objective General Appearance: WD/WN HEENT: normocephalic, atraumatic Respiratory/Chest: chest wall non-tender, lungs clear Cardiovascular: normal peripheral pulses, normal rate Abdomen: normal bowel sounds, soft, non tender Genitourinary: normal external genitalia Extremities: no cyanosis, edema Lymphatic: no neck adenopathy Laboratory Tests 03/10/17 15:35: Hemoglobin A1c 6.8H 03/11/17 04:05: White Blood Count 9.8, Red Blood Count 2.29L, Hemoglobin 7.1L, Hematocrit 20.6L , Mean Corpuscular Volume 90, Mean Corpuscular Hemoglobin 31.0, Mean Corpuscular Hemoglobin Concent 34.4, Red Cell Distribution Width 12.8, Platelet Count 141L, Mean Platelet Volume 6.8, Neutrophils (%) (Auto) , Lymphocytes (%) ( Auto) , Monocytes (%) (Auto) , Eosinophils (%) (Auto) , Basophils (%) (Auto) , Differential Total Cells Counted 100, Neutrophils % (Manual) 69, Lymphocytes % ( Manual) 25, Monocytes % (Manual) 3, Eosinophils % (Manual) 3, Basophils % ( Manual) 0, Band Neutrophils 0, Platelet Estimate DecreasedL, Platelet Morphology Normal, Hypochromasia 1+, Prothrombin Time 11.4, Prothromb Time International Ratio 1.1, Activated Partial Thromboplast Time 29, Sodium Level 144, Potassium Level 3.6, Chloride Level 105, Carbon Dioxide Level 25, Anion Gap 14, Blood Urea Nitrogen 23, Creatinine 2.2H, Estimat Glomerular Filtration Rate , Glucose Level 148H, Uric Acid 5.7, Calcium Level 8.4L, Phosphorus Level 4.3, Magnesium Level 2.2, Total Bilirubin 0.2, Aspartate Amino Transf (AST/SGOT ) 9, Alanine Aminotransferase (ALT/SGPT) 11, Alkaline Phosphatase 58, C- Reactive Protein, Quantitative 8.6H, Total Protein 5.0L, Albumin 2.1L, Globulin 2.9, Albumin/Globulin Ratio 0.7L Current Medications Medications (Trade) Dose Ordered Sig/Fernando Route PRN Reason Start Time Stop Time Status Last Admin Dose Admin Acetaminophen (Tylenol) 650 mg Q4H PRN ORAL T>100.5 03/07/17 17:00 04/06/17 16:59 03/10/17 08:57 Acetaminophen (Tylenol) 650 mg Q4H PRN ORAL Mild Pain (Pain Scale 1-3) 03/10/17 20:30 04/09/17 20:29 Albuterol/ Ipratropium (DuoNeb 0.5-3(2.5)mg/3ml) 3 ml Q4H PRN HHN Shortness of Breath 03/10/17 18:30 03/15/17 23:59 Albuterol/ Ipratropium (DuoNeb 0.5-3(2.5)mg/3ml) 3 ml TIDRT HHN 03/10/17 19:00 03/15/17 23:59 03/11/17 07:12 Carvedilol (Coreg) 25 mg EVERY 12 HOURS ORAL 03/07/17 21:00 04/06/17 20:59 03/11/17 09:41 Clonidine HCl (Catapres) 0.1 mg Q4H PRN ORAL SBP>160 03/07/17 19:45 04/06/17 19:44 Dextrose (Dextrose 50%) STAT PRN IV Hypoglycemia 03/07/17 16:00 04/06/17 15:59 Docusate Sodium (Colace) 100 mg BID ORAL 03/07/17 18:00 04/06/17 17:59 03/11/17 09:37 Gabapentin (Neurontin) 200 mg QHS ORAL 03/07/17 21:00 04/06/17 20:59 03/10/17 22:18 Insulin Aspart (NovoLOG) BEFORE MEALS AND HS SUBQ 03/07/17 16:30 04/06/17 16:29 03/11/17 06:16 Insulin Detemir (Levemir) 15 units BEDTIME SUBQ 03/10/17 21:00 04/09/17 20:59 03/10/17 22:20 Linezolid (Zyvox) 600 mg Q12HR ORAL 03/10/17 21:00 03/13/17 20:59 03/11/17 09:37 Ondansetron HCl (Zofran) 4 mg Q6H PRN IVP Nausea & Vomiting 03/07/17 17:00 04/06/17 16:59 Pantoprazole (Protonix) 40 mg DAILY IVP 03/08/17 09:00 04/07/17 08:59 03/11/17 09:37 Polyethylene Glycol (Miralax) 17 gm HSPRN PRN ORAL Constipation 03/07/17 21:00 04/06/17 20:59 Quetiapine Fumarate 25 mg 25 mg BIDPRN PRN ORAL Agitation 03/08/17 17:45 04/07/17 17:44 Sevelamer Carbonate (Renvela) 800 mg TIAC ORAL 03/07/17 16:30 04/06/17 16:29 03/11/17 06:09 Sodium Chloride (Sodium Chloride 1000ml bag) 1,000 ml @ 50 mls/hr Q20H IV 03/10/17 16:00 04/09/17 15:59 03/10/17 18:23 Tamsulosin HCl (Flomax) 0.4 mg BID ORAL 03/07/17 18:00 04/06/17 17:59 03/11/17 09:38 Zolpidem Tartrate (Ambien) 5 mg HSPRN PRN ORAL Insomnia 03/07/17 21:00 04/06/17 20:59 JUSTO LEBLANC Mar 11, 2017 11:59
--- NOTE | 2017-03-11 12:33 | General Progress Note ---
Assessment/Plan Status: stable - from renal stand Status Narrative Cr 2.2 Hgb Low Assessment/Plan Primary Impression: Altered level of consciousness : uremia and Hypoglycemia MILAN (acute kidney injury) --- urinary outlet obstruction RESOLVED UTI (urinary tract infection) HTN DM Psychosis Bladder tumore Plan: Dialysed 03/08, no need for further HD follow up renal parameters DC Jonnathan in am Mag and Phos supp. monitor BS and adjust Insulin Keep BS and BP in check Monitor renal parameters Avoid Nephrotoxics Per orders Subjective ROS Limited/Unobtainable: No Allergies: Coded Allergies: No Known Allergies (Unverified , 02/25/17) Objective Last 24 Hour Vital Signs Date Time Temp Pulse Resp B/P Pulse Ox O2 Delivery O2 Flow Rate FiO2 03/11/17 09:41 77 133/61 03/11/17 08:00 97.9 78 18 133/61 100 Nasal Cannula 3.0 03/11/17 07:22 78 16 100 Nasal Cannula 2.0 28 03/11/17 07:12 100 Nasal Cannula 3.0 32 03/11/17 07:12 Nasal Cannula 3.0 32 03/11/17 07:12 69 16 100 Nasal Cannula 3.0 32 03/11/17 04:00 97.3 68 20 129/68 100 Nasal Cannula 3.0 03/11/17 04:00 68 03/11/17 00:00 70 03/11/17 00:00 97.7 67 20 111/50 99 Nasal Cannula 3.0 03/10/17 22:18 62 129/53 03/10/17 20:00 96 03/10/17 20:00 97.9 62 20 129/53 97 Nasal Cannula 3.0 03/10/17 19:30 Nasal Cannula 3.0 32 03/10/17 19:30 80 20 99 Nasal Cannula 3.0 32 03/10/17 19:30 100 Nasal Cannula 3.0 32 03/10/17 19:30 84 20 100 Nasal Cannula 3.0 32 03/10/17 19:30 82 20 Nasal Cannula 3.0 32 03/10/17 16:00 97.6 89 19 139/72 99 Nasal Cannula 3.0 03/10/17 15:32 90 03/10/17 13:12 81 20 99 Nasal Cannula 3.0 32 03/10/17 13:12 77 20 99 Nasal Cannula 3.0 32 03/10/17 13:12 32 Intake and Output 03/10/17 03/11/17 19:00 07:00 Intake Total 1010.12 ml 630 ml Output Total 1700 ml 1450 ml Balance -689.88 ml -820 ml Intake Oral 30 ml IV Total 760.12 ml 600 ml Blood Product 250 ml Output Urine Total 100 ml 100 ml Other 1600 ml 1350 ml # Bowel Movements 3 Laboratory Tests 03/10/17 15:35: Hemoglobin A1c 6.8H 03/11/17 04:05: White Blood Count 9.8, Red Blood Count 2.29L, Hemoglobin 7.1L, Hematocrit 20.6L , Mean Corpuscular Volume 90, Mean Corpuscular Hemoglobin 31.0, Mean Corpuscular Hemoglobin Concent 34.4, Red Cell Distribution Width 12.8, Platelet Count 141L, Mean Platelet Volume 6.8, Neutrophils (%) (Auto) , Lymphocytes (%) ( Auto) , Monocytes (%) (Auto) , Eosinophils (%) (Auto) , Basophils (%) (Auto) , Differential Total Cells Counted 100, Neutrophils % (Manual) 69, Lymphocytes % ( Manual) 25, Monocytes % (Manual) 3, Eosinophils % (Manual) 3, Basophils % ( Manual) 0, Band Neutrophils 0, Platelet Estimate DecreasedL, Platelet Morphology Normal, Hypochromasia 1+, Prothrombin Time 11.4, Prothromb Time International Ratio 1.1, Activated Partial Thromboplast Time 29, Sodium Level 144, Potassium Level 3.6, Chloride Level 105, Carbon Dioxide Level 25, Anion Gap 14, Blood Urea Nitrogen 23, Creatinine 2.2H, Estimat Glomerular Filtration Rate , Glucose Level 148H, Uric Acid 5.7, Calcium Level 8.4L, Phosphorus Level 4.3, Magnesium Level 2.2, Total Bilirubin 0.2, Aspartate Amino Transf (AST/SGOT ) 9, Alanine Aminotransferase (ALT/SGPT) 11, Alkaline Phosphatase 58, C- Reactive Protein, Quantitative 8.6H, Total Protein 5.0L, Albumin 2.1L, Globulin 2.9, Albumin/Globulin Ratio 0.7L Height (Feet): 5 Height (Inches): 10.00 Weight (Pounds): 260 General Appearance: no apparent distress Objective other PE not changed JULIETA LEON Mar 11, 2017 12:33
[2017-03-11 13:54] LABS: OTHERS PATHOLOGIST COMMENT
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
[2017-03-11] MEDS ORDERED: DuoNeb 0.5-3(2.5)mg/3ml neb HHN PRN (18:00)
[2017-03-11] MEDS ORDERED: Miralax 17gm pkt ORAL PRN (18:00)
[2017-03-11] MEDS ORDERED: Zolpidem 5mg tab ORAL PRN (21:00)
[2017-03-11] MEDS: Levemir Flexpen SUBQ SCH (22:00)
--- NOTE | 2017-03-12 01:45 | Operative Note - Dictated ---
DATE OF OPERATION: 03/05/2017 PREOPERATIVE DIAGNOSES: Gross hematuria, urinary retention, and acute renal failure. POSTOPERATIVE DIAGNOSES: Gross hematuria, urinary retention, and acute renal failure. OPERATION: Transurethral resection of the prostate, irrigation of the bladder, and placement of the suprapubic tube. SURGEON: Heriberto Gallegos M.D. ANESTHESIA: General. FINDINGS: Lesions in the bladder, unknown etiology, . INDICATION FOR SURGERY: The patient was seen by me in the hospital with acute renal failure. He was started on acute dialysis and cath gross hematuria. Upper tract were normal. Treatment options were explained to him and he signed a consent. DESCRIPTION OF PROCEDURE: He was brought to the operating room, placed in the lithotomy position, and prepped and draped in standard fashion under general anesthesia. Cystoscope was introduced into the bladder. Bladder was very inflamed with multiple areas of trigone resembling tumors. Small pieces of this biopsied and sent for pathologic examination. Using gloves and retractors, suprapubic tube was placed through the contralateral stab incision and left 14-[place] catheter was secured. After that partial TURP was done to open up his bladder neck and fulgurated, irrigated, and started on intravenous bladder irrigation. The patient tolerated the procedure well. Sponge count and instrument count was correct. Heriberto Gallegos M.D. DR: PARISH JOB#: [id number] CC:
[2017-03-12 04:00] VITALS: BP 137/68
[2017-03-12 06:31] LABS: MEAN CORPUSCULAR HEMOGLOBIN 31.6 PG (27.0-31.0); MEAN CORPUSCULAR HGB CONC 35.1 G/DL (32.0-36.0); MEAN CORPUSCULAR VOLUME 90 FL (80-99); MEAN PLATELET VOLUME 6.7 FL (6.5-10.1); PLATELET COUNT 135 K/UL (150-450); RED BLOOD COUNT 2.44 M/UL (4.70-6.10); RED CELL DISTRIBUTION WIDTH 12.6 % (11.6-14.8); WHITE BLOOD COUNT 8.5 K/UL (4.8-10.8)
[2017-03-12] MEDS: NovoLOG Insulin Flexpen SUBQ SCH ×3 (06:37→17:05)
[2017-03-12 06:55] LABS: ALANINE AMINOTRANSFERASE 12 U/L (3-41); ALBUMIN/GLOBULIN RATIO 0.8 (1.0-2.7); ANION GAP 14 (5-15); ASPARTATE AMINO TRANSFERASE 12 U/L (5-40); CALCIUM 8.5 mg/dL (8.6-10.2); CARBON DIOXIDE 26 mEQ/L (20-30); CHLORIDE 107 mEQ/L (98-107); CREATININE 1.8 mg/dL (0.7-1.2); HEMOLYSIS 3; POTASSIUM 3.4 mEQ/L (3.4-4.9); SODIUM 147 mEQ/L (135-145); TOTAL PROTEIN 5.1 g/dL (6.6-8.7)
[2017-03-12] MEDS: DuoNeb 0.5-3(2.5)mg/3ml neb HHN SCH ×3 (07:35→19:13)
[2017-03-12] MEDS: Carvedilol 25mg Tab ORAL SCH (08:36)
[2017-03-12] MEDS: Pantoprazole Inj IVP SCH (08:36)
[2017-03-12] MEDS: Docusate 100mg/10ml Liq ORAL SCH ×2 (08:37→17:11)
[2017-03-12] MEDS: Tamsulosin 0.4mg cap ORAL SCH ×2 (08:37→17:12)
[2017-03-12 08:54] VITALS: BP 132/67
--- NOTE | 2017-03-12 09:49 | Infectious Diseases Prog Note ---
Assessment/Plan Assessment/Plan A: The patient is a 71-year-old male with leukocytosis SP Sepsis,SP UTI : MRSA repeat UCx MRSA and ( Mixed GNR : contaminant ) ALOC improved Cxray : No definite acute process 01/30 Fever post op improving SP Cystoscopy, suprapubic catheter placement and TURP 03/06 MILAN , urinary outlet obstruction RESOLVED , no need for HD any more , as per nephro CAD CHF COPD Asthma Diabetes Depression PLAN: cont Zyvox d# 13 / 14 ( SP DC IV Zosyn d# 7 ) monitor CBC Monitor BMP Monitor the chest x-ray Uro and Nephro following Subjective Constitutional: Denies: anorexia, chills, drenching sweats, fatigue, fever, no symptoms, other Allergies: Coded Allergies: No Known Allergies (Unverified , 02/25/17) Subjective afebrile Objective Vital Signs Last 24 Hour Vital Signs Date Time Temp Pulse Resp B/P Pulse Ox O2 Delivery O2 Flow Rate FiO2 03/12/17 08:54 97.7 56 21 132/67 100 Nasal Cannula 2.0 03/12/17 08:36 78 137/68 03/12/17 07:02 Nasal Cannula 3.0 32 03/12/17 07:02 97 Nasal Cannula 3.0 32 03/12/17 07:02 78 18 100 Nasal Cannula 3.0 32 03/12/17 07:02 78 18 98 Nasal Cannula 3.0 32 03/12/17 04:00 98.1 64 22 137/68 98 Nasal Cannula 2.0 03/11/17 23:40 98.0 72 18 143/77 97 Nasal Cannula 3.0 03/11/17 21:38 76 152/71 03/11/17 21:11 97.7 76 18 152/71 98 Nasal Cannula 3.0 03/11/17 20:03 78 18 100 Nasal Cannula 2.0 28 03/11/17 20:03 Nasal Cannula 3.0 32 03/11/17 20:03 77 18 98 Nasal Cannula 2.0 28 03/11/17 20:03 98 Nasal Cannula 3.0 32 03/11/17 20:00 97.7 76 18 152/71 98 Nasal Cannula 3.0 03/11/17 18:27 97.0 70 20 142/64 100 Nasal Cannula 2.0 03/11/17 16:00 97.9 77 30 132/64 100 Nasal Cannula 2.0 03/11/17 12:57 79 16 100 Nasal Cannula 2.0 28 03/11/17 12:49 72 20 99 Nasal Cannula 2.0 28 03/11/17 12:00 69 03/11/17 12:00 97.7 74 30 132/65 99 Nasal Cannula 2.0 Height (Feet): 5 Height (Inches): 10.00 Weight (Pounds): 260 HEENT: atraumatic Respiratory/Chest: normal breath sounds Cardiovascular: normal rate Abdomen: no organomegaly Laboratory Tests Test 03/12/17 05:30 White Blood Count 8.5 K/UL (4.8-10.8) Red Blood Count 2.44 M/UL (4.70-6.10) L Hemoglobin 7.7 G/DL (14.2-18.0) L Hematocrit 22.0 % (42.0-52.0) L Mean Corpuscular Volume 90 FL (80-99) Mean Corpuscular Hemoglobin 31.6 PG (27.0-31.0) H Mean Corpuscular Hemoglobin Concent 35.1 G/DL (32.0-36.0) Red Cell Distribution Width 12.6 % (11.6-14.8) Platelet Count 135 K/UL (150-450) L Mean Platelet Volume 6.7 FL (6.5-10.1) Neutrophils (%) (Auto) % (45.0-75.0) Lymphocytes (%) (Auto) % (20.0-45.0) Monocytes (%) (Auto) % (1.0-10.0) Eosinophils (%) (Auto) % (0.0-3.0) Basophils (%) (Auto) % (0.0-2.0) Neutrophils % (Manual) Pending Lymphocytes % (Manual) Pending Platelet Estimate Pending Platelet Morphology Pending Sodium Level 147 mEQ/L (135-145) H Potassium Level 3.4 mEQ/L (3.4-4.9) Chloride Level 107 mEQ/L (98-107) Carbon Dioxide Level 26 mEQ/L (20-30) Anion Gap 14 (5-15) Blood Urea Nitrogen 23 mg/dL (7-23) Creatinine 1.8 mg/dL (0.7-1.2) H Estimat Glomerular Filtration Rate mL/min (>60) Glucose Level 118 mg/dL (74-106) H Calcium Level 8.5 mg/dL (8.6-10.2) L Total Bilirubin 0.3 mg/dL (0.0-1.2) Aspartate Amino Transf (AST/SGOT) 12 U/L (5-40) Alanine Aminotransferase (ALT/SGPT) 12 U/L (3-41) Alkaline Phosphatase 57 U/L (40-129) Pro-B-Type Natriuretic Peptide 1142 pg/mL (0-125) H Total Protein 5.1 g/dL (6.6-8.7) L Albumin 2.3 g/dL (3.5-5.2) L Globulin 2.8 g/dL Albumin/Globulin Ratio 0.8 (1.0-2.7) L Current Medications Medications (Trade) Dose Ordered Sig/Fernando Route PRN Reason Start Time Stop Time Status Last Admin Dose Admin Acetaminophen (Tylenol) 650 mg Q4H PRN ORAL Mild Pain (Pain Scale 1-3) 03/11/17 18:00 04/10/17 17:59 Acetaminophen (Tylenol) 650 mg Q4H PRN ORAL T>100.5 03/11/17 18:00 04/10/17 17:59 Albuterol/ Ipratropium (DuoNeb 0.5-3(2.5)mg/3ml) 3 ml Q4H PRN HHN Shortness of Breath 03/11/17 18:00 03/16/17 17:59 Albuterol/ Ipratropium (DuoNeb 0.5-3(2.5)mg/3ml) 3 ml TIDRT HHN 03/11/17 19:00 03/16/17 18:59 03/12/17 07:35 Carvedilol (Coreg) 25 mg EVERY 12 HOURS ORAL 03/11/17 21:00 04/10/17 20:59 03/12/17 08:36 Clonidine HCl (Catapres) 0.1 mg Q4H PRN ORAL SBP>160 03/11/17 18:00 04/10/17 17:59 Clotrimazole (Lotrimin) 1 applic EVERY 12 HOURS TOPIC 03/11/17 23:00 04/10/17 22:59 03/12/17 08:37 Dextrose (Dextrose 50%) STAT PRN IV Hypoglycemia 03/11/17 18:00 04/10/17 17:59 Docusate Sodium (Colace) 100 mg BID ORAL 03/11/17 18:00 04/10/17 17:59 03/12/17 08:37 Gabapentin (Neurontin) 200 mg QHS ORAL 03/11/17 21:00 04/10/17 20:59 03/11/17 21:42 Insulin Aspart (NovoLOG) BEFORE MEALS AND HS SUBQ 03/11/17 21:00 04/10/17 20:59 03/12/17 06:37 Insulin Detemir (Levemir) 15 units BEDTIME SUBQ 03/11/17 21:00 04/10/17 20:59 03/11/17 22:00 Linezolid (Zyvox) 600 mg Q12HR ORAL 03/11/17 21:00 03/16/17 20:59 03/12/17 08:36 Ondansetron HCl (Zofran) 4 mg Q6H PRN IVP Nausea & Vomiting 03/11/17 18:00 04/10/17 17:59 Pantoprazole (Protonix) 40 mg DAILY IVP 03/12/17 09:00 04/11/17 08:59 03/12/17 08:36 Polyethylene Glycol (Miralax) 17 gm HSPRN PRN ORAL Constipation 03/11/17 18:00 04/10/17 17:59 Quetiapine Fumarate (SEROquel) 25 mg BIDPRN PRN ORAL Agitation 03/11/17 18:00 04/10/17 17:59 Sevelamer Carbonate (Renvela) 800 mg TIAC ORAL 03/12/17 06:30 04/11/17 06:29 03/12/17 06:33 Sodium Chloride (Sodium Chloride 1000ml bag) 1,000 ml @ 50 mls/hr Q20H IV 03/11/17 18:00 04/10/17 17:59 03/11/17 18:35 Tamsulosin HCl (Flomax) 0.4 mg BID ORAL 03/11/17 18:00 04/10/17 17:59 03/12/17 08:37 Zolpidem Tartrate (Ambien) 5 mg HSPRN PRN ORAL Insomnia 03/11/17 21:00 04/10/17 20:59 MARISOL CAPPS M.D. Mar 12, 2017 09:49
[2017-03-12 09:54] LABS: BAND NEUTROPHILS % (MANUAL) 0 % (0-8); BASOPHILS % (MANUAL) 0 % (0-2); EOSINOPHILS % (MANUAL) 0 % (0-3); HYPOCHROMASIA 1+; LYMPHOCYTES % (MANUAL) 31 % (20-45); NEUTROPHILS % (MANUAL) 63 % (45-75); PLATELET ESTIMATE DECREASED; PLATELET MORPHOLOGY NORMAL; TOTAL CELLS COUNTED 100
--- NOTE | 2017-03-12 10:50 | General Progress Note ---
Assessment/Plan Status: stable - from renal stand, unchanged Status Narrative Cr lower- Hgb low Assessment/Plan Primary Impression: Altered level of consciousness : uremia and Hypoglycemia MILAN (acute kidney injury) --- urinary outlet obstruction RESOLVED UTI (urinary tract infection) HTN DM Psychosis Bladder tumore Plan: Dialysed 03/08, no need for further HD follow up renal parameters DC Jonnathan prior to DC. Mag and Phos supp as needed- More transfusion- monitor BS and adjust Insulin Keep BS and BP in check Monitor renal parameters Avoid Nephrotoxics Per orders Subjective ROS Limited/Unobtainable: No Constitutional: Reports: malaise Allergies: Coded Allergies: No Known Allergies (Unverified , 02/25/17) Objective Last 24 Hour Vital Signs Date Time Temp Pulse Resp B/P Pulse Ox O2 Delivery O2 Flow Rate FiO2 03/12/17 08:54 97.7 56 21 132/67 100 Nasal Cannula 2.0 03/12/17 08:36 78 137/68 03/12/17 07:02 Nasal Cannula 3.0 32 03/12/17 07:02 97 Nasal Cannula 3.0 32 03/12/17 07:02 78 18 100 Nasal Cannula 3.0 32 03/12/17 07:02 78 18 98 Nasal Cannula 3.0 32 03/12/17 04:00 98.1 64 22 137/68 98 Nasal Cannula 2.0 03/11/17 23:40 98.0 72 18 143/77 97 Nasal Cannula 3.0 03/11/17 21:38 76 152/71 03/11/17 21:11 97.7 76 18 152/71 98 Nasal Cannula 3.0 03/11/17 20:03 78 18 100 Nasal Cannula 2.0 28 03/11/17 20:03 Nasal Cannula 3.0 32 03/11/17 20:03 77 18 98 Nasal Cannula 2.0 28 03/11/17 20:03 98 Nasal Cannula 3.0 32 03/11/17 20:00 97.7 76 18 152/71 98 Nasal Cannula 3.0 03/11/17 18:27 97.0 70 20 142/64 100 Nasal Cannula 2.0 03/11/17 16:00 97.9 77 30 132/64 100 Nasal Cannula 2.0 03/11/17 12:57 79 16 100 Nasal Cannula 2.0 28 03/11/17 12:49 72 20 99 Nasal Cannula 2.0 28 03/11/17 12:00 69 03/11/17 12:00 97.7 74 30 132/65 99 Nasal Cannula 2.0 Intake and Output 03/11/17 03/12/17 19:00 07:00 Intake Total 12020 ml 4500 ml Output Total 20637 ml 3675 ml Balance 1120 ml 825 ml Intake Oral 270 ml IV Total 500 ml 500 ml Blood Product 250 ml Other 80493 ml 4000 ml Output Urine Total 9950 ml 3675 ml Other 2100 ml # Bowel Movements 1 Laboratory Tests 03/12/17 05:30: White Blood Count 8.5, Red Blood Count 2.44L, Hemoglobin 7.7L, Hematocrit 22.0L , Mean Corpuscular Volume 90, Mean Corpuscular Hemoglobin 31.6H, Mean Corpuscular Hemoglobin Concent 35.1, Red Cell Distribution Width 12.6, Platelet Count 135L, Mean Platelet Volume 6.7, Neutrophils (%) (Auto) , Lymphocytes (%) ( Auto) , Monocytes (%) (Auto) , Eosinophils (%) (Auto) , Basophils (%) (Auto) , Differential Total Cells Counted 100, Neutrophils % (Manual) 63, Lymphocytes % ( Manual) 31, Monocytes % (Manual) 6, Eosinophils % (Manual) 0, Basophils % ( Manual) 0, Band Neutrophils 0, Platelet Estimate DecreasedL, Platelet Morphology Normal, Hypochromasia 1+, Sodium Level 147H, Potassium Level 3.4, Chloride Level 107, Carbon Dioxide Level 26, Anion Gap 14, Blood Urea Nitrogen 23, Creatinine 1.8H, Estimat Glomerular Filtration Rate , Glucose Level 118H, Calcium Level 8.5L, Total Bilirubin 0.3, Aspartate Amino Transf (AST/SGOT) 12, Alanine Aminotransferase (ALT/SGPT) 12, Alkaline Phosphatase 57, Pro-B-Type Natriuretic Peptide 1142H, Total Protein 5.1L, Albumin 2.3L, Globulin 2.8, Albumin/Globulin Ratio 0.8L Height (Feet): 5 Height (Inches): 10.00 Weight (Pounds): 260 General Appearance: no apparent distress, lethargic Cardiovascular: normal rate Respiratory/Chest: decreased breath sounds Abdomen: soft Genitourinary/Rectal: other - bladder irrigation clean Objective other PE not changed JULIETA LEON Mar 12, 2017 10:50
--- NOTE | 2017-03-12 11:13 | Diagnostic Imaging Report ---
Indication: Dyspnea Comparison: 03/05/17 A single view chest radiograph was obtained. Findings: The lungs appear less hyperemic. Heart remains enlarged and unchanged. There is a right jugular Jonnathan catheter in good position. Impression: Improved interstitial edema
[2017-03-12 11:52] VITALS: BP 135/67
[2017-03-12] MEDS ORDERED: COREG25 MG ORAL (15:12)
[2017-03-12] MEDS ORDERED: DUONEB 0.5-3(2.53 ML HHN (15:12)
[2017-03-12] MEDS ORDERED: SEROQUEL25 MG ORAL (15:12)
[2017-03-12] MEDS ORDERED: NOVOLOG100 UNITS1 SUBQ (15:12)
[2017-03-12] MEDS ORDERED: GABAPENTIN100 MG ORAL (15:12)
[2017-03-12] MEDS ORDERED: AMBIEN5 MG ORAL (15:12)
[2017-03-12] MEDS ORDERED: LEVEMIR FL100 UNIT/1 SUBQ (15:12)
[2017-03-12 16:09] VITALS: BP 149/69
[2017-03-12] MEDS ORDERED: NS 275ml ONE (16:30)
[2017-03-12 18:41] LABS: BASOPHILS % (AUTO) 0.6 % (0.0-2.0); EOSINOPHILS % (AUTO) 3.8 % (0.0-3.0); MEAN CORPUSCULAR HEMOGLOBIN 32.1 PG (27.0-31.0); MEAN CORPUSCULAR HGB CONC 35.6 G/DL (32.0-36.0); MEAN CORPUSCULAR VOLUME 90 FL (80-99); MEAN PLATELET VOLUME 6.5 FL (6.5-10.1); MONOCYTES % (AUTO) 4.6 % (1.0-10.0); PLATELET COUNT 129 K/UL (150-450); RED BLOOD COUNT 2.73 M/UL (4.70-6.10); RED CELL DISTRIBUTION WIDTH 12.9 % (11.6-14.8); WHITE BLOOD COUNT 10.1 K/UL (4.8-10.8)
--- NOTE | 2017-03-12 19:03 | Pulmonology Progress Note ---
Assessment/Plan Problems: (1) Acute encephalopathy (2) Sepsis (3) ATN (acute tubular necrosis) (4) Hypoglycemia (5) Obstructive uropathy (6) CAD (coronary artery disease) (7) COPD (chronic obstructive pulmonary disease) Assessment/Plan improving mental status back to base line no need HD anymore continue abx as per ID, finishing one unit or prbc DC planning sliding scale Subjective Interval Events: awake, comfortable Allergies: Coded Allergies: No Known Allergies (Unverified , 02/25/17) Objective Last 24 Hour Vital Signs Date Time Temp Pulse Resp B/P Pulse Ox O2 Delivery O2 Flow Rate FiO2 03/12/17 16:09 97.0 67 20 149/69 99 Room Air 2.0 03/12/17 13:20 81 20 100 Nasal Cannula 3.0 32 03/12/17 13:20 80 18 99 Nasal Cannula 3.0 32 03/12/17 11:52 97.2 71 20 135/67 99 Nasal Cannula 2.0 03/12/17 08:54 97.7 56 21 132/67 100 Nasal Cannula 2.0 03/12/17 08:36 78 137/68 03/12/17 07:02 Nasal Cannula 3.0 32 03/12/17 07:02 97 Nasal Cannula 3.0 32 03/12/17 07:02 78 18 100 Nasal Cannula 3.0 32 03/12/17 07:02 78 18 98 Nasal Cannula 3.0 32 03/12/17 04:00 98.1 64 22 137/68 98 Nasal Cannula 2.0 03/11/17 23:40 98.0 72 18 143/77 97 Nasal Cannula 3.0 03/11/17 21:38 76 152/71 03/11/17 21:11 97.7 76 18 152/71 98 Nasal Cannula 3.0 03/11/17 20:03 78 18 100 Nasal Cannula 2.0 28 03/11/17 20:03 Nasal Cannula 3.0 32 03/11/17 20:03 77 18 98 Nasal Cannula 2.0 28 03/11/17 20:03 98 Nasal Cannula 3.0 32 03/11/17 20:00 97.7 76 18 152/71 98 Nasal Cannula 3.0 Intake and Output 03/11/17 03/12/17 19:00 07:00 Intake Total 34016 ml 4500 ml Output Total 80835 ml 3675 ml Balance 1120 ml 825 ml Intake Oral 270 ml IV Total 500 ml 500 ml Blood Product 250 ml Other 86567 ml 4000 ml Output Urine Total 9950 ml 3675 ml Other 2100 ml # Bowel Movements 1 Objective General Appearance: WD/WN HEENT: normocephalic, atraumatic Respiratory/Chest: chest wall non-tender, lungs clear Cardiovascular: normal peripheral pulses, normal rate Abdomen: normal bowel sounds, soft, non tender Genitourinary: normal external genitalia Extremities: no cyanosis, edema Lymphatic: no neck adenopathy Laboratory Tests 03/12/17 05:30: White Blood Count 8.5, Red Blood Count 2.44L, Hemoglobin 7.7L, Hematocrit 22.0L , Mean Corpuscular Volume 90, Mean Corpuscular Hemoglobin 31.6H, Mean Corpuscular Hemoglobin Concent 35.1, Red Cell Distribution Width 12.6, Platelet Count 135L, Mean Platelet Volume 6.7, Neutrophils (%) (Auto) , Lymphocytes (%) ( Auto) , Monocytes (%) (Auto) , Eosinophils (%) (Auto) , Basophils (%) (Auto) , Differential Total Cells Counted 100, Neutrophils % (Manual) 63, Lymphocytes % ( Manual) 31, Monocytes % (Manual) 6, Eosinophils % (Manual) 0, Basophils % ( Manual) 0, Band Neutrophils 0, Platelet Estimate DecreasedL, Platelet Morphology Normal, Hypochromasia 1+, Sodium Level 147H, Potassium Level 3.4, Chloride Level 107, Carbon Dioxide Level 26, Anion Gap 14, Blood Urea Nitrogen 23, Creatinine 1.8H, Estimat Glomerular Filtration Rate , Glucose Level 118H, Calcium Level 8.5L, Total Bilirubin 0.3, Aspartate Amino Transf (AST/SGOT) 12, Alanine Aminotransferase (ALT/SGPT) 12, Alkaline Phosphatase 57, Pro-B-Type Natriuretic Peptide 1142H, Total Protein 5.1L, Albumin 2.3L, Globulin 2.8, Albumin/Globulin Ratio 0.8L 03/12/17 18:28: White Blood Count 10.1, Red Blood Count 2.73L, Hemoglobin 8.8L, Hematocrit 24.6L , Mean Corpuscular Volume 90, Mean Corpuscular Hemoglobin 32.1H, Mean Corpuscular Hemoglobin Concent 35.6, Red Cell Distribution Width 12.9, Platelet Count 129L, Mean Platelet Volume 6.5, Neutrophils (%) (Auto) 66.0, Lymphocytes ( %) (Auto) 25.0, Monocytes (%) (Auto) 4.6, Eosinophils (%) (Auto) 3.8H, Basophils (%) (Auto) 0.6 Current Medications Medications (Trade) Dose Ordered Sig/Fernando Route PRN Reason Start Time Stop Time Status Last Admin Dose Admin Acetaminophen (Tylenol) 650 mg Q4H PRN ORAL Mild Pain (Pain Scale 1-3) 03/11/17 18:00 04/10/17 17:59 Acetaminophen (Tylenol) 650 mg Q4H PRN ORAL T>100.5 03/11/17 18:00 04/10/17 17:59 Albuterol/ Ipratropium (DuoNeb 0.5-3(2.5)mg/3ml) 3 ml Q4H PRN HHN Shortness of Breath 03/11/17 18:00 03/16/17 17:59 Albuterol/ Ipratropium (DuoNeb 0.5-3(2.5)mg/3ml) 3 ml TIDRT HHN 03/11/17 19:00 03/16/17 18:59 03/12/17 13:48 Carvedilol (Coreg) 25 mg EVERY 12 HOURS ORAL 03/11/17 21:00 04/10/17 20:59 03/12/17 08:36 Clonidine HCl (Catapres) 0.1 mg Q4H PRN ORAL SBP>160 03/11/17 18:00 04/10/17 17:59 Clotrimazole (Lotrimin) 1 applic EVERY 12 HOURS TOPIC 03/11/17 23:00 04/10/17 22:59 03/12/17 08:37 Dextrose (Dextrose 50%) STAT PRN IV Hypoglycemia 03/11/17 18:00 04/10/17 17:59 Docusate Sodium (Colace) 100 mg BID ORAL 03/11/17 18:00 04/10/17 17:59 03/12/17 17:11 Gabapentin (Neurontin) 200 mg QHS ORAL 03/11/17 21:00 04/10/17 20:59 03/11/17 21:42 Insulin Aspart (NovoLOG) BEFORE MEALS AND HS SUBQ 03/11/17 21:00 04/10/17 20:59 03/12/17 17:05 Insulin Detemir (Levemir) 15 units BEDTIME SUBQ 03/11/17 21:00 04/10/17 20:59 03/11/17 22:00 Linezolid (Zyvox) 600 mg Q12HR ORAL 03/11/17 21:00 03/16/17 20:59 03/12/17 08:36 Ondansetron HCl (Zofran) 4 mg Q6H PRN IVP Nausea & Vomiting 03/11/17 18:00 04/10/17 17:59 Pantoprazole (Protonix) 40 mg DAILY IVP 03/12/17 09:00 04/11/17 08:59 03/12/17 08:36 Polyethylene Glycol (Miralax) 17 gm HSPRN PRN ORAL Constipation 03/11/17 18:00 04/10/17 17:59 Quetiapine Fumarate (SEROquel) 25 mg BIDPRN PRN ORAL Agitation 03/11/17 18:00 04/10/17 17:59 Sevelamer Carbonate (Renvela) 800 mg TIAC ORAL 03/12/17 06:30 04/11/17 06:29 03/12/17 16:30 Sodium Chloride (Sodium Chloride 1000ml bag) 1,000 ml @ 50 mls/hr Q20H IV 03/11/17 18:00 04/10/17 17:59 03/12/17 15:35 Tamsulosin HCl (Flomax) 0.4 mg BID ORAL 03/11/17 18:00 04/10/17 17:59 03/12/17 17:12 Zolpidem Tartrate (Ambien) 5 mg HSPRN PRN ORAL Insomnia 03/11/17 21:00 04/10/17 20:59 JUSTO LEBLANC Mar 12, 2017 19:03
--- NOTE | 2017-03-12 21:45 | Progress Note ---
DATE: 03/12/2017 SUBJECTIVE: Upon evaluation, the patient is a poor historian, not engaged, keeps repeating a sentence, and is delusional. He presents with disorganized behavior and speech. MENTAL STATUS EXAMINATION: The patient is alert and oriented x0. Mood is agitated. Affect is flat. The patient stares. Thought process, the patient has same word that is meaningless. ASSESSMENT: 1. Psychotic disorder. 2. Cognitive impairment. PLAN: 1. The patient is on low-dose of Seroquel 2 times per day as needed for anxiety and agitation. 2. Effexor was discontinued. Continue to follow and readjust the medications. Ladarius Parry M.D. DR: LUISITO JOB#: [id number] CC:
[2017-03-13] VITALS: BP 142/66
[2017-03-13] MEDS: Carvedilol 25mg Tab ORAL SCH ×2 (00:57→09:42)
[2017-03-13] MEDS: Levemir Flexpen SUBQ SCH (01:00)
[2017-03-13] MEDS: NovoLOG Insulin Flexpen SUBQ SCH ×4 (01:01→17:08)
[2017-03-13 04:00] VITALS: BP 129/58
[2017-03-13] MEDS: DuoNeb 0.5-3(2.5)mg/3ml neb HHN SCH ×3 (07:30→19:11)
[2017-03-13 08:00] VITALS: BP 135/75
[2017-03-13] MEDS: Pantoprazole Inj IVP SCH (09:42)
[2017-03-13] MEDS: Tamsulosin 0.4mg cap ORAL SCH ×2 (09:42→17:17)
[2017-03-13] MEDS: Docusate 100mg/10ml Liq ORAL SCH ×2 (09:42→17:17)
--- NOTE | 2017-03-13 09:46 | General Progress Note ---
Assessment/Plan Status: stable Status Narrative patient discharged yesterday but sent back due to supra pubic cath !!!! Assessment/Plan Primary Impression: Altered level of consciousness : uremia and Hypoglycemia MILAN (acute kidney injury) --- urinary outlet obstruction RESOLVED UTI (urinary tract infection) HTN DM Psychosis Bladder tumore Plan: Dialysed 03/08, no need for further HD follow up renal parameters DC Jonnathan prior to DC. Mag and Phos supp as needed- More transfusion- monitor BS and adjust Insulin Keep BS and BP in check Monitor renal parameters Avoid Nephrotoxics Per orders Subjective ROS Limited/Unobtainable: No Constitutional: Reports: malaise, weakness Allergies: Coded Allergies: No Known Allergies (Unverified , 02/25/17) Objective Last 24 Hour Vital Signs Date Time Temp Pulse Resp B/P Pulse Ox O2 Delivery O2 Flow Rate FiO2 03/13/17 08:00 97.7 51 20 135/75 98 Nasal Cannula 4.0 03/13/17 07:30 Nasal Cannula 3.0 03/13/17 07:30 Nasal Cannula 3.0 03/13/17 07:30 98 Nasal Cannula 3.0 03/13/17 07:30 Nasal Cannula 3.0 03/13/17 04:00 97.9 52 20 129/58 99 Nasal Cannula 2.0 03/13/17 00:57 77 142/66 03/13/17 00:00 98.1 77 22 142/66 100 Nasal Cannula 2.0 03/12/17 19:20 81 20 100 Nasal Cannula 2.0 28 03/12/17 19:15 Nasal Cannula 3.0 32 03/12/17 19:10 98 Nasal Cannula 3.0 32 03/12/17 19:10 60 18 99 Nasal Cannula 3.0 32 03/12/17 16:09 97.0 67 20 149/69 99 Room Air 2.0 03/12/17 13:20 81 20 100 Nasal Cannula 3.0 32 03/12/17 13:20 80 18 99 Nasal Cannula 3.0 32 03/12/17 11:52 97.2 71 20 135/67 99 Nasal Cannula 2.0 Intake and Output 03/12/17 03/13/17 19:00 07:00 Intake Total 810 ml 150 ml Output Total 2500 ml 1500 ml Balance -1690 ml -1350 ml Intake Oral 360 ml IV Total 450 ml 150 ml Output Urine Total 2500 ml 1100 ml Other 400 ml Laboratory Tests 03/12/17 18:28: White Blood Count 10.1, Red Blood Count 2.73L, Hemoglobin 8.8L, Hematocrit 24.6L , Mean Corpuscular Volume 90, Mean Corpuscular Hemoglobin 32.1H, Mean Corpuscular Hemoglobin Concent 35.6, Red Cell Distribution Width 12.9, Platelet Count 129L, Mean Platelet Volume 6.5, Neutrophils (%) (Auto) 66.0, Lymphocytes ( %) (Auto) 25.0, Monocytes (%) (Auto) 4.6, Eosinophils (%) (Auto) 3.8H, Basophils (%) (Auto) 0.6 Height (Feet): 5 Height (Inches): 10.00 Weight (Pounds): 260 General Appearance: no apparent distress, lethargic Respiratory/Chest: decreased breath sounds Abdomen: soft Genitourinary/Rectal: other - supra pubic cath Objective other PE not changed JULIETA LEON Mar 13, 2017 09:46
[2017-03-13 11:05] LABS: BASOPHILS % (AUTO) 0.9 % (0.0-2.0); EOSINOPHILS % (AUTO) 5.7 % (0.0-3.0); LYMPHOCYTES % (AUTO) 24.1 % (20.0-45.0); MEAN CORPUSCULAR HEMOGLOBIN 30.1 PG (27.0-31.0); MEAN CORPUSCULAR HGB CONC 33.5 G/DL (32.0-36.0); MEAN CORPUSCULAR VOLUME 90 FL (80-99); MEAN PLATELET VOLUME 6.2 FL (6.5-10.1); MONOCYTES % (AUTO) 5.1 % (1.0-10.0); NEUTROPHILS % (AUTO) 64.2 % (45.0-75.0); PLATELET COUNT 155 K/UL (150-450); RED BLOOD COUNT 2.91 M/UL (4.70-6.10); RED CELL DISTRIBUTION WIDTH 13.1 % (11.6-14.8); WHITE BLOOD COUNT 9.3 K/UL (4.8-10.8)
[2017-03-13 11:22] LABS: ALANINE AMINOTRANSFERASE 14 U/L (3-41); ALBUMIN/GLOBULIN RATIO 0.8 (1.0-2.7); ANION GAP 12 (5-15); ASPARTATE AMINO TRANSFERASE 13 U/L (5-40); CALCIUM 8.8 mg/dL (8.6-10.2); CARBON DIOXIDE 27 mEQ/L (20-30); CHLORIDE 105 mEQ/L (98-107); CREATININE 1.6 mg/dL (0.7-1.2); CRP QUANT 4.6 mg/dL (< 0.5); HEMOLYSIS 4; MAGNESIUM 1.8 mg/dL (1.7-2.5); PHOSPHORUS 3.5 mg/dL (2.5-4.8); POTASSIUM 3.1 mEQ/L (3.4-4.9); SODIUM 144 mEQ/L (135-145); TOTAL PROTEIN 5.5 g/dL (6.6-8.7)
[2017-03-13 12:00] VITALS: BP 148/78
--- NOTE | 2017-03-13 15:55 | Pulmonology Progress Note ---
Assessment/Plan Problems: (1) Acute encephalopathy (2) Sepsis (3) ATN (acute tubular necrosis) (4) Hypoglycemia (5) Obstructive uropathy (6) CAD (coronary artery disease) (7) COPD (chronic obstructive pulmonary disease) Assessment/Plan improving mental status back to base line no need HD anymore abx , finishing one unit or prbc DC planning sliding scale urine is completely clear Subjective ROS Limited/Unobtainable: No Constitutional: Reports: no symptoms HEENT: Repors: no symptoms Allergies: Coded Allergies: No Known Allergies (Unverified , 02/25/17) Objective Last 24 Hour Vital Signs Date Time Temp Pulse Resp B/P Pulse Ox O2 Delivery O2 Flow Rate FiO2 03/13/17 13:44 76 20 98 Nasal Cannula 3.0 03/13/17 13:40 74 20 95 Nasal Cannula 3.0 03/13/17 12:00 97.5 75 20 148/78 94 Nasal Cannula 4.0 03/13/17 09:42 51 135/75 03/13/17 08:00 97.7 51 20 135/75 98 Nasal Cannula 4.0 03/13/17 07:30 Nasal Cannula 3.0 03/13/17 07:30 Nasal Cannula 3.0 03/13/17 07:30 98 Nasal Cannula 3.0 03/13/17 07:30 Nasal Cannula 3.0 03/13/17 04:00 97.9 52 20 129/58 99 Nasal Cannula 2.0 03/13/17 00:57 77 142/66 03/13/17 00:00 98.1 77 22 142/66 100 Nasal Cannula 2.0 03/12/17 19:20 81 20 100 Nasal Cannula 2.0 28 03/12/17 19:15 Nasal Cannula 3.0 32 03/12/17 19:10 98 Nasal Cannula 3.0 32 03/12/17 19:10 60 18 99 Nasal Cannula 3.0 32 03/12/17 16:09 97.0 67 20 149/69 99 Room Air 2.0 Intake and Output 03/12/17 03/13/17 19:00 07:00 Intake Total 810 ml 150 ml Output Total 2500 ml 1500 ml Balance -1690 ml -1350 ml Intake Oral 360 ml IV Total 450 ml 150 ml Output Urine Total 2500 ml 1100 ml Other 400 ml Objective General Appearance: WD/WN HEENT: normocephalic, atraumatic Respiratory/Chest: chest wall non-tender, lungs clear Cardiovascular: normal peripheral pulses, normal rate Abdomen: normal bowel sounds, soft, non tender Genitourinary: normal external genitalia Extremities: no cyanosis, edema Lymphatic: no neck adenopathy Laboratory Tests 03/12/17 18:28: White Blood Count 10.1, Red Blood Count 2.73L, Hemoglobin 8.8L, Hematocrit 24.6L , Mean Corpuscular Volume 90, Mean Corpuscular Hemoglobin 32.1H, Mean Corpuscular Hemoglobin Concent 35.6, Red Cell Distribution Width 12.9, Platelet Count 129L, Mean Platelet Volume 6.5, Neutrophils (%) (Auto) 66.0, Lymphocytes ( %) (Auto) 25.0, Monocytes (%) (Auto) 4.6, Eosinophils (%) (Auto) 3.8H, Basophils (%) (Auto) 0.6 03/13/17 10:50: White Blood Count 9.3, Red Blood Count 2.91L, Hemoglobin 8.8L, Hematocrit 26.2L , Mean Corpuscular Volume 90, Mean Corpuscular Hemoglobin 30.1, Mean Corpuscular Hemoglobin Concent 33.5, Red Cell Distribution Width 13.1, Platelet Count 155, Mean Platelet Volume 6.2L, Neutrophils (%) (Auto) 64.2, Lymphocytes ( %) (Auto) 24.1, Monocytes (%) (Auto) 5.1, Eosinophils (%) (Auto) 5.7H, Basophils (%) (Auto) 0.9, Sodium Level 144, Potassium Level 3.1L, Chloride Level 105, Carbon Dioxide Level 27, Anion Gap 12, Blood Urea Nitrogen 20, Creatinine 1.6H, Estimat Glomerular Filtration Rate , Glucose Level 176H, Calcium Level 8.8, Phosphorus Level 3.5, Magnesium Level 1.8, Total Bilirubin 0.3, Aspartate Amino Transf (AST/SGOT) 13, Alanine Aminotransferase (ALT/SGPT) 14, Alkaline Phosphatase 67, C-Reactive Protein, Quantitative 4.6H, Pro-B-Type Natriuretic Peptide 2230H, Total Protein 5.5L, Albumin 2.5L, Globulin 3.0, Albumin/Globulin Ratio 0.8L Current Medications Medications (Trade) Dose Ordered Sig/Fernando Route PRN Reason Start Time Stop Time Status Last Admin Dose Admin Acetaminophen (Tylenol) 650 mg Q4H PRN ORAL Mild Pain (Pain Scale 1-3) 03/11/17 18:00 04/10/17 17:59 Acetaminophen (Tylenol) 650 mg Q4H PRN ORAL T>100.5 03/11/17 18:00 04/10/17 17:59 Albuterol/ Ipratropium (DuoNeb 0.5-3(2.5)mg/3ml) 3 ml Q4H PRN HHN Shortness of Breath 03/11/17 18:00 03/16/17 17:59 Albuterol/ Ipratropium (DuoNeb 0.5-3(2.5)mg/3ml) 3 ml TIDRT HHN 03/11/17 19:00 03/16/17 18:59 03/13/17 13:40 Carvedilol (Coreg) 25 mg EVERY 12 HOURS ORAL 03/11/17 21:00 04/10/17 20:59 03/13/17 09:42 Clonidine HCl (Catapres) 0.1 mg Q4H PRN ORAL SBP>160 03/11/17 18:00 04/10/17 17:59 Clotrimazole (Lotrimin) 1 applic EVERY 12 HOURS TOPIC 03/11/17 23:00 04/10/17 22:59 03/13/17 09:00 Dextrose (Dextrose 50%) STAT PRN IV Hypoglycemia 03/11/17 18:00 04/10/17 17:59 Docusate Sodium (Colace) 100 mg BID ORAL 03/11/17 18:00 04/10/17 17:59 03/13/17 09:42 Gabapentin (Neurontin) 200 mg QHS ORAL 03/11/17 21:00 04/10/17 20:59 03/13/17 00:57 Insulin Aspart (NovoLOG) BEFORE MEALS AND HS SUBQ 03/11/17 21:00 04/10/17 20:59 03/13/17 11:36 Insulin Detemir (Levemir) 15 units BEDTIME SUBQ 03/11/17 21:00 04/10/17 20:59 03/13/17 01:00 Linezolid (Zyvox) 600 mg Q12HR ORAL 03/11/17 21:00 03/16/17 20:59 03/13/17 09:42 Ondansetron HCl (Zofran) 4 mg Q6H PRN IVP Nausea & Vomiting 03/11/17 18:00 04/10/17 17:59 Pantoprazole (Protonix) 40 mg DAILY IVP 03/12/17 09:00 04/11/17 08:59 03/13/17 09:42 Polyethylene Glycol (Miralax) 17 gm HSPRN PRN ORAL Constipation 03/11/17 18:00 04/10/17 17:59 Potassium Chloride (K-Dur) 40 meq ONCE ONCE ORAL 03/13/17 16:30 03/13/17 16:31 Quetiapine Fumarate (SEROquel) 25 mg BIDPRN PRN ORAL Agitation 03/11/17 18:00 04/10/17 17:59 Sevelamer Carbonate (Renvela) 800 mg TIAC ORAL 03/12/17 06:30 04/11/17 06:29 03/13/17 11:32 Sodium Chloride (Sodium Chloride 1000ml bag) 1,000 ml @ 50 mls/hr Q20H IV 03/11/17 18:00 04/10/17 17:59 03/13/17 03:47 Tamsulosin HCl (Flomax) 0.4 mg BID ORAL 03/11/17 18:00 04/10/17 17:59 03/13/17 09:42 Zolpidem Tartrate (Ambien) 5 mg HSPRN PRN ORAL Insomnia 03/11/17 21:00 04/10/17 20:59 JUSTO LEBLANC Mar 13, 2017 15:55
[2017-03-13 16:00] VITALS: BP 173/87
[2017-03-13 19:53] VITALS: BP 165/83
--- NOTE | 2017-03-14 22:00 | Progress Note ---
DATE: 03/13/2017 SUBJECTIVE: The patient continues to be easily agitated. He is responding to internal stimuli. The patient is not engaged during the evaluation. He is having disorganized speech and behavior. MENTAL STATUS EXAMINATION: The patient is alert and oriented x0. Mood is depressed. Affect is constricted. Congruent mood. Thought process is disorganized and there is a paucity of thought content. The patient is delusional. Insight and judgment is impaired. ASSESSMENT: Psychotic disorder. PLAN: 1. The patient will be continued on Seroquel. 2. We will continue to follow and readjust the medications. Ladarius Parry M.D. DR: TRACIE JOB#: [id number] CC:
--- NOTE | 2017-03-15 04:00 | Discharge Summary 2 SIG ---
DATE OF ADMISSION: 02/25/2017 DATE OF DISCHARGE: 03/13/2017 CONSULTANTS: 1. Jefry Dinero M.D. 2. Ladarius Parry M.D. 3. Heriberto Gallegos M.D. 4. Dileep Cao M.D. 5. Sheng Butler M.D. BRIEF HOSPITAL COURSE: The patient is a 71-year-old male, who presented to ED with altered level of consciousness. He has history of hypertension, anxiety, BPH, congestive heart failure, diabetes, and long term resident. His blood sugar was low and received D50 in the field. On evaluation at ED, urinalysis positive for urinary tract infection and nitrite was positive. He was pancultured. He was noted to have abdominal distention and on Melo insertion, 1700 of urine was collected. Serum creatinine was 10. EKG was normal sinus rhythm. X-ray showed cardiomegaly. He was admitted for further inpatient care and was followed by Dr. Butler. Acute kidney injury was due to urinary outlet obstruction. Renal ultrasound was negative for hydronephrosis with bilateral cysts. He was seen by Dr. Gallegos and was recommended to continue with Flomax. Urine output was monitored. He was started on IV vancomycin and Zosyn by Dr. Cao. Vancomycin was eventually switched to Zyvox. Creatinine continued to rise. He had insertion of non-tunneled dialysis catheter on 03/05/2017,he underwent hemodialysis the following day. Dr. Parry was consulted. The patient had waxing and waning of consciousness, confused, and disoriented. He was continued on Seroquel and Effexor was tapered down. The patient underwent cystoscopy with transurethral resection of prostate, irrigation of bladder, and placement of suprapubic tube. He was then placed on continuous bladder irrigation. He had an episode of less responsiveness. Dr Dinero was consulted. Head CT showed chronic age-related changes with old right basal ganglia lacunar infarct and negative for bleed or mass effect. Persistent lethargy and verbal unresponsiveness was due to underlying significant metabolic derangement in the setting of infection. The patient had unremarkable CAT scan of the brain and there was no evidence of ongoing seizure activities, no transient ischemic attack, and no evidence of acute stroke. He had an episode of anemia. Hemoglobin dropped to 6. He received a total of 6 units of packed RBC blood transfusion during inpatient stay. Acute renal failure, improved and there was no further need for hemodialysis. Hemodialysis catheter was removed. Urine culture showed growth of MRSA. Repeat urine was positive for Staph aureus and mixed gram-negative rods, which are contaminant. Mental status improved and went back to baseline. Bladder irrigation was discontinued. The patient was discharged to alf facility. However, the patient was sent back to the hospital due to the suprapubic catheter. Call was made to Dr. Gallegos, advised may clamp suprapubic catheter at [facility] if needed . The patient was then unable to accept patient back and was referred to different nursing homes and finally, the patient was accepted to [facility] to follow up with Dr. Gallegos in one month. FINAL DIAGNOSES: 1. Acute toxic metabolic encephalopathy, resolved. 2. Acute kidney injury secondary to urinary outlet obstruction, resolved. 3. Urinary tract infection. 4. Hypertension. 5. Diabetes mellitus. 6. Sepsis. 7. Acute tubular necrosis. 8. Hypoglycemia. 9. Obstructive uropathy. 10. Coronary artery disease. 11. Chronic obstructive pulmonary disease. 12. Delirium. 13. Depression. 14. Hematuria status post cystoscopy with transurethral resection of prostate and catheter placement. 15. Acute anemia requiring blood transfusion. 16. Old lacunar infarct. 17. Hyperlipidemia. Richard Curran M.D. I have been assigned to dictate discharge summary on this account and I was not involved in the patient's management. Allison Cunningham N.P. DR: RICCARDO JOB#: [id number] CC: CLAY
--- NOTE | 2017-03-19 15:48 | Diagnostic Imaging Report ---
Indications: Dysphagia Technique: Multiphasic barium dysphagia study was performed under fluoroscopic control with Lesley Dunlap speech pathologist. Cinegraphic images were obtained. Total fluoroscopy time: 247.9 sec Dose-area product: 0.45 mGy-m2 Findings: Comparison: None Oral and pharyngeal phases of swallowing demonstrate multiple mechanical abnormalities, as enumerated on speech pathology evaluation form. The patient demonstrates superficial laryngeal penetration of thin, nectar, honey, and pudding thickness barium without aspiration, ejected. There is moderate barium coating of pharyngeal structures after swallowing.. Esophageal phase of swallowing demonstrates barium pooling with retrograde propagation through the pharyngeal esophageal segment. IMPRESSION: Abnormal oropharyngeal mechanics with superficial laryngeal penetration of each consistency of barium tested, without aspiration Moderate post swallow pharyngeal residue Esophageal dysmotility with reversed peristalsis as described. Recommendation per speech pathology evaluation form.
== END 2017-03-13 20:20 | DRG 853 ==
LOC: EDBD 11:07 → EMR 11:25 → 2E 11:45 → EDBEDREQ 11:57 → 2W 14:47 → 4W 02-26 16:53 → 2W 03-07 15:43 → 4E 03-11 17:28 → UNDODISIN 03-12 19:30 → 4E 03-12 23:42
PROC: 05HM33Z Insertion of Infusion Device into Right Internal Jugular Vein, Percutaneous Approach (ICD-10-PCS; principal; 2017-03-05)
PROC: 5A1D60Z (ICD-10-PCS; principal; 2017-03-05)
PROC: 0T9B30Z Drainage of Bladder with Drainage Device, Percutaneous Approach (ICD-10-PCS; 2017-03-06)
PROC: 0TBB8ZX Excision of Bladder, Via Natural or Artificial Opening Endoscopic, Diagnostic (ICD-10-PCS; 2017-03-06)
PROC: 0VT08ZZ Resection of Prostate, Via Natural or Artificial Opening Endoscopic (ICD-10-PCS; 2017-03-06)
DX: A41.9 Sepsis, unspecified organism (principal); N17.0 Acute kidney failure with tubular necrosis; G92 Toxic encephalopathy; N39.0 Urinary tract infection, site not specified; N13.8 Other obstructive and reflux uropathy; I25.10 Atherosclerotic heart disease of native coronary artery without angina pectoris; J44.9 Chronic obstructive pulmonary disease, unspecified; F29 Unspecified psychosis not due to a substance or known physiological condition; E11.649 Type 2 diabetes mellitus with hypoglycemia without coma; F03.90 Unspecified dementia, unspecified severity, without behavioral disturbance, psychotic disturbance, mood disturbance, and anxiety; I11.0 Hypertensive heart disease with heart failure; I50.9 Heart failure, unspecified; N40.1 Benign prostatic hyperplasia with lower urinary tract symptoms; F41.8 Other specified anxiety disorders; E87.5 Hyperkalemia; B95.62 Methicillin resistant Staphylococcus aureus infection as the cause of diseases classified elsewhere; E78.5 Hyperlipidemia, unspecified; R31.9 Hematuria, unspecified; D64.9 Anemia, unspecified
CPT/HCPCS: 36415; 36569; 36600; 70450; 71010; 74230; 76775; 76937; 80048; 80053; 80061; 80202; 80300; 81001; 81003; 82270; 82378; 82436; 82533; 82550; 82553; 82607; 82728; 82746; 82803; 82962; 82977; 83036; 83540; 83550; 83615; 83735; 83880; 83930; 83935; 84100; 84133; 84300; 84439; 84443; 84481; 84484; 84550; 85007; 85025; 85044; 85060; 85610; 85651; 85730; 86140; 86850; 86900; 86901; 86920; 87040; 87081; 87086; 87181; 89050; 93005; 93306; 93970; 94003; 94150; 94640; 94664; 94760; J1815; J2250; J2405; J7620; J8499; S5561

== ENCOUNTER 2017-03-20 22:21 | Inpatient (IN) | payer MEDICARE, BC ==
[~2017-03-20] VITALS: Ht 165.1 cm; Wt 111.6 kg
[~2017-03-20 22:21] MED LIST: ACETAMINOP160 MG/54 ORAL; AGGRENOX1 CAP ORAL; AMBIEN5 MG ORAL; AMLODIPINE BESY10 MG ORAL; COLACE100 MG/10 ORAL; COREG12.5 MG ORAL; COREG25 MG ORAL; DUONEB 0.5-3(2.53 ML HHN; FLOMAX0.4 MG ORAL; FUROSEMIDE40 MG ORAL; GABAPENTIN100 MG ORAL; GLIPIZIDE5 MG ORAL; JANUVIA25 MG ORAL; KLONOPIN1 MG ORAL; LEVEMIR FL100 UNIT/1 SUBQ; LIPITOR20 MG ORAL; METOPROLOL SUCC50 MG ORAL; MIRALAX17 G2 ORAL; NOVOLIN R100 UNIT/1 SUBQ; NOVOLOG100 UNITS1 SUBQ; OXYBUTYNIN5 MG/5 M1 PO; PREVACID30 MG ORAL; SEROQUEL25 MG ORAL; VENLAFAXINE HCL25 MG ORAL; ZOFRAN4 M3 ORAL
[2017-03-20 22:30] VITALS: BP 85/49
[2017-03-20] MEDS ORDERED: Zolpidem 5mg tab ORAL PRN (22:45)
[2017-03-20] MEDS ORDERED: Miralax 17gm pkt ORAL PRN (22:45)
[2017-03-20] MEDS ORDERED: Mylanta II UD 30ml ORAL PRN (22:45)
[2017-03-20] MEDS ORDERED: LORazepam Inj 2mg/ml 1ml IV PRN (22:45)
[2017-03-20] MEDS ORDERED: Acetaminophen 650mg/20.3ml ORAL PRN (22:45)
[2017-03-20] MEDS ORDERED: Morphine Sulfate 2mg/ml Inj IVP PRN (22:45)
[2017-03-20 23:00] VITALS: BP 113/59
[2017-03-20] MEDS ORDERED: Amikacin Rx to dose MISC PRN (23:00)
[2017-03-20 23:26] LABS: MEAN CORPUSCULAR HEMOGLOBIN 31.6 PG (27.0-31.0); MEAN CORPUSCULAR VOLUME 90 FL (80-99); MEAN PLATELET VOLUME 5.9 FL (6.5-10.1); PLATELET COUNT 282 K/UL (150-450); RED BLOOD COUNT 2.39 M/UL (4.70-6.10); RED CELL DISTRIBUTION WIDTH 13.8 % (11.6-14.8); WHITE BLOOD COUNT 15.9 K/UL (4.8-10.8)
[2017-03-20 23:39] LABS: INR 1.1 (0.9-1.1); PROTHROMBIN TIME 11.6 SEC (9.30-11.50)
[2017-03-20 23:41] LABS: TROPONIN I < 0.30 ng/mL (<=0.30)
[2017-03-20 23:44] LABS: ALANINE AMINOTRANSFERASE 11 U/L (3-41); ALBUMIN/GLOBULIN RATIO 0.8 (1.0-2.7); ANION GAP 12 (5-15); ASPARTATE AMINO TRANSFERASE 11 U/L (5-40); CALCIUM 8.3 mg/dL (8.6-10.2); CARBON DIOXIDE 28 mEQ/L (20-30); CHLORIDE 98 mEQ/L (98-107); CREATININE 1.7 mg/dL (0.7-1.2); HEMOLYSIS 0; LIPASE 26 U/L (< 60); POTASSIUM 3.3 mEQ/L (3.4-4.9); SODIUM 138 mEQ/L (135-145); TOTAL PROTEIN 5.6 g/dL (6.6-8.7)
[2017-03-20] MEDS ORDERED: Vancomycin 1.5gm/D5W 300ml 325 ML IVPB ONE (23:45)
--- NOTE | 2017-03-20 23:48 | Emergency Room Report ---
History of Present Illness General Chief Complaint: Altered Mental Status Source: Patient Present Illness HPI [id number] sent from SNF for AMS and gross hematuria in Suprapubic catheter. No other info available from SNF or patient. ?dementia at baseline. No other family members available bedside. On review of meds no ASA or AC seen. Per EMR he did have gross hematuria after suprapubic placed on last admission. Allergies: Coded Allergies: No Known Allergies (Unverified , 02/25/17) Patient History Limited by: medical condition Past Medical History: see triage record, old chart reviewed Past Surgical History: unable to obtain Pertinent Family History: unable to obtain Social History: Denies: alcohol use, drug use, smoking Immunizations: UTD Reviewed Nursing Documentation: PMH: Agreed, PSxH: Agreed Nursing Documentation-PMH Hx Cardiac Problems: Yes - cad , pulm edema, NSVT Hx Hypertension: Yes Hx Asthma: Yes Hx COPD: Yes Hx Diabetes: Yes Hx Cancer: No Hx Gastrointestinal Problems: No Hx Neurological Problems: Yes Hx Cerebrovascular Accident: No Hx Seizures: No Review of Systems All Other Systems: limited - by AMS Physical Exam Vital Signs Date Time Temp Pulse Resp B/P Pulse Ox O2 Delivery O2 Flow Rate FiO2 03/20/17 22:22 56 24 69/40 99 Nasal Cannula 3.0 Sp02 EP Interpretation: reviewed, abnormal General Appearance: normal inspection, well appearing, no apparent distress, non-toxic Head: normocephalic, atraumatic Eyes: bilateral eye EOMI, bilateral eye PERRL ENT: normal ENT inspection, hearing grossly normal, normal voice Neck: normal inspection, full range of motion, supple, no bony tend Respiratory: normal inspection, lungs clear, normal breath sounds, no respiratory distress, no retraction, no wheezing Cardiovascular #1: regular rate, rhythm, no edema Gastrointestinal: normal inspection, normal bowel sounds, non tender, soft, no guarding, no hernia Genitourinary: no CVA tenderness, other - Noted suprapubic cath in place. No site cellulitis. Gross hematuria in bag. Musculoskeletal: normal inspection, back normal, normal range of motion, Maral' s Sign negative Neurologic: normal inspection, alert, responsive, protective services officer III-XII nml as tested, motor strength/tone normal, speech normal Skin: normal inspection, normal color, no rash Medical Decision Making Medicare Attestation I Jason Flores MD hereby attest that the medical record entry for date of service, 09/10/16 accurately reflects signatures/notations that I made in my capacity as MD when I treated/diagnosed the above listed Medicare beneficiary. I attest that this information is true, accurate and complete to the best of my knowledge. I understand that any falsification, omission, or concealment of material fact may subject me to administrative, civil, or criminal liability. This patient warrants hospital admission for extreme of age and has a condition that cannot be treated as outpatient. Diagnostic Impression: Primary Impression: Altered mental status Qualified Codes: R41.82 - Altered mental status, unspecified Additional Impressions: Hypotension Qualified Codes: I95.9 - Hypotension, unspecified Gross hematuria Hypokalemia CKD (chronic kidney disease) Qualified Codes: N18.9 - Chronic kidney disease, unspecified UTI (urinary tract infection) Qualified Codes: N30.01 - Acute cystitis with hematuria ER Course AMS - Possibly sepsis. Elevated leuks. Initial hypotension (responded to 1L IVF NS ) - CXR does not show lobar PNA - UA: grossly infected - Empiric Abx given. Blood, Urine Cx pending Gross hematuria - H&H 7.6/. Platelets normal. INR 1.1 - Could be caused by contributing UTI - Transfused 2U RBCs in ED Endorsed to Dr Curran for [facility] admit at 1115pm EKG Diagnostic Results Rate: normal, other - RBBB Rhythm: NSR ST Segments: other - V2-4 TWI Rhythm Strip Diag. Results EP Interpretation: yes Rate: 70 Rhythm: NSR, no PVC's, no ectopy Chest X-Ray Diagnostic Results Chest X-Ray Ordered: Yes # of Views/Limited/Complete: 1 View Interpretation: no consolidation, no effusion, no pneumothorax, no acute cardiopulmonary disease Indication: Other - suspected sepsis Impression: No acute disease Date Electronically Signed: Mar 20, 2017 Time Electronically Signed: 23:43 Interpreting ER Physician: Swapna Last Vital Signs Date Time Temp Pulse Resp B/P Pulse Ox O2 Delivery O2 Flow Rate FiO2 03/20/17 22:22 56 24 69/40 99 Nasal Cannula 3.0 Status: improved Disposition: ADMITTED INPATIENT Condition: Serious Referrals: JUSTO CURRAN (PCP) JASON FLORES M.D. Mar 20, 2017 23:48
[2017-03-21] MEDS ORDERED: KCl 10% 40mEq/30ml liquid ORAL ONE
[2017-03-21 00:05] VITALS: BP 115/60
[2017-03-21 00:29] LABS: KETONES,URINE NEGATIVE (NEGATIVE); LEUKOCYTE ESTERASE ,URINE 2+ (NEGATIVE); NITRITE,URINE NEGATIVE (NEGATIVE); PH,URINE 7 (4.5-8.0); PROTEIN,URINE 4+ (NEGATIVE); UROBILINOGEN,URINE NORMAL MG/DL (0.0-1.0)
[2017-03-21 00:36] LABS: APPEARANCE,URINE TURBID
[2017-03-21 00:43] LABS: BACTERIA,URINE FEW /HPF; RBC,URINE TNTC /HPF (0 - 0); WBC,URINE 40-60 /HPF (0 - 0)
[2017-03-21] MEDS ORDERED: Piperacillin/Tazobactam 3.375 GM in D5W 110 ML IVPB STA (01:06)
[2017-03-21 01:14] VITALS: BP 123/68
[2017-03-21] MEDS ORDERED: Zosyn 3.375gm inj ONE (01:32)
[2017-03-21] MEDS ORDERED: AMIKACIN IV SCH (02:00)
[2017-03-21] MEDS ORDERED: NS IV SCH (02:00)
[2017-03-21 02:40] VITALS: BP 123/62
[2017-03-21 02:50] VITALS: BP 105/58
[2017-03-21 04:00] VITALS: BP 134/91
[2017-03-21] MEDS ORDERED: Piperacillin/Tazobactam 3.375 GM in NS 110 ML IVPB SCH (06:00)
[2017-03-21] MEDS: NovoLOG Insulin Flexpen SUBQ SCH ×4 (06:30→21:19)
[2017-03-21] MEDS: Piperacillin/Tazobactam 3.375 GM in NS 110 ML IVPB SCH ×2 (09:00→17:00)
[2017-03-21] MEDS: Tamsulosin 0.4mg cap ORAL SCH (09:00)
[2017-03-21] MEDS: Carvedilol 12.5mg tab ORAL SCH ×2 (09:00→21:17)
[2017-03-21] MEDS ORDERED: Piperacillin/Tazobactam 3.375 GM in D5W 110 ML IVPB SCH (09:00)
--- NOTE | 2017-03-21 09:16 | Diagnostic Imaging Report ---
Indications: Shortness of breath Technique: Portable AP chest Findings: Comparison: 03/12/2017 Inspiratory effort has improved. Cardiac silhouette remains enlarged. Pulmonary vasculature remains within normal limits. Right upper lung calcified nodular density unchanged. Lungs and pleura remain otherwise clear. Multiple old, healed rib fractures again noted. Sternal wires, cardiac mediastinal surgical clips, bypass markers graft again noted. Hemodialysis catheter has been removed. IMPRESSION: No evidence of acute cardiopulmonary disease, unchanged Stable chronic changes as described Removal of hemodialysis catheter
[2017-03-21 09:35] LABS: MEAN CORPUSCULAR HEMOGLOBIN 30.9 PG (27.0-31.0); MEAN CORPUSCULAR HGB CONC 33.8 G/DL (32.0-36.0); MEAN CORPUSCULAR VOLUME 91 FL (80-99); MEAN PLATELET VOLUME 6.3 FL (6.5-10.1); PLATELET COUNT 271 K/UL (150-450); RED BLOOD COUNT 2.64 M/UL (4.70-6.10); RED CELL DISTRIBUTION WIDTH 14.4 % (11.6-14.8); WHITE BLOOD COUNT 19.2 K/UL (4.8-10.8)
[2017-03-21 10:14] LABS: ALANINE AMINOTRANSFERASE 11 U/L (3-41); ALBUMIN/GLOBULIN RATIO 0.8 (1.0-2.7); ANION GAP 14 (5-15); ASPARTATE AMINO TRANSFERASE 9 U/L (5-40); CALCIUM 8.3 mg/dL (8.6-10.2); CARBON DIOXIDE 28 mEQ/L (20-30); CHLORIDE 99 mEQ/L (98-107); CHOLESTEROL 143 mg/dL (< 200); CHOLESTEROL/HDL RATIO 4.6 (3.3-4.4); CREATININE 2.3 mg/dL (0.7-1.2); HEMOLYSIS 0; LDL CHOLESTEROL (CALC.) 80 mg/dL (60-99); POTASSIUM 3.7 mEQ/L (3.4-4.9); SODIUM 141 mEQ/L (135-145); TOTAL PROTEIN 5.7 g/dL (6.6-8.7)
[2017-03-21 10:25] LABS: ANISOCYTOSIS 1+; BAND NEUTROPHILS % (MANUAL) 0 % (0-8); BASOPHILS % (MANUAL) 0 % (0-2); EOSINOPHILS % (MANUAL) 0 % (0-3); HYPOCHROMASIA 1+; LYMPHOCYTES % (MANUAL) 9 % (20-45); NEUTROPHILS % (MANUAL) 82 % (45-75); PLATELET ESTIMATE ADEQUATE; PLATELET MORPHOLOGY NORMAL; POLYCHROMASIA 1+; TOTAL CELLS COUNTED 100
[2017-03-21 10:26] LABS: NUCLEATED RED BLOOD CELLS 1 /100 WBC
--- NOTE | 2017-03-21 12:04 | History and Physical ---
History of Present Illness General Date patient seen: Mar 21, 2017 Reason for Hospitalization: Altered Mental Status Present Illness HPI 71year old male with recent extended stay at [facility] with renal failure and urinary obstruction was sent from SNF for AMS and gross hematuria from Suprapubic catheter. Pt was obtunded and unable to give any history. He looks comfortable , he opens his eyes when questions asked but falls sleep without answering them. Allergies: Coded Allergies: No Known Allergies (Unverified , 02/25/17) Medication History Scheduled Amlodipine Besylate* (Amlodipine Besylate*), 10 MG ORAL DAILY, (Reported) Atorvastatin Calcium* (Lipitor*), 20 MG ORAL BEDTIME, (Reported) Carvedilol (Coreg), 12.5 MG ORAL EVERY 12 HOURS, (Reported) Carvedilol (Coreg), 25 MG ORAL EVERY 12 HOURS Clonazepam* (Klonopin*), 1 MG ORAL Q12HR, (Reported) Dipyridamole/Aspirin (Aggrenox 25 mg-200 mg Capsule), 1 CAP ORAL DAILY, ( Reported) Docusate Sodium (Docusate Sodium), 100 MG ORAL DAILY, (Reported) Furosemide* (Lasix*), 40 MG ORAL DAILY, (Reported) Gabapentin* (Gabapentin*), 200 MG ORAL HS, (Reported) Gabapentin* (Gabapentin*), 200 MG ORAL QHS Glipizide* (Glipizide*), 5 MG ORAL BIDAC, (Reported) Insulin Aspart (Novolog Flexpen), 0 UNITS SUBQ BEFORE MEALS AND HS Insulin Detemir (Levemir Flexpen), 15 UNITS SUBQ BEDTIME Insulin Regular, Human* (Novolin R*), 0 SUBQ .SLIDING SCALE, (Reported) Lansoprazole* (Prevacid*), 30 MG ORAL DAILY, (Reported) Metoprolol Succinate* (Metoprolol Succinate*), 50 MG ORAL DAILY, (Reported) Oxybutynin Chloride (Oxybutynin Chloride), 5 MG PO Q6HR, (Reported) Polyethylene Glycol 3350* (Miralax*), 17 GM ORAL DAILY, (Reported) Quetiapine Fumarate* (Seroquel*), 50 MG ORAL TWICE A DAY, (Reported) Sitagliptin* (Januvia*), 100 MG ORAL DAILY, (Reported) Tamsulosin HCl (Flomax), 0.4 MG ORAL DAILY, (Reported) Venlafaxine Hcl* (Effexor*), 150 MG ORAL BID, (Reported) Scheduled PRN Acetaminophen* (Acetaminophen*), 650 MG ORAL Q6H PRN for Mild Pain/Temp > 100.5, (Reported) Ipratropium/Albuterol Sulfate (DuoNeb 0.5-3(2.5)mg/3ml), 3 ML HHN Q4H PRN Ondansetron* (Zofran*), 4 MG ORAL Q6H PRN for Nausea & Vomiting, (Reported) Quetiapine Fumarate* (Seroquel*), 25 MG ORAL BIDPRN PRN Zolpidem Tartrate* (Ambien*), 5 MG ORAL HSPRN PRN Patient History Healthcare decision maker Resuscitation status Full Code Advanced Directive on File No Past Medical/Surgical History Past Medical/Surgical History: (1) CKD (chronic kidney disease) (2) NSVT (nonsustained ventricular tachycardia) (3) COPD (chronic obstructive pulmonary disease) (4) CAD (coronary artery disease) (5) Diabetes mellitus Review of Systems All Other Systems: negative except mentioned in HPI Physical Exam General Appearance: WD/WN, no apparent distress Lines, tubes and drains: peripheral HEENT: normocephalic, atraumatic Neck: non-tender, normal alignment, supple Respiratory/Chest: chest wall non-tender, lungs clear Cardiovascular/Chest: normal peripheral pulses, normal rate Abdomen: normal bowel sounds Genitourinary/Rectal: normal genital exam Extremities: normal range of motion Skin Exam: normal pigmentation Neurologic: client consultant II-XII grossly normal Last 24 Hour Vital Signs Date Time Temp Pulse Resp B/P Pulse Ox O2 Delivery O2 Flow Rate FiO2 03/21/17 08:00 73 03/21/17 07:30 99.3 03/21/17 04:00 98.1 92 24 134/91 99 Nasal Cannula 2.0 03/21/17 04:00 78 03/21/17 02:53 98.5 72 20 105/58 100 Nasal Cannula 2.0 80 03/21/17 02:50 98.5 80 20 105/58 100 Nasal Cannula 2.0 03/21/17 02:49 98.5 80 20 03/21/17 02:40 98.0 81 20 123/62 100 Nasal Cannula 2.0 03/21/17 02:38 98.0 81 20 03/21/17 01:14 98.5 72 16 123/68 99 Nasal Cannula 4.0 03/21/17 00:05 98.5 68 16 115/60 99 Nasal Cannula 4.0 03/20/17 23:00 98.5 70 18 113/59 99 Nasal Cannula 4.0 03/20/17 22:30 98.5 68 28 85/49 99 Non-Rebreather 15.0 03/20/17 22:22 56 24 69/40 99 Nasal Cannula 3.0 Intake and Output 03/20/17 03/21/17 19:00 07:00 Intake Total 1685 ml Output Total 550 ml Balance 1135 ml Intake IV Total 1435 ml Blood Product 250 ml Output Urine Total 550 ml Laboratory Tests Test 03/20/17 23:05 03/21/17 00:05 03/21/17 08:50 White Blood Count 15.9 K/UL (4.8-10.8) H 19.2 K/UL (4.8-10.8) H Red Blood Count 2.39 M/UL (4.70-6.10) L 2.64 M/UL (4.70-6.10) L Hemoglobin 7.6 G/DL (14.2-18.0) L 8.2 G/DL (14.2-18.0) L Hematocrit 21.6 % (42.0-52.0) L 24.1 % (42.0-52.0) L Mean Corpuscular Volume 90 FL (80-99) 91 FL (80-99) Mean Corpuscular Hemoglobin 31.6 PG (27.0-31.0) H 30.9 PG (27.0-31.0) Mean Corpuscular Hemoglobin Concent 35.0 G/DL (32.0-36.0) 33.8 G/DL (32.0-36.0) Red Cell Distribution Width 13.8 % (11.6-14.8) 14.4 % (11.6-14.8) Platelet Count 282 K/UL (150-450) 271 K/UL (150-450) Mean Platelet Volume 5.9 FL (6.5-10.1) L 6.3 FL (6.5-10.1) L Neutrophils (%) (Auto) % (45.0-75.0) % (45.0-75.0) Lymphocytes (%) (Auto) % (20.0-45.0) % (20.0-45.0) Monocytes (%) (Auto) % (1.0-10.0) % (1.0-10.0) Eosinophils (%) (Auto) % (0.0-3.0) % (0.0-3.0) Basophils (%) (Auto) % (0.0-2.0) % (0.0-2.0) Prothrombin Time 11.6 SEC (9.30-11.50) H Prothromb Time International Ratio 1.1 (0.9-1.1) Activated Partial Thromboplast Time 28 SEC (23-33) Sodium Level 138 mEQ/L (135-145) 141 mEQ/L (135-145) Potassium Level 3.3 mEQ/L (3.4-4.9) L 3.7 mEQ/L (3.4-4.9) Chloride Level 98 mEQ/L (98-107) 99 mEQ/L (98-107) Carbon Dioxide Level 28 mEQ/L (20-30) 28 mEQ/L (20-30) Anion Gap 12 (5-15) 14 (5-15) Blood Urea Nitrogen 13 mg/dL (7-23) 14 mg/dL (7-23) Creatinine 1.7 mg/dL (0.7-1.2) H 2.3 mg/dL (0.7-1.2) H Estimat Glomerular Filtration Rate mL/min (>60) mL/min (>60) Glucose Level 220 mg/dL (74-106) H 183 mg/dL (74-106) H Calcium Level 8.3 mg/dL (8.6-10.2) L 8.3 mg/dL (8.6-10.2) L Total Bilirubin 0.2 mg/dL (0.0-1.2) 0.3 mg/dL (0.0-1.2) Aspartate Amino Transf (AST/SGOT) 11 U/L (5-40) 9 U/L (5-40) Alanine Aminotransferase (ALT/SGPT) 11 U/L (3-41) 11 U/L (3-41) Alkaline Phosphatase 77 U/L (40-129) 76 U/L (40-129) Troponin I < 0.30 ng/mL (<=0.30) Total Protein 5.6 g/dL (6.6-8.7) L 5.7 g/dL (6.6-8.7) L Albumin 2.5 g/dL (3.5-5.2) L 2.6 g/dL (3.5-5.2) L Globulin 3.1 g/dL 3.1 g/dL Albumin/Globulin Ratio 0.8 (1.0-2.7) L 0.8 (1.0-2.7) L Lipase 26 U/L (< 60) Urine Color Red Urine Appearance Turbid Urine pH 7 (4.5-8.0) Urine Specific [place] 1.010 (1.005-1.035) Urine Protein 4+ (NEGATIVE) H Urine Glucose (UA) Negative (NEGATIVE) Urine Ketones Negative (NEGATIVE) Urine Occult Blood 5+ (NEGATIVE) H Urine Nitrite Negative (NEGATIVE) Urine Bilirubin Negative (NEGATIVE) Urine Urobilinogen Normal MG/DL (0.0-1.0) Urine Leukocyte Esterase 2+ (NEGATIVE) H Urine RBC Tntc /HPF (0 - 0) H Urine WBC 40-60 /HPF (0 - 0) H Urine Squamous Epithelial Cells None /LPF (NONE/OCC) Urine Bacteria Few /HPF (NONE) Differential Total Cells Counted 100 Neutrophils % (Manual) 82 % (45-75) H Lymphocytes % (Manual) 9 % (20-45) L Monocytes % (Manual) 9 % (1-10) Eosinophils % (Manual) 0 % (0-3) Basophils % (Manual) 0 % (0-2) Band Neutrophils 0 % (0-8) Nucleated Red Blood Cells 1 /100 WBC Platelet Estimate Adequate Platelet Morphology Normal Polychromasia 1+ Hypochromasia 1+ Anisocytosis 1+ Triglycerides Level 162 mg/dL (< 150) H Cholesterol Level 143 mg/dL (< 200) LDL Cholesterol 80 mg/dL (60-99) HDL Cholesterol 31 mg/dL (> 60) Cholesterol/HDL Ratio 4.6 (3.3-4.4) H Thyroid Stimulating Hormone (TSH) 1.580 uIU/mL (0.300-4.500) Height (Feet): 5 Height (Inches): 6.00 Weight (Pounds): 246 Medications Current Medications Medications (Trade) Dose Ordered Sig/Fernando Route PRN Reason Start Time Stop Time Status Last Admin Dose Admin Acetaminophen (Tylenol) 650 mg Q4H PRN ORAL fever 03/20/17 22:45 04/19/17 22:44 Acetaminophen (Tylenol) 650 mg Q6H PRN ORAL Mild Pain/Temp > 100.5 03/20/17 22:45 04/19/17 22:44 03/21/17 06:04 Al Hydroxide/Mg Hydroxide (Mylanta II) 30 ml Q6H PRN ORAL dyspepsia 03/20/17 22:45 04/19/17 22:44 Amikacin Protocol (Amikacin pharmacy to dose) 1 ea DAILY PRN MISC Per rx protocol 03/20/17 23:00 04/19/17 22:59 Amikacin Sulfate 1500 mg/Sodium Chloride 281 ml @ 281 mls/hr Q48H IV 03/21/17 02:00 03/28/17 01:59 Amlodipine Besylate (Norvasc) 10 mg DAILY ORAL 03/21/17 09:00 04/20/17 08:59 Carvedilol (Coreg) 12.5 mg EVERY 12 HOURS ORAL 03/21/17 09:00 04/20/17 08:59 Clonazepam (KlonoPIN) 1 mg Q12HR ORAL 03/21/17 09:00 03/28/17 08:59 Dextrose (Dextrose 50%) STAT PRN IV Hypoglycemia 03/20/17 22:45 04/19/17 22:44 Dextrose (Dextrose 50%) STAT PRN IV Hypoglycemia 03/20/17 22:45 04/19/17 22:44 Gabapentin (Neurontin) 200 mg EVERY 6 HOURS ORAL 03/21/17 00:00 04/20/17 00:00 Gabapentin (Neurontin) 200 mg QHS ORAL 03/21/17 21:00 04/20/17 20:59 Insulin Aspart (NovoLOG) BEFORE MEALS AND HS SUBQ 03/21/17 06:30 04/20/17 06:29 Lorazepam (Ativan 2mg/ml 1ml) 0.5 mg Q4H PRN IV For Anxiety 03/20/17 22:45 03/27/17 22:44 Morphine Sulfate (Morphine Sulfate) 1 mg EVERY 4 HOURS PRN IVP For Pain 03/20/17 22:45 03/27/17 22:44 Ondansetron HCl (Zofran) 4 mg Q6H PRN IVP Nausea & Vomiting 03/20/17 22:45 04/19/17 22:44 Piperacillin Sod/ Tazobactam Sod 3.375 gm/Sodium Chloride 110 ml @ 27.5 mls/hr Q8HR@0100,0900,1700 IVPB 03/21/17 09:00 03/28/17 08:59 03/21/17 09:00 Polyethylene Glycol (Miralax) 17 gm HSPRN PRN ORAL Constipation 03/20/17 22:45 04/19/17 22:44 Quetiapine Fumarate (SEROquel) 25 mg BEDTIME ORAL 03/21/17 21:00 04/20/17 20:59 Sodium Chloride 1,000 ml @ 150 mls/hr Q6H40M IV 03/20/17 23:00 04/19/17 22:59 03/21/17 07:00 Tamsulosin HCl (Flomax) 0.4 mg DAILY ORAL 03/21/17 09:00 04/20/17 08:59 Vancomycin HCl 1 ea 1 ea DAILY PRN MISC Per rx protocol 03/20/17 23:00 04/19/17 22:59 Vancomycin HCl/ Dextrose (Vancomycin/D5W) 325 ml @ 162.5 mls/ hr Q24H IVPB 03/21/17 23:00 03/26/17 22:59 Zolpidem Tartrate (Ambien) 5 mg HSPRN PRN ORAL Insomnia 03/20/17 22:45 04/19/17 22:44 Assessment/Plan Problem List: (1) Gross hematuria ICD Codes: R31.0 - Gross hematuria SNOMED: 538741704 (2) Acute encephalopathy ICD Codes: G93.40 - Encephalopathy, unspecified SNOMED: 0389192 (3) ATN (acute tubular necrosis) ICD Codes: N17.0 - Acute kidney failure with tubular necrosis SNOMED: 65876184 (4) Sepsis ICD Codes: A41.9 - Sepsis, unspecified organism SNOMED: 75813530 (5) Diabetes mellitus ICD Codes: E11.9 - Type 2 diabetes mellitus without complications SNOMED: 88951871 (6) COPD (chronic obstructive pulmonary disease) ICD Codes: J44.9 - Chronic obstructive pulmonary disease, unspecified SNOMED: 02300358 Assessment/Plan prbc prn iv fluids teli/maria victoria monitoring [place] cultures IV antibiotics dvt prophylaxis Renal/ Urology evaluation JUSTO LEBLANC Mar 21, 2017 12:04
[2017-03-21] MEDS ORDERED: Amikacin 1,200 MG in NS 275 ML IV ONE (18:30)
[2017-03-21 19:47] VITALS: BP 151/69
[2017-03-21] MEDS ORDERED: Vancomycin 1.5gm/D5W 300ml 325 ML IVPB SCH (23:00)
[2017-03-21] MEDS: Vancomycin 1.5 GM in D5W 325 ML IVPB SCH (23:20)
[2017-03-22] VITALS (7 sets, daily range): BP systolic 95–154; BP diastolic 48–76
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
[2017-03-22] MEDS: Piperacillin/Tazobactam 3.375 GM in NS 110 ML IVPB SCH ×3 (00:39→16:57)
[2017-03-22] MEDS: NovoLOG Insulin Flexpen SUBQ SCH ×4 (06:16→21:02)
[2017-03-22 07:03] LABS: ANION GAP 15 (5-15); CALCIUM 7.7 mg/dL (8.6-10.2); CARBON DIOXIDE 25 mEQ/L (20-30); CHLORIDE 100 mEQ/L (98-107); CREATININE 2.4 mg/dL (0.7-1.2); HEMOLYSIS 2; POTASSIUM 3.3 mEQ/L (3.4-4.9); SODIUM 140 mEQ/L (135-145)
[2017-03-22 07:12] LABS: MEAN CORPUSCULAR HEMOGLOBIN 31.1 PG (27.0-31.0); MEAN CORPUSCULAR HGB CONC 33.7 G/DL (32.0-36.0); MEAN CORPUSCULAR VOLUME 92 FL (80-99); MEAN PLATELET VOLUME 6.4 FL (6.5-10.1); PLATELET COUNT 239 K/UL (150-450); RED BLOOD COUNT 2.48 M/UL (4.70-6.10); RED CELL DISTRIBUTION WIDTH 13.9 % (11.6-14.8); WHITE BLOOD COUNT 13.6 K/UL (4.8-10.8)
[2017-03-22] MEDS: Carvedilol 12.5mg tab ORAL SCH ×3 (08:40→20:45)
[2017-03-22] MEDS: Tamsulosin 0.4mg cap ORAL SCH ×2 (08:42→08:48)
[2017-03-22 09:04] LABS: BAND NEUTROPHILS % (MANUAL) 0 % (0-8); BASOPHILS % (MANUAL) 0 % (0-2); EOSINOPHILS % (MANUAL) 3 % (0-3); HYPOCHROMASIA 1+; LYMPHOCYTES % (MANUAL) 16 % (20-45); NEUTROPHILS % (MANUAL) 72 % (45-75); PLATELET ESTIMATE ADEQUATE; PLATELET MORPHOLOGY NORMAL; TOTAL CELLS COUNTED 100
--- NOTE | 2017-03-22 09:26 | Pulmonology Progress Note ---
Assessment/Plan Problems: (1) Gross hematuria (2) Acute encephalopathy (3) ATN (acute tubular necrosis) (4) Sepsis (5) Diabetes mellitus (6) COPD (chronic obstructive pulmonary disease) Assessment/Plan frequent flushing check h/h transfuse prbc prn / renal evaluation continue iv fluids Subjective ROS Limited/Unobtainable: No Allergies: Coded Allergies: No Known Allergies (Unverified , 02/25/17) Objective Last 24 Hour Vital Signs Date Time Temp Pulse Resp B/P Pulse Ox O2 Delivery O2 Flow Rate FiO2 03/22/17 08:48 60 111/57 03/22/17 08:48 60 111/57 03/22/17 08:26 98.1 60 20 111/57 100 Nasal Cannula 2.0 03/22/17 04:00 64 03/22/17 03:53 97.9 66 20 125/71 93 Nasal Cannula 2.0 03/22/17 01:00 61 102/58 96 Nasal Cannula 2.0 03/22/17 00:00 61 03/22/17 00:00 97.7 64 20 95/48 93 Room Air 03/21/17 21:17 64 118/51 03/21/17 20:00 68 03/21/17 19:47 96.8 76 20 151/69 98 03/21/17 16:00 66 03/21/17 12:00 67 Intake and Output 03/21/17 03/22/17 19:00 07:00 Intake Total 2020 ml 2135.0 ml Output Total 350 ml 200 ml Balance 1670 ml 1935.0 ml Intake Oral 720 ml 500 ml IV Total 1050 ml 1635.0 ml Blood Product 250 ml Output Urine Total 350 ml 200 ml # Bowel Movements 1 2 Objective General Appearance: WD/WN HEENT: normocephalic, atraumatic Respiratory/Chest: chest wall non-tender, lungs clear Abdomen: normal bowel sounds, soft, non tender Genitourinary: normal external genitalia Extremities: no cyanosis Skin: no rash Microbiology Date/Time Source Procedure Growth Status 03/20/17 23:20 Blood Blood Culture - Preliminary NO GROWTH AFTER 24 HOURS Resulted 03/20/17 23:10 Blood Blood Culture - Preliminary NO GROWTH AFTER 24 HOURS Resulted 03/21/17 00:05 Urine,Clean Catch Urine Culture - Preliminary Gram Negative Bacillus 1 Resulted Laboratory Tests 03/21/17 14:20: Amikacin Level Trough < 0.8L 03/22/17 06:20: White Blood Count 13.6H, Red Blood Count 2.48L, Hemoglobin 7.7L, Hematocrit 22.9L, Mean Corpuscular Volume 92, Mean Corpuscular Hemoglobin 31.1H, Mean Corpuscular Hemoglobin Concent 33.7, Red Cell Distribution Width 13.9, Platelet Count 239, Mean Platelet Volume 6.4L, Neutrophils (%) (Auto) , Lymphocytes (%) ( Auto) , Monocytes (%) (Auto) , Eosinophils (%) (Auto) , Basophils (%) (Auto) , Differential Total Cells Counted 100, Neutrophils % (Manual) 72, Lymphocytes % ( Manual) 16L, Monocytes % (Manual) 9, Eosinophils % (Manual) 3, Basophils % ( Manual) 0, Band Neutrophils 0, Platelet Estimate Adequate, Platelet Morphology Normal, Hypochromasia 1+, Sodium Level 140, Potassium Level 3.3L, Chloride Level 100, Carbon Dioxide Level 25, Anion Gap 15, Blood Urea Nitrogen 18, Creatinine 2.4H, Estimat Glomerular Filtration Rate , Glucose Level 126H, Calcium Level 7.7L, Random Amikacin Level 24.7 Current Medications Medications (Trade) Dose Ordered Sig/Fernando Route PRN Reason Start Time Stop Time Status Last Admin Dose Admin Acetaminophen (Tylenol) 650 mg Q4H PRN ORAL fever 03/20/17 22:45 04/19/17 22:44 Acetaminophen (Tylenol) 650 mg Q6H PRN ORAL Mild Pain/Temp > 100.5 03/20/17 22:45 04/19/17 22:44 03/21/17 06:04 Al Hydroxide/Mg Hydroxide (Mylanta II) 30 ml Q6H PRN ORAL dyspepsia 03/20/17 22:45 04/19/17 22:44 Amikacin Protocol (Amikacin pharmacy to dose) 1 ea DAILY PRN MISC Per rx protocol 03/20/17 23:00 04/19/17 22:59 Amlodipine Besylate (Norvasc) 10 mg DAILY ORAL 03/21/17 09:00 04/20/17 08:59 Carvedilol (Coreg) 12.5 mg EVERY 12 HOURS ORAL 03/21/17 09:00 7/15/17 08:59 03/21/17 21:17 Clonazepam (KlonoPIN) 1 mg Q12HR ORAL 03/21/17 09:00 03/28/17 08:59 03/21/17 21:18 Clotrimazole (Lotrimin) 1 applic EVERY 12 HOURS TOPIC 03/22/17 09:00 04/21/17 08:59 03/22/17 08:42 Dextrose (Dextrose 50%) STAT PRN IV Hypoglycemia 03/20/17 22:45 04/19/17 22:44 Dextrose (Dextrose 50%) STAT PRN IV Hypoglycemia 03/20/17 22:45 04/19/17 22:44 Gabapentin (Neurontin) 200 mg EVERY 6 HOURS ORAL 03/21/17 00:00 04/20/17 00:00 03/22/17 06:15 Gabapentin (Neurontin) 200 mg QHS ORAL 03/21/17 21:00 04/20/17 20:59 03/21/17 21:17 Insulin Aspart (NovoLOG) BEFORE MEALS AND HS SUBQ 03/21/17 06:30 04/20/17 06:29 03/22/17 06:16 Lorazepam (Ativan 2mg/ml 1ml) 0.5 mg Q4H PRN IV For Anxiety 03/20/17 22:45 03/27/17 22:44 Morphine Sulfate (Morphine Sulfate) 1 mg EVERY 4 HOURS PRN IVP For Pain 03/20/17 22:45 03/27/17 22:44 Ondansetron HCl (Zofran) 4 mg Q6H PRN IVP Nausea & Vomiting 03/20/17 22:45 04/19/17 22:44 Piperacillin Sod/ Tazobactam Sod 3.375 gm/Sodium Chloride 110 ml @ 27.5 mls/hr Q8HR@0100,0900,1700 IVPB 03/21/17 09:00 03/28/17 08:59 03/22/17 08:16 Polyethylene Glycol (Miralax) 17 gm HSPRN PRN ORAL Constipation 03/20/17 22:45 04/19/17 22:44 Quetiapine Fumarate (SEROquel) 25 mg BEDTIME ORAL 03/21/17 21:00 04/20/17 20:59 03/21/17 21:18 Sodium Chloride 1,000 ml @ 150 mls/hr Q6H40M IV 03/20/17 23:00 04/19/17 22:59 03/22/17 06:15 Tamsulosin HCl (Flomax) 0.4 mg DAILY ORAL 03/21/17 09:00 04/20/17 08:59 Vancomycin HCl 1 ea 1 ea DAILY PRN MISC Per rx protocol 03/20/17 23:00 04/19/17 22:59 Vancomycin HCl/ Dextrose (Vancomycin/D5W) 325 ml @ 162.5 mls/ hr Q24H IVPB 03/21/17 23:00 03/26/17 22:59 03/21/17 23:20 Zolpidem Tartrate (Ambien) 5 mg HSPRN PRN ORAL Insomnia 03/20/17 22:45 04/19/17 22:44 JUSTO LEBLANC Mar 22, 2017 09:26
--- NOTE | 2017-03-22 12:31 | Diagnostic Imaging Report ---
Indications: Elevated renal function tests Technique: Transabdominal real-time grayscale and duplex Doppler imaging of the kidneys, retroperitoneum, and urinary bladder was performed Findings: Comparison: 02/25/2017 Right kidney measures 11.2 cm in length. Normal contour, echotexture, cortical thickness. No stones, other focal lesions, hydronephrosis, or obvious perinephric abnormalities. Left kidney measures 11.4 cm in length. Normal contour, echotexture, cortical thickness. No stones, other focal lesions, hydronephrosis, or obvious perinephric abnormalities. The intrahepatic portion of inferior vena cava is not visualized. The urinary bladder is collapsed, contains balloons of both Melo and suprapubic catheters. IMPRESSION: Sonographically unremarkable kidneys, unchanged Nonvisualization of IVC Urinary bladder collapsed
--- NOTE | 2017-03-22 19:00 | Consultation ---
DATE OF CONSULTATION: 03/22/2017 REASON FOR CONSULTATION: Gross hematuria and clot retention. HISTORY OF PRESENT ILLNESS: The patient is well known to me, who was discharged from the hospital less than a month ago and underwent bladder fulguration, bladder biopsy and prostate fulguration, and suprapubic tube placement. He finally did well after procedure and his urine cleared. He was taken out the CVICU. His blood counts stabilized and he was discharged to the care home with a Melo catheter and the suprapubic tube. He was readmitted yesterday with gross hematuria and clot retention and I was asked by Dr. Curran to re-evaluate the patient. He is not responsive and I cannot defuse review of symptoms. PHYSICAL EXAMINATION: VITAL SIGNS: He is afebrile. ABDOMEN: His abdomen is slightly distended and tender in the suprapubic area. GENITOURINARY: Scrotal exam is normal. Melo catheter and suprapubic tube were clotted. LABORATORY AND DIAGNOSTIC DATA: His laboratory data and radiology data was reviewed and he is currently awaiting another blood transfusion. His last hemoglobin yesterday after the blood was 8.2. ASSESSMENT: 1. Gross hematuria and clot retention. 2. History of retention and chronic urinary tract infection. PROCEDURE: Bladder was copiously irrigated with 10 liters of normal saline. Old Melo catheter was removed. A new #26 three-way Melo catheter was placed. After a 10 liters of irrigation, all the clots were evacuated and clear urine was starting to express. There was no more clots. Ultrasound was done at the bedside showing no evidence of resembling clots in the bladder. Suprapubic tube as well irrigated, cleaned and re-dressed, also patent and clear. The patient was started on continuous bladder irrigation. He will receive IV antibiotics per ID and I will follow him with you. Thank you. Heriberto Gallegos M.D. DR: OLU JOB#: [id number] CC:
[2017-03-22] MEDS: Vancomycin 1.5 GM in D5W 325 ML IVPB SCH ×2 (22:07→23:52)
[2017-03-23] VITALS: BP 145/67
[2017-03-23] MEDS: Piperacillin/Tazobactam 3.375 GM in NS 110 ML IVPB SCH ×3 (01:12→16:28)
[2017-03-23 04:00] VITALS: BP 125/48
[2017-03-23 05:12] LABS: MEAN CORPUSCULAR HEMOGLOBIN 32.6 PG (27.0-31.0); MEAN CORPUSCULAR HGB CONC 35.3 G/DL (32.0-36.0); MEAN CORPUSCULAR VOLUME 92 FL (80-99); MEAN PLATELET VOLUME 6.6 FL (6.5-10.1); PLATELET COUNT 206 K/UL (150-450); RED BLOOD COUNT 2.42 M/UL (4.70-6.10); RED CELL DISTRIBUTION WIDTH 13.4 % (11.6-14.8); WHITE BLOOD COUNT 10.4 K/UL (4.8-10.8)
[2017-03-23] MEDS: NovoLOG Insulin Flexpen SUBQ SCH ×4 (06:28→21:28)
[2017-03-23 08:00] VITALS: BP 121/63
[2017-03-23] MEDS: Tamsulosin 0.4mg cap ORAL SCH ×2 (09:00→09:51)
[2017-03-23] MEDS: Carvedilol 12.5mg tab ORAL SCH (09:00)
[2017-03-23] MEDS ORDERED: D5W 275ml ONE (09:32)
[2017-03-23] MEDS ORDERED: Tubing Blood Filter IV ONE (09:34)
[2017-03-23] MEDS ORDERED: Tubing IV Secondary IV ONE ×2 (09:34→09:39)
[2017-03-23] MEDS ORDERED: NS Irrig 1000ml ONE (09:34)
[2017-03-23] MEDS ORDERED: NS Irrig 4000ml IRRIG ONE ×2 (09:34→09:39)
[2017-03-23] MEDS ORDERED: Sterile Water Irrig 1000ml IRRIG ONE (09:34)
[2017-03-23] MEDS ORDERED: NS 275ml ONE ×2 (09:34→09:39)
[2017-03-23 12:00] VITALS: BP 121/74
[2017-03-23] MEDS ORDERED: LORazepam Inj 2mg/ml 1ml IV PRN (14:00)
[2017-03-23] MEDS ORDERED: Amikacin Rx to dose MISC PRN (14:00)
[2017-03-23 16:00] VITALS: BP 148/73
[2017-03-23] MEDS ORDERED: Mylanta II UD 30ml ORAL PRN (16:00)
[2017-03-23] MEDS ORDERED: Acetaminophen 650mg/20.3ml ORAL PRN (16:00)
--- NOTE | 2017-03-23 16:01 | Pulmonology Progress Note ---
Assessment/Plan Assessment/Plan ASSESSMENT gross hematuria acute encephalopathy ARF on CKD possible sepsis leukocytosis UTI DM COPD anemia s/p blood transfusion HTN hypokalemia-repleted recent hx of TURP PLAN OF CARE [place] status IVF abx urine cx + GNB, blood cx preliminary negative urology follows , bladder was copiously irrigated with total of 10 L of fluid with evacuation of all blood clots old Fc was dc and new 3 w Melo was inserted, s/p catheter was irrigated as well , patent CBI urine clear, no further clots, no hematuria monitor HH, transfuse prn anemia wup renal US negative O2 HHN prn CXR negative Venous Duplex BLE with acute DVT RLE SFV and popliteal vein no a/coagulation in lieu of anemia plan IVC filter next week BP management with BB and CCB BS management with SS of insulin pain management bowel regimen patient was initially hypotensive but responded to IVF case discussed and evaluated by supervising physician Subjective Allergies: Coded Allergies: No Known Allergies (Unverified , 02/25/17) Subjective leukocytosis resolved, afebrile, remains anemic, at baseline K-3.3 Objective Last 24 Hour Vital Signs Date Time Temp Pulse Resp B/P Pulse Ox O2 Delivery O2 Flow Rate FiO2 03/23/17 12:00 97.5 51 18 121/74 99 Nasal Cannula 2.0 03/23/17 09:00 51 121/63 03/23/17 09:00 51 121/63 03/23/17 08:00 97.7 52 20 121/63 99 Nasal Cannula 2.0 03/23/17 08:00 51 03/23/17 04:00 97.5 55 20 125/48 100 Nasal Cannula 2.3 03/23/17 04:00 62 03/23/17 00:00 98.1 53 20 145/67 99 Nasal Cannula 2.3 03/23/17 00:00 55 03/22/17 22:30 97.9 03/22/17 20:45 65 154/76 03/22/17 20:12 97.9 65 18 154/76 98 Nasal Cannula 2.3 03/22/17 20:09 61 03/22/17 16:00 51 03/22/17 16:00 97.5 51 20 132/63 99 Nasal Cannula 2.0 Intake and Output 03/22/17 03/23/17 19:00 07:00 Intake Total 1365.0 ml 2055.0 ml Output Total 200 ml 1200 ml Balance 1165.0 ml 855.0 ml IV Total 1365.0 ml 2055.0 ml Output Urine Total 200 ml 1200 ml # Bowel Movements 2 General Appearance: no acute distress, other - somnolent HEENT: normocephalic, atraumatic, other - O2 via NC Respiratory/Chest: lungs clear - decreased BS , no accessory muscle use Cardiovascular: normal rate, regular rhythm Abdomen: normal bowel sounds, soft, non tender - mild distemtion Genitourinary: other - Melo with clear urine with CBO , s/p catheter Extremities: other - +2 edema BLE Neurologic/Psychiatric: abnormal gait, other - somnolent, open eyes spontaneously Musculoskeletal: atrophy - BLE Microbiology Date/Time Source Procedure Growth Status 03/20/17 23:20 Blood Blood Culture - Preliminary NO GROWTH AFTER 24 HOURS Resulted 03/20/17 23:10 Blood Blood Culture - Preliminary NO GROWTH AFTER 24 HOURS Resulted 03/21/17 00:05 Urine,Clean Catch Urine Culture - Preliminary Gram Negative Bacillus 1 Resulted 03/21/17 00:00 Rectum VRE Culture - Final Enterococcus Faecalis - Vre Complete Laboratory Tests 03/22/17 22:15: Vancomycin Level Trough 11.9 03/23/17 03:50: White Blood Count 10.4, Red Blood Count 2.42L, Hemoglobin 7.9L, Hematocrit 22.3L , Mean Corpuscular Volume 92, Mean Corpuscular Hemoglobin 32.6H, Mean Corpuscular Hemoglobin Concent 35.3, Red Cell Distribution Width 13.4, Platelet Count 206, Mean Platelet Volume 6.6, Neutrophils (%) (Auto) , Lymphocytes (%) ( Auto) , Monocytes (%) (Auto) , Eosinophils (%) (Auto) , Basophils (%) (Auto) Current Medications Medications (Trade) Dose Ordered Sig/Fernando Route PRN Reason Start Time Stop Time Status Last Admin Dose Admin Acetaminophen (Tylenol) 650 mg Q4H PRN ORAL fever 03/23/17 14:00 04/22/17 13:59 Acetaminophen (Tylenol) 650 mg Q6H PRN ORAL Mild Pain/Temp > 100.5 03/23/17 16:00 04/22/17 15:59 Al Hydroxide/Mg Hydroxide (Mylanta II) 30 ml Q6H PRN ORAL dyspepsia 03/23/17 16:00 04/22/17 15:59 Amikacin Protocol (Amikacin pharmacy to dose) 1 ea DAILY PRN MISC Per rx protocol 03/23/17 14:00 04/22/17 13:59 Amikacin Sulfate 1000 mg/Sodium Chloride 114 ml @ 220 mls/hr Q48H IV 03/23/17 18:00 03/30/17 17:59 Amlodipine Besylate (Norvasc) 10 mg DAILY ORAL 03/24/17 09:00 04/23/17 08:59 Carvedilol (Coreg) 12.5 mg EVERY 12 HOURS ORAL 03/23/17 21:00 04/22/17 20:59 Clonazepam (KlonoPIN) 1 mg Q12HR ORAL 03/23/17 21:00 03/30/17 20:59 Clotrimazole (Lotrimin) 1 applic EVERY 12 HOURS TOPIC 03/23/17 21:00 04/22/17 20:59 Dextrose (Dextrose 50%) STAT PRN IV Hypoglycemia 03/23/17 13:00 04/22/17 12:59 Gabapentin (Neurontin) 200 mg EVERY 6 HOURS ORAL 03/23/17 18:00 04/22/17 17:59 Gabapentin (Neurontin) 200 mg QHS ORAL 03/23/17 21:00 04/22/17 20:59 Insulin Aspart (NovoLOG) BEFORE MEALS AND HS SUBQ 03/23/17 16:30 04/22/17 16:29 Lorazepam (Ativan 2mg/ml 1ml) 0.5 mg Q4H PRN IV For Anxiety 03/23/17 14:00 03/30/17 13:59 Morphine Sulfate (Morphine Sulfate) 1 mg EVERY 4 HOURS PRN IVP For Pain 03/23/17 13:00 03/30/17 12:59 Ondansetron HCl (Zofran) 4 mg Q6H PRN IVP Nausea & Vomiting 03/23/17 16:00 04/22/17 15:59 Piperacillin Sod/ Tazobactam Sod 3.375 gm/Sodium Chloride 110 ml @ 27.5 mls/hr Q8HR@0100,0900,1700 IVPB 03/23/17 17:00 03/30/17 16:59 Polyethylene Glycol (Miralax) 17 gm HSPRN PRN ORAL Constipation 03/23/17 21:00 04/22/17 20:59 Quetiapine Fumarate (SEROquel) 25 mg BEDTIME ORAL 03/23/17 21:00 04/22/17 20:59 Sodium Chloride 1,000 ml @ 150 mls/hr Q6H40M IV 03/23/17 13:00 04/22/17 12:59 03/23/17 14:00 Tamsulosin HCl (Flomax) 0.4 mg DAILY ORAL 03/24/17 09:00 04/23/17 08:59 Vancomycin HCl (Vanco rx to dose) 1 ea DAILY PRN MISC Per rx protocol 03/23/17 14:00 04/22/17 13:59 Vancomycin HCl/ Dextrose (Vancomycin/D5W) 325 ml @ 162.5 mls/ hr Q24H IVPB 03/23/17 23:00 03/28/17 22:59 Zolpidem Tartrate (Ambien) 5 mg HSPRN PRN ORAL Insomnia 03/23/17 21:00 04/22/17 20:59 Willie (Elle)Lani NP Mar 23, 2017 16:01
[2017-03-23] MEDS: Morphine Sulfate 2mg/ml Inj IVP PRN ×2 (16:26→21:56)
--- NOTE | 2017-03-23 16:37 | Consultation ---
Consult Note Consult Note HPI [id number] sent from SNF for AMS and gross hematuria in Suprapubic catheter. No other info available from SNF or patient. ?dementia at baseline. No other family members available bedside. On review of meds no ASA or AC seen. Per EMR he did have gross hematuria after suprapubic placed on last admission. Hx Cardiac Problems: Yes - cad , pulm edema, NSVT Hx Hypertension: Yes Hx Asthma: Yes Hx COPD: Yes Hx Diabetes: Yes Hx Cancer: No Hx Gastrointestinal Problems: No Hx Neurological Problems: Yes Hx Cerebrovascular Accident: No Hx Seizures: No Assessment/Plan MILAN (acute kidney injury) --- urinary outlet obstruction RESOLVED On Vanco and Amikacin UTI (urinary tract infection) HTN DM Psychosis Bladder tumor and suprapubic catheter Plan: previous dialysed and then stopped follow up renal parameters Mag and Phos supp as needed- More transfusion- as needed monitor BS and adjust Insulin Keep BS and BP in check Monitor renal parameters Avoid Nephrotoxics Per orders JULIETA LEON Mar 23, 2017 16:37
[2017-03-23] MEDS ORDERED: Amikacin 1,000 MG in NS 110 ML IV SCH ×4 (18:00)
[2017-03-23 20:00] VITALS: BP 172/83
[2017-03-23] MEDS ORDERED: Haloperidol 5mg/ml Inj IM PRN (20:00)
[2017-03-23] MEDS ORDERED: Zolpidem 5mg tab ORAL PRN (21:00)
[2017-03-23] MEDS ORDERED: Carvedilol 12.5mg tab ORAL SCH (21:00)
[2017-03-23] MEDS ORDERED: Miralax 17gm pkt ORAL PRN (21:00)
[2017-03-23] MEDS: Carvedilol 6.25mg Tab ORAL SCH (21:27)
[2017-03-23] MEDS ORDERED: Vancomycin 1.5 GM in D5W 325 ML IVPB SCH (23:00)
[2017-03-24] VITALS: BP 132/63
[2017-03-24] MEDS: Piperacillin/Tazobactam 3.375 GM in NS 110 ML IVPB SCH ×2 (02:24→09:02)
[2017-03-24 04:00] VITALS: BP 130/65
[2017-03-24] MEDS: HydrALAZINE 25mg tab ORAL SCH ×3 (06:24→22:19)
[2017-03-24] MEDS: NovoLOG Insulin Flexpen SUBQ SCH ×4 (06:25→20:49)
[2017-03-24 07:15] LABS: ANION GAP 11 (5-15); CALCIUM 8.1 mg/dL (8.6-10.2); CARBON DIOXIDE 24 mEQ/L (20-30); CHLORIDE 107 mEQ/L (98-107); CREATININE 1.4 mg/dL (0.7-1.2); HEMOLYSIS 5; POTASSIUM 3.6 mEQ/L (3.4-4.9); SODIUM 142 mEQ/L (135-145)
[2017-03-24 07:19] LABS: BASOPHILS % (AUTO) 1.6 % (0.0-2.0); EOSINOPHILS % (AUTO) 5.5 % (0.0-3.0); LYMPHOCYTES % (AUTO) 24.6 % (20.0-45.0); MEAN CORPUSCULAR HEMOGLOBIN 31.4 PG (27.0-31.0); MEAN CORPUSCULAR HGB CONC 34.1 G/DL (32.0-36.0); MEAN CORPUSCULAR VOLUME 92 FL (80-99); MEAN PLATELET VOLUME 6.3 FL (6.5-10.1); MONOCYTES % (AUTO) 8.3 % (1.0-10.0); PLATELET COUNT 231 K/UL (150-450); RED BLOOD COUNT 2.77 M/UL (4.70-6.10); RED CELL DISTRIBUTION WIDTH 13.8 % (11.6-14.8)
[2017-03-24 08:00] VITALS: BP 142/80
[2017-03-24] MEDS ORDERED: Tamsulosin 0.4mg cap ORAL SCH (09:00)
[2017-03-24] MEDS: Carvedilol 6.25mg Tab ORAL SCH ×2 (09:05→20:42)
--- NOTE | 2017-03-24 10:44 | Pulmonology Progress Note ---
Assessment/Plan Assessment/Plan ASSESSMENT gross hematuria acute encephalopathy ARF on CKD possible sepsis leukocytosis UTI DM COPD anemia s/p blood transfusion HTN hypokalemia-repleted recent hx of TURP PLAN OF CARE tele IVF urine cx + Citrobacter, Dorothy, blood cx preliminary negative abx, change to Cipro only urology follows , bladder was copiously irrigated with total of 10 L of fluid with evacuation of all blood clots old Fc was dc and new 3 w Melo was inserted, s/p catheter was irrigated as well , patent CBI urine clear, no further clots, no hematuria monitor HH, transfuse prn anemia wup renal US negative O2 HHN prn CXR negative Venous Duplex BLE with acute DVT RLE SFV and popliteal vein no a/coagulation in lieu of anemia plan IVC filter next week BP management with BB and CCB BS management with SS of insulin pain management bowel regimen patient was initially hypotensive but responded to IVF case discussed and evaluated by supervising physician Subjective Allergies: Coded Allergies: No Known Allergies (Unverified , 02/25/17) Subjective leukocytosis resolved, afebrile, remains anemic, at baseline, HH with small trend up to 8.7/25.5 creat down to 1.4 no hematuria Objective Last 24 Hour Vital Signs Date Time Temp Pulse Resp B/P Pulse Ox O2 Delivery O2 Flow Rate FiO2 03/24/17 09:05 59 142/80 03/24/17 08:00 97.5 62 20 142/80 97 Nasal Cannula 2.0 03/24/17 06:24 145/74 03/24/17 04:00 58 03/24/17 04:00 97.3 70 20 130/65 97 Nasal Cannula 2.0 03/24/17 00:00 69 03/24/17 00:00 97.9 60 20 132/63 92 Nasal Cannula 2.0 03/23/17 21:27 66 158/95 03/23/17 20:00 97.5 67 20 172/83 99 Nasal Cannula 2.0 03/23/17 20:00 68 03/23/17 16:56 98.9 03/23/17 16:00 98.9 66 17 148/73 96 Nasal Cannula 2.0 03/23/17 16:00 66 03/23/17 12:00 97.5 51 18 121/74 99 Nasal Cannula 2.0 03/23/17 12:00 53 Intake and Output 03/23/17 03/24/17 19:00 07:00 Intake Total 737.5 ml 435.0 ml Output Total 1000 ml Balance 737.5 ml -565.0 ml IV Total 737.5 ml 435.0 ml Output Urine Total 1000 ml Objective General Appearance: no acute distress, other - somnolent HEENT: normocephalic, atraumatic, other - O2 via NC Respiratory/Chest: lungs clear - decreased BS , no accessory muscle use Cardiovascular: normal rate, regular rhythm Abdomen: normal bowel sounds, soft, non tender - mild distemtion Genitourinary: other - Melo with clear urine with CBO , s/p catheter Extremities: other - +2 edema BLE Neurologic/Psychiatric: abnormal gait, other - somnolent, open eyes spontaneously Musculoskeletal: atrophy - BLE Laboratory Tests 03/24/17 05:30: White Blood Count 8.0, Red Blood Count 2.77L, Hemoglobin 8.7L, Hematocrit 25.5L , Mean Corpuscular Volume 92, Mean Corpuscular Hemoglobin 31.4H, Mean Corpuscular Hemoglobin Concent 34.1, Red Cell Distribution Width 13.8, Platelet Count 231, Mean Platelet Volume 6.3L, Neutrophils (%) (Auto) 60.0, Lymphocytes ( %) (Auto) 24.6, Monocytes (%) (Auto) 8.3, Eosinophils (%) (Auto) 5.5H, Basophils (%) (Auto) 1.6, Sodium Level 142, Potassium Level 3.6, Chloride Level 107, Carbon Dioxide Level 24, Anion Gap 11, Blood Urea Nitrogen 10, Creatinine 1.4H, Estimat Glomerular Filtration Rate , Glucose Level 126H, Calcium Level 8.1L Current Medications Medications (Trade) Dose Ordered Sig/Fernando Route PRN Reason Start Time Stop Time Status Last Admin Dose Admin Acetaminophen (Tylenol) 650 mg Q4H PRN ORAL fever 03/23/17 14:00 04/22/17 13:59 Acetaminophen (Tylenol) 650 mg Q6H PRN ORAL Mild Pain/Temp > 100.5 03/23/17 16:00 04/22/17 15:59 Amikacin Protocol (Amikacin pharmacy to dose) 1 ea DAILY PRN MISC Per rx protocol 03/23/17 14:00 04/22/17 13:59 Amikacin Sulfate 1000 mg/Sodium Chloride 114 ml @ 220 mls/hr Q48H IV 03/23/17 18:00 03/30/17 17:59 03/23/17 18:15 Carvedilol (Coreg) 6.25 mg EVERY 12 HOURS ORAL 03/23/17 21:00 04/22/17 20:59 03/24/17 09:05 Clonazepam (KlonoPIN) 1 mg Q12HR ORAL 03/23/17 21:00 03/30/17 20:59 03/24/17 08:59 Clotrimazole (Lotrimin) 1 applic EVERY 12 HOURS TOPIC 03/23/17 21:00 04/22/17 20:59 03/24/17 09:12 Dextrose (Dextrose 50%) STAT PRN IV Hypoglycemia 03/23/17 13:00 04/22/17 12:59 Gabapentin (Neurontin) 200 mg EVERY 6 HOURS ORAL 03/23/17 18:00 04/22/17 17:59 03/24/17 06:23 Gabapentin (Neurontin) 200 mg QHS ORAL 03/23/17 21:00 04/22/17 20:59 03/23/17 21:27 Haloperidol Lactate (Haldol) 5 mg Q4H PRN IM Agitation 03/23/17 20:00 04/22/17 19:59 Hydralazine HCl (Apresoline) 25 mg Q8HR ORAL 03/24/17 06:00 04/23/17 05:59 03/24/17 06:24 Insulin Aspart (NovoLOG) BEFORE MEALS AND HS SUBQ 03/23/17 16:30 04/22/17 16:29 03/24/17 06:25 Lorazepam (Ativan 2mg/ml 1ml) 0.5 mg Q4H PRN IV For Anxiety 03/23/17 14:00 03/30/17 13:59 03/23/17 18:01 Morphine Sulfate (Morphine Sulfate) 1 mg EVERY 4 HOURS PRN IVP For Pain 03/23/17 13:00 03/30/17 12:59 03/23/17 21:56 Ondansetron HCl (Zofran) 4 mg Q6H PRN IVP Nausea & Vomiting 03/23/17 16:00 04/22/17 15:59 Piperacillin Sod/ Tazobactam Sod 3.375 gm/Sodium Chloride 110 ml @ 27.5 mls/hr Q8HR@0100,0900,1700 IVPB 03/23/17 17:00 03/30/17 16:59 03/24/17 09:02 Polyethylene Glycol (Miralax) 17 gm HSPRN PRN ORAL Constipation 03/23/17 21:00 04/22/17 20:59 Quetiapine Fumarate (SEROquel) 25 mg BEDTIME ORAL 03/23/17 21:00 04/22/17 20:59 03/23/17 21:26 Sodium Chloride 1,000 ml @ 150 mls/hr Q6H40M IV 03/23/17 13:00 04/22/17 12:59 03/24/17 06:29 Tamsulosin HCl (Flomax) 0.4 mg DAILY ORAL 03/24/17 09:00 04/23/17 08:59 03/24/17 09:02 Vancomycin HCl (Vanco rx to dose) 1 ea DAILY PRN MISC Per rx protocol 03/23/17 14:00 04/22/17 13:59 Vancomycin HCl/ Dextrose (Vancomycin/D5W) 325 ml @ 162.5 mls/ hr Q24H IVPB 03/23/17 23:00 03/28/17 22:59 03/23/17 23:35 Zolpidem Tartrate (Ambien) 5 mg HSPRN PRN ORAL Insomnia 03/23/17 21:00 04/22/17 20:59 Willie Sauer)Lani NP Mar 24, 2017 10:44
[2017-03-24] MEDS ORDERED: Tubing Blood Filter IV ONE (11:29)
[2017-03-24] MEDS ORDERED: NS Irrig 4000ml IRRIG ONE (11:29)
[2017-03-24 12:00] VITALS: BP 132/66
[2017-03-24] MEDS ORDERED: Cipro 400mg/D5W 200ml IV ONE (13:00)
[2017-03-24 16:00] VITALS: BP 146/76
[2017-03-24] MEDS ORDERED: Tubing IV Secondary IV ONE (16:02)
[2017-03-24] MEDS ORDERED: NS Irrig 2000ml IRRIG ONE (16:02)
[2017-03-24] MEDS: Morphine Sulfate 2mg/ml Inj IVP PRN (17:49)
[2017-03-24 20:01] VITALS: BP 176/87
--- NOTE | 2017-03-24 21:14 | General Progress Note ---
Assessment/Plan Status: doing well, stable Status Narrative Cr down 1.4 Assessment/Plan MILAN (acute kidney injury) --- h/o urinary outlet obstruction ....RESOLVED On Vanco and Amikacin UTI (urinary tract infection) HTN DM Psychosis Bladder tumor and suprapubic catheter Anemia Plan: previous dialysed and then stopped follow up renal parameters Mag and Phos supp as needed- More transfusion- as needed monitor BS and adjust Insulin Keep BS and BP in check Monitor renal parameters Avoid Nephrotoxics- Monitor H&H Per orders Subjective ROS Limited/Unobtainable: No Constitutional: Reports: malaise Allergies: Coded Allergies: No Known Allergies (Unverified , 02/25/17) Objective Last 24 Hour Vital Signs Date Time Temp Pulse Resp B/P Pulse Ox O2 Delivery O2 Flow Rate FiO2 03/24/17 20:42 80 176/87 03/24/17 20:01 98.2 80 18 176/87 98 Room Air 03/24/17 16:00 73 03/24/17 16:00 98.1 71 20 146/76 95 Nasal Cannula 2.0 03/24/17 15:10 146/76 03/24/17 12:00 98.1 60 20 132/66 92 Nasal Cannula 2.0 03/24/17 12:00 61 03/24/17 09:05 59 142/80 03/24/17 08:00 97.5 62 20 142/80 97 Nasal Cannula 2.0 03/24/17 08:00 62 03/24/17 06:24 145/74 03/24/17 04:00 58 03/24/17 04:00 97.3 70 20 130/65 97 Nasal Cannula 2.0 03/24/17 00:00 69 03/24/17 00:00 97.9 60 20 132/63 92 Nasal Cannula 2.0 03/23/17 21:27 66 158/95 Intake and Output 03/23/17 03/24/17 19:00 07:00 Intake Total 737.5 ml 435.0 ml Output Total 1000 ml Balance 737.5 ml -565.0 ml IV Total 737.5 ml 435.0 ml Output Urine Total 1000 ml Laboratory Tests 03/24/17 05:30: White Blood Count 8.0, Red Blood Count 2.77L, Hemoglobin 8.7L, Hematocrit 25.5L , Mean Corpuscular Volume 92, Mean Corpuscular Hemoglobin 31.4H, Mean Corpuscular Hemoglobin Concent 34.1, Red Cell Distribution Width 13.8, Platelet Count 231, Mean Platelet Volume 6.3L, Neutrophils (%) (Auto) 60.0, Lymphocytes ( %) (Auto) 24.6, Monocytes (%) (Auto) 8.3, Eosinophils (%) (Auto) 5.5H, Basophils (%) (Auto) 1.6, Sodium Level 142, Potassium Level 3.6, Chloride Level 107, Carbon Dioxide Level 24, Anion Gap 11, Blood Urea Nitrogen 10, Creatinine 1.4H, Estimat Glomerular Filtration Rate , Glucose Level 126H, Calcium Level 8.1L Height (Feet): 5 Height (Inches): 6.00 Weight (Pounds): 246 General Appearance: no apparent distress Respiratory/Chest: decreased breath sounds Abdomen: soft Genitourinary/Rectal: other - supre pubic cath Objective other PE not changed JULIETA LEON Mar 24, 2017 21:14
[2017-03-24] MEDS ORDERED: [UNRECOGNIZED DRUG - OTHER] IV SCH (23:00)
[2017-03-24] MEDS ORDERED: CIPRO IV SCH (23:00)
[2017-03-25] VITALS (12 sets, daily range): BP systolic 133–175; BP diastolic 70–89
[2017-03-25] MEDS ORDERED: LORazepam Inj 2mg/ml 1ml IV PRN (02:00)
[2017-03-25] MEDS ORDERED: Acetaminophen 650mg/20.3ml ORAL PRN (04:00)
[2017-03-25] MEDS ORDERED: Haloperidol 5mg/ml Inj IM PRN (04:00)
[2017-03-25] MEDS: HydrALAZINE 25mg tab ORAL SCH ×3 (05:43→22:28)
[2017-03-25] MEDS: NovoLOG Insulin Flexpen SUBQ SCH ×4 (06:30→22:36)
[2017-03-25 06:57] LABS: BASOPHILS % (AUTO) 2.1 % (0.0-2.0); LYMPHOCYTES % (AUTO) 33.3 % (20.0-45.0); MEAN CORPUSCULAR HGB CONC 33.6 G/DL (32.0-36.0); MEAN CORPUSCULAR VOLUME 92 FL (80-99); MEAN PLATELET VOLUME 6.6 FL (6.5-10.1); MONOCYTES % (AUTO) 9.4 % (1.0-10.0); NEUTROPHILS % (AUTO) 50.2 % (45.0-75.0); PLATELET COUNT 236 K/UL (150-450); RED BLOOD COUNT 2.66 M/UL (4.70-6.10); RED CELL DISTRIBUTION WIDTH 14.1 % (11.6-14.8); WHITE BLOOD COUNT 7.1 K/UL (4.8-10.8)
[2017-03-25 06:59] LABS: ANION GAP 12 (5-15); CARBON DIOXIDE 23 mEQ/L (20-30); CHLORIDE 108 mEQ/L (98-107); CREATININE 1.4 mg/dL (0.7-1.2); HEMOLYSIS 3; POTASSIUM 3.4 mEQ/L (3.4-4.9); SODIUM 143 mEQ/L (135-145)
[2017-03-25] MEDS ORDERED: Amikacin Rx to dose MISC PRN (09:00)
[2017-03-25] MEDS: Tamsulosin 0.4mg cap ORAL SCH (09:23)
[2017-03-25] MEDS: Carvedilol 6.25mg Tab ORAL SCH ×2 (09:23→22:27)
--- NOTE | 2017-03-25 11:13 | General Progress Note ---
Assessment/Plan Status: stable - from renal stand Status Narrative Cr 1.4 Assessment/Plan MILAN (acute kidney injury) --- h/o urinary outlet obstruction ....RESOLVED On Vanco and Amikacin UTI (urinary tract infection) HTN DM Psychosis Bladder tumor and suprapubic catheter Anemia Plan: previous dialysed and then stopped follow up renal parameters Mag and Phos supp as needed- More transfusion- as needed monitor BS and adjust Insulin Keep BS and BP in check Monitor renal parameters Avoid Nephrotoxics- Monitor H&H Per orders Subjective ROS Limited/Unobtainable: No Allergies: Coded Allergies: No Known Allergies (Unverified , 02/25/17) Objective Last 24 Hour Vital Signs Date Time Temp Pulse Resp B/P Pulse Ox O2 Delivery O2 Flow Rate FiO2 03/25/17 09:23 63 165/89 03/25/17 08:00 98.2 63 20 165/89 97 Nasal Cannula 2.0 03/25/17 05:43 139/76 03/25/17 04:00 97.7 64 18 133/70 100 Nasal Cannula 2.0 03/25/17 00:00 98.3 74 18 136/71 98 Nasal Cannula 2.0 03/24/17 22:19 176/87 03/24/17 20:42 80 176/87 03/24/17 20:01 98.2 80 18 176/87 98 Room Air 03/24/17 20:00 67 03/24/17 16:00 73 03/24/17 16:00 98.1 71 20 146/76 95 Nasal Cannula 2.0 03/24/17 15:10 146/76 03/24/17 12:00 98.1 60 20 132/66 92 Nasal Cannula 2.0 03/24/17 12:00 61 Intake and Output 03/24/17 03/25/17 19:00 07:00 Intake Total 960.0 ml 1220 ml Output Total 5300 ml 7025 ml Balance -4340.0 ml -5805 ml Intake Oral 200 ml 120 ml IV Total 760.0 ml 600 ml Other 500 ml Output Urine Total 5300 ml 7025 ml # Bowel Movements 1 2 Laboratory Tests 03/25/17 05:10: White Blood Count 7.1, Red Blood Count 2.66L, Hemoglobin 8.2L, Hematocrit 24.5L , Mean Corpuscular Volume 92, Mean Corpuscular Hemoglobin 31.0, Mean Corpuscular Hemoglobin Concent 33.6, Red Cell Distribution Width 14.1, Platelet Count 236, Mean Platelet Volume 6.6, Neutrophils (%) (Auto) 50.2, Lymphocytes (% ) (Auto) 33.3, Monocytes (%) (Auto) 9.4, Eosinophils (%) (Auto) 5.0H, Basophils (%) (Auto) 2.1H, Sodium Level 143, Potassium Level 3.4, Chloride Level 108H, Carbon Dioxide Level 23, Anion Gap 12, Blood Urea Nitrogen 8, Creatinine 1.4H, Estimat Glomerular Filtration Rate , Glucose Level 117H, Calcium Level 8.0L Height (Feet): 5 Height (Inches): 6.00 Weight (Pounds): 246 General Appearance: no apparent distress Abdomen: soft Genitourinary/Rectal: other - supra pubic Objective other PE not changed JULIETA LEON Mar 25, 2017 11:13
[2017-03-25] MEDS ORDERED: Lidocaine 1% Plain 30 ml INJ PRN (12:45)
[2017-03-25] MEDS ORDERED: Heparin 2000 units/Ns 1000ml INJ PRN (12:45)
[2017-03-25] MEDS ORDERED: Sodium Bicarbonate 4% 2.4meq/5ml vial INJ PRN (12:45)
[2017-03-25] MEDS: Dyna-Hex 2% Top Sol 8oz TOPIC SCH (14:00)
[2017-03-25] MEDS ORDERED: Amikacin 1,000 MG in NS 110 ML IV SCH (18:00)
--- NOTE | 2017-03-25 18:47 | Pulmonology Progress Note ---
Assessment/Plan Problems: (1) Gross hematuria (2) Acute encephalopathy (3) Sepsis (4) DVT (deep venous thrombosis) (5) COPD (chronic obstructive pulmonary disease) (6) Diabetes mellitus (7) ATN (acute tubular necrosis) Assessment/Plan improving creatinine decreasing prbc prn s/p ivc filter dc planning Subjective ROS Limited/Unobtainable: No Interval Events: comfortable Allergies: Coded Allergies: No Known Allergies (Unverified , 02/25/17) Objective Last 24 Hour Vital Signs Date Time Temp Pulse Resp B/P Pulse Ox O2 Delivery O2 Flow Rate FiO2 03/25/17 17:46 174/83 03/25/17 16:05 62 20 174/83 98 Nasal Cannula 2.0 03/25/17 16:00 55 17 168/85 100 Nasal Cannula 2.0 03/25/17 15:55 60 19 175/85 100 Nasal Cannula 2.0 03/25/17 15:50 65 17 172/87 100 Nasal Cannula 2.0 03/25/17 15:45 56 16 174/83 100 Nasal Cannula 2.0 03/25/17 15:40 59 18 166/76 100 Nasal Cannula 2.0 03/25/17 15:36 60 16 2.0 03/25/17 13:12 150/86 03/25/17 12:00 97.5 62 20 150/86 97 Nasal Cannula 2.0 03/25/17 09:23 63 165/89 03/25/17 08:00 98.2 63 20 165/89 97 Nasal Cannula 2.0 03/25/17 05:43 139/76 03/25/17 04:00 97.7 64 18 133/70 100 Nasal Cannula 2.0 03/25/17 00:00 98.3 74 18 136/71 98 Nasal Cannula 2.0 03/24/17 22:19 176/87 03/24/17 20:42 80 176/87 03/24/17 20:01 98.2 80 18 176/87 98 Room Air 03/24/17 20:00 67 Intake and Output 03/24/17 03/25/17 19:00 07:00 Intake Total 960.0 ml 1220 ml Output Total 5300 ml 7025 ml Balance -4340.0 ml -5805 ml Intake Oral 200 ml 120 ml IV Total 760.0 ml 600 ml Other 500 ml Output Urine Total 5300 ml 7025 ml # Bowel Movements 1 2 General Appearance: WD/WN HEENT: normocephalic, atraumatic Respiratory/Chest: chest wall non-tender, lungs clear Abdomen: normal bowel sounds, soft, non tender Genitourinary: normal external genitalia Extremities: no cyanosis Skin: no rash Laboratory Tests 03/25/17 05:10: White Blood Count 7.1, Red Blood Count 2.66L, Hemoglobin 8.2L, Hematocrit 24.5L , Mean Corpuscular Volume 92, Mean Corpuscular Hemoglobin 31.0, Mean Corpuscular Hemoglobin Concent 33.6, Red Cell Distribution Width 14.1, Platelet Count 236, Mean Platelet Volume 6.6, Neutrophils (%) (Auto) 50.2, Lymphocytes (% ) (Auto) 33.3, Monocytes (%) (Auto) 9.4, Eosinophils (%) (Auto) 5.0H, Basophils (%) (Auto) 2.1H, Sodium Level 143, Potassium Level 3.4, Chloride Level 108H, Carbon Dioxide Level 23, Anion Gap 12, Blood Urea Nitrogen 8, Creatinine 1.4H, Estimat Glomerular Filtration Rate , Glucose Level 117H, Calcium Level 8.0L Current Medications Medications (Trade) Dose Ordered Sig/Fernando Route PRN Reason Start Time Stop Time Status Last Admin Dose Admin Acetaminophen (Tylenol) 650 mg Q6H PRN ORAL Mild Pain/Temp > 100.5 03/25/17 04:00 04/24/17 03:59 Carvedilol (Coreg) 6.25 mg EVERY 12 HOURS ORAL 03/25/17 09:00 04/24/17 08:59 03/25/17 09:23 Chlorhexidine Gluconate (Amina-Hex 2%) 1 applic DAILY TOPIC 03/25/17 14:00 04/24/17 13:59 Ciprofloxacin (Cipro 200mg Premix) 100 ml @ 100 mls/hr Q12HR IV 03/25/17 09:00 04/01/17 08:59 03/25/17 09:24 Clonazepam (KlonoPIN) 1 mg Q12HR ORAL 03/25/17 09:00 04/01/17 08:59 Clonidine HCl (Catapres) 0.1 mg Q4H PRN ORAL SBP > 160 03/25/17 17:15 04/24/17 17:14 03/25/17 17:46 Clotrimazole (Lotrimin) 1 applic EVERY 12 HOURS TOPIC 03/25/17 09:00 04/24/17 08:59 03/25/17 09:23 Dextrose (Dextrose 50%) STAT PRN IV Hypoglycemia 03/25/17 13:00 04/24/17 12:59 Gabapentin (Neurontin) 200 mg EVERY 6 HOURS ORAL 03/25/17 06:00 04/24/17 05:59 03/25/17 17:46 Gabapentin (Neurontin) 200 mg QHS ORAL 03/25/17 21:00 04/24/17 20:59 Haloperidol Lactate (Haldol) 5 mg Q4H PRN IM Agitation 03/25/17 04:00 04/24/17 03:59 Heparin Sodium/ Sodium Chloride (Heparin 2000 units/Ns 1000ml premix) 2,000 unit ONCE PRN INJ PICC PLACEMENT 03/25/17 12:45 03/26/17 23:59 Hydralazine HCl (Apresoline) 25 mg Q8HR ORAL 03/25/17 06:00 04/24/17 05:59 03/25/17 13:12 Insulin Aspart (NovoLOG) BEFORE MEALS AND HS SUBQ 03/25/17 06:30 04/24/17 06:29 03/25/17 16:45 Lidocaine HCl (Xylocaine 1% 30ml) 30 ml ONCE PRN INJ PICC PLACEMENT 03/25/17 12:45 03/26/17 23:59 Lorazepam (Ativan 2mg/ml 1ml) 0.5 mg Q4H PRN IV For Anxiety 03/25/17 02:00 04/01/17 01:59 Morphine Sulfate (Morphine Sulfate) 1 mg EVERY 4 HOURS PRN IVP For Pain 03/25/17 01:00 04/01/17 00:59 Ondansetron HCl (Zofran) 4 mg Q6H PRN IVP Nausea & Vomiting 03/25/17 04:00 04/24/17 03:59 Polyethylene Glycol (Miralax) 17 gm HSPRN PRN ORAL Constipation 03/25/17 21:00 04/24/17 20:59 Quetiapine Fumarate (SEROquel) 25 mg BEDTIME ORAL 03/25/17 21:00 04/24/17 20:59 Tamsulosin HCl (Flomax) 0.4 mg DAILY ORAL 03/25/17 09:00 04/24/17 08:59 03/25/17 09:23 Zolpidem Tartrate (Ambien) 5 mg HSPRN PRN ORAL Insomnia 03/25/17 21:00 04/24/17 20:59 JUSTO LEBLANC Mar 25, 2017 18:47
[2017-03-25] MEDS ORDERED: Zolpidem 5mg tab ORAL PRN (21:00)
[2017-03-25] MEDS ORDERED: Miralax 17gm pkt ORAL PRN (21:00)
--- NOTE | 2017-03-25 22:42 | Diagnostic Imaging Report ---
APPROVED REPORT CPT Code: 00408 Present Symptoms Shortness of breath Comments: R/O DVT RIGHT LEG: Venous imaging reveals acute thrombus in the [id number] superficial femoral and popliteal vein. Imaging reveals patency of the common femoral, proximal superficial femoral and tibial veins. The greater saphenous vein is within normal limits. Doppler indicates normal spontaneous flow within these segments. LEFT LEG: Venous imaging reveals a patent deep venous system. There is no evidence of thrombus within the femoral, popliteal or tibial segments. The greater saphenous vein is also within normal limits. Doppler indicates normal spontaneous flow within these segments. LUISA Mendoza was informed of abnormal results at 19:00 hrs.
[2017-03-26] VITALS: BP 128/77
[2017-03-26 04:00] VITALS: BP 136/66
[2017-03-26] MEDS: HydrALAZINE 25mg tab ORAL SCH ×3 (06:20→21:29)
[2017-03-26] MEDS: NovoLOG Insulin Flexpen SUBQ SCH ×4 (06:21→21:32)
[2017-03-26 07:42] VITALS: BP 144/78
[2017-03-26] MEDS: Carvedilol 6.25mg Tab ORAL SCH ×2 (09:00→21:30)
[2017-03-26] MEDS: Tamsulosin 0.4mg cap ORAL SCH (09:00)
[2017-03-26] MEDS: Dyna-Hex 2% Top Sol 8oz TOPIC SCH (09:27)
--- NOTE | 2017-03-26 09:54 | General Progress Note ---
Assessment/Plan Status: stable Assessment/Plan MILAN (acute kidney injury) --- h/o urinary outlet obstruction ....RESOLVED On Vanco and Amikacin UTI (urinary tract infection) HTN DM Psychosis Bladder tumor and suprapubic catheter Anemia Plan: previous dialysed and then stopped follow up renal parameters Mag and Phos supp as needed- More transfusion- as needed monitor BS and adjust Insulin Keep BS and BP in check Monitor renal parameters Avoid Nephrotoxics- Monitor H&H Per orders Subjective ROS Limited/Unobtainable: No Constitutional: Reports: malaise Allergies: Coded Allergies: No Known Allergies (Unverified , 02/25/17) Objective Last 24 Hour Vital Signs Date Time Temp Pulse Resp B/P Pulse Ox O2 Delivery O2 Flow Rate FiO2 03/26/17 07:42 97.5 65 22 144/78 99 Nasal Cannula 3.0 03/26/17 06:20 136/66 03/26/17 04:00 97.7 57 20 136/66 100 Nasal Cannula 2.0 03/26/17 00:00 97.7 53 20 128/77 99 Nasal Cannula 03/25/17 22:28 157/83 03/25/17 22:27 64 157/83 03/25/17 20:00 97.0 64 20 157/83 99 Nasal Cannula 4.0 03/25/17 17:46 174/83 03/25/17 16:05 62 20 174/83 98 Nasal Cannula 2.0 03/25/17 16:00 55 17 168/85 100 Nasal Cannula 2.0 03/25/17 15:55 60 19 175/85 100 Nasal Cannula 2.0 03/25/17 15:50 65 17 172/87 100 Nasal Cannula 2.0 03/25/17 15:45 56 16 174/83 100 Nasal Cannula 2.0 03/25/17 15:40 59 18 166/76 100 Nasal Cannula 2.0 03/25/17 15:36 60 16 2.0 03/25/17 13:12 150/86 03/25/17 12:00 97.5 62 20 150/86 97 Nasal Cannula 2.0 Intake and Output 03/25/17 03/26/17 19:00 07:00 Intake Total 4585 ml 600 ml Output Total 4000 ml 2050 ml Balance 585 ml -1450 ml Intake Oral 485 ml IV Total 100 ml 100 ml Other 4000 ml 500 ml Output Urine Total 4000 ml 2050 ml Height (Feet): 5 Height (Inches): 6.00 Weight (Pounds): 246 General Appearance: no apparent distress Objective other PE not changed JULIETA LEON Mar 26, 2017 09:54
[2017-03-26 11:44] VITALS: BP 137/68
--- NOTE | 2017-03-26 15:29 | Diagnostic Imaging Report ---
Indications: Needs long-term IV access Technique: Procedure performed by Dr. Rodriguez Ultrasound confirms patent compressible upright vein. Total sterile technique, including sterile probe cover and sterile gel, hat, mask,, sterile gown, large sterile drape, and preparation with 2% chlorhexidine utilized. Local anesthesia with 1% lidocaine. Under real-time ultrasound guidance, puncture brachial vein using 21-gauge needle, documented and archived, passage 0.018 guidewire under direct fluoroscopy, which was used to determine appropriate catheter length, exchange for 5 Indonesian peel-away sheath. 5 Indonesian Bard dual-lumen power PICC cut to 40 cm. It was inserted through the peel-away sheath. Peel-away sheath and guidewire removed. Catheter fixed to the skin. Both catheter ports aspirated and flushed. Patient tolerated procedure well, without immediate complication. Digital radiograph documents satisfactory catheter tip position, at the cavoatrial junction. Total fluoroscopy time 25. Total dose area product 0.08316 mGycm2 Impression: Successful placement of left arm PICC under sonographic and fluoroscopic guidance, as described above, by Dr. Rodriguez.
[2017-03-26 15:48] VITALS: BP 149/80
--- NOTE | 2017-03-26 19:15 | Pulmonology Progress Note ---
Assessment/Plan Problems: (1) Gross hematuria (2) Acute encephalopathy (3) Sepsis (4) DVT (deep venous thrombosis) (5) COPD (chronic obstructive pulmonary disease) (6) Diabetes mellitus (7) ATN (acute tubular necrosis) Assessment/Plan s/p ivc filtre frequent flushing urine is clear now transfuse prbc prn / renal evaluation continue iv fluids dc planning Subjective ROS Limited/Unobtainable: Yes Interval Events: somnolent Allergies: Coded Allergies: No Known Allergies (Unverified , 02/25/17) Objective Last 24 Hour Vital Signs Date Time Temp Pulse Resp B/P Pulse Ox O2 Delivery O2 Flow Rate FiO2 03/26/17 15:48 97.7 60 21 149/80 99 Nasal Cannula 3.0 03/26/17 14:26 137/68 03/26/17 11:44 97.8 56 21 137/68 100 Nasal Cannula 3.0 03/26/17 07:42 97.5 65 22 144/78 99 Nasal Cannula 3.0 03/26/17 06:20 136/66 03/26/17 04:00 97.7 57 20 136/66 100 Nasal Cannula 2.0 03/26/17 00:00 97.7 53 20 128/77 99 Nasal Cannula 03/25/17 22:28 157/83 03/25/17 22:27 64 157/83 03/25/17 20:00 97.0 64 20 157/83 99 Nasal Cannula 4.0 Intake and Output 03/25/17 03/26/17 19:00 07:00 Intake Total 4585 ml 600 ml Output Total 4000 ml 2050 ml Balance 585 ml -1450 ml Intake Oral 485 ml IV Total 100 ml 100 ml Other 4000 ml 500 ml Output Urine Total 4000 ml 2050 ml Objective General Appearance: WD/WN HEENT: normocephalic, atraumatic Respiratory/Chest: chest wall non-tender, lungs clear Abdomen: normal bowel sounds, soft, non tender Genitourinary: normal external genitalia Extremities: no cyanosis Skin: no rash Current Medications Medications (Trade) Dose Ordered Sig/Fernando Route PRN Reason Start Time Stop Time Status Last Admin Dose Admin Acetaminophen (Tylenol) 650 mg Q6H PRN ORAL Mild Pain/Temp > 100.5 03/25/17 04:00 04/24/17 03:59 Carvedilol (Coreg) 6.25 mg EVERY 12 HOURS ORAL 03/25/17 09:00 04/24/17 08:59 03/25/17 22:27 Chlorhexidine Gluconate (Amina-Hex 2%) 1 applic DAILY TOPIC 03/25/17 14:00 04/24/17 13:59 03/26/17 09:27 Ciprofloxacin (Cipro 200mg Premix) 100 ml @ 100 mls/hr Q12HR IV 03/25/17 09:00 04/01/17 08:59 03/26/17 08:21 Clonazepam (KlonoPIN) 1 mg Q12HR ORAL 03/25/17 09:00 04/01/17 08:59 03/26/17 17:20 Clonidine HCl (Catapres) 0.1 mg Q4H PRN ORAL SBP > 160 03/25/17 17:15 04/24/17 17:14 03/25/17 17:46 Clotrimazole (Lotrimin) 1 applic EVERY 12 HOURS TOPIC 03/25/17 09:00 04/24/17 08:59 03/26/17 09:27 Dextrose (Dextrose 50%) STAT PRN IV Hypoglycemia 03/25/17 13:00 04/24/17 12:59 Gabapentin (Neurontin) 200 mg QHS ORAL 03/25/17 21:00 04/24/17 20:59 03/25/17 22:27 Haloperidol Lactate (Haldol) 5 mg Q4H PRN IM Agitation 03/25/17 04:00 04/24/17 03:59 Heparin Sodium/ Sodium Chloride (Heparin 2000 units/Ns 1000ml premix) 2,000 unit ONCE PRN INJ PICC PLACEMENT 03/25/17 12:45 03/26/17 23:59 Hydralazine HCl (Apresoline) 25 mg Q8HR ORAL 03/25/17 06:00 04/24/17 05:59 03/26/17 14:26 Insulin Aspart (NovoLOG) BEFORE MEALS AND HS SUBQ 03/25/17 06:30 04/24/17 06:29 03/26/17 16:34 Lidocaine HCl (Xylocaine 1% 30ml) 30 ml ONCE PRN INJ PICC PLACEMENT 03/25/17 12:45 03/26/17 23:59 Lorazepam (Ativan 2mg/ml 1ml) 0.5 mg Q4H PRN IV For Anxiety 03/25/17 02:00 04/01/17 01:59 Morphine Sulfate (Morphine Sulfate) 1 mg EVERY 4 HOURS PRN IVP For Pain 03/25/17 01:00 04/01/17 00:59 Ondansetron HCl (Zofran) 4 mg Q6H PRN IVP Nausea & Vomiting 03/25/17 04:00 04/24/17 03:59 Polyethylene Glycol (Miralax) 17 gm HSPRN PRN ORAL Constipation 03/25/17 21:00 04/24/17 20:59 Quetiapine Fumarate (SEROquel) 25 mg BEDTIME ORAL 03/25/17 21:00 04/24/17 20:59 03/25/17 22:27 Tamsulosin HCl (Flomax) 0.4 mg DAILY ORAL 03/25/17 09:00 04/24/17 08:59 03/25/17 09:23 Zolpidem Tartrate (Ambien) 5 mg HSPRN PRN ORAL Insomnia 03/25/17 21:00 04/24/17 20:59 JUSTO LEBLANC Mar 26, 2017 19:15
[2017-03-26 20:00] VITALS: BP 163/75
[2017-03-27] VITALS (7 sets, daily range): BP systolic 110–169; BP diastolic 65–99
[2017-03-27] MEDS: Morphine Sulfate 2mg/ml Inj IVP PRN ×2 (03:10→18:58)
[2017-03-27] MEDS: HydrALAZINE 25mg tab ORAL SCH ×3 (06:25→21:06)
[2017-03-27] MEDS: NovoLOG Insulin Flexpen SUBQ SCH ×4 (06:26→21:17)
[2017-03-27] MEDS: Tamsulosin 0.4mg cap ORAL SCH (08:19)
[2017-03-27] MEDS: Dyna-Hex 2% Top Sol 8oz TOPIC SCH (08:19)
[2017-03-27] MEDS: Carvedilol 6.25mg Tab ORAL SCH ×2 (08:19→21:05)
--- NOTE | 2017-03-27 14:27 | General Progress Note ---
Assessment/Plan Status: stable - from renal stand Assessment/Plan MILAN (acute kidney injury) --- h/o urinary outlet obstruction ....RESOLVED On Vanco and Amikacin UTI (urinary tract infection) HTN DM Psychosis Bladder tumor and suprapubic catheter Anemia Plan: No new labs- previous dialysed and then stopped follow up renal parameters Mag and Phos supp as needed- More transfusion- as needed monitor BS and adjust Insulin Keep BS and BP in check Monitor renal parameters Avoid Nephrotoxics- Per orders DC planning Subjective ROS Limited/Unobtainable: No Constitutional: Reports: malaise Allergies: Coded Allergies: No Known Allergies (Unverified , 02/25/17) Objective Last 24 Hour Vital Signs Date Time Temp Pulse Resp B/P Pulse Ox O2 Delivery O2 Flow Rate FiO2 03/27/17 11:39 98.0 63 20 152/75 98 Nasal Cannula 3.0 03/27/17 08:19 169/88 03/27/17 08:19 79 169/88 03/27/17 07:25 97.7 79 20 169/88 97 Nasal Cannula 3.0 03/27/17 06:25 153/71 03/27/17 04:00 97.5 68 20 153/80 98 Nasal Cannula 3.0 03/27/17 00:32 97.0 62 20 151/82 98 Nasal Cannula 3.0 03/26/17 21:30 67 163/75 03/26/17 21:29 163/75 03/26/17 20:00 96.4 67 20 163/75 97 Nasal Cannula 3.0 03/26/17 15:48 97.7 60 21 149/80 99 Nasal Cannula 3.0 03/26/17 14:26 137/68 Intake and Output 03/26/17 03/27/17 19:00 07:00 Intake Total 560 ml 460 ml Output Total 5950 ml 2900 ml Balance -5390 ml -2440 ml Intake Oral 560 ml 360 ml IV Total 100 ml Output Urine Total 5950 ml 1600 ml Other 1300 ml # Bowel Movements 2 Height (Feet): 5 Height (Inches): 6.00 Weight (Pounds): 246 General Appearance: no apparent distress Objective other PE not changed JULIETA LEON Mar 27, 2017 14:27
--- NOTE | 2017-03-27 17:13 | Pulmonology Progress Note ---
Assessment/Plan Problems: (1) Gross hematuria (2) Acute encephalopathy (3) Sepsis (4) DVT (deep venous thrombosis) (5) COPD (chronic obstructive pulmonary disease) (6) Diabetes mellitus (7) ATN (acute tubular necrosis) Assessment/Plan s/p ivc filtre frequent flushing urine is clear now transfuse prbc prn dc to nursign home Subjective ROS Limited/Unobtainable: No Interval Events: improving, doing much better Allergies: Coded Allergies: No Known Allergies (Unverified , 02/25/17) Objective Last 24 Hour Vital Signs Date Time Temp Pulse Resp B/P Pulse Ox O2 Delivery O2 Flow Rate FiO2 03/27/17 16:27 98.4 61 20 137/74 99 Nasal Cannula 3.0 03/27/17 11:39 98.0 63 20 152/75 98 Nasal Cannula 3.0 03/27/17 08:19 169/88 03/27/17 08:19 79 169/88 03/27/17 07:25 97.7 79 20 169/88 97 Nasal Cannula 3.0 03/27/17 06:25 153/71 03/27/17 04:00 97.5 68 20 153/80 98 Nasal Cannula 3.0 03/27/17 00:32 97.0 62 20 151/82 98 Nasal Cannula 3.0 03/26/17 21:30 67 163/75 03/26/17 21:29 163/75 03/26/17 20:00 96.4 67 20 163/75 97 Nasal Cannula 3.0 Intake and Output 03/26/17 03/27/17 19:00 07:00 Intake Total 560 ml 460 ml Output Total 5950 ml 2900 ml Balance -5390 ml -2440 ml Intake Oral 560 ml 360 ml IV Total 100 ml Output Urine Total 5950 ml 1600 ml Other 1300 ml # Bowel Movements 2 Objective General Appearance: WD/WN HEENT: normocephalic, atraumatic Respiratory/Chest: chest wall non-tender, lungs clear Abdomen: normal bowel sounds, soft, non tender Genitourinary: normal external genitalia Extremities: no cyanosis Skin: no rash Current Medications Medications (Trade) Dose Ordered Sig/Fernando Route PRN Reason Start Time Stop Time Status Last Admin Dose Admin Acetaminophen (Tylenol) 650 mg Q6H PRN ORAL Mild Pain/Temp > 100.5 03/25/17 04:00 04/24/17 03:59 Carvedilol (Coreg) 6.25 mg EVERY 12 HOURS ORAL 03/25/17 09:00 04/24/17 08:59 03/27/17 08:19 Chlorhexidine Gluconate (Amina-Hex 2%) 1 applic DAILY TOPIC 03/25/17 14:00 04/24/17 13:59 03/27/17 08:19 Ciprofloxacin (Cipro 200mg Premix) 100 ml @ 100 mls/hr Q12HR IV 03/25/17 09:00 04/01/17 08:59 03/27/17 09:15 Clonazepam (KlonoPIN) 1 mg Q12HR ORAL 03/25/17 09:00 04/01/17 08:59 03/27/17 08:19 Clonidine HCl (Catapres) 0.1 mg Q4H PRN ORAL SBP > 160 03/25/17 17:15 04/24/17 17:14 03/27/17 08:19 Clotrimazole (Lotrimin) 1 applic EVERY 12 HOURS TOPIC 03/25/17 09:00 04/24/17 08:59 03/27/17 08:28 Dextrose (Dextrose 50%) STAT PRN IV Hypoglycemia 03/25/17 13:00 04/24/17 12:59 Gabapentin (Neurontin) 200 mg QHS ORAL 03/25/17 21:00 04/24/17 20:59 03/26/17 21:30 Haloperidol Lactate (Haldol) 5 mg Q4H PRN IM Agitation 03/25/17 04:00 04/24/17 03:59 Hydralazine HCl (Apresoline) 50 mg Q8HR ORAL 03/27/17 22:00 04/26/17 21:59 Insulin Aspart (NovoLOG) BEFORE MEALS AND HS SUBQ 03/25/17 06:30 04/24/17 06:29 03/27/17 11:49 Lorazepam (Ativan 2mg/ml 1ml) 0.5 mg Q4H PRN IV For Anxiety 03/25/17 02:00 04/01/17 01:59 Morphine Sulfate (Morphine Sulfate) 1 mg EVERY 4 HOURS PRN IVP For Pain 03/25/17 01:00 04/01/17 00:59 03/27/17 03:10 Ondansetron HCl (Zofran) 4 mg Q6H PRN IVP Nausea & Vomiting 03/25/17 04:00 04/24/17 03:59 Polyethylene Glycol (Miralax) 17 gm HSPRN PRN ORAL Constipation 03/25/17 21:00 04/24/17 20:59 Quetiapine Fumarate (SEROquel) 25 mg BEDTIME ORAL 03/25/17 21:00 04/24/17 20:59 03/26/17 21:29 Tamsulosin HCl (Flomax) 0.4 mg DAILY ORAL 03/25/17 09:00 04/24/17 08:59 03/27/17 08:19 Zolpidem Tartrate (Ambien) 5 mg HSPRN PRN ORAL Insomnia 03/25/17 21:00 04/24/17 20:59 JUSTO LEBLANC Mar 27, 2017 17:13
[2017-03-28 04:00] VITALS: BP 117/58
[2017-03-28] MEDS: NovoLOG Insulin Flexpen SUBQ SCH ×4 (05:48→21:34)
[2017-03-28] MEDS: HydrALAZINE 25mg tab ORAL SCH ×3 (06:00→22:00)
[2017-03-28 07:22] LABS: ALANINE AMINOTRANSFERASE 6 U/L (3-41); ALBUMIN/GLOBULIN RATIO 0.7 (1.0-2.7); ANION GAP 10 (5-15); ASPARTATE AMINO TRANSFERASE 7 U/L (5-40); CALCIUM 8.1 mg/dL (8.6-10.2); CARBON DIOXIDE 31 mEQ/L (20-30); CHLORIDE 102 mEQ/L (98-107); CREATININE 1.6 mg/dL (0.7-1.2); HEMOLYSIS 1; PHOSPHORUS 3.3 mg/dL (2.5-4.8); POTASSIUM 3.6 mEQ/L (3.4-4.9); SODIUM 143 mEQ/L (135-145); TOTAL PROTEIN 4.8 g/dL (6.6-8.7); URIC ACID 6.6 mg/dL (3.0-7.5)
[2017-03-28 07:28] VITALS: BP 138/61
[2017-03-28 07:56] LABS: INR 1.1 (0.9-1.1)
[2017-03-28] MEDS: Carvedilol 6.25mg Tab ORAL SCH ×3 (09:04→21:25)
[2017-03-28] MEDS: Tamsulosin 0.4mg cap ORAL SCH (09:12)
[2017-03-28] MEDS: Dyna-Hex 2% Top Sol 8oz TOPIC SCH (09:13)
[2017-03-28 09:35] LABS: MEAN CORPUSCULAR HGB CONC 32.6 G/DL (32.0-36.0); MEAN CORPUSCULAR VOLUME 95 FL (80-99); MEAN PLATELET VOLUME 7.1 FL (6.5-10.1); PLATELET COUNT 271 K/UL (150-450); RED BLOOD COUNT 2.08 M/UL (4.70-6.10); RED CELL DISTRIBUTION WIDTH 14.7 % (11.6-14.8); WHITE BLOOD COUNT 7.6 K/UL (4.8-10.8)
[2017-03-28 10:15] LABS: ANISOCYTOSIS 1+; BAND NEUTROPHILS % (MANUAL) 0 % (0-8); BASOPHILS % (MANUAL) 0 % (0-2); EOSINOPHILS % (MANUAL) 3 % (0-3); HYPOCHROMASIA 1+; LYMPHOCYTES % (MANUAL) 35 % (20-45); NEUTROPHILS % (MANUAL) 54 % (45-75); PLATELET ESTIMATE ADEQUATE; PLATELET MORPHOLOGY NORMAL; TOTAL CELLS COUNTED 100
[2017-03-28 12:18] VITALS: BP 93/47
--- NOTE | 2017-03-28 13:29 | Diagnostic Imaging Report ---
Indications: Low extremity deep venous thrombosis, bleeding diathesis precludes safe anticoagulation Technique: Procedure, indications, risks, alternatives were explained to the patient's family, who understands and gives written consent to proceed. Strict aseptic technique was utilized, including hand washing, use of hat and mask, use of sterile gown and gloves, sterile ultrasound gel and probe cover, prepping of right neck base skin with 2% chlorhexidine solution, and application of full body sterile barrier over this area. Skin and subcutaneous soft tissues were infiltrated with 1% lidocaine and sodium bicarbonate. A small dermatotomy was made, through which the right internal jugular vein was punctured percutaneously under direct sonographic guidance with a 19-gauge Seldinger needle. Exchange was made over a guidewire for a 5 Monegasque hook flush catheter. This was advanced through the superior vena cava and inferior vena cava into the right common iliac vein. Nonionic iodine contrast was injected and digital subtraction images of the inferior vena cava obtained. The percutaneous tract was dilated over a guidewire, then a 7 Monegasque introducer sheath advanced over the guidewire under direct fluoroscopic guidance into the infrarenal segment of the inferior vena cava. A Butt vena tech filter was deployed into and advanced through the sheath to its distal end, sheath withdrawn and filter deployed in the immediate infrarenal inferior vena cava. The sheath was carefully advanced adjacent to the filter, contrast injected and followup images obtained. The sheath was removed and right neck puncture site manually compressed to achieve hemostasis. The patient tolerated the procedures well without immediate complications and was returned to his room in stable condition. Total fluoroscopy time: 141 seconds. Dose-area product: 2.45 mGy-m2 Findings: Comparison: None The bilateral common iliac veins and inferior vena cava are patent and normal in caliber without intraluminal filling defect. The right renal vein joins the inferior vena cava at the L1-2 level. The left renal vein joins the inferior vena cava at the L1-L2 level. Final images demonstrate successful deployment of filter in the inferior vena cava immediately below renal veins, well centered. Contrast flows freely through the filter. IMPRESSION: Inferior venacavogram within normal limits. Placement of permanent filter in the infrarenal inferior vena cava. .
--- NOTE | 2017-03-28 13:34 | GI Initial Consult Note ---
Davis,Monalisa Dmitry N.P. 03/28/17 1334: History of Present Illness General Date patient seen: Mar 28, 2017 Time patient seen: 13:28 Reason for Hospitalization: Altered Mental Status Referring physician: JUSTO WOODWARD Reason for Consultation: ANEMIA Present Illness HPI [id number] sent from SNF for AMS and gross hematuria in Suprapubic catheter. No other info available from SNF or patient. ?dementia at baseline. No other family members available bedside. On review of meds no ASA or AC seen. Per EMR he did have gross hematuria after suprapubic placed on last admission. GI Consult. HPI as noted above. GI consulted for Anemia with occult blood stool positive. ROS limited, pt seen on floor alert but is confused with hx of dementia? Pt presents today with Hgb 6.4, 2 point drop from yesterday requiring blood transfusion, OB stool positive. Unknown history of endoscopic procedures. Home Meds Active Scripts Zolpidem Tartrate* (AMBIEN*) 5 Mg Tablet, 5 MG ORAL HSPRN Y for 30 Days, TAB Prov:03/12/17 Quetiapine Fumarate* (SEROQUEL*) 25 Mg Tablet, 25 MG ORAL BIDPRN Y for 30 Days, TAB Prov:03/12/17 Ipratropium/Albuterol Sulfate (DuoNeb 0.5-3(2.5)mg/3ml) 3 Ml Ampul.neb, 3 ML HHN Q4H Y for 30 Days, EA Prov:03/12/17 Insulin Detemir (LEVEMIR FLEXPEN) 100 Unit/1 Ml Insuln.pen, 15 UNITS SUBQ BEDTIME for 30 Days, EA Prov:03/12/17 Insulin Aspart (Novolog Flexpen) 100 Unit/1 Ml Insuln.pen, 0 UNITS SUBQ BEFORE MEALS AND HS for 30 Days, EA Prov:03/12/17 Gabapentin* (GABAPENTIN*) 100 Mg Capsule, 200 MG ORAL QHS for 30 Days, CAP Prov:,03/12/17 Carvedilol (Coreg) 25 Mg Tablet, 25 MG ORAL EVERY 12 HOURS for 30 Days, TAB Prov:03/12/17 Reported Medications Insulin Regular, Human* (NOVOLIN R*) 100 Unit/1 Ml Vial, 0 SUBQ .SLIDING SCALE, UNITS 02/25/17 Lansoprazole* (PREVACID*) 30 Mg Capsule.dr, 30 MG ORAL DAILY, CAP 02/25/17 Atorvastatin Calcium* (LIPITOR*) 20 Mg Tablet, 20 MG ORAL BEDTIME, TAB 02/25/17 Sitagliptin* (JANUVIA*) 25 Mg Tablet, 100 MG ORAL DAILY, TAB 02/25/17 Glipizide* (GLIPIZIDE*) 5 Mg Tablet, 5 MG ORAL BIDAC, TAB 02/25/17 Venlafaxine Hcl* (EFFEXOR*) 25 Mg Tablet, 150 MG ORAL BID, TAB 02/25/17 Dipyridamole/Aspirin (Aggrenox 25 mg-200 mg Capsule) 1 Each Cpmp.12hr, 1 CAP ORAL DAILY, CAP Capsule should be swallowed whole; do not crush or chew. May be administered with or without food 02/25/17 Ondansetron* (ZOFRAN*) 4 Mg Tablet, 4 MG ORAL Q6H Y for Nausea & Vomiting, TAB 02/25/17 Quetiapine Fumarate* (SEROQUEL*) 25 Mg Tablet, 50 MG ORAL TWICE A DAY, TAB 02/25/17 Polyethylene Glycol 3350* (MIRALAX*) 17 Gm Powd.pack, 17 GM ORAL DAILY, PACKET 02/25/17 Oxybutynin Chloride (OXYBUTYNIN CHLORIDE) 5 Mg/5 Ml Syrup, 5 MG PO Q6HR, ML 02/25/17 Metoprolol Succinate* (METOPROLOL SUCCINATE*) 50 Mg Tab.er.24h, 50 MG ORAL DAILY , TAB 02/25/17 Gabapentin* (GABAPENTIN*) 100 Mg Capsule, 200 MG ORAL HS, CAP 02/25/17 Furosemide* (LASIX*) 40 Mg Tablet, 40 MG ORAL DAILY, TAB 02/25/17 Tamsulosin HCl (Flomax) 0.4 Mg Cap.er.24h, 0.4 MG ORAL DAILY, CAP 02/25/17 Docusate Sodium (Docusate Sodium) 50 Mg/5 Ml Liquid, 100 MG ORAL DAILY, #120 EA 02/25/17 Carvedilol (Coreg) 12.5 Mg Tablet, 12.5 MG ORAL EVERY 12 HOURS, TAB 02/25/17 Clonazepam* (KLONOPIN*) 1 Mg Tablet, 1 MG ORAL Q12HR, #15 TAB 0 Refills 02/25/17 Amlodipine Besylate* (AMLODIPINE BESYLATE*) 10 Mg Tablet, 10 MG ORAL DAILY, TAB 02/25/17 Acetaminophen* (ACETAMINOPHEN*) 160 Mg/5 Ml Solution, 650 MG ORAL Q6H Y for Mild Pain/Temp > 100.5, ML 02/25/17 Med list reviewed/reconciled: Yes Allergies: Coded Allergies: No Known Allergies (Unverified , 02/25/17) Patient History Limited by: medical condition History Provided By: Medical Record PMH Narrative Hx Cardiac Problems: Yes - cad , pulm edema, NSVT Hx Hypertension: Yes Hx Asthma: Yes Hx COPD: Yes Hx Diabetes: Yes Hx Cancer: No Hx Gastrointestinal Problems: No Hx Neurological Problems: Yes Hx Cerebrovascular Accident: No Hx Seizures: No Review of Systems All Other Systems: negative except mentioned in HPI Physical Exam Vital Signs Date Time Temp Pulse Resp B/P Pulse Ox O2 Delivery O2 Flow Rate FiO2 03/24/17 08:00 62 03/24/17 08:00 97.5 20 142/80 97 Nasal Cannula 2.0 Labs Laboratory Tests Test 03/27/17 18:00 03/28/17 05:00 03/28/17 09:30 Stool Occult Blood Positive (NEGATIVE) Prothrombin Time 12.0 SEC (9.30-11.50) H Prothromb Time International Ratio 1.1 (0.9-1.1) Activated Partial Thromboplast Time 29 SEC (23-33) Sodium Level 143 mEQ/L (135-145) Potassium Level 3.6 mEQ/L (3.4-4.9) Chloride Level 102 mEQ/L (98-107) Carbon Dioxide Level 31 mEQ/L (20-30) H Anion Gap 10 (5-15) Blood Urea Nitrogen 23 mg/dL (7-23) Creatinine 1.6 mg/dL (0.7-1.2) H Estimat Glomerular Filtration Rate mL/min (>60) Glucose Level 146 mg/dL (74-106) H Uric Acid 6.6 mg/dL (3.0-7.5) Calcium Level 8.1 mg/dL (8.6-10.2) L Phosphorus Level 3.3 mg/dL (2.5-4.8) Magnesium Level 1.4 mg/dL (1.7-2.5) L Total Bilirubin < 0.2 mg/dL (0.0-1.2) Aspartate Amino Transf (AST/SGOT) 7 U/L (5-40) Alanine Aminotransferase (ALT/SGPT) 6 U/L (3-41) Alkaline Phosphatase 53 U/L (40-129) Pro-B-Type Natriuretic Peptide 1980 pg/mL (0-125) H Total Protein 4.8 g/dL (6.6-8.7) L Albumin 2.0 g/dL (3.5-5.2) L Globulin 2.8 g/dL Albumin/Globulin Ratio 0.7 (1.0-2.7) L White Blood Count 7.6 K/UL (4.8-10.8) Red Blood Count 2.08 M/UL (4.70-6.10) L Hemoglobin 6.4 G/DL (14.2-18.0) *L Hematocrit 19.8 % (42.0-52.0) L Mean Corpuscular Volume 95 FL (80-99) Mean Corpuscular Hemoglobin 31.0 PG (27.0-31.0) Mean Corpuscular Hemoglobin Concent 32.6 G/DL (32.0-36.0) Red Cell Distribution Width 14.7 % (11.6-14.8) Platelet Count 271 K/UL (150-450) Mean Platelet Volume 7.1 FL (6.5-10.1) Neutrophils (%) (Auto) % (45.0-75.0) Lymphocytes (%) (Auto) % (20.0-45.0) Monocytes (%) (Auto) % (1.0-10.0) Eosinophils (%) (Auto) % (0.0-3.0) Basophils (%) (Auto) % (0.0-2.0) Differential Total Cells Counted 100 Neutrophils % (Manual) 54 % (45-75) Lymphocytes % (Manual) 35 % (20-45) Monocytes % (Manual) 8 % (1-10) Eosinophils % (Manual) 3 % (0-3) Basophils % (Manual) 0 % (0-2) Band Neutrophils 0 % (0-8) Platelet Estimate Adequate Platelet Morphology Normal Hypochromasia 1+ Anisocytosis 1+ Current Medications Current Medications Medications (Trade) Dose Ordered Sig/Fernando Route PRN Reason Start Time Stop Time Status Last Admin Dose Admin Acetaminophen (Tylenol) 650 mg Q6H PRN ORAL Mild Pain/Temp > 100.5 03/25/17 04:00 04/24/17 03:59 Bisacodyl (Dulcolax) 10 mg ONCE ONCE ORAL 03/28/17 16:00 03/28/17 16:01 Carvedilol (Coreg) 6.25 mg EVERY 12 HOURS ORAL 03/25/17 09:00 04/24/17 08:59 03/28/17 09:04 Chlorhexidine Gluconate (Amina-Hex 2%) 1 applic DAILY TOPIC 03/25/17 14:00 04/24/17 13:59 03/28/17 09:13 Ciprofloxacin (Cipro 200mg Premix) 100 ml @ 100 mls/hr Q12HR IV 03/25/17 09:00 04/01/17 08:59 03/28/17 09:04 Clonazepam (KlonoPIN) 1 mg Q12HR ORAL 03/25/17 09:00 04/01/17 08:59 03/28/17 09:04 Clonidine HCl (Catapres) 0.1 mg Q4H PRN ORAL SBP > 160 03/25/17 17:15 04/24/17 17:14 03/27/17 08:19 Clotrimazole (Lotrimin) 1 applic EVERY 12 HOURS TOPIC 03/25/17 09:00 04/24/17 08:59 03/28/17 09:05 Dextrose (Dextrose 50%) STAT PRN IV Hypoglycemia 03/25/17 13:00 04/24/17 12:59 Gabapentin (Neurontin) 200 mg QHS ORAL 03/25/17 21:00 04/24/17 20:59 03/27/17 21:05 Haloperidol Lactate (Haldol) 5 mg Q4H PRN IM Agitation 03/25/17 04:00 04/24/17 03:59 Hydralazine HCl (Apresoline) 50 mg Q8HR ORAL 03/27/17 22:00 04/26/17 21:59 03/27/17 21:06 Insulin Aspart (NovoLOG) BEFORE MEALS AND HS SUBQ 03/25/17 06:30 04/24/17 06:29 03/28/17 12:38 Lorazepam (Ativan 2mg/ml 1ml) 0.5 mg Q4H PRN IV For Anxiety 03/25/17 02:00 04/01/17 01:59 Magnesium Citrate (Citrate Of Magnesia) 300 ml ONCE ONCE ORAL 03/28/17 16:00 03/28/17 16:01 Morphine Sulfate (Morphine Sulfate) 1 mg EVERY 4 HOURS PRN IVP For Pain 03/25/17 01:00 04/01/17 00:59 03/27/17 18:58 Ondansetron HCl (Zofran) 4 mg Q6H PRN IVP Nausea & Vomiting 03/25/17 04:00 04/24/17 03:59 Polyethylene Glycol (Miralax) 17 gm HSPRN PRN ORAL Constipation 03/25/17 21:00 04/24/17 20:59 Polyethylene Glycol (Miralax) 238 gm ONCE ONCE ORAL 03/28/17 16:00 03/28/17 16:01 Quetiapine Fumarate (SEROquel) 25 mg BEDTIME ORAL 03/25/17 21:00 04/24/17 20:59 03/27/17 21:06 Sodium Phosphate (Fleet's Sodium Phosl Enema) 133 ml ONCE ONCE RECTAL 03/28/17 23:00 03/28/17 23:01 Tamsulosin HCl (Flomax) 0.4 mg DAILY ORAL 03/25/17 09:00 04/24/17 08:59 03/28/17 09:12 Zolpidem Tartrate (Ambien) 5 mg HSPRN PRN ORAL Insomnia 03/25/17 21:00 04/24/17 20:59 GI: Plan Plan OB stool positive EGD/colonoscopy scheduled for tomorrow to evaluate anemia. - CLD, NPO @ [facility]. monitor H&H, transfuse prn ppi BID fu labs Discussed with Dr. Hilario. Thank you for referring this patient, we will follow. ORION HILARIO 03/29/17 1122: History of Present Illness General Reason for Hospitalization: Altered Mental Status Present Illness Home Meds Active Scripts Zolpidem Tartrate* (AMBIEN*) 5 Mg Tablet, 5 MG ORAL HSPRN Y for 30 Days, TAB Prov:03/12/17 Quetiapine Fumarate* (SEROQUEL*) 25 Mg Tablet, 25 MG ORAL BIDPRN Y for 30 Days, TAB Prov:03/12/17 Ipratropium/Albuterol Sulfate (DuoNeb 0.5-3(2.5)mg/3ml) 3 Ml Ampul.neb, 3 ML HHN Q4H Y for 30 Days, EA Prov:03/12/17 Insulin Detemir (LEVEMIR FLEXPEN) 100 Unit/1 Ml Insuln.pen, 15 UNITS SUBQ BEDTIME for 30 Days, EA Prov:03/12/17 Insulin Aspart (Novolog Flexpen) 100 Unit/1 Ml Insuln.pen, 0 UNITS SUBQ BEFORE MEALS AND HS for 30 Days, EA Prov:03/12/17 Gabapentin* (GABAPENTIN*) 100 Mg Capsule, 200 MG ORAL QHS for 30 Days, CAP Prov:03/12/17 Carvedilol (Coreg) 25 Mg Tablet, 25 MG ORAL EVERY 12 HOURS for 30 Days, TAB Prov:03/12/17 Reported Medications Insulin Regular, Human* (NOVOLIN R*) 100 Unit/1 Ml Vial, 0 SUBQ .SLIDING SCALE, UNITS 02/25/17 Lansoprazole* (PREVACID*) 30 Mg Capsule.dr, 30 MG ORAL DAILY, CAP 02/25/17 Atorvastatin Calcium* (LIPITOR*) 20 Mg Tablet, 20 MG ORAL BEDTIME, TAB 02/25/17 Sitagliptin* (JANUVIA*) 25 Mg Tablet, 100 MG ORAL DAILY, TAB 02/25/17 Glipizide* (GLIPIZIDE*) 5 Mg Tablet, 5 MG ORAL BIDAC, TAB 02/25/17 Venlafaxine Hcl* (EFFEXOR*) 25 Mg Tablet, 150 MG ORAL BID, TAB 02/25/17 Dipyridamole/Aspirin (Aggrenox 25 mg-200 mg Capsule) 1 Each Cpmp.12hr, 1 CAP ORAL DAILY, CAP Capsule should be swallowed whole; do not crush or chew. May be administered with or without food 02/25/17 Ondansetron* (ZOFRAN*) 4 Mg Tablet, 4 MG ORAL Q6H Y for Nausea & Vomiting, TAB 02/25/17 Quetiapine Fumarate* (SEROQUEL*) 25 Mg Tablet, 50 MG ORAL TWICE A DAY, TAB 02/25/17 Polyethylene Glycol 3350* (MIRALAX*) 17 Gm Powd.pack, 17 GM ORAL DAILY, PACKET 02/25/17 Oxybutynin Chloride (OXYBUTYNIN CHLORIDE) 5 Mg/5 Ml Syrup, 5 MG PO Q6HR, ML 02/25/17 Metoprolol Succinate* (METOPROLOL SUCCINATE*) 50 Mg Tab.er.24h, 50 MG ORAL DAILY , TAB 02/25/17 Gabapentin* (GABAPENTIN*) 100 Mg Capsule, 200 MG ORAL HS, CAP 02/25/17 Furosemide* (LASIX*) 40 Mg Tablet, 40 MG ORAL DAILY, TAB 02/25/17 Tamsulosin HCl (Flomax) 0.4 Mg Cap.er.24h, 0.4 MG ORAL DAILY, CAP 02/25/17 Docusate Sodium (Docusate Sodium) 50 Mg/5 Ml Liquid, 100 MG ORAL DAILY, #120 EA 02/25/17 Carvedilol (Coreg) 12.5 Mg Tablet, 12.5 MG ORAL EVERY 12 HOURS, TAB 02/25/17 Clonazepam* (KLONOPIN*) 1 Mg Tablet, 1 MG ORAL Q12HR, #15 TAB 0 Refills 02/25/17 Amlodipine Besylate* (AMLODIPINE BESYLATE*) 10 Mg Tablet, 10 MG ORAL DAILY, TAB 02/25/17 Acetaminophen* (ACETAMINOPHEN*) 160 Mg/5 Ml Solution, 650 MG ORAL Q6H Y for Mild Pain/Temp > 100.5, ML 02/25/17 Allergies: Coded Allergies: No Known Allergies (Unverified , 02/25/17) GI: Plan Plan The patient was seen and examined at bedside and all new and available data was reviewed in the patients chart. I agree with the above findings, impression and plan. (Patient seen earlier today. Signature stamp does not reflect patient encounter time.). -Shelley Mcginnis MDh Dmitry Andino Mar 28, 2017 13:34 ORION HILARIO Mar 29, 2017 11:22
[2017-03-28 14:14] LABS: OTHERS PATHOLOGIST COMMENT
--- NOTE | 2017-03-28 15:20 | General Progress Note ---
Assessment/Plan Status: unchanged Status Narrative Cr 1.6- Hgb Low- Low Mag Assessment/Plan MILAN (acute kidney injury) --- h/o urinary outlet obstruction ....RESOLVED On Vanco and Amikacin UTI (urinary tract infection) HTN DM Psychosis Bladder tumor and suprapubic catheter Anemia Plan: Mag supplements- transfusion previous dialysed and then stopped follow up renal parameters Mag and Phos supp as needed- More transfusion- as needed monitor BS and adjust Insulin Keep BS and BP in check Monitor renal parameters Avoid Nephrotoxics- Per orders DC planning Subjective ROS Limited/Unobtainable: No Constitutional: Reports: malaise Allergies: Coded Allergies: No Known Allergies (Unverified , 02/25/17) Objective Last 24 Hour Vital Signs Date Time Temp Pulse Resp B/P Pulse Ox O2 Delivery O2 Flow Rate FiO2 03/28/17 13:10 93/47 03/28/17 12:18 98.2 66 18 93/47 100 Nasal Cannula 03/28/17 09:04 69 138/61 03/28/17 07:28 98.1 69 19 138/61 93 Nasal Cannula 03/28/17 06:00 117/58 03/28/17 04:00 97.9 71 18 117/58 98 Nasal Cannula 2.0 03/27/17 23:37 98.1 79 18 110/65 99 Room Air 03/27/17 21:06 164/99 03/27/17 21:05 85 164/99 03/27/17 20:00 98.1 85 21 164/99 96 Nasal Cannula 2.0 03/27/17 16:27 98.4 61 20 137/74 99 Nasal Cannula 3.0 Intake and Output 03/27/17 03/28/17 19:00 07:00 Intake Total 700 ml 340 ml Output Total 1700 ml 800 ml Balance -1000 ml -460 ml Intake Oral 600 ml 240 ml IV Total 100 ml 100 ml Output Urine Total 1700 ml 400 ml Other 400 ml # Bowel Movements 2 5 Laboratory Tests 03/27/17 18:00: Stool Occult Blood Positive 03/28/17 05:00: Prothrombin Time 12.0H, Prothromb Time International Ratio 1.1, Activated Partial Thromboplast Time 29, Sodium Level 143, Potassium Level 3.6, Chloride Level 102, Carbon Dioxide Level 31H, Anion Gap 10, Blood Urea Nitrogen 23, Creatinine 1.6H, Estimat Glomerular Filtration Rate , Glucose Level 146H, Uric Acid 6.6, Calcium Level 8.1L, Phosphorus Level 3.3, Magnesium Level 1.4L, Total Bilirubin < 0.2, Aspartate Amino Transf (AST/SGOT) 7, Alanine Aminotransferase ( ALT/SGPT) 6, Alkaline Phosphatase 53, Pro-B-Type Natriuretic Peptide 1980H, Total Protein 4.8L, Albumin 2.0L, Globulin 2.8, Albumin/Globulin Ratio 0.7L 03/28/17 09:30: White Blood Count 7.6, Red Blood Count 2.08L, Hemoglobin 6.4*L, Hematocrit 19.8L , Mean Corpuscular Volume 95, Mean Corpuscular Hemoglobin 31.0, Mean Corpuscular Hemoglobin Concent 32.6, Red Cell Distribution Width 14.7, Platelet Count 271, Mean Platelet Volume 7.1, Neutrophils (%) (Auto) , Lymphocytes (%) ( Auto) , Monocytes (%) (Auto) , Eosinophils (%) (Auto) , Basophils (%) (Auto) , Differential Total Cells Counted 100, Neutrophils % (Manual) 54, Lymphocytes % ( Manual) 35, Monocytes % (Manual) 8, Eosinophils % (Manual) 3, Basophils % ( Manual) 0, Band Neutrophils 0, Other Cell Type Pathologist comment, Platelet Estimate Adequate, Platelet Morphology Normal, Hypochromasia 1+, Anisocytosis 1+ Height (Feet): 5 Height (Inches): 6.00 Weight (Pounds): 246 General Appearance: no apparent distress Respiratory/Chest: decreased breath sounds Abdomen: distended Genitourinary/Rectal: other - suprapubic cath Objective other PE not changed JULIETA LEON Mar 28, 2017 15:20
[2017-03-28 15:38] VITALS: BP 101/60
[2017-03-28] MEDS: Polyethylene Glycol 238gm bottle ORAL ONE ×2 (16:00→20:32)
[2017-03-28] MEDS: Bisacodyl EC 5mg tab ORAL ONE ×2 (16:00→20:32)
[2017-03-28] MEDS: Magnesium Citrate Liq Btl ORAL ONE ×2 (16:00→20:13)
--- NOTE | 2017-03-28 18:00 | Consultation ---
DATE OF CONSULTATION: CONSULTING PHYSICIAN: Ladarius Parry M.D. HISTORY OF PRESENT ILLNESS: This is a 71-year-old male, who has been admitted to the hospital due to altered mental status. I am well familiar with this patient. There is some past hospitalization. The patient is still confused. The patient continues to be confused, disoriented, at times agitated, and not engaged during evaluation. MENTAL STATUS EXAMINATION: The patient is alert and oriented times self. Mood is anxious and agitated. Affect is flat congruent with mood. Thought process is concrete. Thought content, no suicidal or homicidal ideation. Thought process, there is a paucity of thought content. Cognition is impaired. ASSESSMENT: 1. Cognitive impairment and agitation. PLAN: 1. Seroquel 25 mg p.o. nightly. 2. We will follow and readjust the medications. Ladarius Parry M.D. DR: Elis JOB#: [id number] CC:
[2017-03-28 20:00] VITALS: BP 134/64
[2017-03-28] MEDS: Pantoprazole Inj IVP SCH (21:22)
[2017-03-28] MEDS ORDERED: Fleet's Enema 133ml RECTAL ONE (23:00)
[2017-03-29] VITALS (16 sets, daily range): BP systolic 79–176; BP diastolic 59–86
[2017-03-29] MEDS: HydrALAZINE 25mg tab ORAL SCH ×3 (05:29→21:52)
[2017-03-29 06:04] LABS: MEAN CORPUSCULAR HEMOGLOBIN 32.2 PG (27.0-31.0); MEAN CORPUSCULAR HGB CONC 34.2 G/DL (32.0-36.0); MEAN CORPUSCULAR VOLUME 94 FL (80-99); MEAN PLATELET VOLUME 6.8 FL (6.5-10.1); PLATELET COUNT 248 K/UL (150-450); RED BLOOD COUNT 2.24 M/UL (4.70-6.10); RED CELL DISTRIBUTION WIDTH 14.4 % (11.6-14.8); WHITE BLOOD COUNT 8.8 K/UL (4.8-10.8)
[2017-03-29] MEDS: NovoLOG Insulin Flexpen SUBQ SCH ×4 (06:13→21:53)
[2017-03-29 06:34] LABS: ALANINE AMINOTRANSFERASE 6 U/L (3-41); ALBUMIN/GLOBULIN RATIO 0.8 (1.0-2.7); ANION GAP 10 (5-15); ASPARTATE AMINO TRANSFERASE 8 U/L (5-40); CALCIUM 8.3 mg/dL (8.6-10.2); CARBON DIOXIDE 30 mEQ/L (20-30); CHLORIDE 103 mEQ/L (98-107); CREATININE 1.5 mg/dL (0.7-1.2); HEMOLYSIS 4; POTASSIUM 3.1 mEQ/L (3.4-4.9); SODIUM 143 mEQ/L (135-145); TOTAL PROTEIN 4.9 g/dL (6.6-8.7)
[2017-03-29 06:39] LABS: MAGNESIUM 1.9 mg/dL (1.7-2.5); PHOSPHORUS 3.5 mg/dL (2.5-4.8)
[2017-03-29 06:44] LABS: INR 1.1 (0.9-1.1); PROTHROMBIN TIME 11.5 SEC (9.30-11.50)
[2017-03-29 08:18] LABS: ANISOCYTOSIS 1+; BAND NEUTROPHILS % (MANUAL) 0 % (0-8); BASOPHILS % (MANUAL) 1 % (0-2); EOSINOPHILS % (MANUAL) 3 % (0-3); HYPOCHROMASIA 3+; LYMPHOCYTES % (MANUAL) 28 % (20-45); METAMYELOCYTES % 1 % (0-0); NEUTROPHILS % (MANUAL) 61 % (45-75); PLATELET ESTIMATE ADEQUATE; SPHEROCYTES 2+; TOTAL CELLS COUNTED 100
[2017-03-29 08:25] LABS: PLATELET MORPHOLOGY NORMAL
[2017-03-29] MEDS: Tamsulosin 0.4mg cap ORAL SCH (09:00)
[2017-03-29] MEDS: Carvedilol 6.25mg Tab ORAL SCH ×2 (09:00→21:50)
[2017-03-29] MEDS: Pantoprazole Inj IVP SCH ×2 (09:30→21:46)
[2017-03-29] MEDS: Dyna-Hex 2% Top Sol 8oz TOPIC SCH (09:34)
[2017-03-29] MEDS ORDERED: NS Irrig 2000ml IRRIG ONE (10:39)
--- NOTE | 2017-03-29 11:05 | General Progress Note ---
Assessment/Plan Status: unchanged Status Narrative Transfused- continues with GI bleed Assessment/Plan MILAN (acute kidney injury) --- h/o urinary outlet obstruction ....RESOLVED On Vanco and Amikacin GI / Rectal Bleed UTI (urinary tract infection) HTN DM Psychosis Bladder tumor and suprapubic catheter Anemia Plan: Mag supplements-as needed transfusion previous dialysed and then stopped follow up renal parameters Mag and Phos supp as needed- More transfusion- as needed monitor BS and adjust Insulin Keep BS and BP in check Monitor renal parameters Avoid Nephrotoxics- Per orders DC planning Subjective ROS Limited/Unobtainable: No Constitutional: Reports: malaise Allergies: Coded Allergies: No Known Allergies (Unverified , 02/25/17) Objective Last 24 Hour Vital Signs Date Time Temp Pulse Resp B/P Pulse Ox O2 Delivery O2 Flow Rate FiO2 03/29/17 09:00 83 150/74 03/29/17 07:58 97.0 83 21 150/74 95 Nasal Cannula 2.0 03/29/17 05:29 143/69 03/29/17 04:00 98.2 74 19 145/82 99 Nasal Cannula 2.0 03/29/17 00:00 98.2 70 20 110/66 Nasal Cannula 3.0 03/28/17 22:00 108/56 03/28/17 21:25 72 134/64 03/28/17 20:00 98.1 72 20 134/64 98 Nasal Cannula 3.0 03/28/17 17:33 Nasal Cannula 3.0 32 03/28/17 17:33 98 Nasal Cannula 3.0 32 03/28/17 15:38 98.1 67 19 101/60 100 Nasal Cannula 03/28/17 13:10 93/47 03/28/17 12:18 98.2 66 18 93/47 100 Nasal Cannula Intake and Output 03/28/17 03/29/17 19:00 07:00 Output Total 1 ml 450 ml Balance -1 ml -450 ml Output Urine Total 450 ml Stool Total 1 ml # Bowel Movements 3 3 Laboratory Tests 03/29/17 05:40: White Blood Count 8.8, Red Blood Count 2.24L, Hemoglobin 7.2L, Hematocrit 21.1L , Mean Corpuscular Volume 94, Mean Corpuscular Hemoglobin 32.2H, Mean Corpuscular Hemoglobin Concent 34.2, Red Cell Distribution Width 14.4, Platelet Count 248, Mean Platelet Volume 6.8, Neutrophils (%) (Auto) , Lymphocytes (%) ( Auto) , Monocytes (%) (Auto) , Eosinophils (%) (Auto) , Basophils (%) (Auto) , Differential Total Cells Counted 100, Neutrophils % (Manual) 61, Lymphocytes % ( Manual) 28, Monocytes % (Manual) 6, Eosinophils % (Manual) 3, Basophils % ( Manual) 1, Metamyelocytes % 1H, Band Neutrophils 0, Platelet Estimate Adequate, Platelet Morphology Normal, Hypochromasia 3+, Anisocytosis 1+, Spherocytes 2+, Prothrombin Time 11.5, Prothromb Time International Ratio 1.1, Activated Partial Thromboplast Time 25, Sodium Level 143, Potassium Level 3.1L, Chloride Level 103, Carbon Dioxide Level 30, Anion Gap 10, Blood Urea Nitrogen 21, Creatinine 1.5H, Estimat Glomerular Filtration Rate , Glucose Level 141H, Calcium Level 8.3L, Phosphorus Level 3.5, Magnesium Level 1.9, Total Bilirubin 0.4, Aspartate Amino Transf (AST/SGOT) 8, Alanine Aminotransferase (ALT/SGPT) 6 , Alkaline Phosphatase 51, Total Protein 4.9L, Albumin 2.2L, Globulin 2.7, Albumin/Globulin Ratio 0.8L Height (Feet): 5 Height (Inches): 5.00 Weight (Pounds): 246 General Appearance: no apparent distress Cardiovascular: tachycardia Respiratory/Chest: decreased breath sounds Abdomen: other - has bloody stool Objective other PE not changed JULIETA LEON Mar 29, 2017 11:05
[2017-03-29] MEDS ORDERED: Propofol 10mg/ml 20ml IV ONE (13:00)
--- NOTE | 2017-03-29 13:17 | Pre-Procedure Note/Attestation ---
Pre-Procedure Note/Attestation Complete Prior to Procedure Planned Procedure: not applicable Procedure Narrative: egd/colonoscopy Indications for Procedure Pre-Operative Diagnosis: anemia Attestation I attest that I discussed the nature of the procedure; its benefits; risks and complications; and alternatives (and the risks and benefits of such alternatives ), prior to the procedure, with the patient (or the patient's legal technical support representative). I attest that, if there was a reasonable possibility of needing a blood transfusion, the patient (or the patient's legal technical support representative) was given the [facility] standardized written summary, pursuant to the [place] Blood Safety Act ([place] Health and Safety Code # 1645, as amended). I attest that I re-evaluated the patient just prior to the surgery and that there has been no change in the patient's H&P, except as documented below: ORION HILARIO Mar 29, 2017 13:17
[2017-03-29] MEDS ORDERED: NS 550ML IV ONE (13:20)
--- NOTE | 2017-03-29 13:38 | Anethesia Preoperative Eval ---
Anesthesia Pre-op PMH/ROS General Date of Evaluation: Mar 29, 2017 Time of Evaluation: 13:18 Anesthesiologist: lawrence ASA Score: ASA 3 Mallampati Score Class I : Soft palate, uvula, fauces, pillars visible Class II: Soft palate, uvula, fauces visible Class III: Soft palate, base of uvula visible Class IV: Only hard plate visible Mallampati Classification: Class III Surgeon: ivette Diagnosis: anemia Surgical Procedure: egd/colonoscopy Anesthesia History: none Allergies: Coded Allergies: No Known Allergies (Unverified , 02/25/17) Past Medical History Cardiovascular: Reports: CAD, HTN Pulmonary: Reports: COPD, asthma Gastrointestinal/Genitourinary: Reports: other - CRF dialysis Hematology/Immune: Reports: DVT, anemia Anesthesia Pre-op Phys. Exam Physician Exam Last Vital Signs Date Time Temp Pulse Resp B/P Pulse Ox O2 Delivery O2 Flow Rate FiO2 03/29/17 11:58 98.9 64 20 151/76 100 3.0 03/29/17 07:58 Nasal Cannula 03/28/17 17:33 32 Airway Exam Mallampati Score: Class III Teeth: missing Anesthesia Pre-op A/P Labs Hematology Test 03/29/17 05:40 White Blood Count 8.8 K/UL (4.8-10.8) Red Blood Count 2.24 M/UL (4.70-6.10) L Hemoglobin 7.2 G/DL (14.2-18.0) L Hematocrit 21.1 % (42.0-52.0) L Mean Corpuscular Volume 94 FL (80-99) Mean Corpuscular Hemoglobin 32.2 PG (27.0-31.0) H Mean Corpuscular Hemoglobin Concent 34.2 G/DL (32.0-36.0) Red Cell Distribution Width 14.4 % (11.6-14.8) Platelet Count 248 K/UL (150-450) Mean Platelet Volume 6.8 FL (6.5-10.1) Neutrophils (%) (Auto) % (45.0-75.0) Lymphocytes (%) (Auto) % (20.0-45.0) Monocytes (%) (Auto) % (1.0-10.0) Eosinophils (%) (Auto) % (0.0-3.0) Basophils (%) (Auto) % (0.0-2.0) Differential Total Cells Counted 100 Neutrophils % (Manual) 61 % (45-75) Lymphocytes % (Manual) 28 % (20-45) Monocytes % (Manual) 6 % (1-10) Eosinophils % (Manual) 3 % (0-3) Basophils % (Manual) 1 % (0-2) Metamyelocytes % 1 % (0-0) H Band Neutrophils 0 % (0-8) Platelet Estimate Adequate Platelet Morphology Normal Hypochromasia 3+ Anisocytosis 1+ Spherocytes 2+ Coagulation Test 03/29/17 05:40 Prothrombin Time 11.5 SEC (9.30-11.50) Prothromb Time International Ratio 1.1 (0.9-1.1) Activated Partial Thromboplast Time 25 SEC (23-33) Chemistry Test 03/29/17 05:40 Sodium Level 143 mEQ/L (135-145) Potassium Level 3.1 mEQ/L (3.4-4.9) L Chloride Level 103 mEQ/L (98-107) Carbon Dioxide Level 30 mEQ/L (20-30) Anion Gap 10 (5-15) Blood Urea Nitrogen 21 mg/dL (7-23) Creatinine 1.5 mg/dL (0.7-1.2) H Estimat Glomerular Filtration Rate mL/min (>60) Glucose Level 141 mg/dL (74-106) H Calcium Level 8.3 mg/dL (8.6-10.2) L Phosphorus Level 3.5 mg/dL (2.5-4.8) Magnesium Level 1.9 mg/dL (1.7-2.5) Total Bilirubin 0.4 mg/dL (0.0-1.2) Aspartate Amino Transf (AST/SGOT) 8 U/L (5-40) Alanine Aminotransferase (ALT/SGPT) 6 U/L (3-41) Alkaline Phosphatase 51 U/L (40-129) Total Protein 4.9 g/dL (6.6-8.7) L Albumin 2.2 g/dL (3.5-5.2) L Globulin 2.7 g/dL Albumin/Globulin Ratio 0.8 (1.0-2.7) L Risk Assessment & Plan Plan: propofol Status Change Before Surgery: Julius Cabrera MD Mar 29, 2017 13:38
--- NOTE | 2017-03-29 13:45 | Immediate Post-Op Evaluation ---
Immediate Post-Op Evalulation Immediate Post-Op Evalulation Date of Evaluation: Mar 29, 2017 Time of Evaluation: 14:13 IV Fluids: 500 Blood Pressure Systolic: 137 Blood Pressure Diastolic: 66 Pulse Rate: 64 Respiratory Rate: 20 O2 Sat by Pulse Oximetry: 100 Temperature (Fahrenheit): 97.5 Pain Score (1-10): 0 Nausea: No Vomiting: No Complications none Patient Status: awake, patent, none Hydration Status: adequate Julius Mancia MD Mar 29, 2017 13:45
--- NOTE | 2017-03-29 13:56 | Endoscopy Procedure Note ---
Endoscopy Procedure Note Indication for Procedure: anemia Procedures Performed: EGD, colonoscopy Operative Findings/Diagnosis: gastritis, colon polyp Specimen: yes Pt Tolerated Procedure Well: Yes Estimated Blood Loss: none Anesthesiologist: lawrence Anesthesia: MAC Implant(s) used?: No 50 yrs or older w/o bx or poly: Not Applicable 10yrs. F/U not recommended: Not Applicable ORION HILARIO Mar 29, 2017 13:56
--- NOTE | 2017-03-29 13:56 | 48 Hour Post Anesthesia Eval ---
Post Anesthesia Evaluation Date of Evaluation: Mar 29, 2017 Time of Evaluation: 14:40 Blood Pressure Systolic: 137 0: 59 Pulse Rate: 61 Respiratory Rate: 13 Temperature (Fahrenheit): 98.9 O2 Sat by Pulse Oximetry: 100 Airway: patent Nausea: No Vomiting: No Pain Intensity: 0 Hydration Status: adequate Cardiopulmonary Status: stable Mental Status/LOC: patient returned to baseline Follow-up Care/Observations: n/a Post-Anesthesia Complications: tolerated well Follow-up care needed: N/A Julius Mancia MD Mar 29, 2017 13:56
--- NOTE | 2017-03-29 14:53 | Pulmonology Progress Note ---
Assessment/Plan Problems: (1) Gross hematuria (2) Acute encephalopathy (3) Sepsis (4) ATN (acute tubular necrosis) (5) Lower GI bleed (6) Diabetes mellitus (7) COPD (chronic obstructive pulmonary disease) (8) DVT (deep venous thrombosis) Assessment/Plan s/p ivc filtre frequent flushing urine is clear now endoscopy results noted, no acute bleeding prbc prn, today again check h/h in am Subjective ROS Limited/Unobtainable: No Interval Events: for EGD today, no new events Allergies: Coded Allergies: No Known Allergies (Unverified , 02/25/17) Objective Last 24 Hour Vital Signs Date Time Temp Pulse Resp B/P Pulse Ox O2 Delivery O2 Flow Rate FiO2 03/29/17 14:30 61 13 139/59 100 Nasal Cannula 3.0 03/29/17 14:18 61 13 133/61 100 Nasal Cannula 3.0 03/29/17 14:14 64 20 100 03/29/17 14:13 62 13 131/62 100 Nasal Cannula 3.0 03/29/17 14:08 98.9 63 13 137/66 100 Nasal Cannula 3.0 03/29/17 11:58 98.9 64 20 151/76 100 3.0 03/29/17 09:00 83 150/74 03/29/17 07:58 97.0 83 21 150/74 95 Nasal Cannula 2.0 03/29/17 05:29 143/69 03/29/17 04:00 98.2 74 19 145/82 99 Nasal Cannula 2.0 03/29/17 00:00 98.2 70 20 110/66 Nasal Cannula 3.0 03/28/17 22:00 108/56 03/28/17 21:25 72 134/64 03/28/17 20:00 98.1 72 20 134/64 98 Nasal Cannula 3.0 03/28/17 17:33 Nasal Cannula 3.0 32 03/28/17 17:33 98 Nasal Cannula 3.0 32 03/28/17 15:38 98.1 67 19 101/60 100 Nasal Cannula Intake and Output 03/28/17 03/29/17 19:00 07:00 Output Total 1 ml 450 ml Balance -1 ml -450 ml Output Urine Total 450 ml Stool Total 1 ml # Bowel Movements 3 3 Objective General Appearance: WD/WN HEENT: normocephalic, atraumatic Respiratory/Chest: chest wall non-tender, lungs clear Abdomen: normal bowel sounds, soft, non tender Genitourinary: normal external genitalia Extremities: no cyanosis Skin: no rash Laboratory Tests 03/29/17 05:40: White Blood Count 8.8, Red Blood Count 2.24L, Hemoglobin 7.2L, Hematocrit 21.1L , Mean Corpuscular Volume 94, Mean Corpuscular Hemoglobin 32.2H, Mean Corpuscular Hemoglobin Concent 34.2, Red Cell Distribution Width 14.4, Platelet Count 248, Mean Platelet Volume 6.8, Neutrophils (%) (Auto) , Lymphocytes (%) ( Auto) , Monocytes (%) (Auto) , Eosinophils (%) (Auto) , Basophils (%) (Auto) , Differential Total Cells Counted 100, Neutrophils % (Manual) 61, Lymphocytes % ( Manual) 28, Monocytes % (Manual) 6, Eosinophils % (Manual) 3, Basophils % ( Manual) 1, Metamyelocytes % 1H, Band Neutrophils 0, Platelet Estimate Adequate, Platelet Morphology Normal, Hypochromasia 3+, Anisocytosis 1+, Spherocytes 2+, Prothrombin Time 11.5, Prothromb Time International Ratio 1.1, Activated Partial Thromboplast Time 25, Sodium Level 143, Potassium Level 3.1L, Chloride Level 103, Carbon Dioxide Level 30, Anion Gap 10, Blood Urea Nitrogen 21, Creatinine 1.5H, Estimat Glomerular Filtration Rate , Glucose Level 141H, Calcium Level 8.3L, Phosphorus Level 3.5, Magnesium Level 1.9, Total Bilirubin 0.4, Aspartate Amino Transf (AST/SGOT) 8, Alanine Aminotransferase (ALT/SGPT) 6 , Alkaline Phosphatase 51, Total Protein 4.9L, Albumin 2.2L, Globulin 2.7, Albumin/Globulin Ratio 0.8L Current Medications Medications (Trade) Dose Ordered Sig/Fernando Route PRN Reason Start Time Stop Time Status Last Admin Dose Admin Acetaminophen (Tylenol) 650 mg Q6H PRN ORAL Mild Pain/Temp > 100.5 03/25/17 04:00 04/24/17 03:59 Carvedilol (Coreg) 6.25 mg EVERY 12 HOURS ORAL 03/25/17 09:00 04/24/17 08:59 03/28/17 21:25 Chlorhexidine Gluconate (Amina-Hex 2%) 1 applic DAILY TOPIC 03/25/17 14:00 04/24/17 13:59 03/29/17 09:34 Ciprofloxacin (Cipro 200mg Premix) 100 ml @ 100 mls/hr Q12HR IV 03/25/17 09:00 04/01/17 08:59 03/29/17 09:36 Clonazepam (KlonoPIN) 1 mg Q12HR ORAL 03/25/17 09:00 04/01/17 08:59 03/28/17 21:25 Clonidine HCl (Catapres) 0.1 mg Q4H PRN ORAL SBP > 160 03/25/17 17:15 04/24/17 17:14 03/27/17 08:19 Clotrimazole (Lotrimin) 1 applic EVERY 12 HOURS TOPIC 03/25/17 09:00 04/24/17 08:59 03/29/17 10:22 Dextrose (Dextrose 50%) STAT PRN IV Hypoglycemia 03/25/17 13:00 04/24/17 12:59 Gabapentin (Neurontin) 200 mg QHS ORAL 03/25/17 21:00 04/24/17 20:59 03/28/17 21:25 Haloperidol Lactate (Haldol) 5 mg Q4H PRN IM Agitation 03/25/17 04:00 04/24/17 03:59 Hydralazine HCl (Apresoline) 50 mg Q8HR ORAL 03/27/17 22:00 04/26/17 21:59 03/29/17 05:29 Insulin Aspart (NovoLOG) BEFORE MEALS AND HS SUBQ 03/25/17 06:30 04/24/17 06:29 03/28/17 21:34 Lorazepam (Ativan 2mg/ml 1ml) 0.5 mg Q4H PRN IV For Anxiety 03/25/17 02:00 04/01/17 01:59 Morphine Sulfate (Morphine Sulfate) 1 mg EVERY 4 HOURS PRN IVP For Pain 03/25/17 01:00 04/01/17 00:59 03/27/17 18:58 Ondansetron HCl (Zofran) 4 mg Q6H PRN IVP Nausea & Vomiting 03/25/17 04:00 04/24/17 03:59 Pantoprazole 40 mg 40 mg EVERY 12 HOURS IVP 03/28/17 21:00 04/27/17 20:59 03/29/17 09:30 Polyethylene Glycol (Miralax) 17 gm HSPRN PRN ORAL Constipation 03/25/17 21:00 04/24/17 20:59 Potassium Chloride 100 ml @ 50 mls/hr Q2H IVPB 03/29/17 11:00 03/29/17 16:59 03/29/17 12:18 Quetiapine Fumarate (SEROquel) 25 mg BEDTIME ORAL 03/25/17 21:00 04/24/17 20:59 03/28/17 21:25 Sodium Chloride (Sodium Chloride 1000ml bag) 1,000 ml @ 10 mls/hr Q24H IVLG 03/29/17 13:56 03/29/17 15:55 Tamsulosin HCl (Flomax) 0.4 mg DAILY ORAL 03/25/17 09:00 04/24/17 08:59 03/28/17 09:12 Zolpidem Tartrate (Ambien) 5 mg HSPRN PRN ORAL Insomnia 03/25/17 21:00 04/24/17 20:59 JUSTO LEBLANC Mar 29, 2017 14:53
[2017-03-29] MEDS: Morphine Sulfate 2mg/ml Inj IVP PRN (16:38)
--- NOTE | 2017-03-29 17:30 | Procedure Note ---
DATE OF PROCEDURE: 03/29/2017 SURGEON: Julius Lees M.D. REFERRING PHYSICIAN: Richard Curran M.D. PROCEDURE: Upper endoscopy with biopsy and colonoscopy with biopsy. ANESTHESIOLOGIST: Dr. Mancia. INSTRUMENT: Olympus adult upper endoscope and colonoscope. INDICATION: 1. Anemia, iron deficiency. 2. Gastrointestinal bleeding. REASON FOR PROCEDURE: The procedure, risks, benefits, and possible consequences, including hemorrhage, aspiration, perforation and infection, and alternative treatments, were explained to the patient/legal guardian by Dr. Julius Lees and the patient/legal guardian understood and accepted these risks. PROCEDURE IN DETAIL: After informed consent was obtained and the patient was adequately sedated, Olympus upper endoscope was advanced from mouth into the second portion of duodenum and retroflexion was performed in the stomach. The patient had a tattooed area in the second portion of the duodenum around close to the ampulla and then there was an ulceration there. It is questionable whether it was a polyp that was removed in that area. At this time, there is no active bleeding but definitely it is an ulcer from prior, possibly polypectomy. At this time, the upper endoscope was retrieved. Random biopsy of the antrum was obtained to rule out H. pylori infection. Then, the patient was turned over for colonoscopy. First, a rectal exam was performed, which was normal. Then, the scope was advanced from the rectum into the area that seems to be in ascending colon. Quality of prep was very poor. So, we could not advance the scope beyond that area now so we could not see the rest of the colon very well anyway. The patient had a very poor colonoscopy prep. There was one diminutive polyp in the ascending colon, removed with the cold biopsy forceps technique. Otherwise, the rest of the exam was normal. SUMMARY OF FINDINGS: 1. An area of tattoo in the second portion of the duodenum with an ulceration, questionable recent procedure, maybe polypectomy. 2. Gastritis, status post biopsy. 3. One colonic polyp removed, see above for details. 4. Poor colonic prep. RECOMMENDATIONS: Resume diet. Follow labs. The patient most probably needs outpatient followup for repeat colonoscopy with prep. I want to thank, Dr. Curran, for this kind referral. Julius Erma Lees DR: ANIL JOB#: [id number] CC: Richard Curran M.D.; Fax#: [phone]
[2017-03-29] MEDS ORDERED: Morphine Sulfate 4mg/ml Inj IM PRN ×2 (18:00)
[2017-03-29] MEDS: Morphine Sulfate 4mg/ml Inj IVP PRN (18:21)
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
[2017-03-30] VITALS: BP 122/66
--- NOTE | 2017-03-30 00:15 | Progress Note ---
DATE: 03/29/2017 SUBJECTIVE: The patient is on one-to-one sitter, still she has episodes of anxiety, agitation, and is attempting to come out of bed. He has cognitive impairment, waxing and waning consciousness. MENTAL STATUS EXAMINATION: The patient is confused, disoriented, and not engaged during evaluation. Mood is calm during the evaluation. However, he gets agitated. Affect is constricted. Congruent mood. Thought process is concrete. Thought content, there is no suicidal or homicidal ideations. ASSESSMENT: 1. Delirium. 2. Cognitive impairment. 3. Agitation. PLAN: We will continue to follow and readjust the medication. Ladarius Parry M.D. DR: ALCIRA JOB#: [id number] CC:
[2017-03-30 04:00] VITALS: BP 120/66
[2017-03-30] MEDS: NovoLOG Insulin Flexpen SUBQ SCH ×4 (05:35→22:05)
[2017-03-30] MEDS: HydrALAZINE 25mg tab ORAL SCH ×3 (05:35→22:56)
--- NOTE | 2017-03-30 08:09 | GI Progress Note ---
Assessment/Plan Problems: (1) Anemia ICD Codes: D64.9 - Anemia, unspecified SNOMED: 650429079 (2) Diabetes mellitus ICD Codes: E11.9 - Type 2 diabetes mellitus without complications SNOMED: 10601349 (3) Altered mental status ICD Codes: R41.82 - Altered mental status, unspecified SNOMED: 628028901 Qualifiers: Qualified Codes: R41.82 - Altered mental status, unspecified (4) COPD (chronic obstructive pulmonary disease) ICD Codes: J44.9 - Chronic obstructive pulmonary disease, unspecified SNOMED: 29077892 (5) CAD (coronary artery disease) ICD Codes: I25.10 - Atherosclerotic heart disease of sam[place] coronary artery without angina pectoris SNOMED: 92283664 Assessment/Plan s/p EGd poor colonoscopy prep fu CBC fu repeat stool ob consider repeat colon on saturday if needed fu CEA Subjective Gastrointestinal/Abdominal: Reports: no symptoms Objective Last 24 Hour Vital Signs Date Time Temp Pulse Resp B/P Pulse Ox O2 Delivery O2 Flow Rate FiO2 03/30/17 05:35 120/66 03/30/17 04:00 96.4 60 20 120/66 100 Nasal Cannula 2.0 03/30/17 00:00 97.7 62 20 122/66 98 Nasal Cannula 2.0 03/29/17 21:52 165/86 03/29/17 21:50 75 165/86 03/29/17 20:00 97.4 75 20 165/86 100 Nasal Cannula 2.0 03/29/17 19:20 97 Nasal Cannula 3.0 32 03/29/17 19:20 Nasal Cannula 3.0 32 03/29/17 19:17 79 159/81 98 Nasal Cannula 3.0 03/29/17 18:51 99.4 03/29/17 18:30 78 16 151/80 03/29/17 18:00 85 16 147/80 03/29/17 17:45 176/79 03/29/17 17:09 99.4 03/29/17 16:35 176/79 03/29/17 16:20 99.4 67 16 176/79 99 03/29/17 15:26 159/63 03/29/17 15:03 98.1 69 16 79/63 95 Nasal Cannula 3.0 03/29/17 14:54 61 13 100 03/29/17 14:40 98.0 67 16 133/63 100 Nasal Cannula 3.0 03/29/17 14:30 61 13 139/59 100 Nasal Cannula 3.0 03/29/17 14:18 61 13 133/61 100 Nasal Cannula 3.0 03/29/17 14:14 64 20 100 03/29/17 14:13 62 13 131/62 100 Nasal Cannula 3.0 03/29/17 14:08 97.6 63 13 137/66 100 Nasal Cannula 3.0 03/29/17 11:58 98.9 64 20 151/76 100 3.0 03/29/17 09:00 83 150/74 Intake and Output 03/29/17 03/30/17 19:00 07:00 Intake Total 400 ml 320 ml Output Total 1250 ml 700 ml Balance -850 ml -380 ml Intake Oral 0 ml 120 ml IV Total 400 ml 200 ml Output Urine Total 950 ml 450 ml Stool Total 0 ml Other 300 ml 250 ml # Bowel Movements 5 Height (Feet): 5 Height (Inches): 5.00 Weight (Pounds): 246 ORION HILARIO Mar 30, 2017 08:08
[2017-03-30 08:13] VITALS: BP 136/61
[2017-03-30 09:21] LABS: PHOSPHORUS 3.7 mg/dL (2.5-4.8)
[2017-03-30 09:23] LABS: ALANINE AMINOTRANSFERASE 6 U/L (3-41); ALBUMIN/GLOBULIN RATIO 0.7 (1.0-2.7); ANION GAP 8 (5-15); ASPARTATE AMINO TRANSFERASE 9 U/L (5-40); CALCIUM 8.2 mg/dL (8.6-10.2); CARBON DIOXIDE 31 mEQ/L (20-30); CHLORIDE 104 mEQ/L (98-107); CREATININE 1.4 mg/dL (0.7-1.2); HEMOLYSIS 2; POTASSIUM 3.9 mEQ/L (3.4-4.9); SODIUM 143 mEQ/L (135-145); TOTAL PROTEIN 4.9 g/dL (6.6-8.7)
[2017-03-30 09:33] LABS: MEAN CORPUSCULAR HEMOGLOBIN 30.4 PG (27.0-31.0); MEAN CORPUSCULAR HGB CONC 31.7 G/DL (32.0-36.0); MEAN CORPUSCULAR VOLUME 96 FL (80-99); MEAN PLATELET VOLUME 6.4 FL (6.5-10.1); PLATELET COUNT 219 K/UL (150-450); RED BLOOD COUNT 2.49 M/UL (4.70-6.10); RED CELL DISTRIBUTION WIDTH 14.3 % (11.6-14.8); WHITE BLOOD COUNT 6.7 K/UL (4.8-10.8)
[2017-03-30 09:37] LABS: INR 1.1 (0.9-1.1); PROTHROMBIN TIME 11.2 SEC (9.30-11.50)
--- NOTE | 2017-03-30 09:39 | General Progress Note ---
Assessment/Plan Status: stable - from renal stand Status Narrative Hgb higher post transfusion- Cr stable 1.4 Assessment/Plan MILAN (acute kidney injury) --- h/o urinary outlet obstruction ....RESOLVED On Vanco and Amikacin GI / Rectal Bleed UTI (urinary tract infection) HTN DM Psychosis Bladder tumor and suprapubic catheter Anemia Plan: Mag supplements-as needed transfusion previous dialysed and then stopped follow up renal parameters Mag and Phos supp as needed- More transfusion- as needed monitor BS and adjust Insulin Keep BS and BP in check Monitor renal parameters Avoid Nephrotoxics- Per orders DC planning Subjective ROS Limited/Unobtainable: No Constitutional: Reports: malaise, weakness Allergies: Coded Allergies: No Known Allergies (Unverified , 02/25/17) Objective Last 24 Hour Vital Signs Date Time Temp Pulse Resp B/P Pulse Ox O2 Delivery O2 Flow Rate FiO2 03/30/17 08:13 97.3 59 15 136/61 100 Room Air 03/30/17 05:35 120/66 03/30/17 04:00 96.4 60 20 120/66 100 Nasal Cannula 2.0 03/30/17 00:00 97.7 62 20 122/66 98 Nasal Cannula 2.0 03/29/17 21:52 165/86 03/29/17 21:50 75 165/86 03/29/17 20:00 97.4 75 20 165/86 100 Nasal Cannula 2.0 03/29/17 19:20 97 Nasal Cannula 3.0 32 03/29/17 19:20 Nasal Cannula 3.0 32 03/29/17 19:17 79 159/81 98 Nasal Cannula 3.0 03/29/17 18:51 99.4 03/29/17 18:30 78 16 151/80 03/29/17 18:00 85 16 147/80 03/29/17 17:45 176/79 03/29/17 17:09 99.4 03/29/17 16:35 176/79 03/29/17 16:20 99.4 67 16 176/79 99 03/29/17 15:26 159/63 03/29/17 15:03 98.1 69 16 79/63 95 Nasal Cannula 3.0 03/29/17 14:54 61 13 100 03/29/17 14:40 98.0 67 16 133/63 100 Nasal Cannula 3.0 03/29/17 14:30 61 13 139/59 100 Nasal Cannula 3.0 03/29/17 14:18 61 13 133/61 100 Nasal Cannula 3.0 03/29/17 14:14 64 20 100 03/29/17 14:13 62 13 131/62 100 Nasal Cannula 3.0 03/29/17 14:08 97.6 63 13 137/66 100 Nasal Cannula 3.0 03/29/17 11:58 98.9 64 20 151/76 100 3.0 Intake and Output 03/29/17 03/30/17 19:00 07:00 Intake Total 400 ml 320 ml Output Total 1250 ml 700 ml Balance -850 ml -380 ml Intake Oral 0 ml 120 ml IV Total 400 ml 200 ml Output Urine Total 950 ml 450 ml Stool Total 0 ml Other 300 ml 250 ml # Bowel Movements 5 Laboratory Tests 03/30/17 05:00: White Blood Count [Pending], Red Blood Count [Pending], Hemoglobin [Pending], Hematocrit [Pending], Mean Corpuscular Volume [Pending], Mean Corpuscular Hemoglobin [Pending], Mean Corpuscular Hemoglobin Concent [Pending], Red Cell Distribution Width [Pending], Platelet Count [Pending], Mean Platelet Volume [ Pending], Neutrophils (%) (Auto) [Pending], Lymphocytes (%) (Auto) [Pending], Monocytes (%) (Auto) [Pending], Eosinophils (%) (Auto) [Pending], Basophils (%) (Auto) [Pending], Prothrombin Time [Pending], Prothromb Time International Ratio [Pending], Activated Partial Thromboplast Time [Pending], Sodium Level 143 , Potassium Level 3.9, Chloride Level 104, Carbon Dioxide Level 31H, Anion Gap 8 , Blood Urea Nitrogen 15, Creatinine 1.4H, Estimat Glomerular Filtration Rate , Glucose Level 99, Calcium Level 8.2L, Phosphorus Level 3.7, Magnesium Level 2.0 , Total Bilirubin 0.3, Aspartate Amino Transf (AST/SGOT) 9, Alanine Aminotransferase (ALT/SGPT) 6, Alkaline Phosphatase 51, Total Protein 4.9L, Albumin 2.1L, Globulin 2.8, Albumin/Globulin Ratio 0.7L, Carcinoembryonic Antigen 1.5 Height (Feet): 5 Height (Inches): 5.00 Weight (Pounds): 246 General Appearance: no apparent distress, lethargic Cardiovascular: regular rhythm Respiratory/Chest: decreased breath sounds Abdomen: distended, other - obese Objective other PE not changed JULIETA LEON Mar 30, 2017 09:39
[2017-03-30] MEDS: Pantoprazole Inj IVP SCH ×2 (09:52→21:49)
[2017-03-30] MEDS: Tamsulosin 0.4mg cap ORAL SCH (09:52)
[2017-03-30] MEDS: Carvedilol 6.25mg Tab ORAL SCH ×2 (09:52→21:49)
[2017-03-30] MEDS: Dyna-Hex 2% Top Sol 8oz TOPIC SCH (10:14)
[2017-03-30 11:11] LABS: ANISOCYTOSIS 1+; BAND NEUTROPHILS % (MANUAL) 0 % (0-8); BASOPHILS % (MANUAL) 1 % (0-2); EOSINOPHILS % (MANUAL) 5 % (0-3); HYPOCHROMASIA 3+; LYMPHOCYTES % (MANUAL) 40 % (20-45); NEUTROPHILS % (MANUAL) 45 % (45-75); PLATELET ESTIMATE ADEQUATE; PLATELET MORPHOLOGY NORMAL; TOTAL CELLS COUNTED 100
[2017-03-30 11:57] VITALS: BP 101/54
[2017-03-30 15:34] VITALS: BP 119/60
[2017-03-30] MEDS: Morphine Sulfate 4mg/ml Inj IVP PRN (17:21)
--- NOTE | 2017-03-30 18:27 | Pulmonology Progress Note ---
Assessment/Plan Problems: (1) Gross hematuria (2) Acute encephalopathy (3) Sepsis (4) ATN (acute tubular necrosis) (5) Lower GI bleed (6) Diabetes mellitus (7) COPD (chronic obstructive pulmonary disease) (8) DVT (deep venous thrombosis) Assessment/Plan colonoscopy was incomplete transfuse again s/p ivc filtre frequent flushing urine is clear now endoscopy results noted, no acute bleeding check h/h in am Subjective ROS Limited/Unobtainable: No Allergies: Coded Allergies: No Known Allergies (Unverified , 02/25/17) Objective Last 24 Hour Vital Signs Date Time Temp Pulse Resp B/P Pulse Ox O2 Delivery O2 Flow Rate FiO2 03/30/17 17:50 97.9 03/30/17 15:34 97.9 59 14 119/60 100 Nasal Cannula 03/30/17 14:00 101/54 03/30/17 11:57 97.7 66 15 101/54 96 Nasal Cannula 03/30/17 09:52 59 136/61 03/30/17 08:13 97.3 59 15 136/61 100 Room Air 03/30/17 05:35 120/66 03/30/17 04:00 96.4 60 20 120/66 100 Nasal Cannula 2.0 03/30/17 00:00 97.7 62 20 122/66 98 Nasal Cannula 2.0 03/29/17 21:52 165/86 03/29/17 21:50 75 165/86 03/29/17 20:00 97.4 75 20 165/86 100 Nasal Cannula 2.0 03/29/17 19:20 97 Nasal Cannula 3.0 32 03/29/17 19:20 Nasal Cannula 3.0 32 03/29/17 19:17 79 159/81 98 Nasal Cannula 3.0 03/29/17 18:30 78 16 151/80 Intake and Output 03/29/17 03/30/17 19:00 07:00 Intake Total 400 ml 320 ml Output Total 1250 ml 700 ml Balance -850 ml -380 ml Intake Oral 0 ml 120 ml IV Total 400 ml 200 ml Output Urine Total 950 ml 450 ml Stool Total 0 ml Other 300 ml 250 ml # Bowel Movements 5 Objective General Appearance: WD/WN HEENT: normocephalic, atraumatic Respiratory/Chest: chest wall non-tender, lungs clear Abdomen: normal bowel sounds, soft, non tender Genitourinary: normal external genitalia Extremities: no cyanosis Skin: no rash Laboratory Tests 03/30/17 05:00: White Blood Count 6.7, Red Blood Count 2.49L, Hemoglobin 7.6L, Hematocrit 23.9L , Mean Corpuscular Volume 96, Mean Corpuscular Hemoglobin 30.4, Mean Corpuscular Hemoglobin Concent 31.7L, Red Cell Distribution Width 14.3, Platelet Count 219, Mean Platelet Volume 6.4L, Neutrophils (%) (Auto) , Lymphocytes (%) (Auto) , Monocytes (%) (Auto) , Eosinophils (%) (Auto) , Basophils (%) (Auto) , Differential Total Cells Counted 100, Neutrophils % ( Manual) 45, Lymphocytes % (Manual) 40, Monocytes % (Manual) 9, Eosinophils % ( Manual) 5H, Basophils % (Manual) 1, Band Neutrophils 0, Platelet Estimate Adequate, Platelet Morphology Normal, Hypochromasia 3+, Anisocytosis 1+, Prothrombin Time 11.2, Prothromb Time International Ratio 1.1, Activated Partial Thromboplast Time 23, Sodium Level 143, Potassium Level 3.9, Chloride Level 104, Carbon Dioxide Level 31H, Anion Gap 8, Blood Urea Nitrogen 15, Creatinine 1.4H, Estimat Glomerular Filtration Rate , Glucose Level 99, Calcium Level 8.2L, Phosphorus Level 3.7, Magnesium Level 2.0, Total Bilirubin 0.3, Aspartate Amino Transf (AST/SGOT) 9, Alanine Aminotransferase (ALT/SGPT) 6, Alkaline Phosphatase 51, Total Protein 4.9L, Albumin 2.1L, Globulin 2.8, Albumin /Globulin Ratio 0.7L, Carcinoembryonic Antigen 1.5 Current Medications Medications (Trade) Dose Ordered Sig/Fernando Route PRN Reason Start Time Stop Time Status Last Admin Dose Admin Acetaminophen (Tylenol) 650 mg Q6H PRN ORAL Mild Pain/Temp > 100.5 03/25/17 04:00 04/24/17 03:59 Carvedilol (Coreg) 6.25 mg EVERY 12 HOURS ORAL 03/25/17 09:00 04/24/17 08:59 03/30/17 09:52 Chlorhexidine Gluconate (Amina-Hex 2%) 1 applic DAILY TOPIC 03/25/17 14:00 04/24/17 13:59 03/30/17 10:14 Ciprofloxacin (Cipro 250mg tab) 250 mg EVERY 12 HOURS ORAL 03/29/17 21:00 04/01/17 08:59 03/30/17 09:52 Clonazepam (KlonoPIN) 1 mg Q12HR ORAL 03/25/17 09:00 04/01/17 08:59 03/30/17 09:52 Clonidine HCl (Catapres) 0.1 mg Q4H PRN ORAL SBP > 160 03/25/17 17:15 04/24/17 17:14 03/29/17 17:45 Clotrimazole (Lotrimin) 1 applic EVERY 12 HOURS TOPIC 03/25/17 09:00 04/24/17 08:59 03/30/17 09:53 Dextrose (Dextrose 50%) STAT PRN IV Hypoglycemia 03/25/17 13:00 04/24/17 12:59 Gabapentin (Neurontin) 200 mg QHS ORAL 03/25/17 21:00 04/24/17 20:59 03/29/17 21:51 Haloperidol Lactate (Haldol) 5 mg Q4H PRN IM Agitation 03/25/17 04:00 04/24/17 03:59 Hydralazine HCl (Apresoline) 50 mg Q8HR ORAL 03/27/17 22:00 04/26/17 21:59 03/30/17 05:35 Insulin Aspart (NovoLOG) BEFORE MEALS AND HS SUBQ 03/25/17 06:30 04/24/17 06:29 03/30/17 17:20 Lorazepam (Ativan 2mg/ml 1ml) 0.5 mg Q4H PRN IV For Anxiety 03/25/17 02:00 04/01/17 01:59 Morphine Sulfate (Morphine Sulfate) 4 mg Q4H PRN IVP Severe Pain (Pain Scale 7-10) 03/29/17 18:30 04/05/17 18:29 03/30/17 17:21 Ondansetron HCl (Zofran) 4 mg Q6H PRN IVP Nausea & Vomiting 03/25/17 04:00 04/24/17 03:59 Pantoprazole (Protonix) 40 mg EVERY 12 HOURS IVP 03/28/17 21:00 04/27/17 20:59 03/30/17 09:52 Polyethylene Glycol (Miralax) 17 gm HSPRN PRN ORAL Constipation 03/25/17 21:00 04/24/17 20:59 Quetiapine Fumarate (SEROquel) 25 mg BEDTIME ORAL 03/25/17 21:00 04/24/17 20:59 03/29/17 21:51 Tamsulosin HCl (Flomax) 0.4 mg DAILY ORAL 03/25/17 09:00 04/24/17 08:59 03/30/17 09:52 Zolpidem Tartrate (Ambien) 5 mg HSPRN PRN ORAL Insomnia 03/25/17 21:00 04/24/17 20:59 JUSTO LEBLANC Mar 30, 2017 18:27
[2017-03-30 20:00] VITALS: BP 142/76
[2017-03-31 00:04] VITALS: BP 125/70
[2017-03-31 04:00] VITALS: BP 138/67
[2017-03-31] MEDS: HydrALAZINE 25mg tab ORAL SCH ×3 (06:21→21:22)
[2017-03-31] MEDS: NovoLOG Insulin Flexpen SUBQ SCH ×4 (06:24→21:25)
--- NOTE | 2017-03-31 07:41 | General Progress Note ---
Assessment/Plan Problem List: (1) Anemia ICD Codes: D64.9 - Anemia, unspecified SNOMED: 290377927 (2) Diabetes mellitus ICD Codes: E11.9 - Type 2 diabetes mellitus without complications SNOMED: 16390867 (3) Altered mental status ICD Codes: R41.82 - Altered mental status, unspecified SNOMED: 002995643 Qualifiers: Qualified Codes: R41.82 - Altered mental status, unspecified (4) COPD (chronic obstructive pulmonary disease) ICD Codes: J44.9 - Chronic obstructive pulmonary disease, unspecified SNOMED: 80715733 (5) CAD (coronary artery disease) ICD Codes: I25.10 - Atherosclerotic heart disease of [place] coronary artery without angina pectoris SNOMED: 74872304 Assessment/Plan plan repeat colonoscopy tomorrow Subjective ROS Limited/Unobtainable: Yes Allergies: Coded Allergies: No Known Allergies (Unverified , 02/25/17) Subjective no event Objective Last 24 Hour Vital Signs Date Time Temp Pulse Resp B/P Pulse Ox O2 Delivery O2 Flow Rate FiO2 03/31/17 06:21 138/67 03/31/17 04:00 97.7 70 17 138/67 98 Nasal Cannula 2.0 03/31/17 00:04 97.5 76 17 125/70 98 Nasal Cannula 2.0 03/30/17 22:56 128/69 03/30/17 22:47 98 Nasal Cannula 3.0 32 03/30/17 22:47 Nasal Cannula 3.0 32 03/30/17 21:49 75 142/76 03/30/17 20:00 97.7 75 17 142/76 98 Nasal Cannula 2.0 03/30/17 17:50 97.9 03/30/17 15:34 97.9 59 14 119/60 100 Nasal Cannula 03/30/17 14:00 101/54 03/30/17 11:57 97.7 66 15 101/54 96 Nasal Cannula 03/30/17 09:52 59 136/61 03/30/17 08:13 97.3 59 15 136/61 100 Room Air Intake and Output 03/30/17 03/31/17 19:00 07:00 Intake Total 600 ml 120 ml Output Total 250 ml 400 ml Balance 350 ml -280 ml Intake Oral 600 ml 120 ml Output Urine Total 250 ml 300 ml Other 100 ml # Bowel Movements 1 Laboratory Tests 03/31/17 05:05: White Blood Count [Pending], Red Blood Count [Pending], Hemoglobin [Pending], Hematocrit [Pending], Mean Corpuscular Volume [Pending], Mean Corpuscular Hemoglobin [Pending], Mean Corpuscular Hemoglobin Concent [Pending], Red Cell Distribution Width [Pending], Platelet Count [Pending], Mean Platelet Volume [ Pending], Neutrophils (%) (Auto) [Pending], Lymphocytes (%) (Auto) [Pending], Monocytes (%) (Auto) [Pending], Eosinophils (%) (Auto) [Pending], Basophils (%) (Auto) [Pending], Prothrombin Time [Pending], Prothromb Time International Ratio [Pending], Activated Partial Thromboplast Time [Pending], Sodium Level [ Pending], Potassium Level [Pending], Chloride Level [Pending], Carbon Dioxide Level [Pending], Blood Urea Nitrogen [Pending], Creatinine [Pending], Estimat Glomerular Filtration Rate [Pending], Glucose Level [Pending], Calcium Level [ Pending], Phosphorus Level [Pending], Magnesium Level [Pending], Total Bilirubin [Pending], Aspartate Amino Transf (AST/SGOT) [Pending], Alanine Aminotransferase (ALT/SGPT) [Pending], Alkaline Phosphatase [Pending], Total Protein [Pending], Albumin [Pending], Globulin [Pending] Height (Feet): 5 Height (Inches): 5.00 Weight (Pounds): 246 General Appearance: no apparent distress EENT: normal ENT inspection Neck: supple Cardiovascular: normal rate Respiratory/Chest: decreased breath sounds Abdomen: normal bowel sounds, non tender, soft Extremities: non-tender ORION HILARIO Mar 31, 2017 07:41
[2017-03-31 08:03] LABS: ALANINE AMINOTRANSFERASE 7 U/L (3-41); ALBUMIN/GLOBULIN RATIO 0.8 (1.0-2.7); ANION GAP 8 (5-15); ASPARTATE AMINO TRANSFERASE 9 U/L (5-40); CALCIUM 8.4 mg/dL (8.6-10.2); CARBON DIOXIDE 32 mEQ/L (20-30); CHLORIDE 104 mEQ/L (98-107); CREATININE 1.6 mg/dL (0.7-1.2); HEMOLYSIS 1; PHOSPHORUS 3.8 mg/dL (2.5-4.8); POTASSIUM 3.4 mEQ/L (3.4-4.9); SODIUM 144 mEQ/L (135-145); TOTAL PROTEIN 5.1 g/dL (6.6-8.7)
[2017-03-31 08:16] VITALS: BP 147/73
--- NOTE | 2017-03-31 08:36 | GI Progress Note ---
Assessment/Plan Problems: (1) Anemia ICD Codes: D64.9 - Anemia, unspecified SNOMED: 823721729 (2) Diabetes mellitus ICD Codes: E11.9 - Type 2 diabetes mellitus without complications SNOMED: 92560435 (3) Altered mental status ICD Codes: R41.82 - Altered mental status, unspecified SNOMED: 608637857 Qualifiers: Qualified Codes: R41.82 - Altered mental status, unspecified (4) COPD (chronic obstructive pulmonary disease) ICD Codes: J44.9 - Chronic obstructive pulmonary disease, unspecified SNOMED: 56565093 (5) CAD (coronary artery disease) ICD Codes: I25.10 - Atherosclerotic heart disease of [place] coronary artery without angina pectoris SNOMED: 77200614 Assessment/Plan s/p EGd poor colonoscopy prep fu CBC fu repeat stool ob colonoscopy on hold for now fu CEA Subjective Gastrointestinal/Abdominal: Reports: no symptoms Subjective no event Objective Last 24 Hour Vital Signs Date Time Temp Pulse Resp B/P Pulse Ox O2 Delivery O2 Flow Rate FiO2 03/31/17 08:16 97.5 62 20 147/73 99 Nasal Cannula 2.0 03/31/17 06:21 138/67 03/31/17 04:00 97.7 70 17 138/67 98 Nasal Cannula 2.0 03/31/17 00:04 97.5 76 17 125/70 98 Nasal Cannula 2.0 03/30/17 22:56 128/69 03/30/17 22:47 98 Nasal Cannula 3.0 32 03/30/17 22:47 Nasal Cannula 3.0 32 03/30/17 21:49 75 142/76 03/30/17 20:00 97.7 75 17 142/76 98 Nasal Cannula 2.0 03/30/17 17:50 97.9 03/30/17 15:34 97.9 59 14 119/60 100 Nasal Cannula 03/30/17 14:00 101/54 03/30/17 11:57 97.7 66 15 101/54 96 Nasal Cannula 03/30/17 09:52 59 136/61 Intake and Output 03/30/17 03/31/17 19:00 07:00 Intake Total 600 ml 120 ml Output Total 250 ml 400 ml Balance 350 ml -280 ml Intake Oral 600 ml 120 ml Output Urine Total 250 ml 300 ml Other 100 ml # Bowel Movements 1 Laboratory Tests Test 03/31/17 05:05 03/31/17 08:15 Sodium Level 144 mEQ/L (135-145) Potassium Level 3.4 mEQ/L (3.4-4.9) Chloride Level 104 mEQ/L (98-107) Carbon Dioxide Level 32 mEQ/L (20-30) H Anion Gap 8 (5-15) Blood Urea Nitrogen 14 mg/dL (7-23) Creatinine 1.6 mg/dL (0.7-1.2) H Estimat Glomerular Filtration Rate mL/min (>60) Glucose Level 158 mg/dL (74-106) H Calcium Level 8.4 mg/dL (8.6-10.2) L Phosphorus Level 3.8 mg/dL (2.5-4.8) Magnesium Level 2.0 mg/dL (1.7-2.5) Total Bilirubin 0.4 mg/dL (0.0-1.2) Aspartate Amino Transf (AST/SGOT) 9 U/L (5-40) Alanine Aminotransferase (ALT/SGPT) 7 U/L (3-41) Alkaline Phosphatase 56 U/L (40-129) Total Protein 5.1 g/dL (6.6-8.7) L Albumin 2.3 g/dL (3.5-5.2) L Globulin 2.8 g/dL Albumin/Globulin Ratio 0.8 (1.0-2.7) L White Blood Count Pending Red Blood Count Pending Hemoglobin Pending Hematocrit Pending Mean Corpuscular Volume Pending Mean Corpuscular Hemoglobin Pending Mean Corpuscular Hemoglobin Concent Pending Red Cell Distribution Width Pending Platelet Count Pending Mean Platelet Volume Pending Neutrophils (%) (Auto) Pending Lymphocytes (%) (Auto) Pending Monocytes (%) (Auto) Pending Eosinophils (%) (Auto) Pending Basophils (%) (Auto) Pending Height (Feet): 5 Height (Inches): 5.00 Weight (Pounds): 246 ORION HILARIO Mar 31, 2017 08:36
[2017-03-31 08:38] LABS: BASOPHILS % (AUTO) 1.4 % (0.0-2.0); EOSINOPHILS % (AUTO) 4.9 % (0.0-3.0); LYMPHOCYTES % (AUTO) 33.6 % (20.0-45.0); MEAN CORPUSCULAR HEMOGLOBIN 31.1 PG (27.0-31.0); MEAN CORPUSCULAR HGB CONC 32.8 G/DL (32.0-36.0); MEAN CORPUSCULAR VOLUME 95 FL (80-99); MEAN PLATELET VOLUME 6.9 FL (6.5-10.1); MONOCYTES % (AUTO) 9.8 % (1.0-10.0); NEUTROPHILS % (AUTO) 50.2 % (45.0-75.0); PLATELET COUNT 203 K/UL (150-450); RED CELL DISTRIBUTION WIDTH 14.3 % (11.6-14.8); WHITE BLOOD COUNT 7.2 K/UL (4.8-10.8)
[2017-03-31] MEDS: Dyna-Hex 2% Top Sol 8oz TOPIC SCH (08:59)
[2017-03-31] MEDS: Carvedilol 6.25mg Tab ORAL SCH ×2 (08:59→21:12)
[2017-03-31] MEDS: Pantoprazole Inj IVP SCH (08:59)
[2017-03-31] MEDS: Tamsulosin 0.4mg cap ORAL SCH (08:59)
[2017-03-31 09:29] LABS: INR 1.1 (0.9-1.1)
--- NOTE | 2017-03-31 10:45 | General Progress Note ---
Assessment/Plan Status: stable Status Narrative Cr 1.6 Assessment/Plan MILAN (acute kidney injury) --- h/o urinary outlet obstruction ....RESOLVED On Vanco and Amikacin GI / Rectal Bleed UTI (urinary tract infection) HTN DM Psychosis Bladder tumor and suprapubic catheter Anemia Plan: K supplement as needed Mag supplements-as needed transfusion as needed previous dialysed and then stopped follow up renal parameters Mag and Phos supp as needed- More transfusion- as needed monitor BS and adjust Insulin Keep BS and BP in check Monitor renal parameters Avoid Nephrotoxics- Per orders DC planning Subjective ROS Limited/Unobtainable: No Constitutional: Reports: malaise, weakness Allergies: Coded Allergies: No Known Allergies (Unverified , 02/25/17) Objective Last 24 Hour Vital Signs Date Time Temp Pulse Resp B/P Pulse Ox O2 Delivery O2 Flow Rate FiO2 03/31/17 08:59 62 147/73 03/31/17 08:16 97.5 62 20 147/73 99 Nasal Cannula 2.0 03/31/17 06:21 138/67 03/31/17 04:00 97.7 70 17 138/67 98 Nasal Cannula 2.0 03/31/17 00:04 97.5 76 17 125/70 98 Nasal Cannula 2.0 03/30/17 22:56 128/69 03/30/17 22:47 98 Nasal Cannula 3.0 32 03/30/17 22:47 Nasal Cannula 3.0 32 03/30/17 21:49 75 142/76 03/30/17 20:00 97.7 75 17 142/76 98 Nasal Cannula 2.0 03/30/17 17:50 97.9 03/30/17 15:34 97.9 59 14 119/60 100 Nasal Cannula 03/30/17 14:00 101/54 03/30/17 11:57 97.7 66 15 101/54 96 Nasal Cannula Intake and Output 03/30/17 03/31/17 19:00 07:00 Intake Total 600 ml 120 ml Output Total 250 ml 400 ml Balance 350 ml -280 ml Intake Oral 600 ml 120 ml Output Urine Total 250 ml 300 ml Other 100 ml # Bowel Movements 1 Laboratory Tests 03/31/17 05:05: Sodium Level 144, Potassium Level 3.4, Chloride Level 104, Carbon Dioxide Level 32H, Anion Gap 8, Blood Urea Nitrogen 14, Creatinine 1.6H, Estimat Glomerular Filtration Rate , Glucose Level 158H, Calcium Level 8.4L, Phosphorus Level 3.8, Magnesium Level 2.0, Total Bilirubin 0.4, Aspartate Amino Transf (AST/SGOT) 9, Alanine Aminotransferase (ALT/SGPT) 7, Alkaline Phosphatase 56, Total Protein 5.1L, Albumin 2.3L, Globulin 2.8, Albumin/Globulin Ratio 0.8L 03/31/17 08:15: White Blood Count 7.2, Red Blood Count 2.70L, Hemoglobin 8.4L, Hematocrit 25.6L , Mean Corpuscular Volume 95, Mean Corpuscular Hemoglobin 31.1H, Mean Corpuscular Hemoglobin Concent 32.8, Red Cell Distribution Width 14.3, Platelet Count 203, Mean Platelet Volume 6.9, Neutrophils (%) (Auto) 50.2, Lymphocytes (% ) (Auto) 33.6, Monocytes (%) (Auto) 9.8, Eosinophils (%) (Auto) 4.9H, Basophils (%) (Auto) 1.4 03/31/17 09:00: Prothrombin Time 11.0, Prothromb Time International Ratio 1.1, Activated Partial Thromboplast Time 24 Height (Feet): 5 Height (Inches): 5.00 Weight (Pounds): 246 General Appearance: no apparent distress Objective other PE not changed JULIETA LEON Mar 31, 2017 10:45
[2017-03-31] MEDS ORDERED: KCl 10% 40mEq/30ml liquid NG ONE (11:30)
[2017-03-31 11:57] VITALS: BP 135/76
[2017-03-31] MEDS ORDERED: Bisacodyl EC 5mg tab ORAL ONE (12:00)
[2017-03-31] MEDS ORDERED: Cathflo Alteplase 2mg Inj INJ ONE (12:00)
[2017-03-31] MEDS ORDERED: Polyethylene Glycol 238gm bottle ORAL ONE (14:00)
[2017-03-31 15:55] VITALS: BP 145/77
--- NOTE | 2017-03-31 18:03 | Pulmonology Progress Note ---
Assessment/Plan Problems: (1) Gross hematuria (2) Acute encephalopathy (3) Sepsis (4) ATN (acute tubular necrosis) (5) Lower GI bleed (6) Diabetes mellitus (7) COPD (chronic obstructive pulmonary disease) (8) DVT (deep venous thrombosis) Assessment/Plan colonoscopy was incomplete scheduled again for tomorrow transfuse again if needed pt got 8 units of prbc since admission 11 days ago s/p ivc filtre urine is clear now endoscopy results noted, no acute bleeding check h/h in am Subjective ROS Limited/Unobtainable: No Constitutional: Reports: no symptoms HEENT: Repors: no symptoms Respiratory: Reports: no symptoms Allergies: Coded Allergies: No Known Allergies (Unverified , 02/25/17) Objective Last 24 Hour Vital Signs Date Time Temp Pulse Resp B/P Pulse Ox O2 Delivery O2 Flow Rate FiO2 03/31/17 15:55 97.7 70 20 145/77 99 Nasal Cannula 99.0 03/31/17 14:58 Nasal Cannula 3.0 32 03/31/17 14:58 97 Nasal Cannula 3.0 32 03/31/17 14:11 135/76 03/31/17 11:57 98.0 60 20 135/76 100 Nasal Cannula 2.0 03/31/17 08:59 62 147/73 03/31/17 08:16 97.5 62 20 147/73 99 Nasal Cannula 2.0 03/31/17 06:21 138/67 03/31/17 04:00 97.7 70 17 138/67 98 Nasal Cannula 2.0 03/31/17 00:04 97.5 76 17 125/70 98 Nasal Cannula 2.0 03/30/17 22:56 128/69 03/30/17 22:47 98 Nasal Cannula 3.0 32 03/30/17 22:47 Nasal Cannula 3.0 32 03/30/17 21:49 75 142/76 03/30/17 20:00 97.7 75 17 142/76 98 Nasal Cannula 2.0 Intake and Output 03/30/17 03/31/17 19:00 07:00 Intake Total 600 ml 120 ml Output Total 250 ml 400 ml Balance 350 ml -280 ml Intake Oral 600 ml 120 ml Output Urine Total 250 ml 300 ml Other 100 ml # Bowel Movements 1 Objective General Appearance: WD/WN HEENT: normocephalic, atraumatic Respiratory/Chest: chest wall non-tender, lungs clear Abdomen: normal bowel sounds, soft, non tender Genitourinary: normal external genitalia Extremities: no cyanosis Skin: no rash Laboratory Tests 03/31/17 05:05: Sodium Level 144, Potassium Level 3.4, Chloride Level 104, Carbon Dioxide Level 32H, Anion Gap 8, Blood Urea Nitrogen 14, Creatinine 1.6H, Estimat Glomerular Filtration Rate , Glucose Level 158H, Calcium Level 8.4L, Phosphorus Level 3.8, Magnesium Level 2.0, Total Bilirubin 0.4, Aspartate Amino Transf (AST/SGOT) 9, Alanine Aminotransferase (ALT/SGPT) 7, Alkaline Phosphatase 56, Total Protein 5.1L, Albumin 2.3L, Globulin 2.8, Albumin/Globulin Ratio 0.8L 03/31/17 08:15: White Blood Count 7.2, Red Blood Count 2.70L, Hemoglobin 8.4L, Hematocrit 25.6L , Mean Corpuscular Volume 95, Mean Corpuscular Hemoglobin 31.1H, Mean Corpuscular Hemoglobin Concent 32.8, Red Cell Distribution Width 14.3, Platelet Count 203, Mean Platelet Volume 6.9, Neutrophils (%) (Auto) 50.2, Lymphocytes (% ) (Auto) 33.6, Monocytes (%) (Auto) 9.8, Eosinophils (%) (Auto) 4.9H, Basophils (%) (Auto) 1.4 03/31/17 09:00: Prothrombin Time 11.0, Prothromb Time International Ratio 1.1, Activated Partial Thromboplast Time 24 03/31/17 17:30: Stool Occult Blood [Pending] Current Medications Medications (Trade) Dose Ordered Sig/Fernando Route PRN Reason Start Time Stop Time Status Last Admin Dose Admin Acetaminophen (Tylenol) 650 mg Q6H PRN ORAL Mild Pain/Temp > 100.5 03/25/17 04:00 04/24/17 03:59 03/31/17 03:59 Carvedilol (Coreg) 6.25 mg EVERY 12 HOURS ORAL 03/25/17 09:00 04/24/17 08:59 03/31/17 08:59 Chlorhexidine Gluconate (Amina-Hex 2%) 1 applic DAILY TOPIC 03/25/17 14:00 04/24/17 13:59 03/31/17 08:59 Ciprofloxacin (Cipro 250mg tab) 250 mg EVERY 12 HOURS ORAL 03/29/17 21:00 04/01/17 08:59 03/31/17 08:59 Clonazepam (KlonoPIN) 1 mg Q12HR ORAL 03/25/17 09:00 04/01/17 08:59 03/30/17 21:49 Clonidine HCl (Catapres) 0.1 mg Q4H PRN ORAL SBP > 160 03/25/17 17:15 04/24/17 17:14 03/29/17 17:45 Clotrimazole (Lotrimin) 1 applic EVERY 12 HOURS TOPIC 03/25/17 09:00 04/24/17 08:59 03/31/17 08:59 Dextrose (Dextrose 50%) STAT PRN IV Hypoglycemia 03/25/17 13:00 04/24/17 12:59 Gabapentin (Neurontin) 200 mg QHS ORAL 03/25/17 21:00 04/24/17 20:59 03/30/17 21:49 Haloperidol Lactate (Haldol) 5 mg Q4H PRN IM Agitation 03/25/17 04:00 04/24/17 03:59 Hydralazine HCl (Apresoline) 50 mg Q8HR ORAL 03/27/17 22:00 04/26/17 21:59 03/31/17 14:11 Insulin Aspart (NovoLOG) BEFORE MEALS AND HS SUBQ 03/25/17 06:30 04/24/17 06:29 03/31/17 16:55 Lorazepam (Ativan 2mg/ml 1ml) 0.5 mg Q4H PRN IV For Anxiety 03/25/17 02:00 04/01/17 01:59 03/31/17 17:47 Morphine Sulfate (Morphine Sulfate) 4 mg Q4H PRN IVP Severe Pain (Pain Scale 7-10) 03/29/17 18:30 04/05/17 18:29 03/30/17 17:21 Ondansetron HCl (Zofran) 4 mg Q6H PRN IVP Nausea & Vomiting 03/25/17 04:00 04/24/17 03:59 Pantoprazole (Protonix) 40 mg EVERY 12 HOURS IVP 03/28/17 21:00 04/27/17 20:59 03/31/17 08:59 Polyethylene Glycol (Miralax) 17 gm HSPRN PRN ORAL Constipation 03/25/17 21:00 04/24/17 20:59 Quetiapine Fumarate (SEROquel) 25 mg BEDTIME ORAL 03/25/17 21:00 04/24/17 20:59 03/30/17 21:49 Tamsulosin HCl (Flomax) 0.4 mg DAILY ORAL 03/25/17 09:00 04/24/17 08:59 03/31/17 08:59 Zolpidem Tartrate (Ambien) 5 mg HSPRN PRN ORAL Insomnia 03/25/17 21:00 04/24/17 20:59 JUSTO LEBLANC Mar 31, 2017 18:03
[2017-03-31 20:00] VITALS: BP 167/97
[2017-04-01] VITALS: BP 126/70
[2017-04-01 04:00] VITALS: BP 142/73
[2017-04-01] MEDS: NovoLOG Insulin Flexpen SUBQ SCH ×3 (05:50→16:56)
[2017-04-01] MEDS: HydrALAZINE 25mg tab ORAL SCH (05:50)
[2017-04-01 06:35] LABS: INR 1.1 (0.9-1.1)
[2017-04-01 07:01] LABS: BASOPHILS % (AUTO) 1.1 % (0.0-2.0); LYMPHOCYTES % (AUTO) 34.3 % (20.0-45.0); MEAN CORPUSCULAR HEMOGLOBIN 31.6 PG (27.0-31.0); MEAN CORPUSCULAR HGB CONC 33.5 G/DL (32.0-36.0); MEAN CORPUSCULAR VOLUME 94 FL (80-99); MEAN PLATELET VOLUME 6.8 FL (6.5-10.1); MONOCYTES % (AUTO) 8.8 % (1.0-10.0); NEUTROPHILS % (AUTO) 50.7 % (45.0-75.0); PLATELET COUNT 251 K/UL (150-450); RED BLOOD COUNT 2.73 M/UL (4.70-6.10); RED CELL DISTRIBUTION WIDTH 13.8 % (11.6-14.8); WHITE BLOOD COUNT 6.8 K/UL (4.8-10.8)
[2017-04-01 07:34] LABS: ALANINE AMINOTRANSFERASE 7 U/L (3-41); ALBUMIN/GLOBULIN RATIO 0.8 (1.0-2.7); ANION GAP 13 (5-15); ASPARTATE AMINO TRANSFERASE 10 U/L (5-40); CALCIUM 8.8 mg/dL (8.6-10.2); CARBON DIOXIDE 30 mEQ/L (20-30); CHLORIDE 104 mEQ/L (98-107); CREATININE 1.3 mg/dL (0.7-1.2); HEMOLYSIS 1; MAGNESIUM 1.7 mg/dL (1.7-2.5); PHOSPHORUS 3.7 mg/dL (2.5-4.8); POTASSIUM 3.3 mEQ/L (3.4-4.9); SODIUM 147 mEQ/L (135-145); TOTAL PROTEIN 5.1 g/dL (6.6-8.7)
[2017-04-01 08:00] VITALS: BP 160/73
[2017-04-01] MEDS: Tamsulosin 0.4mg cap ORAL SCH (09:38)
[2017-04-01] MEDS: Carvedilol 6.25mg Tab ORAL SCH ×2 (09:38→21:10)
[2017-04-01] MEDS: Dyna-Hex 2% Top Sol 8oz TOPIC SCH (09:38)
--- NOTE | 2017-04-01 11:26 | General Progress Note ---
Assessment/Plan Status: stable Status Narrative Cr lower Assessment/Plan MILAN (acute kidney injury) --- h/o urinary outlet obstruction ....RESOLVED On Vanco and Amikacin GI / Rectal Bleed UTI (urinary tract infection) HTN DM Psychosis Bladder tumor and suprapubic catheter Anemia Plan: K supplement as needed Mag supplements-as needed transfusion as needed previous dialysed and then stopped follow up renal parameters Mag and Phos supp as needed- More transfusion- as needed monitor BS and adjust Insulin Keep BS and BP in check Monitor renal parameters Avoid Nephrotoxics- Per orders DC planning Subjective ROS Limited/Unobtainable: No Constitutional: Reports: malaise, weakness Allergies: Coded Allergies: No Known Allergies (Unverified , 02/25/17) Objective Last 24 Hour Vital Signs Date Time Temp Pulse Resp B/P Pulse Ox O2 Delivery O2 Flow Rate FiO2 04/01/17 09:38 58 142/73 04/01/17 08:00 98 Nasal Cannula 3.0 32 04/01/17 08:00 Nasal Cannula 3.0 32 04/01/17 05:50 142/73 04/01/17 04:00 97.5 58 20 142/73 100 Nasal Cannula 2.0 04/01/17 00:00 97.6 66 20 126/70 98 Nasal Cannula 2.0 03/31/17 21:22 167/97 03/31/17 21:12 72 167/97 03/31/17 20:00 97.5 72 20 167/97 95 Nasal Cannula 2.0 03/31/17 19:52 Nasal Cannula 3.0 32 03/31/17 19:51 97 Nasal Cannula 3.0 32 03/31/17 15:55 97.7 70 20 145/77 99 Nasal Cannula 99.0 03/31/17 14:58 Nasal Cannula 3.0 32 03/31/17 14:58 97 Nasal Cannula 3.0 32 03/31/17 14:11 135/76 03/31/17 11:57 98.0 60 20 135/76 100 Nasal Cannula 2.0 Intake and Output 03/31/17 04/01/17 19:00 07:00 Intake Total 600 ml Output Total 1000 ml 1200 ml Balance -400 ml -1200 ml Intake Oral 600 ml Output Urine Total 1000 ml 1200 ml # Bowel Movements 3 3 Laboratory Tests 03/31/17 17:30: Stool Occult Blood Positive 04/01/17 05:45: White Blood Count 6.8, Red Blood Count 2.73L, Hemoglobin 8.6L, Hematocrit 25.8L , Mean Corpuscular Volume 94, Mean Corpuscular Hemoglobin 31.6H, Mean Corpuscular Hemoglobin Concent 33.5, Red Cell Distribution Width 13.8, Platelet Count 251, Mean Platelet Volume 6.8, Neutrophils (%) (Auto) 50.7, Lymphocytes (% ) (Auto) 34.3, Monocytes (%) (Auto) 8.8, Eosinophils (%) (Auto) 5.0H, Basophils (%) (Auto) 1.1, Prothrombin Time 11.0, Prothromb Time International Ratio 1.1, Activated Partial Thromboplast Time 25, Sodium Level 147H, Potassium Level 3.3L , Chloride Level 104, Carbon Dioxide Level 30, Anion Gap 13, Blood Urea Nitrogen 10, Creatinine 1.3H, Estimat Glomerular Filtration Rate , Glucose Level 96, Calcium Level 8.8, Phosphorus Level 3.7, Magnesium Level 1.7, Total Bilirubin 0.3, Aspartate Amino Transf (AST/SGOT) 10, Alanine Aminotransferase ( ALT/SGPT) 7, Alkaline Phosphatase 63, Total Protein 5.1L, Albumin 2.3L, Globulin 2.8, Albumin/Globulin Ratio 0.8L Height (Feet): 5 Height (Inches): 5.00 Weight (Pounds): 246 General Appearance: no apparent distress, lethargic Cardiovascular: regular rhythm Respiratory/Chest: decreased breath sounds Objective other PE not changed JULIETA LEON Apr 01, 2017 11:26
[2017-04-01 12:00] VITALS: BP 148/85
--- NOTE | 2017-04-01 13:09 | GI Progress Note ---
Assessment/Plan Problems: (1) Anemia ICD Codes: D64.9 - Anemia, unspecified SNOMED: 732973473 (2) Lower GI bleed ICD Codes: K92.2 - Gastrointestinal hemorrhage, unspecified SNOMED: 52996269 (3) Altered mental status ICD Codes: R41.82 - Altered mental status, unspecified SNOMED: 994355315 Qualifiers: Qualified Codes: R41.82 - Altered mental status, unspecified (4) Diabetes mellitus ICD Codes: E11.9 - Type 2 diabetes mellitus without complications SNOMED: 65739466 Status: stable, unchanged Status Narrative Discussed with Dr. Lees. Assessment/Plan colonoscopy cancelled, repeat colonoscopy as outpatient monitor H&H, transfuse prn ppi fu labs Subjective Subjective limited Objective Last 24 Hour Vital Signs Date Time Temp Pulse Resp B/P Pulse Ox O2 Delivery O2 Flow Rate FiO2 04/01/17 09:38 58 142/73 04/01/17 08:00 98 Nasal Cannula 3.0 32 04/01/17 08:00 Nasal Cannula 3.0 32 04/01/17 05:50 142/73 04/01/17 04:00 97.5 58 20 142/73 100 Nasal Cannula 2.0 04/01/17 00:00 97.6 66 20 126/70 98 Nasal Cannula 2.0 03/31/17 21:22 167/97 03/31/17 21:12 72 167/97 03/31/17 20:00 97.5 72 20 167/97 95 Nasal Cannula 2.0 03/31/17 19:52 Nasal Cannula 3.0 32 03/31/17 19:51 97 Nasal Cannula 3.0 32 03/31/17 15:55 97.7 70 20 145/77 99 Nasal Cannula 99.0 03/31/17 14:58 Nasal Cannula 3.0 32 03/31/17 14:58 97 Nasal Cannula 3.0 32 03/31/17 14:11 135/76 Intake and Output 03/31/17 04/01/17 19:00 07:00 Intake Total 600 ml Output Total 1000 ml 1200 ml Balance -400 ml -1200 ml Intake Oral 600 ml Output Urine Total 1000 ml 1200 ml # Bowel Movements 3 3 Laboratory Tests Test 03/31/17 17:30 04/01/17 05:45 Stool Occult Blood Positive (NEGATIVE) White Blood Count 6.8 K/UL (4.8-10.8) Red Blood Count 2.73 M/UL (4.70-6.10) L Hemoglobin 8.6 G/DL (14.2-18.0) L Hematocrit 25.8 % (42.0-52.0) L Mean Corpuscular Volume 94 FL (80-99) Mean Corpuscular Hemoglobin 31.6 PG (27.0-31.0) H Mean Corpuscular Hemoglobin Concent 33.5 G/DL (32.0-36.0) Red Cell Distribution Width 13.8 % (11.6-14.8) Platelet Count 251 K/UL (150-450) Mean Platelet Volume 6.8 FL (6.5-10.1) Neutrophils (%) (Auto) 50.7 % (45.0-75.0) Lymphocytes (%) (Auto) 34.3 % (20.0-45.0) Monocytes (%) (Auto) 8.8 % (1.0-10.0) Eosinophils (%) (Auto) 5.0 % (0.0-3.0) H Basophils (%) (Auto) 1.1 % (0.0-2.0) Prothrombin Time 11.0 SEC (9.30-11.50) Prothromb Time International Ratio 1.1 (0.9-1.1) Activated Partial Thromboplast Time 25 SEC (23-33) Sodium Level 147 mEQ/L (135-145) H Potassium Level 3.3 mEQ/L (3.4-4.9) L Chloride Level 104 mEQ/L (98-107) Carbon Dioxide Level 30 mEQ/L (20-30) Anion Gap 13 (5-15) Blood Urea Nitrogen 10 mg/dL (7-23) Creatinine 1.3 mg/dL (0.7-1.2) H Estimat Glomerular Filtration Rate mL/min (>60) Glucose Level 96 mg/dL (74-106) Calcium Level 8.8 mg/dL (8.6-10.2) Phosphorus Level 3.7 mg/dL (2.5-4.8) Magnesium Level 1.7 mg/dL (1.7-2.5) Total Bilirubin 0.3 mg/dL (0.0-1.2) Aspartate Amino Transf (AST/SGOT) 10 U/L (5-40) Alanine Aminotransferase (ALT/SGPT) 7 U/L (3-41) Alkaline Phosphatase 63 U/L (40-129) Total Protein 5.1 g/dL (6.6-8.7) L Albumin 2.3 g/dL (3.5-5.2) L Globulin 2.8 g/dL Albumin/Globulin Ratio 0.8 (1.0-2.7) L Height (Feet): 5 Height (Inches): 5.00 Weight (Pounds): 246 General Appearance: no apparent distress Cardiovascular: normal rate Respiratory/Chest: no respiratory distress, other - 2LNC Abdominal Exam: normal bowel sounds, non tender, soft Monalisa Davis N.P. Apr 01, 2017 13:09
[2017-04-01] MEDS: HydrALAZINE 50mg tab ORAL SCH ×2 (14:18→21:10)
--- NOTE | 2017-04-01 15:44 | Pulmonology Progress Note ---
Assessment/Plan Problems: (1) Gross hematuria (2) Acute encephalopathy (3) Sepsis (4) ATN (acute tubular necrosis) (5) Lower GI bleed (6) Diabetes mellitus (7) COPD (chronic obstructive pulmonary disease) (8) DVT (deep venous thrombosis) Assessment/Plan H/h stable colonoscopy as outpatient transfuse again if needed pt got 8 units of prbc since admission 11 days ago s/p ivc filtre urine is clear now endoscopy results noted, no acute bleeding Subjective ROS Limited/Unobtainable: No Interval Events: comfortable Allergies: Coded Allergies: No Known Allergies (Unverified , 02/25/17) Objective Last 24 Hour Vital Signs Date Time Temp Pulse Resp B/P Pulse Ox O2 Delivery O2 Flow Rate FiO2 04/01/17 14:18 160/73 04/01/17 09:38 58 142/73 04/01/17 08:00 98 Nasal Cannula 3.0 32 04/01/17 08:00 Nasal Cannula 3.0 32 04/01/17 05:50 142/73 04/01/17 04:00 97.5 58 20 142/73 100 Nasal Cannula 2.0 04/01/17 00:00 97.6 66 20 126/70 98 Nasal Cannula 2.0 03/31/17 21:22 167/97 03/31/17 21:12 72 167/97 03/31/17 20:00 97.5 72 20 167/97 95 Nasal Cannula 2.0 03/31/17 19:52 Nasal Cannula 3.0 32 03/31/17 19:51 97 Nasal Cannula 3.0 32 03/31/17 15:55 97.7 70 20 145/77 99 Nasal Cannula 99.0 Intake and Output 03/31/17 04/01/17 19:00 07:00 Intake Total 600 ml Output Total 1000 ml 1200 ml Balance -400 ml -1200 ml Intake Oral 600 ml Output Urine Total 1000 ml 1200 ml # Bowel Movements 3 3 Objective General Appearance: WD/WN HEENT: normocephalic, atraumatic Respiratory/Chest: chest wall non-tender, lungs clear Abdomen: normal bowel sounds, soft, non tender Genitourinary: normal external genitalia Extremities: no cyanosis Skin: no rash Laboratory Tests 03/31/17 17:30: Stool Occult Blood Positive 04/01/17 05:45: White Blood Count 6.8, Red Blood Count 2.73L, Hemoglobin 8.6L, Hematocrit 25.8L , Mean Corpuscular Volume 94, Mean Corpuscular Hemoglobin 31.6H, Mean Corpuscular Hemoglobin Concent 33.5, Red Cell Distribution Width 13.8, Platelet Count 251, Mean Platelet Volume 6.8, Neutrophils (%) (Auto) 50.7, Lymphocytes (% ) (Auto) 34.3, Monocytes (%) (Auto) 8.8, Eosinophils (%) (Auto) 5.0H, Basophils (%) (Auto) 1.1, Prothrombin Time 11.0, Prothromb Time International Ratio 1.1, Activated Partial Thromboplast Time 25, Sodium Level 147H, Potassium Level 3.3L , Chloride Level 104, Carbon Dioxide Level 30, Anion Gap 13, Blood Urea Nitrogen 10, Creatinine 1.3H, Estimat Glomerular Filtration Rate , Glucose Level 96, Calcium Level 8.8, Phosphorus Level 3.7, Magnesium Level 1.7, Total Bilirubin 0.3, Aspartate Amino Transf (AST/SGOT) 10, Alanine Aminotransferase ( ALT/SGPT) 7, Alkaline Phosphatase 63, Total Protein 5.1L, Albumin 2.3L, Globulin 2.8, Albumin/Globulin Ratio 0.8L Current Medications Medications (Trade) Dose Ordered Sig/Fernando Route PRN Reason Start Time Stop Time Status Last Admin Dose Admin Acetaminophen (Tylenol) 650 mg Q6H PRN ORAL Mild Pain/Temp > 100.5 03/25/17 04:00 04/24/17 03:59 03/31/17 03:59 Carvedilol (Coreg) 6.25 mg EVERY 12 HOURS ORAL 03/25/17 09:00 04/24/17 08:59 04/01/17 09:38 Chlorhexidine Gluconate (Amina-Hex 2%) 1 applic DAILY TOPIC 03/25/17 14:00 04/24/17 13:59 04/01/17 09:38 Clonidine HCl (Catapres) 0.1 mg Q4H PRN ORAL SBP > 160 03/25/17 17:15 04/24/17 17:14 03/29/17 17:45 Clotrimazole (Lotrimin) 1 applic EVERY 12 HOURS TOPIC 03/25/17 09:00 04/24/17 08:59 04/01/17 09:39 Dextrose (Dextrose 50%) STAT PRN IV Hypoglycemia 03/25/17 13:00 04/24/17 12:59 Gabapentin (Neurontin) 200 mg QHS ORAL 03/25/17 21:00 04/24/17 20:59 03/31/17 21:12 Haloperidol Lactate (Haldol) 5 mg Q4H PRN IM Agitation 03/25/17 04:00 04/24/17 03:59 04/01/17 15:02 Hydralazine HCl (Apresoline) 50 mg Q8HR ORAL 04/01/17 14:00 05/01/17 13:59 04/01/17 14:18 Insulin Aspart (NovoLOG) BEFORE MEALS AND HS SUBQ 03/25/17 06:30 04/24/17 06:29 04/01/17 12:30 Morphine Sulfate (Morphine Sulfate) 4 mg Q4H PRN IVP Severe Pain (Pain Scale 7-10) 03/29/17 18:30 04/05/17 18:29 03/30/17 17:21 Ondansetron HCl (Zofran) 4 mg Q6H PRN IVP Nausea & Vomiting 03/25/17 04:00 04/24/17 03:59 Pantoprazole (Protonix) 40 mg Q12HR ORAL 03/31/17 21:00 04/30/17 20:59 04/01/17 09:38 Polyethylene Glycol (Miralax) 17 gm HSPRN PRN ORAL Constipation 03/25/17 21:00 04/24/17 20:59 Potassium Chloride (K-Dur) 40 meq DAILY ORAL 04/01/17 10:00 05/01/17 09:59 04/01/17 09:39 Quetiapine Fumarate (SEROquel) 25 mg BEDTIME ORAL 03/25/17 21:00 04/24/17 20:59 03/31/17 21:12 Tamsulosin HCl (Flomax) 0.4 mg DAILY ORAL 03/25/17 09:00 04/24/17 08:59 04/01/17 09:38 Zolpidem Tartrate (Ambien) 5 mg HSPRN PRN ORAL Insomnia 03/25/17 21:00 04/24/17 20:59 JUSTO LEBLANC Apr 01, 2017 15:44
[2017-04-01 16:00] VITALS: BP 150/82
[2017-04-01 21:10] VITALS: BP 164/84
[2017-04-01] MEDS ORDERED: Tubing IV Blood Pump IV ONE (21:19)
[2017-04-01] MEDS ORDERED: NS 275ml ONE (21:19)
--- NOTE | 2017-04-01 22:46 | Progress Note ---
DATE: 04/01/2017 SUBJECTIVE: The patient is calm, in bed. No behavior issues. At times, he is anxious. His affect is confused, disorganized and not able to provide any history. MENTAL STATUS EXAMINATION: The patient is confused and disoriented. Mood is neutral. Affect is constricted. Congruent mood. Thought process is concrete. Thought content, no suicidal or homicidal ideation. ASSESSMENT: 1. Cognitive impairment. 2. Psychotic disorder. PLAN: 1. The patient will be continued on current medications. 2. Provide the patient with supportive therapy and reality. Ladarius Parry M.D. DR: LUISITO JOB#: [id number] CC:
--- NOTE | 2017-04-02 15:34 | Discharge Summary ---
Discharge Summary Hospital Course Date of Admission Mar 20, 2017 at 23:11 Date of Discharge Apr 01, 2017 at 21:20 Admitting Diagnosis AMS HPI Nikos Sanchez is a 71 year old male who was admitted on Mar 20, 2017 at 23: 11 for Altered Mental Status Hospital Course dc summary #[id number] Discharge Medications Continued Medications: Acetaminophen* (Acetaminophen*) 160 Mg/5 Ml Solution 650 MG ORAL Q6H PRN for Mild Pain/Temp > 100.5, ML Amlodipine Besylate* (Amlodipine Besylate*) 10 Mg Tablet 10 MG ORAL DAILY, TAB Atorvastatin Calcium* (Lipitor*) 20 Mg Tablet 20 MG ORAL BEDTIME, TAB Carvedilol (Coreg) 12.5 Mg Tablet 12.5 MG ORAL EVERY 12 HOURS, TAB Clonazepam* (Klonopin*) 1 Mg Tablet 1 MG ORAL Q12HR, #15 TAB 0 Refills Furosemide* (Lasix*) 40 Mg Tablet 40 MG ORAL DAILY, TAB Gabapentin* (Gabapentin*) 100 Mg Capsule 200 MG ORAL HS, CAP Glipizide* (Glipizide*) 5 Mg Tablet 5 MG ORAL BIDAC, TAB Insulin Aspart (Novolog Flexpen) 100 Unit/1 Ml Insuln.pen 0 UNITS SUBQ BEFORE MEALS AND HS for 30 Days, EA Lansoprazole* (Prevacid*) 30 Mg Capsule.dr 30 MG ORAL DAILY, CAP Metoprolol Succinate* (Metoprolol Succinate*) 50 Mg Tab.er.24h 50 MG ORAL DAILY, TAB Ondansetron* (Zofran*) 4 Mg Tablet 4 MG ORAL Q6H PRN for Nausea & Vomiting, TAB Polyethylene Glycol 3350* (Miralax*) 17 Gm Powd.pack 17 GM ORAL DAILY, PACKET Quetiapine Fumarate* (Seroquel*) 25 Mg Tablet 50 MG ORAL TWICE A DAY, TAB Sitagliptin* (Januvia*) 25 Mg Tablet 100 MG ORAL DAILY, TAB Discharge Condition Upon Discharge: stable Discharge Disposition Patient was discharged to SNF/Subacute Facility(03) Discharge Diagnoses: Willie (Vanchtein)Lani NP Apr 02, 2017 15:34
--- NOTE | 2017-04-02 23:30 | Discharge Summary 2 SIG ---
DATE OF ADMISSION: 03/20/2017 DATE OF DISCHARGE: 04/01/2017 REASON FOR ADMISSION: 71 years old male presented from the long-term facility for altered mental status, gross hematuria in suprapubic catheter. Workup in the emergency room revealed low blood pressure - 69/40, leukocytosis - 15.9. Urinalysis was consistent with urinary tract infection. Hemoglobin and hematocrit- 7.6 and 21 respectively. EKG showed right bundle-branch block with T-wave inversion in V2 to V4. The patient received one liter of fluid. Blood pressure responded to fluid challenge. The patient received two units of packed red blood cell transfusion in the emergency room. The patient admitted to [facility] for further management. ADMITTING DIAGNOSES: 1. Acute encephalopathy. 2. Sepsis. 3. Acute tubular necrosis/acute kidney injury. 4. Hypertension. 5. Gross hematuria. 6. Anemia. 7. Urinary tract infection. 8. Diabetes. 9. Chronic obstructive pulmonary disease. HOSPITAL COURSE: The patient admitted to [facility]. 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 The patient started on IV fluids and empiric antibiotics. Infectious Disease consult was requested. Blood cultures were negative. Antibiotic regimen optimized based on culture and sensitivity. Supplemental oxygen and pulmonary toilet provided as needed. Chest x-ray was negative. Urologist seen the patient for gross hematuria. Bladder was copiously irrigated with a total of 10 liters of fluid with evacuation of all blood clots. Old Melo catheter was discontinued and a new 3-way Melo was inserted. Suprapubic catheter was irrigated as well and was patent. The patient was on continuous bladder irrigation until urine was clear, no further clots, no hematuria, then CBI was discontinued. Hemoglobin and hematocrit were closely monitored. The patient received total of 8 units of packed red blood cells. Stool OB was positive x2. CEA within normal limits -1.5. Gastroenterology specialist closely followed, recommended colonoscopy as an outpatient. Hemoglobin and hematocrit were closely monitored, and patient was transfused as needed. The patient was started on PPI. Photovoltaic Fabrication Technician closely followed the patient. The patient initially with evidence of acute kidney injury. The patient had a history of urinary outlet obstruction. He was previously on dialysis and then stopped. Renal parameters and electrolytes were closely monitored. Nephrotoxics were avoided. Magnesium and phosphorus supplements provided. Renal ultrasound was negative with unremarkable bilateral kidneys. Blood sugar was managed with sliding scale of insulin and was stable. Blood pressure was stable after initial hypotension and was managed with beta-cinthya and calcium-channel cinthya. Venous duplex, bilateral lower extremities revealed acute DVT right lower extremity, superficial femoral vein and popliteal vein. No anticoagulation in lieu of severe anemia. Subsequently the patient undergone on 03/25/2017 IVC filter placement. Pain management provided. Bowel regimen instituted. Psychiatrist seen and evaluated the patient, diagnosed the patient with a cognitive impairment and psychotic disorder and recommended continued current medication and provided supportive treatment and reality orientation. Prior to discharge, leukocytosis resolved, renal parameters BUN - 10, creatinine -1.3, no leukocytosis, hemoglobin- 8.6, and hematocrit -25.8. Patient was stable for discharge. DISCHARGE DIAGNOSES: 1. Acute metabolic encephalopathy, likely secondary to underlying sepsis. 2. Sepsis. 3. Acute tubular necrosis/acute kidney injury on chronic kidney disease. 4. Hypotension, resolved. 5. Gross hematuria, likely secondary to urinary outlet obstruction, resolved. 6. Lower gastrointestinal bleeding. 7. Anemia. 8. Status post blood transfusion. 9. Urinary tract infection with Citrobacter. 10. Chronic obstructive pulmonary disease. 11. Diabetes. 12. Acute deep venous thrombosis, right lower extremity, superficial femoral vein and popliteal vein. 13. Status post inferior vena cava filter placement on 03/25/2017. 14. Cognitive impairment. 15. Psychiatric disorder. DISCHARGE MEDICATIONS: See medication reconciliation list. DISCHARGE INSTRUCTIONS: The patient discharged to long-term facility. FOLLOWUP: Follow up with medical doctor at the facility. Richard Curran M.D. Lani Rochalebron NNando DR: JORGE ALBERTO JOB#: [id number] CC: CLAY
--- NOTE | 2017-04-05 19:18 | Cardiology Report ---
APPROVED REPORT EKG Measurement Heart [id number] Normal sinus rhythm Incomplete right bundle branch block T wave abnormality, consider anterior ischemia Prolonged QT Abnormal ECG
== END 2017-04-01 21:20 | DRG 871 ==
LOC: EDBD 22:21 → EMR 23:00 → 2W 23:11 → EDBEDREQSVC 23:12 → EDBEDREQ 23:17 → 2W 03-21 00:33 → 2E 03-23 13:13 → 4E 03-24 23:06
DX: A41.9 Sepsis, unspecified organism (principal); N17.0 Acute kidney failure with tubular necrosis; I47.2 Ventricular tachycardia; G93.41 Metabolic encephalopathy; I82.411 Acute embolism and thrombosis of right femoral vein; K92.2 Gastrointestinal hemorrhage, unspecified; N39.0 Urinary tract infection, site not specified; N13.8 Other obstructive and reflux uropathy; I82.431 Acute embolism and thrombosis of right popliteal vein; I12.9 Hypertensive chronic kidney disease with stage 1 through stage 4 chronic kidney disease, or unspecified chronic kidney disease; E11.9 Type 2 diabetes mellitus without complications; D50.9 Iron deficiency anemia, unspecified; N18.9 Chronic kidney disease, unspecified; E87.6 Hypokalemia; I25.10 Atherosclerotic heart disease of native coronary artery without angina pectoris; R31.0 Gross hematuria; J44.9 Chronic obstructive pulmonary disease, unspecified; Z79.4 Long term (current) use of insulin; K29.70 Gastritis, unspecified, without bleeding; D12.2 Benign neoplasm of ascending colon; F29 Unspecified psychosis not due to a substance or known physiological condition; D49.4 Neoplasm of unspecified behavior of bladder; Z43.5 Encounter for attention to cystostomy; Z46.6 Encounter for fitting and adjustment of urinary device; G31.84 Mild cognitive impairment of uncertain or unknown etiology; F99 Mental disorder, not otherwise specified; B96.89 Other specified bacterial agents as the cause of diseases classified elsewhere
CPT/HCPCS: 36415; 36569; 71010; 76775; 76937; 80048; 80053; 80061; 80150; 80202; 81003; 82270; 82378; 82962; 83690; 83735; 83880; 84100; 84443; 84484; 84550; 85007; 85025; 85610; 85730; 86850; 86900; 86901; 86920; 87040; 87070; 87081; 87086; 87181; 93005; 93970; 94003; 94150; 94760; J1815; J8499

== ENCOUNTER 2017-04-08 21:21 | Inpatient (IN) | payer MEDICARE, BC ==
[~2017-04-08] VITALS: Ht 177.8 cm; Wt 113.4 kg
[2017-04-08 21:25] VITALS: BP 163/90
[2017-04-08] MEDS ORDERED: LORazepam Inj 2mg/ml 1ml IV ONE (21:45)
[2017-04-08] MEDS ORDERED: Morphine Sulfate 2mg/ml Inj IVP PRN (21:45)
[2017-04-08] MEDS ORDERED: Miralax 17gm pkt ORAL PRN (21:45)
[2017-04-08] MEDS ORDERED: CATAPRES0.1 MG ORAL (21:45)
[2017-04-08] MEDS ORDERED: POTASSIUM CHLO20 ME1 ORAL (21:45)
[2017-04-08] MEDS ORDERED: Mylanta II UD 30ml ORAL PRN (21:45)
[2017-04-08] MEDS ORDERED: ZOFRAN4 M3 ORAL (21:45)
[2017-04-08] MEDS ORDERED: AMBIEN5 MG ORAL (21:45)
[2017-04-08] MEDS ORDERED: Haloperidol 5mg/ml Inj IVPB PRN (21:45)
[2017-04-08] MEDS ORDERED: PANTOPRAZOLE SO40 MG ORAL (21:45)
[2017-04-08] MEDS ORDERED: Morphine Sulfate 2mg/ml Inj IVP ONE (21:45)
[2017-04-08] MEDS ORDERED: HYDRALAZINE HCL50 MG ORAL (21:45)
[2017-04-08 22:36] LABS: KETONES,URINE NEGATIVE (NEGATIVE); LEUKOCYTE ESTERASE ,URINE 3+ (NEGATIVE); NITRITE,URINE POSITIVE (NEGATIVE); PH,URINE 5 (4.5-8.0); PROTEIN,URINE 3+ (NEGATIVE); UROBILINOGEN,URINE NORMAL MG/DL (0.0-1.0)
[2017-04-08 22:39] LABS: BASOPHILS % (AUTO) 2.2 % (0.0-2.0); EOSINOPHILS % (AUTO) 7.4 % (0.0-3.0); LYMPHOCYTES % (AUTO) 26.4 % (20.0-45.0); MEAN CORPUSCULAR HEMOGLOBIN 31.4 PG (27.0-31.0); MEAN CORPUSCULAR HGB CONC 32.4 G/DL (32.0-36.0); MEAN CORPUSCULAR VOLUME 97 FL (80-99); MEAN PLATELET VOLUME 6.9 FL (6.5-10.1); MONOCYTES % (AUTO) 6.8 % (1.0-10.0); NEUTROPHILS % (AUTO) 57.2 % (45.0-75.0); PLATELET COUNT 320 K/UL (150-450); RED BLOOD COUNT 3.51 M/UL (4.70-6.10); RED CELL DISTRIBUTION WIDTH 13.8 % (11.6-14.8); WHITE BLOOD COUNT 8.3 K/UL (4.8-10.8)
[2017-04-08 22:45] LABS: APPEARANCE,URINE SLIGHTLY CLOUDY
[2017-04-08 22:45] LABS: PROTHROMBIN TIME 10.7 SEC (9.30-11.50)
[2017-04-08 22:47] LABS: AMORPHOUS SEDIMENT,UR FEW /LPF; BACTERIA,URINE MODERATE /HPF; RBC,URINE TNTC /HPF (0 - 0); WBC,URINE TNTC /HPF (0 - 0); YEAST,URINE MODERATE /HPF
--- NOTE | 2017-04-08 22:48 | Emergency Room Report ---
History of Present Illness General Chief Complaint: Behavioral Complaint Source: Patient, Medical Record Present Illness HPI EMS was called because [facility]. He was fighting with staff and spitting at them. He was sent in for evaluation. Patient denies any pain. He states he is frustrated and feels that his medications aren't in balance. He denies any fevers, dyspnea, cough, chest pain , vomiting, diarrhea. He has a suprapubic catheter. Diabetes COPD/asthma He denies SI or HI. Allergies: Coded Allergies: No Known Allergies (Unverified , 02/25/17) Patient History Past Medical History: see triage record Past Surgical History: other - suprapubic cath, TURP Social History: Denies: smoking Social History Narrative born [place] Reviewed Nursing Documentation: PMH: Agreed, PSxH: Agreed Nursing Documentation-PMH Hx Cardiac Problems: Yes - HF, athscl heart disease Hx Hypertension: Yes Hx Asthma: Yes Hx COPD: Yes Hx Diabetes: Yes History Of Psychiatric Problem: Yes - Dementia Hx Neurological Problems: Yes Hx Cerebrovascular Accident: No Hx Seizures: No Review of Systems All Other Systems: negative except mentioned in HPI Physical Exam Vital Signs Date Time Temp Pulse Resp B/P Pulse Ox O2 Delivery O2 Flow Rate FiO2 04/08/17 21:13 99.1 78 14 163/90 95 Room Air Sp02 EP Interpretation: reviewed, normal - but slightly low General Appearance: well appearing, no apparent distress, GCS 15 Head: normocephalic, atraumatic Eyes: bilateral eye PERRL, bilateral eye normal inspection ENT: dry mucus membranes - poor dentition Neck: supple Respiratory: lungs clear, normal breath sounds Cardiovascular #1: regular rate, rhythm Cardiovascular #2: 2+ radial (R) Gastrointestinal: normal inspection, normal bowel sounds, non tender, no mass, non-distended, other - suprapubic cath Genitourinary: other - benjamin Musculoskeletal: back normal, gait/station normal, normal range of motion Neurologic: alert, motor strength/tone normal - UE, LE weakness, oriented - X2 Psychiatric: no suicidal/homicidal ideation, other - perseveration, poor insight Skin: normal inspection, warm/dry Medical Decision Making Diagnostic Impression: Primary Impression: Delirium Additional Impressions: UTI (urinary tract infection) Qualified Codes: N30.00 - Acute cystitis without hematuria Renal insufficiency HTN (hypertension) Qualified Codes: I10 - Essential (primary) hypertension Psychosis Qualified Codes: F29 - Unspecified psychosis not due to a substance or known physiological condition ER Course Presents with violent behavior explosive facility. Differential includes cerebral process, electrolyte imbalance, exacerbation of schizophrenia, delirium. At this age, organic causes of behavioral problems are common and evaluation with CT scan, EKG, electrolytes are undertaken. The patient needs hospitalization for excluding other medical problems such as B12 deficiency and other vitamin deficiencies. The patient is afebrile and therefore cerebritis is less likely. The patient's draining a purulent material from the suprapubic catheter and infection is one of the possible etiologies for his altered mentation and behavioral change. Patient will receive IV hydration and also antibiotics will be started. Labs significant for normal white count, elevated creatinine and pyuria. Antibiotics are begun. The patient was treated for pain and also given Haldol. He still continues to perseverate. Somewhat improved in the morning. Blood pressure treated. Admit med Dr. Curran Laboratory Tests Test 04/08/17 22:05 04/08/17 22:10 White Blood Count 8.3 K/UL (4.8-10.8) Red Blood Count 3.51 M/UL (4.70-6.10) L Hemoglobin 11.0 G/DL (14.2-18.0) L Hematocrit 34.0 % (42.0-52.0) L Mean Corpuscular Volume 97 FL (80-99) Mean Corpuscular Hemoglobin 31.4 PG (27.0-31.0) H Mean Corpuscular Hemoglobin Concent 32.4 G/DL (32.0-36.0) Red Cell Distribution Width 13.8 % (11.6-14.8) Platelet Count 320 K/UL (150-450) Mean Platelet Volume 6.9 FL (6.5-10.1) Neutrophils (%) (Auto) 57.2 % (45.0-75.0) Lymphocytes (%) (Auto) 26.4 % (20.0-45.0) Monocytes (%) (Auto) 6.8 % (1.0-10.0) Eosinophils (%) (Auto) 7.4 % (0.0-3.0) H Basophils (%) (Auto) 2.2 % (0.0-2.0) H Prothrombin Time 10.7 SEC (9.30-11.50) Prothrombin Time INR 1.0 (0.9-1.1) PTT 29 SEC (23-33) Sodium Level 141 mEQ/L (135-145) Potassium Level 4.3 mEQ/L (3.4-4.9) Chloride Level 103 mEQ/L (98-107) Carbon Dioxide Level 26 mEQ/L (20-30) Anion Gap 12 (5-15) Blood Urea Nitrogen 12 mg/dL (7-23) Creatinine 2.0 mg/dL (0.7-1.2) H Estimate Glomerular Filtration Rate mL/min (>60) Glucose Level 183 mg/dL (74-106) H Calcium Level 8.9 mg/dL (8.6-10.2) Total Bilirubin 0.3 mg/dL (0.0-1.2) Aspartate Amino Transferase (AST) 13 U/L (5-40) Alanine Aminotransferase (ALT) 12 U/L (3-41) Alkaline Phosphatase 90 U/L (40-129) Ammonia 20 umol/L (16-60) Total Creatine Kinase 23 U/L (38-174) L Troponin I < 0.30 ng/mL (<=0.30) Pro-B-Type Natriuretic Peptide 305 pg/mL (0-125) H Total Protein 6.5 g/dL (6.6-8.7) L Albumin 3.0 g/dL (3.5-5.2) L Globulin 3.5 g/dL Albumin/Globulin Ratio 0.8 (1.0-2.7) L Thyroid Stimulating Hormone (TSH) 2.350 uIU/mL (0.300-4.500) Salicylates Level < 1 mg/dL (10-30) L Acetaminophen Level < 10 ug/mL (10-30) L Serum Alcohol < 10 mg/dL Urine Color Yellow Urine Appearance Slightly cloudy Urine pH 5 (4.5-8.0) Urine Specific [place] 1.020 (1.005-1.035) Urine Protein 3+ (NEGATIVE) H Urine Glucose (UA) Negative (NEGATIVE) Urine Ketones Negative (NEGATIVE) Urine Occult Blood 4+ (NEGATIVE) H Urine Nitrite Positive (NEGATIVE) H Urine Bilirubin Negative (NEGATIVE) Urine Urobilinogen Normal MG/DL (0.0-1.0) Urine Leukocyte Esterase 3+ (NEGATIVE) H Urine RBC Tntc /HPF (0 - 0) H Urine WBC Tntc /HPF (0 - 0) H Urine Squamous Epithelial Cells None /LPF (NONE/OCC) Urine Amorphous Sediment Few /LPF (NONE) H Urine Bacteria Moderate /HPF (NONE) H Urine Yeast Moderate /HPF (NONE) H Urine Opiates Screen Negative (NEGATIVE) Urine Barbiturates Screen Negative (NEGATIVE) Phencyclidine (PCP) Screen Negative (NEGATIVE) Urine Amphetamines Screen Negative (NEGATIVE) Urine Benzodiazepines Screen Positive (NEGATIVE) H Urine Cocaine Screen Negative (NEGATIVE) Urine Marijuana (THC) Screen Negative (NEGATIVE) EKG Diagnostic Results Rate: normal Rhythm: NSR ST Segments: no acute changes - prolonged QT Rhythm Strip Diag. Results EP Interpretation: yes Rhythm: NSR, no PVC's, no ectopy Chest X-Ray Diagnostic Results Chest X-Ray Diagnostic Results : Chest X-Ray Ordered: Yes # of Views/Limited/Complete: 1 View Indication: Other EP Interpretation: Yes Interpretation: no consolidation, no effusion, no pneumothorax, other - widened mediastinum, old rib fractures L (unchanged from prior films) Impression: Other Interpreting ER Provider: Electronically signed by Se Cuadra MD Last Vital Signs Date Time Temp Pulse Resp B/P Pulse Ox O2 Delivery O2 Flow Rate FiO2 04/09/17 05:19 182/92 04/09/17 05:04 76 16 96 Room Air 04/08/17 23:25 99.1 Status: improved Disposition: ADMITTED INPATIENT Condition: Serious Referrals: JUSTO CURRAN (PCP) Se Cuadra M.D. Apr 08, 2017 22:48
[2017-04-08 22:52] LABS: TROPONIN I < 0.30 ng/mL (<=0.30)
[2017-04-08 22:55] LABS: ACETAMINOPHEN < 10 ug/mL (10-30); ALANINE AMINOTRANSFERASE 12 U/L (3-41); ALBUMIN/GLOBULIN RATIO 0.8 (1.0-2.7); ALCOHOL < 10 mg/dL; ANION GAP 12 (5-15); ASPARTATE AMINO TRANSFERASE 13 U/L (5-40); CALCIUM 8.9 mg/dL (8.6-10.2); CARBON DIOXIDE 26 mEQ/L (20-30); CHLORIDE 103 mEQ/L (98-107); HEMOLYSIS 5; POTASSIUM 4.3 mEQ/L (3.4-4.9); SODIUM 141 mEQ/L (135-145); TOTAL PROTEIN 6.5 g/dL (6.6-8.7)
[2017-04-08 22:56] LABS: AMMONIA 20 umol/L (16-60)
[2017-04-08] MEDS ORDERED: cefTRIAXone 1 GM in NS 55 ML IVPB ONE (23:00)
[2017-04-08 23:25] VITALS: BP 170/91
[2017-04-09] VITALS (10 sets, daily range): BP systolic 115–180; BP diastolic 55–91
[2017-04-09] MEDS ORDERED: DiphenhydrAMINE 50mg/ml Inj IVP ONE
[2017-04-09] MEDS ORDERED: Haloperidol 5mg/ml Inj IM ONE ×2 (00:30→01:45)
[2017-04-09] MEDS ORDERED: Morphine Sulfate 4mg/ml Inj IVP ONE ×2 (01:45→05:30)
[2017-04-09 06:13] LABS: BASOPHILS % (AUTO) 1.2 % (0.0-2.0); EOSINOPHILS % (AUTO) 8.4 % (0.0-3.0); LYMPHOCYTES % (AUTO) 27.3 % (20.0-45.0); MEAN CORPUSCULAR HEMOGLOBIN 31.5 PG (27.0-31.0); MEAN CORPUSCULAR HGB CONC 32.2 G/DL (32.0-36.0); MEAN CORPUSCULAR VOLUME 98 FL (80-99); MEAN PLATELET VOLUME 7.3 FL (6.5-10.1); MONOCYTES % (AUTO) 7.9 % (1.0-10.0); NEUTROPHILS % (AUTO) 55.2 % (45.0-75.0); PLATELET COUNT 327 K/UL (150-450); RED BLOOD COUNT 3.21 M/UL (4.70-6.10); RED CELL DISTRIBUTION WIDTH 13.9 % (11.6-14.8); WHITE BLOOD COUNT 9.7 K/UL (4.8-10.8)
[2017-04-09] MEDS: NovoLOG Insulin Flexpen SUBQ SCH ×4 (06:30→21:00)
[2017-04-09 06:31] LABS: ALANINE AMINOTRANSFERASE 12 U/L (3-41); ALBUMIN/GLOBULIN RATIO 0.9 (1.0-2.7); ANION GAP 8 (5-15); ASPARTATE AMINO TRANSFERASE 12 U/L (5-40); CALCIUM 8.6 mg/dL (8.6-10.2); CARBON DIOXIDE 28 mEQ/L (20-30); CHLORIDE 107 mEQ/L (98-107); CHOLESTEROL 207 mg/dL (< 200); CHOLESTEROL/HDL RATIO 5.4 (3.3-4.4); CREATININE 1.8 mg/dL (0.7-1.2); HEMOLYSIS 1; LDL CHOLESTEROL (CALC.) 139 mg/dL (60-99); POTASSIUM 3.8 mEQ/L (3.4-4.9); SODIUM 143 mEQ/L (135-145); TOTAL PROTEIN 6.1 g/dL (6.6-8.7)
--- NOTE | 2017-04-09 09:31 | Diagnostic Imaging Report ---
Indication: Pain Technique: XRAY CHEST 1 V. Comparison: 03/20/2017 Findings: The heart remains enlarged. Evidence of previous CABG is noted. There are no acute infiltrates. No pleural fluid. Impression: No acute abnormality. No change from previous study. .
[2017-04-09] MEDS: Tamsulosin 0.4mg cap ORAL SCH (09:55)
[2017-04-09] MEDS: Carvedilol 12.5mg tab ORAL SCH ×2 (09:55→21:00)
--- NOTE | 2017-04-09 10:39 | History and Physical ---
History of Present Illness General Date patient seen: Apr 09, 2017 Reason for Hospitalization: Behavioral Complaint Present Illness HPI 71 year old male with hx of suprapubic catheter, Diabetes, COPD/asthma custodial resident brought in by paramedics because the patient was fighting with staff and spitting at them. Patient denies any pain. He states he is frustrated and feels that his medications aren't in balance. He denies any fevers, dyspnea, cough, chest pain, vomiting, diarrhea. He is admitted for acute encephalopathy. Allergies: Coded Allergies: No Known Allergies (Unverified , 02/25/17) Medication History Scheduled Amlodipine Besylate* (Amlodipine Besylate*), 10 MG ORAL DAILY, (Reported) Carvedilol (Coreg), 12.5 MG ORAL EVERY 12 HOURS, (Reported) Clonazepam* (Klonopin*), 1 MG ORAL Q12HR, (Reported) Clonidine Hcl* (Catapres*), 0.1 MG ORAL EVERY 4 HOURS, (Reported) Gabapentin* (Gabapentin*), 200 MG ORAL HS, (Reported) Hydralazine Hcl* (Hydralazine Hcl*), 50 MG ORAL EVERY 8 HOURS, (Reported) Insulin Aspart (Novolog Flexpen), 0 UNITS SUBQ BEFORE MEALS AND HS Pantoprazole* (Pantoprazole*), 40 MG ORAL DAILY, (Reported) Polyethylene Glycol 3350* (Miralax*), 17 GM ORAL DAILY, (Reported) Potassium Chloride* (K-Dur*), 20 MEQ ORAL DAILY, (Reported) Tamsulosin HCl (Flomax), 0.4 MG ORAL DAILY, (Reported) Scheduled PRN Acetaminophen* (Acetaminophen*), 650 MG ORAL Q6H PRN for Mild Pain/Temp > 100.5, (Reported) Ondansetron* (Zofran*), 4 MG ORAL Q6H PRN for Nausea & Vomiting, (Reported) Quetiapine Fumarate* (Seroquel*), 25 MG ORAL BIDPRN PRN Zolpidem Tartrate* (Ambien*), 5 MG ORAL BEDTIME PRN for Insomnia, (Reported) Discontinued Medications Atorvastatin Calcium* (Lipitor*), 20 MG ORAL BEDTIME, (Reported) Discontinued Reason: Therapy completed Carvedilol (Coreg), 25 MG ORAL EVERY 12 HOURS Discontinued Reason: Therapy completed Docusate Sodium (Docusate Sodium), 100 MG ORAL DAILY, (Reported) Discontinued Reason: Therapy completed Furosemide* (Lasix*), 40 MG ORAL DAILY, (Reported) Discontinued Reason: Therapy completed Gabapentin* (Gabapentin*), 200 MG ORAL QHS Discontinued Reason: Therapy completed Glipizide* (Glipizide*), 5 MG ORAL BIDAC, (Reported) Discontinued Reason: Therapy completed Insulin Detemir (Levemir Flexpen), 15 UNITS SUBQ BEDTIME Discontinued Reason: Therapy completed Insulin Regular, Human* (Novolin R*), 0 SUBQ .SLIDING SCALE, (Reported) Discontinued Reason: Therapy completed Ipratropium/Albuterol Sulfate (DuoNeb 0.5-3(2.5)mg/3ml), 3 ML HHN Q4H PRN Discontinued Reason: Therapy completed Lansoprazole* (Prevacid*), 30 MG ORAL DAILY, (Reported) Discontinued Reason: Therapy completed Metoprolol Succinate* (Metoprolol Succinate*), 50 MG ORAL DAILY, (Reported) Discontinued Reason: Therapy completed Ondansetron* (Zofran*), 4 MG ORAL Q6H PRN for Nausea & Vomiting, (Reported) Discontinued Reason: Therapy completed Oxybutynin Chloride (Oxybutynin Chloride), 5 MG PO Q6HR, (Reported) Discontinued Reason: Therapy completed Quetiapine Fumarate* (Seroquel*), 50 MG ORAL TWICE A DAY, (Reported) Discontinued Reason: Therapy completed Sitagliptin* (Januvia*), 100 MG ORAL DAILY, (Reported) Discontinued Reason: Therapy completed Venlafaxine Hcl* (Effexor*), 150 MG ORAL BID, (Reported) Discontinued Reason: Therapy completed Zolpidem Tartrate* (Ambien*), 5 MG ORAL HSPRN PRN Discontinued Reason: Therapy completed Patient History Healthcare decision maker Resuscitation status Advanced Directive on File Past Medical/Surgical History Past Medical/Surgical History: (1) HTN (hypertension) (2) Psychosis (3) Lower GI bleed (4) Diabetes mellitus (5) COPD (chronic obstructive pulmonary disease) Review of Systems All Other Systems: negative except mentioned in HPI Physical Exam General Appearance: WD/WN Lines, tubes and drains: peripheral HEENT: normocephalic, atraumatic Neck: non-tender, normal alignment Respiratory/Chest: chest wall non-tender, lungs clear Cardiovascular/Chest: normal peripheral pulses, normal rate Abdomen: normal bowel sounds, non tender Genitourinary/Rectal: normal genital exam, heme negative stool Extremities: normal range of motion 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1 78 14 163/90 95 Room Air Intake and Output 04/08/17 04/09/17 19:00 07:00 Intake Total 50 ml Balance 50 ml Intake IV Total 50 ml # Voids 1 Laboratory Tests Test 04/08/17 22:05 04/08/17 22:10 04/09/17 05:40 White Blood Count 8.3 K/UL (4.8-10.8) 9.7 K/UL (4.8-10.8) Red Blood Count 3.51 M/UL (4.70-6.10) L 3.21 M/UL (4.70-6.10) L Hemoglobin 11.0 G/DL (14.2-18.0) L 10.1 G/DL (14.2-18.0) L Hematocrit 34.0 % (42.0-52.0) L 31.4 % (42.0-52.0) L Mean Corpuscular Volume 97 FL (80-99) 98 FL (80-99) Mean Corpuscular Hemoglobin 31.4 PG (27.0-31.0) H 31.5 PG (27.0-31.0) H Mean Corpuscular Hemoglobin Concent 32.4 G/DL (32.0-36.0) 32.2 G/DL (32.0-36.0) Red Cell Distribution Width 13.8 % (11.6-14.8) 13.9 % (11.6-14.8) Platelet Count 320 K/UL (150-450) 327 K/UL (150-450) Mean Platelet Volume 6.9 FL (6.5-10.1) 7.3 FL (6.5-10.1) Neutrophils (%) (Auto) 57.2 % (45.0-75.0) 55.2 % (45.0-75.0) Lymphocytes (%) (Auto) 26.4 % (20.0-45.0) 27.3 % (20.0-45.0) Monocytes (%) (Auto) 6.8 % (1.0-10.0) 7.9 % (1.0-10.0) Eosinophils (%) (Auto) 7.4 % (0.0-3.0) H 8.4 % (0.0-3.0) H Basophils (%) (Auto) 2.2 % (0.0-2.0) H 1.2 % (0.0-2.0) Prothrombin Time 10.7 SEC (9.30-11.50) Prothromb Time International Ratio 1.0 (0.9-1.1) Activated Partial Thromboplast Time 29 SEC (23-33) Sodium Level 141 mEQ/L (135-145) 143 mEQ/L (135-145) Potassium Level 4.3 mEQ/L (3.4-4.9) 3.8 mEQ/L (3.4-4.9) Chloride Level 103 mEQ/L (98-107) 107 mEQ/L (98-107) Carbon Dioxide Level 26 mEQ/L (20-30) 28 mEQ/L (20-30) Anion Gap 12 (5-15) 8 (5-15) Blood Urea Nitrogen 12 mg/dL (7-23) 10 mg/dL (7-23) Creatinine 2.0 mg/dL (0.7-1.2) H 1.8 mg/dL (0.7-1.2) H Estimat Glomerular Filtration Rate mL/min (>60) mL/min (>60) Glucose Level 183 mg/dL (74-106) H 122 mg/dL (74-106) H Calcium Level 8.9 mg/dL (8.6-10.2) 8.6 mg/dL (8.6-10.2) Total Bilirubin 0.3 mg/dL (0.0-1.2) 0.3 mg/dL (0.0-1.2) Aspartate Amino Transf (AST/SGOT) 13 U/L (5-40) 12 U/L (5-40) Alanine Aminotransferase (ALT/SGPT) 12 U/L (3-41) 12 U/L (3-41) Alkaline Phosphatase 90 U/L (40-129) 84 U/L (40-129) Ammonia 20 umol/L (16-60) Total Creatine Kinase 23 U/L (38-174) L Troponin I < 0.30 ng/mL (<=0.30) Pro-B-Type Natriuretic Peptide 305 pg/mL (0-125) H Total Protein 6.5 g/dL (6.6-8.7) L 6.1 g/dL (6.6-8.7) L Albumin 3.0 g/dL (3.5-5.2) L 2.9 g/dL (3.5-5.2) L Globulin 3.5 g/dL 3.2 g/dL Albumin/Globulin Ratio 0.8 (1.0-2.7) L 0.9 (1.0-2.7) L Thyroid Stimulating Hormone (TSH) 2.350 uIU/mL (0.300-4.500) 4.560 uIU/mL (0.300-4.500) Salicylates Level < 1 mg/dL (10-30) L Acetaminophen Level < 10 ug/mL (10-30) L Serum Alcohol < 10 mg/dL Urine Color Yellow Urine Appearance Slightly cloudy Urine pH 5 (4.5-8.0) Urine Specific [place] 1.020 (1.005-1.035) Urine Protein 3+ (NEGATIVE) H Urine Glucose (UA) Negative (NEGATIVE) Urine Ketones Negative (NEGATIVE) Urine Occult Blood 4+ (NEGATIVE) H Urine Nitrite Positive (NEGATIVE) H Urine Bilirubin Negative (NEGATIVE) Urine Urobilinogen Normal MG/DL (0.0-1.0) Urine Leukocyte Esterase 3+ (NEGATIVE) H Urine RBC Tntc /HPF (0 - 0) H Urine WBC Tntc /HPF (0 - 0) H Urine Squamous Epithelial Cells None /LPF (NONE/OCC) Urine Amorphous Sediment Few /LPF (NONE) H Urine Bacteria Moderate /HPF (NONE) H Urine Yeast Moderate /HPF (NONE) H Urine Opiates Screen Negative (NEGATIVE) Urine Barbiturates Screen Negative (NEGATIVE) Phencyclidine (PCP) Screen Negative (NEGATIVE) Urine Amphetamines Screen Negative (NEGATIVE) Urine Benzodiazepines Screen Positive (NEGATIVE) H Urine Cocaine Screen Negative (NEGATIVE) Urine Marijuana (THC) Screen Negative (NEGATIVE) Triglycerides Level 149 mg/dL (< 150) Cholesterol Level 207 mg/dL (< 200) H LDL Cholesterol 139 mg/dL (60-99) H HDL Cholesterol 38 mg/dL (> 60) Cholesterol/HDL Ratio 5.4 (3.3-4.4) H Height (Feet): 5 Height (Inches): 10.00 Weight (Pounds): 250 Medications Current Medications Medications (Trade) Dose Ordered Sig/Fernando Route PRN Reason Start Time Stop Time Status Last Admin Dose Admin Acetaminophen (Tylenol) 650 mg Q4H PRN ORAL T>100.5 04/08/17 21:45 05/08/17 21:44 Al Hydroxide/Mg Hydroxide (Mylanta II) 30 ml Q6H PRN ORAL dyspepsia 04/08/17 21:45 05/08/17 21:44 Amlodipine Besylate (Norvasc) 10 mg DAILY ORAL 04/09/17 09:00 05/09/17 08:59 04/09/17 09:55 Carvedilol (Coreg) 12.5 mg EVERY 12 HOURS ORAL 04/09/17 09:00 05/09/17 08:59 04/09/17 09:55 Clotrimazole (Lotrimin) 1 applic THREE TIMES A DAY TOPIC 04/09/17 13:00 05/09/17 12:59 Dextrose (Dextrose 50%) STAT PRN IV Hypoglycemia 7/3/17 21:45 05/08/17 21:44 Gabapentin (Neurontin) 200 mg EVERY 12 HOURS ORAL 04/09/17 09:00 05/09/17 08:59 04/09/17 09:55 Insulin Aspart (NovoLOG) BEFORE MEALS AND HS SUBQ 04/09/17 06:30 05/09/17 06:29 Lorazepam (Ativan 2mg/ml 1ml) 0.5 mg Q4H PRN IV For Anxiety 04/08/17 21:45 04/15/17 21:44 Morphine Sulfate (Morphine Sulfate) 1 mg Q4H PRN IVP PAIN 4-10 04/08/17 21:45 04/15/17 21:44 Ondansetron HCl (Zofran) 4 mg Q6H PRN IVP Nausea & Vomiting 04/08/17 21:45 05/08/17 21:44 Polyethylene Glycol (Miralax) 17 gm HSPRN PRN ORAL Constipation 04/08/17 21:45 05/08/17 21:44 Quetiapine Fumarate (SEROquel) 25 mg BIDPRN PRN ORAL Agitation 04/08/17 21:45 05/08/17 21:44 Tamsulosin HCl (Flomax) 0.4 mg DAILY ORAL 04/09/17 09:00 05/09/17 08:59 04/09/17 09:55 Zolpidem Tartrate (Ambien) 5 mg HSPRN PRN ORAL Insomnia 04/08/17 21:45 05/08/17 21:44 Assessment/Plan Problem List: (1) Psychosis ICD Codes: F29 - Unspecified psychosis not due to a substance or known physiological condition SNOMED: 16518414 Qualifiers: Qualified Codes: F29 - Unspecified psychosis not due to a substance or known physiological condition (2) Acute delirium ICD Codes: R41.0 - Disorientation, unspecified SNOMED: 3898100 (3) Diabetes mellitus ICD Codes: E11.9 - Type 2 diabetes mellitus without complications SNOMED: 64074811 (4) COPD (chronic obstructive pulmonary disease) ICD Codes: J44.9 - Chronic obstructive pulmonary disease, unspecified SNOMED: 37773041 (5) HTN (hypertension) ICD Codes: I10 - Essential (primary) hypertension SNOMED: 29958048 Qualifiers: Qualified Codes: I10 - Essential (primary) hypertension (6) CAD (coronary artery disease) ICD Codes: I25.10 - Atherosclerotic heart disease of [place] coronary artery without angina pectoris SNOMED: 94914247 Assessment/Plan psych evaluation keep benjamin and supra pubic catheter in renal evaluation JUSTO LEBLANC Apr 09, 2017 10:39
--- NOTE | 2017-04-09 14:26 | Consultation ---
Consult Note Consult Note EMS was called because [facility]. He was fighting with staff and spitting at them. He was sent in for evaluation. Patient denies any pain. He states he is frustrated and feels that his medications aren't in balance. He denies any fevers, dyspnea, cough, chest pain , vomiting, diarrhea. He has a suprapubic catheter. Diabetes COPD/asthma Past Surgical History: other - suprapubic cath, TURP Hx Cardiac Problems: Yes - HF, athscl heart disease Hx Hypertension: Yes Hx Asthma: Yes Hx COPD: Yes Hx Diabetes: Yes History Of Psychiatric Problem: Yes - Dementia Hx Neurological Problems: Yes Hx Cerebrovascular Accident: No Hx Seizures: No examined- data reviewed Assessment/Plan MILAN (acute kidney injury) --- h/o urinary outlet obstruction UTI (urinary tract infection) HTN DM Psychosis Bladder tumor and suprapubic catheter Anemia Plan: Slow hydrate previous dialysed and then stopped follow up renal parameters Mag and Phos supp as needed- monitor BS and adjust Insulin Keep BS and BP in check Monitor renal parameters Avoid Nephrotoxics- Per orders JULIETA LEON Apr 09, 2017 14:26
--- NOTE | 2017-04-09 15:24 | Consultation ---
Consult Note Consult Note ID DIC # [id number] MARISOL CAPPS M.D. Apr 09, 2017 15:24
[2017-04-09] MEDS: LORazepam Inj 2mg/ml 1ml IV PRN (17:54)
[2017-04-10 03:14] VITALS: BP 137/66
[2017-04-10] MEDS: NovoLOG Insulin Flexpen SUBQ SCH ×4 (06:01→20:21)
[2017-04-10 07:32] LABS: BASOPHILS % (AUTO) 1.5 % (0.0-2.0); EOSINOPHILS % (AUTO) 5.2 % (0.0-3.0); MEAN CORPUSCULAR HEMOGLOBIN 31.5 PG (27.0-31.0); MEAN CORPUSCULAR VOLUME 98 FL (80-99); MONOCYTES % (AUTO) 9.1 % (1.0-10.0); NEUTROPHILS % (AUTO) 50.2 % (45.0-75.0); PLATELET COUNT 300 K/UL (150-450); RED BLOOD COUNT 2.97 M/UL (4.70-6.10); RED CELL DISTRIBUTION WIDTH 14.1 % (11.6-14.8); WHITE BLOOD COUNT 8.2 K/UL (4.8-10.8)
[2017-04-10 07:56] VITALS: BP 126/74
[2017-04-10 08:26] LABS: THYROID STIMULATING HORMONE 0.814 uIU/mL (0.300-4.500)
[2017-04-10 08:29] LABS: ALANINE AMINOTRANSFERASE 9 U/L (3-41); ANION GAP 9 (5-15); ASPARTATE AMINO TRANSFERASE 11 U/L (5-40); CALCIUM 8.5 mg/dL (8.6-10.2); CARBON DIOXIDE 27 mEQ/L (20-30); CHLORIDE 110 mEQ/L (98-107); CREATININE 1.7 mg/dL (0.7-1.2); CRP QUANT 2.1 mg/dL (< 0.5); HEMOLYSIS 4; MAGNESIUM 1.8 mg/dL (1.7-2.5); PHOSPHORUS 3.7 mg/dL (2.5-4.8); SODIUM 146 mEQ/L (135-145); TOTAL PROTEIN 5.4 g/dL (6.6-8.7); URIC ACID 10.5 mg/dL (3.0-7.5)
[2017-04-10 08:50] LABS: HEMOGLOBIN A1C 5.3 % (< 6.0)
[2017-04-10] MEDS: Carvedilol 12.5mg tab ORAL SCH ×2 (09:26→20:13)
[2017-04-10] MEDS: Tamsulosin 0.4mg cap ORAL SCH (09:26)
--- NOTE | 2017-04-10 10:02 | Diagnostic Imaging Report ---
Indication: ALOC Technique: Continuous helical CT scanning of the head was performed without intravenous contrast material. Axial and coronal 5 mm sections were generated. Dose: Total Dose Length Product - DLP [address] Dose Index - CTDIvol(s) 70.38x2 mGy. Comparison: 03/07/2017 Findings: There is prominence of cortical sulci and the ventricular system. Periventricular low density is present. There is focal low density in the right nasal ganglia representing an old infarct. There is no shift of midline structures. No abnormal extra-axial fluid collections are noted. There is no evidence of intracerebral bleeding. No other abnormal high or low density areas are noted within the brain. Impression: Atrophy. Chronic small vessel white matter ischemic change. 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 No change from prior exam. The CT scanner at [facility] is accredited by the [employer] and the scans are performed using protocols designed to limit radiation exposure to as low as reasonably achievable to attain images of sufficient resolution adequate for diagnostic evaluation.
[2017-04-10 11:58] VITALS: BP 125/57
--- NOTE | 2017-04-10 12:53 | Consultation ---
History of Present Illness General Chief Complaint: Behavioral Complaint Present Illness HPI 71 year old male with hx of suprapubic catheter, Diabetes, COPD/asthma, psychotic d/o brought in by paramedics because the patient was fighting with staff and spitting at them. During the eval the pt was calm and asleep. Per staff the pt pw waxing and waning of consciousness. the pt is well known to me. the pt is disorganized and confused. the pt has memory impairment. Allergies: Coded Allergies: No Known Allergies (Unverified , 02/25/17) Medication History Scheduled Amlodipine Besylate* (Amlodipine Besylate*), 10 MG ORAL DAILY, (Reported) Carvedilol (Coreg), 12.5 MG ORAL EVERY 12 HOURS, (Reported) Clonazepam* (Klonopin*), 1 MG ORAL Q12HR, (Reported) Clonidine Hcl* (Catapres*), 0.1 MG ORAL EVERY 4 HOURS, (Reported) Gabapentin* (Gabapentin*), 200 MG ORAL HS, (Reported) Hydralazine Hcl* (Hydralazine Hcl*), 50 MG ORAL EVERY 8 HOURS, (Reported) Insulin Aspart (Novolog Flexpen), 0 UNITS SUBQ BEFORE MEALS AND HS Pantoprazole* (Pantoprazole*), 40 MG ORAL DAILY, (Reported) Polyethylene Glycol 3350* (Miralax*), 17 GM ORAL DAILY, (Reported) Potassium Chloride* (K-Dur*), 20 MEQ ORAL DAILY, (Reported) Tamsulosin HCl (Flomax), 0.4 MG ORAL DAILY, (Reported) Scheduled PRN Acetaminophen* (Acetaminophen*), 650 MG ORAL Q6H PRN for Mild Pain/Temp > 100.5, (Reported) Ondansetron* (Zofran*), 4 MG ORAL Q6H PRN for Nausea & Vomiting, (Reported) Quetiapine Fumarate* (Seroquel*), 25 MG ORAL BIDPRN PRN Zolpidem Tartrate* (Ambien*), 5 MG ORAL BEDTIME PRN for Insomnia, (Reported) Discontinued Medications Atorvastatin Calcium* (Lipitor*), 20 MG ORAL BEDTIME, (Reported) Discontinued Reason: Therapy completed Carvedilol (Coreg), 25 MG ORAL EVERY 12 HOURS Discontinued Reason: Therapy completed Docusate Sodium (Docusate Sodium), 100 MG ORAL DAILY, (Reported) Discontinued Reason: Therapy completed Furosemide* (Lasix*), 40 MG ORAL DAILY, (Reported) Discontinued Reason: Therapy completed Gabapentin* (Gabapentin*), 200 MG ORAL QHS Discontinued Reason: Therapy completed Glipizide* (Glipizide*), 5 MG ORAL BIDAC, (Reported) Discontinued Reason: Therapy completed Insulin Detemir (Levemir Flexpen), 15 UNITS SUBQ BEDTIME Discontinued Reason: Therapy completed Insulin Regular, Human* (Novolin R*), 0 SUBQ .SLIDING SCALE, (Reported) Discontinued Reason: Therapy completed Ipratropium/Albuterol Sulfate (DuoNeb 0.5-3(2.5)mg/3ml), 3 ML HHN Q4H PRN Discontinued Reason: Therapy completed Lansoprazole* (Prevacid*), 30 MG ORAL DAILY, (Reported) Discontinued Reason: Therapy completed Metoprolol Succinate* (Metoprolol Succinate*), 50 MG ORAL DAILY, (Reported) Discontinued Reason: Therapy completed Ondansetron* (Zofran*), 4 MG ORAL Q6H PRN for Nausea & Vomiting, (Reported) Discontinued Reason: Therapy completed Oxybutynin Chloride (Oxybutynin Chloride), 5 MG PO Q6HR, (Reported) Discontinued Reason: Therapy completed Quetiapine Fumarate* (Seroquel*), 50 MG ORAL TWICE A DAY, (Reported) Discontinued Reason: Therapy completed Sitagliptin* (Januvia*), 100 MG ORAL DAILY, (Reported) Discontinued Reason: Therapy completed Venlafaxine Hcl* (Effexor*), 150 MG ORAL BID, (Reported) Discontinued Reason: Therapy completed Zolpidem Tartrate* (Ambien*), 5 MG ORAL HSPRN PRN Discontinued Reason: Therapy completed Patient History Limited by: medical condition History Provided By: Patient, Medical Record, PMD Healthcare decision maker Resuscitation status Full Code Advanced Directive on File Past Medical/Surgical History Past Medical/Surgical History: (1) NSVT (nonsustained ventricular tachycardia) (2) Sepsis (3) ATN (acute tubular necrosis) (4) Acute encephalopathy (5) DVT (deep venous thrombosis) (6) Anemia (7) Delirium (8) Renal insufficiency (9) UTI (urinary tract infection) (10) HTN (hypertension) (11) COPD (chronic obstructive pulmonary disease) (12) Diabetes mellitus (13) Psychosis (14) Lower GI bleed (15) Acute delirium (16) CAD (coronary artery disease) Review of Systems Constitutional: Reports: malaise, weakness Psychiatric: Reports: anxiety, depressed feelings, emotional problems, hallucinations Physical Exam General Appearance: no apparent distress, confused, agitated, overweight Neurologic: disoriented, depressed affect Last 24 Hour Vital Signs Date Time Temp Pulse Resp B/P Pulse Ox O2 Delivery O2 Flow Rate FiO2 04/10/17 11:58 65 20 125/57 95 Room Air 04/10/17 09:26 74 126/74 04/10/17 09:26 74 126/74 04/10/17 07:56 97.5 74 19 126/74 97 Room Air 04/10/17 03:14 99.0 69 17 137/66 94 Room Air 04/09/17 23:06 99.9 78 17 115/55 96 Room Air 04/09/17 21:00 92 153/79 04/09/17 19:19 100.6 92 18 153/79 93 Room Air 04/09/17 18:57 90 116/61 04/09/17 16:00 98.8 83 20 177/91 94 Room Air Intake and Output 04/09/17 04/10/17 19:00 07:00 Intake Total 200 ml Output Total 400 ml 250 ml Balance -200 ml -250 ml Intake Oral 200 ml Output Urine Total 400 ml 250 ml Laboratory Tests Test 04/10/17 06:35 White Blood Count 8.2 K/UL (4.8-10.8) Red Blood Count 2.97 M/UL (4.70-6.10) L Hemoglobin 9.4 G/DL (14.2-18.0) L Hematocrit 29.3 % (42.0-52.0) L Mean Corpuscular Volume 98 FL (80-99) Mean Corpuscular Hemoglobin 31.5 PG (27.0-31.0) H Mean Corpuscular Hemoglobin Concent 32.0 G/DL (32.0-36.0) Red Cell Distribution Width 14.1 % (11.6-14.8) Platelet Count 300 K/UL (150-450) Mean Platelet Volume 7.0 FL (6.5-10.1) Neutrophils (%) (Auto) 50.2 % (45.0-75.0) Lymphocytes (%) (Auto) 34.0 % (20.0-45.0) Monocytes (%) (Auto) 9.1 % (1.0-10.0) Eosinophils (%) (Auto) 5.2 % (0.0-3.0) H Basophils (%) (Auto) 1.5 % (0.0-2.0) Sodium Level 146 mEQ/L (135-145) H Potassium Level 4.0 mEQ/L (3.4-4.9) Chloride Level 110 mEQ/L (98-107) H Carbon Dioxide Level 27 mEQ/L (20-30) Anion Gap 9 (5-15) Blood Urea Nitrogen 8 mg/dL (7-23) Creatinine 1.7 mg/dL (0.7-1.2) H Estimat Glomerular Filtration Rate mL/min (>60) Glucose Level 96 mg/dL (74-106) Hemoglobin A1c 5.3 % (< 6.0) Uric Acid 10.5 mg/dL (3.0-7.5) H Calcium Level 8.5 mg/dL (8.6-10.2) L Phosphorus Level 3.7 mg/dL (2.5-4.8) Magnesium Level 1.8 mg/dL (1.7-2.5) Total Bilirubin 0.2 mg/dL (0.0-1.2) Gamma Glutamyl Transpeptidase 16 U/L (8-61) Aspartate Amino Transf (AST/SGOT) 11 U/L (5-40) Alanine Aminotransferase (ALT/SGPT) 9 U/L (3-41) Alkaline Phosphatase 76 U/L (40-129) Total Creatine Kinase 30 U/L (38-174) L C-Reactive Protein, Quantitative 2.1 mg/dL (< 0.5) H Pro-B-Type Natriuretic Peptide 728 pg/mL (0-125) H Total Protein 5.4 g/dL (6.6-8.7) L Albumin 2.7 g/dL (3.5-5.2) L Globulin 2.7 g/dL Albumin/Globulin Ratio 1.0 (1.0-2.7) Thyroid Stimulating Hormone (TSH) 0.814 uIU/mL (0.300-4.500) Height (Feet): 5 Height (Inches): 10.00 Weight (Pounds): 250 Medications Current Medications Medications (Trade) Dose Ordered Sig/Fernando Route PRN Reason Start Time Stop Time Status Last Admin Dose Admin Acetaminophen (Tylenol) 650 mg Q4H PRN ORAL T>100.5 04/08/17 21:45 05/08/17 21:44 Amlodipine Besylate (Norvasc) 10 mg DAILY ORAL 04/09/17 09:00 05/09/17 08:59 04/10/17 09:26 Carvedilol (Coreg) 12.5 mg EVERY 12 HOURS ORAL 04/09/17 09:00 05/09/17 08:59 04/10/17 09:26 Clotrimazole (Lotrimin) 1 applic THREE TIMES A DAY TOPIC 04/09/17 13:00 05/09/17 12:59 04/10/17 09:27 Dextrose (Dextrose 50%) STAT PRN IV Hypoglycemia 04/08/17 21:45 05/08/17 21:44 Gabapentin (Neurontin) 200 mg EVERY 12 HOURS ORAL 04/09/17 09:00 05/09/17 08:59 04/10/17 09:26 Insulin Aspart (NovoLOG) BEFORE MEALS AND HS SUBQ 04/09/17 06:30 05/09/17 06:29 04/09/17 17:57 Lorazepam (Ativan 2mg/ml 1ml) 0.5 mg Q4H PRN IV For Anxiety 04/08/17 21:45 04/15/17 21:44 04/09/17 17:54 Morphine Sulfate (Morphine Sulfate) 1 mg Q4H PRN IVP PAIN 4-10 04/08/17 21:45 04/15/17 21:44 Ondansetron HCl (Zofran) 4 mg Q6H PRN IVP Nausea & Vomiting 04/08/17 21:45 05/08/17 21:44 Polyethylene Glycol (Miralax) 17 gm HSPRN PRN ORAL Constipation 04/08/17 21:45 05/08/17 21:44 Quetiapine Fumarate (SEROquel) 25 mg BEDTIME ORAL 04/10/17 21:00 05/10/17 20:59 Quetiapine Fumarate (SEROquel) 25 mg BIDPRN PRN ORAL Agitation 04/08/17 21:45 05/08/17 21:44 04/09/17 21:00 Tamsulosin HCl (Flomax) 0.4 mg DAILY ORAL 04/09/17 09:00 05/09/17 08:59 04/10/17 09:26 Zolpidem Tartrate (Ambien) 5 mg HSPRN PRN ORAL Insomnia 04/08/17 21:45 05/08/17 21:44 Assessment/Plan Status: stable, not improved Assessment/Plan Dementia, Psychotic d/o, Delirium -Seroquel 25mg qhs -Seroquel prn -treat the underlying medical condition Ladarius Parry M.D. Apr 10, 2017 12:53
--- NOTE | 2017-04-10 13:21 | General Progress Note ---
Assessment/Plan Status: stable Status Narrative Cr 1.7 Assessment/Plan MILAN (acute kidney injury) --- h/o urinary outlet obstruction UTI (urinary tract infection) HTN DM Psychosis Bladder tumor and suprapubic catheter Anemia Plan: Slow hydrate previous dialysed and then stopped follow up renal parameters Mag and Phos supp as needed- monitor BS and adjust Insulin Keep BS and BP in check Monitor renal parameters Avoid Nephrotoxics- Per orders Subjective ROS Limited/Unobtainable: No Constitutional: Reports: malaise Allergies: Coded Allergies: No Known Allergies (Unverified , 02/25/17) Objective Last 24 Hour Vital Signs Date Time Temp Pulse Resp B/P Pulse Ox O2 Delivery O2 Flow Rate FiO2 04/10/17 11:58 65 20 125/57 95 Room Air 04/10/17 09:26 74 126/74 04/10/17 09:26 74 126/74 04/10/17 07:56 97.5 74 19 126/74 97 Room Air 04/10/17 03:14 99.0 69 17 137/66 94 Room Air 04/09/17 23:06 99.9 78 17 115/55 96 Room Air 04/09/17 21:00 92 153/79 04/09/17 19:19 100.6 92 18 153/79 93 Room Air 04/09/17 18:57 90 116/61 04/09/17 16:00 98.8 83 20 177/91 94 Room Air Intake and Output 04/09/17 04/10/17 19:00 07:00 Intake Total 200 ml Output Total 400 ml 250 ml Balance -200 ml -250 ml Intake Oral 200 ml Output Urine Total 400 ml 250 ml Laboratory Tests 04/10/17 06:35: White Blood Count 8.2, Red Blood Count 2.97L, Hemoglobin 9.4L, Hematocrit 29.3L , Mean Corpuscular Volume 98, Mean Corpuscular Hemoglobin 31.5H, Mean Corpuscular Hemoglobin Concent 32.0, Red Cell Distribution Width 14.1, Platelet Count 300, Mean Platelet Volume 7.0, Neutrophils (%) (Auto) 50.2, Lymphocytes (% ) (Auto) 34.0, Monocytes (%) (Auto) 9.1, Eosinophils (%) (Auto) 5.2H, Basophils (%) (Auto) 1.5, Sodium Level 146H, Potassium Level 4.0, Chloride Level 110H, Carbon Dioxide Level 27, Anion Gap 9, Blood Urea Nitrogen 8, Creatinine 1.7H, Estimat Glomerular Filtration Rate , Glucose Level 96, Hemoglobin A1c 5.3, Uric Acid 10.5H, Calcium Level 8.5L, Phosphorus Level 3.7, Magnesium Level 1.8, Total Bilirubin 0.2, Gamma Glutamyl Transpeptidase 16, Aspartate Amino Transf ( AST/SGOT) 11, Alanine Aminotransferase (ALT/SGPT) 9, Alkaline Phosphatase 76, Total Creatine Kinase 30L, C-Reactive Protein, Quantitative 2.1H, Pro-B-Type Natriuretic Peptide 728H, Total Protein 5.4L, Albumin 2.7L, Globulin 2.7, Albumin/Globulin Ratio 1.0, Thyroid Stimulating Hormone (TSH) 0.814 Height (Feet): 5 Height (Inches): 10.00 Weight (Pounds): 250 General Appearance: no apparent distress Cardiovascular: normal rate Respiratory/Chest: decreased breath sounds Abdomen: distended Genitourinary/Rectal: other - supra pubic catheter Objective other PE not changed JULIETA LEON Apr 10, 2017 13:21
--- NOTE | 2017-04-10 15:51 | Pulmonology Progress Note ---
Assessment/Plan Problems: (1) Psychosis (2) Acute delirium (3) Diabetes mellitus (4) COPD (chronic obstructive pulmonary disease) (5) HTN (hypertension) (6) CAD (coronary artery disease) Assessment/Plan more stable psychiatrist adjusted the meds ready to be discharged. Subjective ROS Limited/Unobtainable: No Constitutional: Reports: no symptoms HEENT: Repors: no symptoms Respiratory: Reports: no symptoms Allergies: Coded Allergies: No Known Allergies (Unverified , 02/25/17) Objective Last 24 Hour Vital Signs Date Time Temp Pulse Resp B/P Pulse Ox O2 Delivery O2 Flow Rate FiO2 04/10/17 11:58 65 20 125/57 95 Room Air 04/10/17 09:26 74 126/74 04/10/17 09:26 74 126/74 04/10/17 07:56 97.5 74 19 126/74 97 Room Air 04/10/17 03:14 99.0 69 17 137/66 94 Room Air 04/09/17 23:06 99.9 78 17 115/55 96 Room Air 04/09/17 21:00 92 153/79 04/09/17 19:19 100.6 92 18 153/79 93 Room Air 04/09/17 18:57 90 116/61 04/09/17 16:00 98.8 83 20 177/91 94 Room Air Intake and Output 04/09/17 04/10/17 19:00 07:00 Intake Total 200 ml Output Total 400 ml 250 ml Balance -200 ml -250 ml Intake Oral 200 ml Output Urine Total 400 ml 250 ml General Appearance: WD/WN HEENT: normocephalic, atraumatic Respiratory/Chest: chest wall non-tender, lungs clear Cardiovascular: normal peripheral pulses, normal rate Abdomen: normal bowel sounds, soft, non tender Genitourinary: normal external genitalia Extremities: no cyanosis, no clubbing 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, no motor/sensory deficits Lymphatic: no neck adenopathy, no groin adenopathy Microbiology Date/Time Source Procedure Growth Status 04/08/17 22:10 Urine,Clean Catch Urine Culture - Preliminary Gram Negative Bacillus 1 Resulted Laboratory Tests 04/10/17 06:35: White Blood Count 8.2, Red Blood Count 2.97L, Hemoglobin 9.4L, Hematocrit 29.3L , Mean Corpuscular Volume 98, Mean Corpuscular Hemoglobin 31.5H, Mean Corpuscular Hemoglobin Concent 32.0, Red Cell Distribution Width 14.1, Platelet Count 300, Mean Platelet Volume 7.0, Neutrophils (%) (Auto) 50.2, Lymphocytes (% ) (Auto) 34.0, Monocytes (%) (Auto) 9.1, Eosinophils (%) (Auto) 5.2H, Basophils (%) (Auto) 1.5, Sodium Level 146H, Potassium Level 4.0, Chloride Level 110H, Carbon Dioxide Level 27, Anion Gap 9, Blood Urea Nitrogen 8, Creatinine 1.7H, Estimat Glomerular Filtration Rate , Glucose Level 96, Hemoglobin A1c 5.3, Uric Acid 10.5H, Calcium Level 8.5L, Phosphorus Level 3.7, Magnesium Level 1.8, Total Bilirubin 0.2, Gamma Glutamyl Transpeptidase 16, Aspartate Amino Transf ( AST/SGOT) 11, Alanine Aminotransferase (ALT/SGPT) 9, Alkaline Phosphatase 76, Total Creatine Kinase 30L, C-Reactive Protein, Quantitative 2.1H, Pro-B-Type Natriuretic Peptide 728H, Total Protein 5.4L, Albumin 2.7L, Globulin 2.7, Albumin/Globulin Ratio 1.0, Thyroid Stimulating Hormone (TSH) 0.814 Current Medications Medications (Trade) Dose Ordered Sig/Fernando Route PRN Reason Start Time Stop Time Status Last Admin Dose Admin Acetaminophen (Tylenol) 650 mg Q4H PRN ORAL T>100.5 04/08/17 21:45 05/08/17 21:44 Amlodipine Besylate (Norvasc) 10 mg DAILY ORAL 04/09/17 09:00 05/09/17 08:59 04/10/17 09:26 Carvedilol (Coreg) 12.5 mg EVERY 12 HOURS ORAL 04/09/17 09:00 05/09/17 08:59 04/10/17 09:26 Clotrimazole (Lotrimin) 1 applic THREE TIMES A DAY TOPIC 04/09/17 13:00 05/09/17 12:59 04/10/17 13:13 Dextrose (Dextrose 50%) STAT PRN IV Hypoglycemia 04/08/17 21:45 05/08/17 21:44 Gabapentin (Neurontin) 200 mg EVERY 12 HOURS ORAL 04/09/17 09:00 05/09/17 08:59 04/10/17 09:26 Insulin Aspart (NovoLOG) BEFORE MEALS AND HS SUBQ 04/09/17 06:30 05/09/17 06:29 04/09/17 17:57 Lorazepam (Ativan 2mg/ml 1ml) 0.5 mg Q4H PRN IV For Anxiety 04/08/17 21:45 04/15/17 21:44 04/09/17 17:54 Morphine Sulfate (Morphine Sulfate) 1 mg Q4H PRN IVP PAIN 4-10 04/08/17 21:45 04/15/17 21:44 Ondansetron HCl (Zofran) 4 mg Q6H PRN IVP Nausea & Vomiting 04/08/17 21:45 05/08/17 21:44 Polyethylene Glycol (Miralax) 17 gm HSPRN PRN ORAL Constipation 04/08/17 21:45 05/08/17 21:44 Quetiapine Fumarate (SEROquel) 25 mg BEDTIME ORAL 04/10/17 21:00 05/10/17 20:59 Quetiapine Fumarate (SEROquel) 25 mg BIDPRN PRN ORAL Agitation 04/08/17 21:45 05/08/17 21:44 04/09/17 21:00 Tamsulosin HCl (Flomax) 0.4 mg DAILY ORAL 04/09/17 09:00 05/09/17 08:59 04/10/17 09:26 Zolpidem Tartrate (Ambien) 5 mg HSPRN PRN ORAL Insomnia 04/08/17 21:45 05/08/17 21:44 JUSTO LEBLANC Apr 10, 2017 15:51
[2017-04-10 16:14] VITALS: BP 129/62
--- NOTE | 2017-04-10 17:31 | Infectious Diseases Prog Note ---
Assessment/Plan Assessment/Plan A: Probable Sepsis Probable UTI UCx : GNR low grade fever CAD MILAN / ATN Acute encephalopathy hx of DVT Anemia Delirium HTN COPD DM Psychosis BPH Plan: start pt on IV Rocephin d# monitor CBC monitor BMP monitor Cx ( Ur , Bl ) monitor Cxray psych is following Subjective Allergies: Coded Allergies: No Known Allergies (Unverified , 02/25/17) Subjective low grade fever Objective Vital Signs Last 24 Hour Vital Signs Date Time Temp Pulse Resp B/P Pulse Ox O2 Delivery O2 Flow Rate FiO2 04/10/17 16:14 97.4 67 22 129/62 94 Room Air 04/10/17 11:58 65 20 125/57 95 Room Air 04/10/17 09:26 74 126/74 04/10/17 09:26 74 126/74 04/10/17 07:56 97.5 74 19 126/74 97 Room Air 04/10/17 03:14 99.0 69 17 137/66 94 Room Air 04/09/17 23:06 99.9 78 17 115/55 96 Room Air 04/09/17 21:00 92 153/79 04/09/17 19:19 100.6 92 18 153/79 93 Room Air 04/09/17 18:57 90 116/61 Height (Feet): 5 Height (Inches): 10.00 Weight (Pounds): 250 HEENT: anicteric Respiratory/Chest: normal breath sounds Cardiovascular: regularly irregular Abdomen: no mass Microbiology Date/Time Source Procedure Growth Status 04/08/17 22:10 Urine,Clean Catch Urine Culture - Preliminary Gram Negative Bacillus 1 Resulted Laboratory Tests Test 04/10/17 06:35 White Blood Count 8.2 K/UL (4.8-10.8) Red Blood Count 2.97 M/UL (4.70-6.10) L Hemoglobin 9.4 G/DL (14.2-18.0) L Hematocrit 29.3 % (42.0-52.0) L Mean Corpuscular Volume 98 FL (80-99) Mean Corpuscular Hemoglobin 31.5 PG (27.0-31.0) H Mean Corpuscular Hemoglobin Concent 32.0 G/DL (32.0-36.0) Red Cell Distribution Width 14.1 % (11.6-14.8) Platelet Count 300 K/UL (150-450) Mean Platelet Volume 7.0 FL (6.5-10.1) Neutrophils (%) (Auto) 50.2 % (45.0-75.0) Lymphocytes (%) (Auto) 34.0 % (20.0-45.0) Monocytes (%) (Auto) 9.1 % (1.0-10.0) Eosinophils (%) (Auto) 5.2 % (0.0-3.0) H Basophils (%) (Auto) 1.5 % (0.0-2.0) Sodium Level 146 mEQ/L (135-145) H Potassium Level 4.0 mEQ/L (3.4-4.9) Chloride Level 110 mEQ/L (98-107) H Carbon Dioxide Level 27 mEQ/L (20-30) Anion Gap 9 (5-15) Blood Urea Nitrogen 8 mg/dL (7-23) Creatinine 1.7 mg/dL (0.7-1.2) H Estimat Glomerular Filtration Rate mL/min (>60) Glucose Level 96 mg/dL (74-106) Hemoglobin A1c 5.3 % (< 6.0) Uric Acid 10.5 mg/dL (3.0-7.5) H Calcium Level 8.5 mg/dL (8.6-10.2) L Phosphorus Level 3.7 mg/dL (2.5-4.8) Magnesium Level 1.8 mg/dL (1.7-2.5) Total Bilirubin 0.2 mg/dL (0.0-1.2) Gamma Glutamyl Transpeptidase 16 U/L (8-61) Aspartate Amino Transf (AST/SGOT) 11 U/L (5-40) Alanine Aminotransferase (ALT/SGPT) 9 U/L (3-41) Alkaline Phosphatase 76 U/L (40-129) Total Creatine Kinase 30 U/L (38-174) L C-Reactive Protein, Quantitative 2.1 mg/dL (< 0.5) H Pro-B-Type Natriuretic Peptide 728 pg/mL (0-125) H Total Protein 5.4 g/dL (6.6-8.7) L Albumin 2.7 g/dL (3.5-5.2) L Globulin 2.7 g/dL Albumin/Globulin Ratio 1.0 (1.0-2.7) Thyroid Stimulating Hormone (TSH) 0.814 uIU/mL (0.300-4.500) Current Medications Medications (Trade) Dose Ordered Sig/Fernando Route PRN Reason Start Time Stop Time Status Last Admin Dose Admin Acetaminophen (Tylenol) 650 mg Q4H PRN ORAL T>100.5 04/08/17 21:45 05/08/17 21:44 Amlodipine Besylate (Norvasc) 10 mg DAILY ORAL 04/09/17 09:00 05/09/17 08:59 04/10/17 09:26 Carvedilol (Coreg) 12.5 mg EVERY 12 HOURS ORAL 04/09/17 09:00 05/09/17 08:59 04/10/17 09:26 Clotrimazole (Lotrimin) 1 applic THREE TIMES A DAY TOPIC 04/09/17 13:00 05/09/17 12:59 04/10/17 13:13 Dextrose (Dextrose 50%) STAT PRN IV Hypoglycemia 04/08/17 21:45 05/08/17 21:44 Gabapentin (Neurontin) 200 mg EVERY 12 HOURS ORAL 04/09/17 09:00 05/09/17 08:59 04/10/17 09:26 Insulin Aspart (NovoLOG) BEFORE MEALS AND HS SUBQ 04/09/17 06:30 05/09/17 06:29 04/09/17 17:57 Lorazepam (Ativan 2mg/ml 1ml) 0.5 mg Q4H PRN IV For Anxiety 04/08/17 21:45 04/15/17 21:44 04/09/17 17:54 Morphine Sulfate (Morphine Sulfate) 1 mg Q4H PRN IVP PAIN 4-10 04/08/17 21:45 04/15/17 21:44 Ondansetron HCl (Zofran) 4 mg Q6H PRN IVP Nausea & Vomiting 04/08/17 21:45 05/08/17 21:44 Polyethylene Glycol (Miralax) 17 gm HSPRN PRN ORAL Constipation 04/08/17 21:45 05/08/17 21:44 Quetiapine Fumarate (SEROquel) 25 mg BEDTIME ORAL 04/10/17 21:00 05/10/17 20:59 Quetiapine Fumarate (SEROquel) 25 mg BIDPRN PRN ORAL Agitation 04/08/17 21:45 05/08/17 21:44 04/09/17 21:00 Tamsulosin HCl (Flomax) 0.4 mg DAILY ORAL 04/09/17 09:00 05/09/17 08:59 04/10/17 09:26 Zolpidem Tartrate (Ambien) 5 mg HSPRN PRN ORAL Insomnia 04/08/17 21:45 05/08/17 21:44 MARISOL CAPPS M.D. Apr 10, 2017 17:31
[2017-04-10] MEDS: LORazepam Inj 2mg/ml 1ml IV PRN (18:46)
[2017-04-10] MEDS ORDERED: cefTRIAXone 1 GM in D5W 55 ML IVPB SCH (19:00)
[2017-04-10 20:00] VITALS: BP 144/77
[2017-04-10] MEDS: Zolpidem 5mg tab ORAL PRN (20:12)
[2017-04-11] VITALS: BP 134/77
[2017-04-11] MEDS: LORazepam Inj 2mg/ml 1ml IV PRN ×3 (00:18→20:11)
[2017-04-11 04:00] VITALS: BP 136/56
[2017-04-11] MEDS: NovoLOG Insulin Flexpen SUBQ SCH ×4 (06:15→21:20)
[2017-04-11 07:54] VITALS: BP 105/72
[2017-04-11] MEDS: Tamsulosin 0.4mg cap ORAL SCH (08:35)
--- NOTE | 2017-04-11 09:49 | General Progress Note ---
Assessment/Plan Status: stable - from renal stand Assessment/Plan MILAN (acute kidney injury) --- h/o urinary outlet obstruction UTI (urinary tract infection) HTN DM Psychosis Bladder tumor and suprapubic catheter Anemia Plan: no labs today Slow hydrate previous dialysed and then stopped follow up renal parameters Mag and Phos supp as needed- monitor BS and adjust Insulin Keep BS and BP in check Monitor renal parameters Avoid Nephrotoxics- Per orders Subjective ROS Limited/Unobtainable: No Constitutional: Reports: malaise Allergies: Coded Allergies: No Known Allergies (Unverified , 02/25/17) Objective Last 24 Hour Vital Signs Date Time Temp Pulse Resp B/P Pulse Ox O2 Delivery O2 Flow Rate FiO2 04/11/17 07:54 98.2 95 21 105/72 95 Room Air 04/11/17 04:00 97.2 61 20 136/56 97 Room Air 04/11/17 00:00 98.1 67 20 134/77 95 Room Air 04/10/17 20:13 76 144/77 04/10/17 20:00 98.4 76 20 144/77 93 Room Air 04/10/17 16:14 97.4 67 22 129/62 94 Room Air 04/10/17 11:58 65 20 125/57 95 Room Air Intake and Output 04/10/17 04/11/17 19:00 07:00 Intake Total 480 ml 60 ml Output Total 300 ml 650 ml Balance 180 ml -590 ml Intake Oral 480 ml 60 ml Output Urine Total 300 ml 550 ml Other 100 ml # Bowel Movements 2 Height (Feet): 5 Height (Inches): 10.00 Weight (Pounds): 250 General Appearance: agitated - at times Objective other PE not changed JULIETA LEON Apr 11, 2017 09:49
[2017-04-11] MEDS ORDERED: NS 275ml ONE (10:33)
[2017-04-11] MEDS ORDERED: Tubing IV Secondary IV ONE (10:33)
[2017-04-11] MEDS: Carvedilol 12.5mg tab ORAL SCH ×2 (10:59→21:20)
[2017-04-11 11:46] VITALS: BP 142/69
[2017-04-11] MEDS ORDERED: Zosyn 2.25gm inj IV SCH (15:00)
--- NOTE | 2017-04-11 15:01 | Infectious Diseases Prog Note ---
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), and a GPC pending speciation at ~60k CFU low grade fever, resolving CAD MILAN / ATN Acute encephalopathy hx of DVT Anemia Delirium HTN COPD DM Psychosis BPH CXR negative for pna dopplers negative for DVT Plan: d/c ceftriaxone now Start zosyn, renally dosed 3.375gm IV q12hr, first dose now, day #1 monitor CBC monitor BMP monitor blood cx psych is following Subjective Allergies: Coded Allergies: No Known Allergies (Unverified , 02/25/17) Objective Vital Signs Last 24 Hour Vital Signs Date Time Temp Pulse Resp B/P Pulse Ox O2 Delivery O2 Flow Rate FiO2 04/11/17 11:46 97.9 76 20 142/69 95 Room Air 04/11/17 11:00 78 120/73 04/11/17 10:59 78 120/73 04/11/17 07:54 98.2 95 21 105/72 95 Room Air 04/11/17 04:00 97.2 61 20 136/56 97 Room Air 04/11/17 00:00 98.1 67 20 134/77 95 Room Air 04/10/17 20:13 76 144/77 04/10/17 20:00 98.4 76 20 144/77 93 Room Air 04/10/17 16:14 97.4 67 22 129/62 94 Room Air Height (Feet): 5 Height (Inches): 10.00 Weight (Pounds): 250 General Appearance: no acute distress HEENT: anicteric, mucous membranes moist Respiratory/Chest: lungs clear Abdomen: soft, non tender Skin: no rash Microbiology Date/Time Source Procedure Growth Status 04/08/17 22:10 Urine,Clean Catch Urine Culture - Preliminary Providencia Stuartii Gram Positive Cocci Resulted Current Medications Medications (Trade) Dose Ordered Sig/Fernando Route PRN Reason Start Time Stop Time Status Last Admin Dose Admin Acetaminophen (Tylenol) 650 mg Q4H PRN ORAL T>100.5 04/08/17 21:45 05/08/17 21:44 Amlodipine Besylate (Norvasc) 10 mg DAILY ORAL 04/09/17 09:00 05/09/17 08:59 04/11/17 11:00 Carvedilol (Coreg) 12.5 mg EVERY 12 HOURS ORAL 04/09/17 09:00 05/09/17 08:59 04/11/17 10:59 Ceftriaxone Sodium/Dextrose (Rocephin/D5W) 55 ml @ 110 mls/hr Q24H IVPB 04/10/17 19:00 04/17/17 18:59 04/10/17 18:39 Clotrimazole (Lotrimin) 1 applic THREE TIMES A DAY TOPIC 04/09/17 13:00 05/09/17 12:59 04/11/17 13:03 Dextrose (Dextrose 50%) STAT PRN IV Hypoglycemia 04/08/17 21:45 05/08/17 21:44 Gabapentin (Neurontin) 200 mg EVERY 12 HOURS ORAL 04/09/17 09:00 05/09/17 08:59 04/11/17 11:00 Insulin Aspart (NovoLOG) BEFORE MEALS AND HS SUBQ 04/09/17 06:30 05/09/17 06:29 04/11/17 12:15 Lorazepam (Ativan 2mg/ml 1ml) 0.5 mg Q4H PRN IV For Anxiety 04/08/17 21:45 04/15/17 21:44 04/11/17 08:36 Morphine Sulfate (Morphine Sulfate) 1 mg Q4H PRN IVP PAIN 4-10 04/08/17 21:45 04/15/17 21:44 Ondansetron HCl (Zofran) 4 mg Q6H PRN IVP Nausea & Vomiting 04/08/17 21:45 05/08/17 21:44 Polyethylene Glycol (Miralax) 17 gm HSPRN PRN ORAL Constipation 04/08/17 21:45 05/08/17 21:44 Quetiapine Fumarate (SEROquel) 25 mg BIDPRN PRN ORAL Agitation 04/08/17 21:45 05/08/17 21:44 04/09/17 21:00 Quetiapine Fumarate 25 mg 25 mg BEDTIME ORAL 04/10/17 21:00 05/10/17 20:59 04/11/17 11:00 Tamsulosin HCl (Flomax) 0.4 mg DAILY ORAL 04/09/17 09:00 05/09/17 08:59 04/11/17 08:35 Zolpidem Tartrate (Ambien) 5 mg HSPRN PRN ORAL Insomnia 04/08/17 21:45 05/08/17 21:44 04/10/17 20:12 Junior Rios M.D. Apr 11, 2017 15:01
--- NOTE | 2017-04-11 15:55 | Pulmonology Progress Note ---
Assessment/Plan Problems: (1) Psychosis (2) Acute delirium (3) Diabetes mellitus (4) COPD (chronic obstructive pulmonary disease) (5) HTN (hypertension) (6) CAD (coronary artery disease) Assessment/Plan more stable psychiatrist adjusted the meds ready to be discharged. awaiting placement Subjective ROS Limited/Unobtainable: No Constitutional: Reports: no symptoms HEENT: Repors: no symptoms Respiratory: Reports: no symptoms Allergies: Coded Allergies: No Known Allergies (Unverified , 02/25/17) Objective Last 24 Hour Vital Signs Date Time Temp Pulse Resp B/P Pulse Ox O2 Delivery O2 Flow Rate FiO2 04/11/17 11:46 97.9 76 20 142/69 95 Room Air 04/11/17 11:00 78 120/73 04/11/17 10:59 78 120/73 04/11/17 07:54 98.2 95 21 105/72 95 Room Air 04/11/17 04:00 97.2 61 20 136/56 97 Room Air 04/11/17 00:00 98.1 67 20 134/77 95 Room Air 04/10/17 20:13 76 144/77 04/10/17 20:00 98.4 76 20 144/77 93 Room Air 04/10/17 16:14 97.4 67 22 129/62 94 Room Air Intake and Output 04/10/17 04/11/17 19:00 07:00 Intake Total 480 ml 60 ml Output Total 300 ml 650 ml Balance 180 ml -590 ml Intake Oral 480 ml 60 ml Output Urine Total 300 ml 550 ml Other 100 ml # Bowel Movements 2 General Appearance: WD/WN HEENT: normocephalic, atraumatic Respiratory/Chest: chest wall non-tender, lungs clear Cardiovascular: normal peripheral pulses, normal rate Abdomen: normal bowel sounds, soft, non tender Genitourinary: normal external genitalia Extremities: no cyanosis Skin: no ulcers Neurologic/Psychiatric: no motor/sensory deficits, oriented x 3 Lymphatic: no neck adenopathy Microbiology Date/Time Source Procedure Growth Status 04/08/17 22:10 Urine,Clean Catch Urine Culture - Preliminary Providencia Stuartii Gram Positive Cocci Resulted Current Medications Medications (Trade) Dose Ordered Sig/Fernando Route PRN Reason Start Time Stop Time Status Last Admin Dose Admin Acetaminophen (Tylenol) 650 mg Q4H PRN ORAL T>100.5 04/08/17 21:45 05/08/17 21:44 Amlodipine Besylate (Norvasc) 10 mg DAILY ORAL 04/09/17 09:00 05/09/17 08:59 04/11/17 11:00 Carvedilol (Coreg) 12.5 mg EVERY 12 HOURS ORAL 04/09/17 09:00 05/09/17 08:59 04/11/17 10:59 Clotrimazole (Lotrimin) 1 applic THREE TIMES A DAY TOPIC 04/09/17 13:00 05/09/17 12:59 04/11/17 13:03 Dextrose (Dextrose 50%) STAT PRN IV Hypoglycemia 04/08/17 21:45 05/08/17 21:44 Gabapentin (Neurontin) 200 mg EVERY 12 HOURS ORAL 04/09/17 09:00 05/09/17 08:59 04/11/17 11:00 Insulin Aspart (NovoLOG) BEFORE MEALS AND HS SUBQ 04/09/17 06:30 05/09/17 06:29 04/11/17 12:15 Lorazepam (Ativan 2mg/ml 1ml) 0.5 mg Q4H PRN IV For Anxiety 04/08/17 21:45 04/15/17 21:44 04/11/17 08:36 Morphine Sulfate (Morphine Sulfate) 1 mg Q4H PRN IVP PAIN 4-10 04/08/17 21:45 04/15/17 21:44 Ondansetron HCl (Zofran) 4 mg Q6H PRN IVP Nausea & Vomiting 04/08/17 21:45 05/08/17 21:44 Piperacillin Sod/ Tazobactam Sod/ Dextrose (Zosyn/D5W) 110 ml @ 27.5 mls/hr EVERY 8 HOURS IVPB 04/11/17 22:00 04/21/17 21:59 Polyethylene Glycol (Miralax) 17 gm HSPRN PRN ORAL Constipation 04/08/17 21:45 05/08/17 21:44 Quetiapine Fumarate (SEROquel) 25 mg BIDPRN PRN ORAL Agitation 04/08/17 21:45 05/08/17 21:44 04/09/17 21:00 Quetiapine Fumarate 25 mg 25 mg BEDTIME ORAL 04/10/17 21:00 05/10/17 20:59 04/11/17 11:00 Tamsulosin HCl (Flomax) 0.4 mg DAILY ORAL 04/09/17 09:00 05/09/17 08:59 04/11/17 08:35 Zolpidem Tartrate (Ambien) 5 mg HSPRN PRN ORAL Insomnia 04/08/17 21:45 05/08/17 21:44 04/10/17 20:12 JUSTO LEBLANC Apr 11, 2017 15:55
[2017-04-11 16:10] VITALS: BP 132/83
[2017-04-11 20:00] VITALS: BP 147/72
[2017-04-11] MEDS: Zoysn 3.37gm in D5W 110ml IVPB SCH (21:16)
[2017-04-11] MEDS: Zolpidem 5mg tab ORAL PRN (21:20)
--- NOTE | 2017-04-11 23:57 | Geriatric Progress Note ---
Assessment/Plan Assessment/Plan stable cont seroquel Discussed with: patient Subjective Constitutional: Reports: malaise, weakness Mood/Memory: Reports: anxiety, depressed feelings, emotional problems, prior hx Psychiatric: Reports: hallucinations, see HPI Geriatric Geriatric Last 24 Hour Vital Signs Date Time Temp Pulse Resp B/P Pulse Ox O2 Delivery O2 Flow Rate FiO2 04/11/17 21:20 75 147/72 04/11/17 20:00 98.9 75 20 147/72 96 Room Air 04/11/17 16:10 98.2 64 21 132/83 98 Room Air 04/11/17 11:46 97.9 76 20 142/69 95 Room Air 04/11/17 11:00 78 120/73 04/11/17 10:59 78 120/73 04/11/17 07:54 98.2 95 21 105/72 95 Room Air 04/11/17 04:00 97.2 61 20 136/56 97 Room Air 04/11/17 00:00 98.1 67 20 134/77 95 Room Air Intake and Output 04/10/17 04/11/17 19:00 07:00 Intake Total 480 ml 60 ml Output Total 300 ml 650 ml Balance 180 ml -590 ml Intake Oral 480 ml 60 ml Output Urine Total 300 ml 550 ml Other 100 ml # Bowel Movements 2 Current Medications Medications (Trade) Dose Ordered Sig/Fernando Route PRN Reason Start Time Stop Time Status Last Admin Dose Admin Acetaminophen (Tylenol) 650 mg Q4H PRN ORAL T>100.5 04/08/17 21:45 05/08/17 21:44 Amlodipine Besylate (Norvasc) 10 mg DAILY ORAL 04/09/17 09:00 05/09/17 08:59 04/11/17 11:00 Carvedilol (Coreg) 12.5 mg EVERY 12 HOURS ORAL 04/09/17 09:00 05/09/17 08:59 04/11/17 21:20 Clotrimazole (Lotrimin) 1 applic THREE TIMES A DAY TOPIC 04/09/17 13:00 05/09/17 12:59 04/11/17 19:15 Dextrose (Dextrose 50%) STAT PRN IV Hypoglycemia 04/08/17 21:45 05/08/17 21:44 Gabapentin (Neurontin) 200 mg EVERY 12 HOURS ORAL 04/09/17 09:00 05/09/17 08:59 04/11/17 21:25 Insulin Aspart (NovoLOG) BEFORE MEALS AND HS SUBQ 04/09/17 06:30 05/09/17 06:29 04/11/17 21:20 Lorazepam (Ativan 2mg/ml 1ml) 0.5 mg Q4H PRN IV For Anxiety 04/08/17 21:45 04/15/17 21:44 04/11/17 20:11 Morphine Sulfate (Morphine Sulfate) 1 mg Q4H PRN IVP PAIN 4-10 04/08/17 21:45 04/15/17 21:44 Ondansetron HCl (Zofran) 4 mg Q6H PRN IVP Nausea & Vomiting 04/08/17 21:45 05/08/17 21:44 Piperacillin Sod/ Tazobactam Sod/ Dextrose (Zosyn/D5W) 110 ml @ 27.5 mls/hr EVERY 8 HOURS IVPB 04/11/17 22:00 04/21/17 21:59 04/11/17 21:16 Polyethylene Glycol (Miralax) 17 gm HSPRN PRN ORAL Constipation 04/08/17 21:45 05/08/17 21:44 Quetiapine Fumarate (SEROquel) 25 mg BIDPRN PRN ORAL Agitation 04/08/17 21:45 05/08/17 21:44 04/09/17 21:00 Quetiapine Fumarate 25 mg 25 mg BEDTIME ORAL 04/10/17 21:00 05/10/17 20:59 04/11/17 11:00 Tamsulosin HCl (Flomax) 0.4 mg DAILY ORAL 04/09/17 09:00 05/09/17 08:59 04/11/17 08:35 Zolpidem Tartrate (Ambien) 5 mg HSPRN PRN ORAL Insomnia 04/08/17 21:45 05/08/17 21:44 04/11/17 21:20 Height (Feet): 5 Height (Inches): 10.00 Weight (Pounds): 250 General Appearance: well appearing, well groomed, well nourished, no apparent distress Psychiatric Behavior: uncooperative Language/Speech: mumbled Orientation: disoriented Affect: flat Insight: Ladarius Joe M.D. Apr 11, 2017 23:57
[2017-04-12] VITALS: BP 149/55
[2017-04-12] MEDS: LORazepam Inj 2mg/ml 1ml IV PRN ×2 (00:35→13:48)
[2017-04-12 04:00] VITALS: BP 132/59
[2017-04-12] MEDS: Zoysn 3.37gm in D5W 110ml IVPB SCH ×2 (05:42→13:48)
[2017-04-12] MEDS: NovoLOG Insulin Flexpen SUBQ SCH ×3 (06:30→16:30)
[2017-04-12 07:26] VITALS: BP 168/94
[2017-04-12] MEDS: Carvedilol 12.5mg tab ORAL SCH (08:26)
[2017-04-12] MEDS: Tamsulosin 0.4mg cap ORAL SCH (08:26)
--- NOTE | 2017-04-12 08:39 | General Progress Note ---
Assessment/Plan Status: unchanged Assessment/Plan MILAN (acute kidney injury) --- h/o urinary outlet obstruction UTI (urinary tract infection) HTN DM Psychosis Bladder tumor and suprapubic catheter Anemia Plan: no labs today Slow hydrate previous dialysed and then stopped follow up renal parameters Mag and Phos supp as needed- monitor BS and adjust Insulin Keep BS and BP in check Monitor renal parameters Avoid Nephrotoxics- Per orders Subjective ROS Limited/Unobtainable: No Constitutional: Reports: malaise Allergies: Coded Allergies: No Known Allergies (Unverified , 02/25/17) Objective Last 24 Hour Vital Signs Date Time Temp Pulse Resp B/P Pulse Ox O2 Delivery O2 Flow Rate FiO2 04/12/17 08:26 86 168/94 04/12/17 08:26 86 168/94 04/12/17 07:26 97.9 86 18 168/94 98 Room Air 04/12/17 04:00 97.5 59 20 132/59 Room Air 04/12/17 00:00 97.2 65 20 149/55 94 Room Air 04/11/17 21:20 75 147/72 04/11/17 20:00 98.9 75 20 147/72 96 Room Air 04/11/17 16:10 98.2 64 21 132/83 98 Room Air 04/11/17 11:46 97.9 76 20 142/69 95 Room Air 04/11/17 11:00 78 120/73 04/11/17 10:59 78 120/73 Intake and Output 04/11/17 04/12/17 19:00 07:00 Intake Total 690 ml 137.5 ml Output Total 800 ml 1000 ml Balance -110 ml -862.5 ml Intake Oral 690 ml IV Total 137.5 ml Output Urine Total 800 ml 1000 ml # Bowel Movements 1 1 Height (Feet): 5 Height (Inches): 10.00 Weight (Pounds): 250 General Appearance: no apparent distress Genitourinary/Rectal: other - supra pubic cath + Objective other PE not changed JULIETA LEON Apr 12, 2017 08:39
--- NOTE | 2017-04-12 12:49 | Diagnostic Imaging Report ---
APPROVED REPORT CPT Code: 80101 Present Symptoms Lower Extremity Pain: Bilateral BILATERAL: Imaging reveals a patent deep venous system bilaterally. There is no evidence of thrombus within the femoral, popliteal or tibial segments. The greater saphenous veins are also within normal limits. Doppler indicates normal spontaneous flow within these segments.
--- NOTE | 2017-04-12 14:31 | Infectious Diseases Prog Note ---
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), and a GPC pending speciation at ~60k CFU low grade fever, resolved CAD MILAN / ATN Acute encephalopathy hx of DVT Anemia Delirium HTN COPD DM Psychosis BPH CXR negative for pna dopplers negative for DVT Plan: zosyn, renally dosed 3.375gm IV q12hr day #2/ monitor CBC monitor BMP psych is following Subjective Allergies: Coded Allergies: No Known Allergies (Unverified , 02/25/17) Objective Vital Signs Last 24 Hour Vital Signs Date Time Temp Pulse Resp B/P Pulse Ox O2 Delivery O2 Flow Rate FiO2 04/12/17 08:26 86 168/94 04/12/17 08:26 86 168/94 04/12/17 07:26 97.9 86 18 168/94 98 Room Air 04/12/17 04:00 97.5 59 20 132/59 Room Air 04/12/17 00:00 97.2 65 20 149/55 94 Room Air 04/11/17 21:20 75 147/72 04/11/17 20:00 98.9 75 20 147/72 96 Room Air 04/11/17 16:10 98.2 64 21 132/83 98 Room Air Height (Feet): 5 Height (Inches): 10.00 Weight (Pounds): 250 General Appearance: no acute distress, other - chronic altered mental status HEENT: anicteric Abdomen: normal bowel sounds Skin: no rash Current Medications Medications (Trade) Dose Ordered Sig/Fernando Route PRN Reason Start Time Stop Time Status Last Admin Dose Admin Acetaminophen (Tylenol) 650 mg Q4H PRN ORAL T>100.5 04/08/17 21:45 05/08/17 21:44 Amlodipine Besylate (Norvasc) 10 mg DAILY ORAL 04/09/17 09:00 05/09/17 08:59 04/12/17 08:26 Carvedilol (Coreg) 12.5 mg EVERY 12 HOURS ORAL 04/09/17 09:00 05/09/17 08:59 04/12/17 08:26 Clotrimazole 1 applic 1 applic THREE TIMES A DAY TOPIC 04/09/17 13:00 05/09/17 12:59 04/12/17 13:48 Dextrose (Dextrose 50%) STAT PRN IV Hypoglycemia 04/08/17 21:45 05/08/17 21:44 Gabapentin (Neurontin) 200 mg EVERY 12 HOURS ORAL 04/09/17 09:00 05/09/17 08:59 04/12/17 08:26 Insulin Aspart (NovoLOG) BEFORE MEALS AND HS SUBQ 04/09/17 06:30 05/09/17 06:29 04/12/17 13:51 Lorazepam (Ativan 2mg/ml 1ml) 0.5 mg Q4H PRN IV For Anxiety 04/08/17 21:45 04/15/17 21:44 04/12/17 13:48 Morphine Sulfate (Morphine Sulfate) 1 mg Q4H PRN IVP PAIN 4-10 04/08/17 21:45 04/15/17 21:44 Ondansetron HCl (Zofran) 4 mg Q6H PRN IVP Nausea & Vomiting 04/08/17 21:45 05/08/17 21:44 Piperacillin Sod/ Tazobactam Sod/ Dextrose (Zosyn/D5W) 110 ml @ 27.5 mls/hr EVERY 8 HOURS IVPB 04/11/17 22:00 04/21/17 21:59 04/12/17 13:48 Polyethylene Glycol (Miralax) 17 gm HSPRN PRN ORAL Constipation 04/08/17 21:45 05/08/17 21:44 Quetiapine Fumarate (SEROquel) 25 mg Q6H PRN ORAL Agitation 04/12/17 15:00 05/12/17 14:59 Quetiapine Fumarate (SEROquel) 50 mg BEDTIME ORAL 04/12/17 21:00 05/12/17 20:59 Tamsulosin HCl (Flomax) 0.4 mg DAILY ORAL 04/09/17 09:00 05/09/17 08:59 04/12/17 08:26 Zolpidem Tartrate (Ambien) 5 mg HSPRN PRN ORAL Insomnia 04/08/17 21:45 05/08/17 21:44 04/11/17 21:20 Junior Rios M.D. Apr 12, 2017 14:30
--- NOTE | 2017-04-12 14:36 | General Progress Note ---
Assessment/Plan Status: doing well, stable Assessment/Plan -increase seroquel to 50mg po qhs -seroquel 12.5mg q 6hr prn Subjective Neurologic/Psychiatric: Reports: anxiety, emotional problems Allergies: Coded Allergies: No Known Allergies (Unverified , 02/25/17) Subjective the pt was asleep. sitter standing next to him, the pt was agitated earlier and was given prn. the pt attempts to come out of bed. Objective Last 24 Hour Vital Signs Date Time Temp Pulse Resp B/P Pulse Ox O2 Delivery O2 Flow Rate FiO2 04/12/17 08:26 86 168/94 04/12/17 08:26 86 168/94 04/12/17 07:26 97.9 86 18 168/94 98 Room Air 04/12/17 04:00 97.5 59 20 132/59 Room Air 04/12/17 00:00 97.2 65 20 149/55 94 Room Air 04/11/17 21:20 75 147/72 04/11/17 20:00 98.9 75 20 147/72 96 Room Air 04/11/17 16:10 98.2 64 21 132/83 98 Room Air Intake and Output 04/11/17 04/12/17 19:00 07:00 Intake Total 690 ml 137.5 ml Output Total 800 ml 1000 ml Balance -110 ml -862.5 ml Intake Oral 690 ml IV Total 137.5 ml Output Urine Total 800 ml 1000 ml # Bowel Movements 1 1 Height (Feet): 5 Height (Inches): 10.00 Weight (Pounds): 250 General Appearance: no apparent distress, confused, agitated, overweight Neurologic: disoriented, unresponsive, depressed affect Ladarius Parry M.D. Apr 12, 2017 14:35
--- NOTE | 2017-04-12 15:58 | Pulmonology Progress Note ---
Assessment/Plan Problems: (1) Psychosis (2) Acute delirium (3) Diabetes mellitus (4) COPD (chronic obstructive pulmonary disease) (5) HTN (hypertension) (6) CAD (coronary artery disease) Assessment/Plan more stable psychiatrist adjusted the meds ready to be discharged. awaiting placement Subjective ROS Limited/Unobtainable: No Constitutional: Reports: no symptoms HEENT: Repors: no symptoms Respiratory: Reports: no symptoms Cardiovascular: Reports: no symptoms Allergies: Coded Allergies: No Known Allergies (Unverified , 02/25/17) Objective Last 24 Hour Vital Signs Date Time Temp Pulse Resp B/P Pulse Ox O2 Delivery O2 Flow Rate FiO2 04/12/17 08:26 86 168/94 04/12/17 08:26 86 168/94 04/12/17 07:26 97.9 86 18 168/94 98 Room Air 04/12/17 04:00 97.5 59 20 132/59 Room Air 04/12/17 00:00 97.2 65 20 149/55 94 Room Air 04/11/17 21:20 75 147/72 04/11/17 20:00 98.9 75 20 147/72 96 Room Air 04/11/17 16:10 98.2 64 21 132/83 98 Room Air Intake and Output 04/11/17 04/12/17 19:00 07:00 Intake Total 690 ml 137.5 ml Output Total 800 ml 1000 ml Balance -110 ml -862.5 ml Intake Oral 690 ml IV Total 137.5 ml Output Urine Total 800 ml 1000 ml # Bowel Movements 1 1 General Appearance: WD/WN HEENT: normocephalic, atraumatic Respiratory/Chest: chest wall non-tender, lungs clear Cardiovascular: normal peripheral pulses, regular rhythm Abdomen: normal bowel sounds, soft, non tender Genitourinary: normal external genitalia Skin: no rash, no lesions Current Medications Medications (Trade) Dose Ordered Sig/Fernando Route PRN Reason Start Time Stop Time Status Last Admin Dose Admin Acetaminophen (Tylenol) 650 mg Q4H PRN ORAL T>100.5 04/08/17 21:45 05/08/17 21:44 Amlodipine Besylate (Norvasc) 10 mg DAILY ORAL 04/09/17 09:00 05/09/17 08:59 04/12/17 08:26 Carvedilol (Coreg) 12.5 mg EVERY 12 HOURS ORAL 04/09/17 09:00 05/09/17 08:59 04/12/17 08:26 Clotrimazole 1 applic 1 applic THREE TIMES A DAY TOPIC 04/09/17 13:00 05/09/17 12:59 04/12/17 13:48 Dextrose (Dextrose 50%) STAT PRN IV Hypoglycemia 04/08/17 21:45 05/08/17 21:44 Gabapentin (Neurontin) 200 mg EVERY 12 HOURS ORAL 04/09/17 09:00 05/09/17 08:59 04/12/17 08:26 Insulin Aspart (NovoLOG) BEFORE MEALS AND HS SUBQ 04/09/17 06:30 05/09/17 06:29 04/12/17 13:51 Lorazepam (Ativan 2mg/ml 1ml) 0.5 mg Q4H PRN IV For Anxiety 04/08/17 21:45 04/15/17 21:44 04/12/17 13:48 Morphine Sulfate (Morphine Sulfate) 1 mg Q4H PRN IVP PAIN 4-10 04/08/17 21:45 04/15/17 21:44 Ondansetron HCl (Zofran) 4 mg Q6H PRN IVP Nausea & Vomiting 04/08/17 21:45 05/08/17 21:44 Piperacillin Sod/ Tazobactam Sod/ Dextrose (Zosyn/D5W) 110 ml @ 27.5 mls/hr EVERY 8 HOURS IVPB 04/11/17 22:00 04/21/17 21:59 04/12/17 13:48 Polyethylene Glycol (Miralax) 17 gm HSPRN PRN ORAL Constipation 04/08/17 21:45 05/08/17 21:44 Quetiapine Fumarate (SEROquel) 25 mg Q6H PRN ORAL Agitation 04/12/17 15:00 05/12/17 14:59 Quetiapine Fumarate (SEROquel) 50 mg BEDTIME ORAL 04/12/17 21:00 05/12/17 20:59 Tamsulosin HCl (Flomax) 0.4 mg DAILY ORAL 04/09/17 09:00 05/09/17 08:59 04/12/17 08:26 Zolpidem Tartrate (Ambien) 5 mg HSPRN PRN ORAL Insomnia 04/08/17 21:45 05/08/17 21:44 04/11/17 21:20 JUSTO LEBLANC Apr 12, 2017 15:58
[2017-04-12 16:00] VITALS: BP 154/87
[2017-04-12] MEDS ORDERED: NS 275ml ONE (18:29)
[2017-04-12] MEDS ORDERED: ZOSYN 3.373.375 GM/1 IVPB (19:52)
--- NOTE | 2017-04-15 12:31 | Discharge Summary ---
Discharge Summary Hospital Course Date of Admission Apr 08, 2017 at 22:32 Date of Discharge Apr 12, 2017 at 18:30 Admitting Diagnosis psychosis HPI Nikos Sanchez is a 71 year old male who was admitted on Apr 08, 2017 at 22: 32 for Psychosis Hospital Course dc summary #[id number] Discharge Medications Continued Medications: Amlodipine Besylate* (Amlodipine Besylate*) 10 Mg Tablet 10 MG ORAL DAILY, TAB Carvedilol (Coreg) 12.5 Mg Tablet 12.5 MG ORAL EVERY 12 HOURS, TAB Clonazepam* (Klonopin*) 1 Mg Tablet 1 MG ORAL Q12HR, #15 TAB 0 Refills Gabapentin* (Gabapentin*) 100 Mg Capsule 200 MG ORAL HS, CAP Hydralazine Hcl* (Hydralazine Hcl*) 50 Mg Tablet 50 MG ORAL EVERY 8 HOURS, TAB Insulin Aspart (Novolog Flexpen) 100 Unit/1 Ml Insuln.pen 0 UNITS SUBQ BEFORE MEALS AND HS for 30 Days, EA Ksnllpwbcwbi-Juha-Htjdldhj,Iso (Zosyn 3.375 Gm Pre Mix-Bag) 3.375 Gm/50 Ml Froz.piggy 3.375 GM IVPB EVERY 12 HOURS for 8 Days, BAG Polyethylene Glycol 3350* (Miralax*) 17 Gm Powd.pack 17 GM ORAL DAILY, PACKET Quetiapine Fumarate* (Seroquel*) 25 Mg Tablet 25 MG ORAL BIDPRN PRN for 30 Days, TAB Tamsulosin HCl (Flomax) 0.4 Mg Cap.er.24h 0.4 MG ORAL DAILY, CAP Zolpidem Tartrate* (Ambien*) 5 Mg Tablet 5 MG ORAL BEDTIME PRN for Insomnia, TAB Discharge Discharge Disposition Patient was discharged to SNF/Subacute Facility(03) Discharge Diagnoses: Discharge Instructions Discharge Instructions Special Instructions I have been assigned to complete a D/C Summary on this account. I was not involved in the patient management Lani Tapia NP (Vanchtein) Apr 15, 2017 12:31
--- NOTE | 2017-04-16 07:30 | Discharge Summary 2 SIG ---
DATE OF ADMISSION: 04/08/2017 DATE OF DISCHARGE: 04/12/2017 REASON FOR ADMISSION: The patient is a 71-year-old male with a history of psychotic disorder, COPD, diabetes, hypertension, and dementia, was brought from the assisted facility for evaluation. The patient was fighting with the staff and spitting at them. The patient upon presentation denied any pain. The patient stated that he was frustrated because he felt that his medication were not in the balance. He denied fevers, shortness of breath, dyspnea, cough, chest pain, vomiting, or diarrhea. The patient had suprapubic catheter. The patient's past medical history as mentioned above for diabetes, COPD, hypertension, psychosis as well as the history of being dialyzed at one time. Workup in the emergency room revealed blood pressure 163/90, pulse oximetry was stable on room air and afebrile. No leukocytosis. Stable hemoglobin and hematocrit. Stable electrolytes. BUN 12 and creatinine 2. Glucose level 183. Troponin negative. CK 23. ProBNP 305. TSH within normal limits. Serum toxicology for alcohol, salicylates, and Tylenol level was all negative. Urine tox screen was positive for benzodiazepine. Urinalysis was 3+ leukocyte esterase and pyuria along with bacteria. Blood pressure was treated. The patient was started on IV fluids. The patient was admitted for further management. ADMITTING DIAGNOSES: 1. Acute delirium. 2. Urinary tract infection. 3. Hypertension. 4. Psychosis. 5. Acute kidney injury on chronic renal insufficiency. 6. History of urinary outlet obstruction. HOSPITAL STAY: The patient was admitted. Nephrology, ID, and psychiatric consult were requested. Psychiatrist diagnosed the patient with psychosis, dementia, and delirium secondary to general medical condition. Psychiatrist optimized medication regimen for the patient to stabilize and balance his mood and emotion. Patent Examiner closely follows. Pain management was addressed. The patient was dialyzed in the past. No dialysis necessary for now. Renal function was monitored. Electrolytes and renal parameters were followed. Nephrotoxics were avoided. Magnesium and phosphorus supplement was provided and they are stable prior to discharge. Creatinine is down to 1.7 from initial 2. Phosphorous and magnesium were stable prior to discharge. ID follows on the antibiotic regimen. Urine culture grew Providencia stuartii as well as VRE, but with lower calorie count. ID will not treat that. The patient was discharged to assisted facility with antibiotics as per ID recommendation. Blood pressure was managed with multiple antihypertensive medication including calcium channel cinthya, beta-cinthya and hydralazine and was stable. Blood sugar was managed with sliding scale of insulin. Venous duplex of bilateral lower extremity was negative. Prior to discharge, hemoglobin 9.4 and hematocrit 29.3. No leukocytosis. As mentioned above, creatinine down to 1.7. 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 Supplemental oxygen and pulmonary toilet was provided as needed to keep saturation above 92%. Pulse oximetry was stable on the room air. No cough. No congestion. No bleeding. No signs of COPD exacerbation. The patient was stable for discharge to assisted facility and follow up with medical doctor at the facility. DISCHARGE DIAGNOSES: 1. Probable sepsis. 2. Urinary tract infection with Providencia. 3. Coronary artery disease. 4. Acute kidney injury/acute tubular necrosis on chronic renal insufficiency. 5. Acute encephalopathy on chronic dementia. 6. Psychosis. 7. Delirium secondary to general medical condition. 8. Hypertension. 9. Diabetes. 10. Chronic obstructive pulmonary disease. 11. Anemia. 12. History of deep venous thrombosis. DISCHARGE MEDICATIONS: See medication reconciliation list. DISCHARGE INSTRUCTIONS: The patient was discharged to assisted facility. FOLLOWUP: Follow up with medical doctor at the facility. Richard Curran M.D. I have been assigned to dictate discharge summary on this account and I was not involved in the patient's management. Lani Tapia N.P. (vanchtein) DR: NAHUN JOB#: [id number] CC:
== END 2017-04-12 18:30 | DRG 871 ==
LOC: EDBD 21:21 → EMR 21:56 → EDBEDREQ 22:02 → 4E 22:32 → EDBEDREQ 04-09 05:48
DX: A41.9 Sepsis, unspecified organism (principal); N17.0 Acute kidney failure with tubular necrosis; G93.40 Encephalopathy, unspecified; F05 Delirium due to known physiological condition; N39.0 Urinary tract infection, site not specified; F03.90 Unspecified dementia, unspecified severity, without behavioral disturbance, psychotic disturbance, mood disturbance, and anxiety; D64.9 Anemia, unspecified; J44.9 Chronic obstructive pulmonary disease, unspecified; F29 Unspecified psychosis not due to a substance or known physiological condition; Z43.5 Encounter for attention to cystostomy; I25.10 Atherosclerotic heart disease of native coronary artery without angina pectoris; I12.9 Hypertensive chronic kidney disease with stage 1 through stage 4 chronic kidney disease, or unspecified chronic kidney disease; N18.9 Chronic kidney disease, unspecified; B96.89 Other specified bacterial agents as the cause of diseases classified elsewhere; E11.22 Type 2 diabetes mellitus with diabetic chronic kidney disease; Z86.718 Personal history of other venous thrombosis and embolism; N40.0 Benign prostatic hyperplasia without lower urinary tract symptoms
CPT/HCPCS: 36415; 70450; 71010; 80053; 80061; 80300; 80329; 81003; 82140; 82550; 82962; 82977; 83036; 83735; 83880; 84100; 84443; 84484; 84550; 85025; 85610; 85730; 86140; 87086; 87181; 93005; 93970; J1815; J2405